=== PATIENT | female | born 1935 | race Caucasian/White ===

== ENCOUNTER 2020-02-10 21:07 | Emergency (ER) | payer MEDICARE, OTHER, SELFPAY ==
--- NOTE | ~2020-02-10 | CT_ITS ---
EXAMINATION: CT cervical spine wo [facility] EXAM DATE: 02/10/2020 23:07 INDICATION: Fall, head injury. TECHNIQUE: Spiral CT of the cervical spine was performed without contrast. Axial images were reviewe d. Coronal and sagittal reformatted images were also reviewed. The dose-length product (DLP) for thi s examination was 239.91 mGy-cm. The exposure was tailored according to patient size (auto mA exposu re control), and iterative reconstruction (ASIR) was used as additional dose reduction technique. ere is no prior study for comparison. FINDINGS: There is no evidence of acute cervical fracture. The odontoid process is intact. Pre-dens space is normal. Prevertebral soft tissue is normal. There are no soft tissue abnormalities identi fied. There is no disc space widening or traumatic vertebral body subluxation suspected. Vertebral body and disc heights are well-maintained. There is advanced disc disease at C6-7. Advanced cervical arthropathy. A detailed level by level evaluation of spondylosis can be added as addendum if requeste d. IMPRESSION: 1. No acute cervical fracture. 2. Cervical spondylosis. Reviewed, dictated and finalized at location G.
--- NOTE | ~2020-02-10 | CT_ITS ---
EXAMINATION: CT brain wo con EXAM DATE: 02/10/2020 23:08 INDICATION: Fall, head injury. TECHNIQUE: Spiral CT of the head was performed without contrast. Axial, coronal and sagittal images were reviewed. The dose-length product (DLP) for this examination was 605.33 mGy-cm. The exposure w as tailored according to patient size, and iterative reconstruction (ASIR) was used as additional dos e reduction technique. There is no prior study for comparison. FINDINGS: There is no acute intraparenchymal hemorrhage. No evidence of intraparenchymal brain mass lesion. No evidence of acute infarction. Please note that initial head CT has limited sensitivity f or small or acute infarctions. Small old right frontal lobe subcortical infarction. There is perive ntricular and subcortical hypodensity, nonspecific but probably related to small vessel ischemic dise ase. There is moderate prominence of the sulci and ventricles related to cerebral atrophy. There is intracranial carotid arteriosclerosis. There are no extra-axial collections. There is no mass ef fect or midline shift. Patient has had bilateral ocular lens surgery. Moderate sized left parietal scalp contusion without underlying fracture in The visualized sinuses and mastoid air cells are well aerated. IMPRESSION: 1. No acute intracranial findings. 2. 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 3. Chronic age related findings. 4. Left parietal scalp contusion. Reviewed, dictated and finalized at location G.
[2020-02-10 21:14] VITALS: BP 156/70; PULSE 59; RESP 16; TEMP 36.8; O2SAT 97
[2020-02-10 23:10] VITALS: BP 134/54; PULSE 56; RESP 15; O2SAT 97
--- NOTE | 2020-02-10 23:10 | PC.NURSE ---
assumed care of patient
--- NOTE | 2020-02-11 02:06 | ED.HEATRA ---
HPI - Head Injury General Chief complaint: Head Injury Stated complaint: fall Time Seen by Provider: 02/11/20 01:25 Source: patient Mode of arrival: EMS Limitations: no limitations History of Present Illness HPI Narrative: This patient is an 84 yo female who presents for evaluation of head injury. PAtient states she tripped and she fell over into her suitcase and she hit her head on chair. Her daughters states she heard patient and she immediately went into room. Patient denies LOC . She denies dizziness or weakness as cause of fall. She denies neck pain. She denies hip, knee, or rib pain. She denies upper extremity from her fall today. She reports she has healed wounds to her arm from a fall 1 week ago. Complaint: head injury Place: home Loss of Consciousness: no Review of Systems Review of Systems: All systems reviewed & are unremarkable except as noted in HPI and below Constitutional: Constitutional: Denies fever(s) and Denies weakness Cardiovascular: Cardiovascular: Denies chest pain and Denies radiating jaw, neck or arm pain Respiratory: Respiratory: Denies cough and Denies dyspnea Gastrointestinal: Gastrointestinal: Denies abdominal pain and Denies nausea PMFSH Past Medical History Medical History (Updated 02/11/20 @ 02:12 by Blanche Diego MD) Depression Hyperlipidemia Hypertension Surgical History Surgical History (Updated 02/11/20 @ 02:11 by Blanche Diego MD) History of cholecystectomy History of hysterectomy Social History Social History (Updated 02/11/20 @ 02:11 by Blanche Diego MD) Smoking status: Never smoker Alcohol intake: former Substance use: never Exam Narrative: Exam Narrative: GENERAL: Well-appearing, well-nourished, and in no acute distress. HEAD: Normocephalic, atraumatic EYES: PERRLA and EOMI, conjunctiva clear without discharge EARS: TM's clear bilaterally without erythema or dullness NOSE: Nares clear, no rhinorrhea or epistaxis THROAT:Mucous membranes moist, Oropharynx normal without erythema, exudate, peritonsillar swelling or fluctuance NECK: Supple, without lymphadenopathy or mass RESPIRATORY: No respiratory distress, Airway patent, Respirations non-labored, Clear to auscultation without rales, rhonchi or wheeze HEART: Regular rate and rhythm. No murmur heard. Normal peripheral pulses. ABDOMEN: Soft, nontender, nondistended, normal active bowel sounds. No masses. No rebound or guarding, No organomegaly. EXTREMITIES: No edema, normal strength with full range of motion. SKIN: Warm, dry, normal color without rash NEURO: Alert and oriented x3. CN 2-12 grossly intact. No focal deficits. PSYCH: Normal mood and affect. Course Vital Signs Vital signs: Vital Signs Temperature 98.3 F 02/10/20 21:14 Pulse Rate 59 L 02/10/20 21:14 Respiratory Rate 16 02/10/20 21:14 Blood Pressure 156/70 H 02/10/20 21:14 Pulse Oximetry 97 02/10/20 21:14 Temperature 98.3 F 02/10/20 21:14 Pulse Rate 60 02/11/20 02:20 Respiratory Rate 16 02/11/20 02:20 Blood Pressure 128/61 02/11/20 02:20 Pulse Oximetry 100 02/11/20 02:20 MDM - Head Injury Imaging Data Radiologist's impression: ITS Impressions Head CT 02/10/20 23:14 IMPRESSION: 1. No acute intracranial findings. 2. 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 3. Chronic age related findings. 4. Left parietal scalp contusion. Cervical Spine CT 02/10/20 23:17 IMPRESSION: 1. No acute cervical fracture. 2. Cervical spondylosis. Discharge Plan Discharge Clinical Impression: Closed head injury Qualifiers: Encounter type: initial encounter Qualified Code(s): S09.90XA - Unspecified injury of head, initial encounter Patient Disposition: Home, Self-Care Condition: Stable Instructions: Antibiotic Form, Fall Prevention for Older Adults (ED), Head Injury (ED) Follow-up/Referrals: PHYSICIAN NOT ON STAFF,NONSTAFF [Mariam
[2020-02-11 02:20] VITALS: BP 128/61; PULSE 60; RESP 16; O2SAT 100
== END 2020-02-11 02:20 | disposition home or self-care (01) ==
PROVIDERS: Emergency Provider General Practice
DX: S00.03XA Contusion of scalp, initial encounter (principal); E78.5 Hyperlipidemia, unspecified; I10 Essential (primary) hypertension; M47.812 Spondylosis without myelopathy or radiculopathy, cervical region; W18.09XA Striking against other object with subsequent fall, initial encounter
CPT/HCPCS: 70450; 72125; 99284; L0140

== ENCOUNTER 2020-10-17 08:46 | Outpatient (CLI) | payer MEDICARE, OTHER, SELFPAY ==
--- NOTE | ~2020-10-17 | US_ITS ---
EXAMINATION: US carotid duplex BI DATE: 10/17/2020 10:19 INDICATION: Amaurosis fugax TECHNIQUE: Grayscale, color Doppler, and pulsed Doppler images of the cervical carotid arteries were obtained. The degree of vessel stenosis is placed in one of the following categories: normal, <50%, 5 0-69%, >=70% but less than near-occlusion, near-occlusion, or total occlusion. Note that percent sten osis relative to normal distal artery lumen diameter is indirectly measured from velocity measurement s as described by Thanh, et al. Radiology 2003; 229:340-346. Notes: Normal: Peak systolic velocity <125 centimeters/sec and no plaque <50%. Peak systolic velocity <125 ( EDV <40; ICA/CCA PSV ratio <2.0; used these factors only a tandem lesions or low cardiac output or co ntralateral disease) 50-69 %: PSV 125-230 (EDV 40-100; ratio 2-4) >= 70% but less than near occlusion: PSV greater than 230 (EDV > 100; ratio> 4.0) Near Occlusion: PSV that is variable; markedly narrowed lumen Occlusion: Absent flow on color/spectral Doppler and no lumen on aguilar scale. COMPARISON: None. FINDINGS: RIGHT: The right common carotid artery (CCA) peak systolic velocity (PSV) is 78 cm/s. The right internal car otid artery (ICA) PSV is 72 cm/s. The right ICA end-diastolic velocity (EDV) is 16 cm/s. The right IC A/CCA PSV ratio is 0.9. The external carotid artery (ECA) PSV is 75 cm/s. There is antegrade flow in the right vertebral artery. LEFT: The left CCA PSV is 77 cm/s. The left ICA PSV is 74 cm/s. The left ICA EDV is 14 cm/s. The left ICA/C CA PSV ratio is 1.0. The ECA PSV is 83 cm/s. There is antegrade flow in the left vertebral artery. IMPRESSION: 1. Less than 50% stenosis in the right internal carotid artery by sonographic criteria. 2. Less than 50% stenosis in the left internal carotid artery by sonographic criteria. Reviewed, dictated and finalized at location A. R PRESS OPERATOR IMPRESSION: 1. Less than 50% stenosis in the right internal carotid artery by sonographic urvashi [place]. 2. Less than 50% stenosis in the left internal carotid artery by sonographic geovanna aguilar.
--- NOTE | ~2020-10-17 | MR_ITS ---
EXAMINATION: MR brain/brain stem wo con DATE: 10/17/2020 09:55 INDICATION: Posterior cerebral artery syndrome. Left-sided amaurosis fugax. Loss of coordination. TECHNIQUE: Magnetic resonance imaging (MRI) of the brain and brainstem was performed without intraven ous contrast. Sequences included sagittal and axial T1-weighted SE, axial diffusion-weighted FS SE, a xial T2*-weighted GRE, axial T2-weighted FLAIR, and axial T2-weighted FSE. Apparent diffusion coeffic ient (ADC) maps were created. COMPARISON: None. FINDINGS: A few prominent perivascular spaces in the bilateral frontal lobe white matter with slightly larger C SF attenuation lesion represent an additional prominent perivascular space or small old lacunar infar ct in the anterior right frontal lobe white matter. There are no areas of restricted diffusion to sug gest acute infarction. No intracranial hemorrhage or abnormal intracranial mass lesion. There are sca ttered areas of nonspecific increased T2-weighted signal intensity in the cerebral white matter, pred ominantly involving the deep and periventricular white matter. There are no intraparenchymal signal a bnormalities seen on the other pulse sequences. Symmetric prominence of the sulci consistent with mil d age-appropriate diffuse cerebral volume loss. The ventricles are symmetric and normal in size. The re are no abnormal extra-axial fluid collections. Flow voids are seen in the cerebral arteries on the T2-weighted sequences consistent with their expected patency. Changes of bilateral intraocular lens replacement. Visualized orbits and soft tissues are unremarkable. Mild mucosal thickening the bilater al ethmoid sinuses. IMPRESSION: 1. No acute intracranial process. 2. Small old lacunar infarct versus slightly more prominent prominent perivascular space in the anter ior right frontal lobe white matter. 3. Age-related changes including mild diffuse volume loss and mild nonspecific periventricular predom inant white matter T2 hyperintensity consistent with chronic small vessel ischemic disease. Reviewed, dictated and finalized at location A. ONENTS ENGINEER IMPRESSION: 1. No acute intracranial process. 2. Small old lacunar infarct versus slightly more prominent prominent perivascu lar space in the anterior right frontal lobe white matter. 3. Age-related changes including mild diffuse volume loss and mild nonspecific periventricular predominant white matter T2 hyperintensity consistent with perfume and toilet water maker kassy small vessel ischemic disease.
== END 2020-10-17 08:47 | disposition home or self-care (01) ==
DX: G45.3 Amaurosis fugax (principal); R93.89 Abnormal findings on diagnostic imaging of other specified body structures; I65.23 Occlusion and stenosis of bilateral carotid arteries
CPT/HCPCS: 70551; 93880

== ENCOUNTER 2021-05-26 14:20 | Emergency (ER) | payer MEDICARE, OTHER, SELFPAY ==
--- NOTE | ~2021-05-26 | US_ITS ---
EXAMINATION: US venous doppler LE RT DATE: 05/26/2021 14:50 INDICATION: Right calf pain. TECHNIQUE: Grayscale ultrasound images without and with compression and Doppler ultrasound images of the right lower extremity veins were obtained. COMPARISON: None. FINDINGS: The visualized portions of right common femoral vein, profunda (deep) femoral vein, femoral vein, pop liteal vein, peroneal veins, posterior tibial veins, and greater saphenous vein outflow are patent. IMPRESSION: 1. No deep venous thrombosis. Reviewed, dictated and finalized at location A.
[2021-05-26 15:07] VITALS: BP 132/57; PULSE 80; RESP 20; TEMP 37.6; O2SAT 99
[2021-05-26 15:34] LABS: Basophils Percent Auto 0.3 % (0.2-1.2); Eosinophils Absolute Auto 0.1 K/mm3 (0-0.3); Hematocrit 44.7 % (37.0-47.0); Hemoglobin 14.7 g/dL (12.0-15.0); Immature Granulocyte Absolute 0.16 K/mm3 (0.00-0.031); Immature Granulocyte Percent A 2.7 % (0-0.5); Immature Platelet Fraction Pct 1.8 % (0.9-11.2); Lymphocytes Absolute Auto 2.21 K/mm3 (0.9-3.2); Lymphocytes Percent Auto 37.5 % (18.3-44.2); Mean Corpuscular HGB Conc 32.9 g/dl (32-36); Mean Corpuscular Hemoglobin 30.8 pg (26-34); Mean Corpuscular Volume 93.5 fl (80-100); Mean Platelet Volume 9.4 fl (7.4-10.4); Monocytes Absolute Auto 1.4 K/mm3 (0.1-0.6); Monocytes Percent Auto 23.3 % (2.6-8.5); Neutrophils Absolute Auto 2.1 K/mm3 (1.3-6.7); Neutrophils Percent Auto 35.2 % (45.5-73.1); Platelet Count Result 115 k/mm3 (150-375); Red Blood Count 4.78 M/mm3 (4.2-5.4); White Blood Count 5.9 K/mm3 (4.5-10.0)
[2021-05-26 15:44] LABS: Prothrombin Time 13.5 Seconds (11.1-14.7)
[2021-05-26 15:45] LABS: Partial Thromboplastin Time 32.7 SECONDS (22.3-36.8)
[2021-05-26 15:56] LABS: Anion Gap 6 mmol/L (8-16); Blood Urea Nitrogen 10 mg/dL (7-17); CRP < 0.5 mg/dL (<1.0); Calcium 9.2 mg/dL (8.4-10.2); Carbon Dioxide 26 mmol/L (22-30); Chloride 106 mmol/L (98-107); Estimated CRCL calculation 55 ml/min; Estimated Glomerular Filt Rate > 60; Glucose 95 mg/dL (65-110); Sodium 138 mmol/L (137-145)
[2021-05-26 17:09] VITALS: BP 139/69; PULSE 56; RESP 18; TEMP 37.4; O2SAT 96
[2021-05-26 20:00] VITALS: BP 139/71; PULSE 59; RESP 15; O2SAT 100
--- NOTE | 2021-05-26 20:00 | ED.LOWEXIN ---
HPI - Extremity Injury (Lower) General Chief Complaint: Extremity Injury, Lower Stated Complaint: R LEG SWELLING, SENT TO R/O DVT Time Seen by Provider: 05/26/21 19:53 Source: patient and family Mode of arrival: ambulatory Limitations: dementia History of Present Illness HPI Narrative: Patient is an 85 yo female with a history of dementia and acid reflux who presents for evaluation of right lower extremity cramping pain. Patient states that swelling began 2 days ago. No known recent fall or injury although patient has dementia and is unable to provide much history. Her daughter states the leg appears bruised and somewhat yellow as if she hit the leg on something. The daughter does not know of any recent falls or injuries. Currently, the patient denies fever or chills. No weakness or numbness. No pain with ambulation. The patient has been ambulatory with use of a cane. She denies chest pain or dyspnea. No redness of the leg. No history of coagulopathy or DVT. Related Data Home Medications Medication Instructions Recorded Confirmed aspirin 325 mg PO DAILY 05/26/21 citalopram mg 05/26/21 ergocalciferol (vitamin D2) 1,000 unit PO DAILY 05/26/21 memantine mg 05/26/21 montelukast mg 05/26/21 pantoprazole PO 05/26/21 psyllium husk [Metamucil] 1.2 g PO DAILY 05/26/21 05/26/21 rosuvastatin mg 05/26/21 Allergies Allergy/AdvReac Type Severity Reaction Status Date / Time Iodinated Contrast Media Allergy Unknown Verified 05/26/21 14:25 Sulfa (Sulfonamide Allergy Unknown Verified 05/26/21 14:24 Antibiotics) sertraline [From Zoloft] AdvReac Nausea and Verified 05/26/21 14:26 Vomiting Review of Systems Review of Systems: CONSTITUTIONAL: Denies fever, chills, or sweats. CARDIOVASCULAR: Denies chest pain, palpitations, reports right lower leg edema RESPIRATORY: Denies cough or dyspnea. GASTROINTESTINAL: Denies abdominal pain, nausea, vomiting, or diarrhea. GENITOURINARY: Denies dysuria or hematuria. SKIN: Denies rash or itching. Reports bruising to right lower leg. MUSCULOSKELETAL: Denies back pain, joint pain, reports mild right calf pain NEUROLOGIC: Denies headache, numbness, or weakness. [facility] Past Medical History Medical History Depression Hyperlipidemia Hypertension Surgical History Surgical History History of cholecystectomy History of hysterectomy Social History Social History Smoking status: Never smoker Alcohol intake: former Substance use: never Gender identity (if verbalized by the patient): Female Exam Narrative: GENERAL: Awake, alert, conversant HEAD: Normocephalic, atraumatic. EYES: PERRLA and EOMI. ENT: Nares clear, no rhinorrhea or epistaxis. Mucous membranes moist. NECK: Supple. CHEST: No respiratory distress, breathing even and non labored HEART: Regular rate, sinus rhythm ABDOMEN:Non distended, non tender EXTREMITIES: Normal range of motion. + 1 Pitting edema, right lower extremity to mid thibodeaux. There is old ecchymoses of the right lower extremity, yellow in coloration. Calf is non tender one exam. No erythema. Posterior tibialis pulse is 2+. Intact distal sensation. SKIN: Warm, dry, no rash. NEURO:No focal deficits. Alert and oriented x2, baseline per family Course Vital Signs Vital signs: Vital Signs Temperature 37.6 C 05/26/21 15:07 Pulse Rate 80 05/26/21 15:07 Respiratory Rate 20 05/26/21 15:07 Blood Pressure 132/57 L 05/26/21 15:07 Pulse Oximetry 99 05/26/21 15:07 Temperature 37.4 C 05/26/21 17:09 Pulse Rate 59 L 05/26/21 20:52 Respiratory Rate 17 05/26/21 20:52 Blood Pressure 144/68 H 05/26/21 20:52 Pulse Oximetry 97 05/26/21 20:52 MDM - Extremity Injury (Lower) MDM Narrative Medical decision making narrative: Patient presenting for evaluation of right lowe
[2021-05-26 20:52] VITALS: BP 144/68; PULSE 59; RESP 17; O2SAT 97
== END 2021-05-26 20:49 | disposition home or self-care (01) ==
PROVIDERS: Emergency Medicine; Emergency Provider Emergency Medicine
DX: R60.0 Localized edema (principal); F32.9 Major depressive disorder, single episode, unspecified; E78.5 Hyperlipidemia, unspecified; I10 Essential (primary) hypertension
CPT/HCPCS: 36415; 80048; 85025; 85055; 85610; 85730; 86140; 93971; 99284

== ENCOUNTER 2022-08-21 16:48 | Observation (INO) | payer MEDICARE, OTHER, SELFPAY ==
[2022-08-21] VITALS (16 sets, daily range): BP systolic 125–144; BP diastolic 52–67; PULSE 57–63; RESP 13–21; TEMP 36.9–37.6; O2SAT 95–98; BMI 26.4
--- NOTE | ~2022-08-21 | XR_ITS ---
EXAMINATION: XR chest 1V portable Exam Date/Time: 08/21/2022 17:14 WEEKEND ANCHOR HISTORY: stroke symptoms Comparison: None available. RESULT: Lines, tubes, and devices: None. Lungs and pleura: Left basilar atelectasis. No focal consolidation or pneumothorax. Cardiomediastinal silhouette: Unremarkable. Other: No acute osseous or upper abdominal finding. IMPRESSION: No acute cardiopulmonary process. Reviewed, dictated and finalized at location K. END ANCHOR
--- NOTE | ~2022-08-21 | CT_ITS ---
EXAMINATION: CT brain wo con DATE: 08/21/2022 17:08 INDICATION: stroke symptoms, APHASIA, SLURRED SPEECH, CONFUSION . TECHNIQUE: Computed tomography (CT) of the head was performed without intravenous contrast. The mA wa s adjusted according to patient size. Iterative reconstruction technique was employed. The dose-lengt h product was 605.33 mGy-cm. COMPARISON: 02/10/2020 FINDINGS: No acute intracranial hemorrhage or extra-axial fluid collection. No hydrocephalus, mass, or herniation. No acute ischemic infarct. Unremarkable dural venous sinus attenuation. No acute osseous abnormality. Right mastoid effusion, the remaining aerated spaces are clear. Moderate atrophy and chronic white matter change. Atherosclerotic intracranial calcification. Bilater al lens replacements. Old small right frontal subcortical infarction. IMPRESSION: No acute intracranial process. Results reported telephonically to Dr. Sandoval by Dr. Oliva at 5:17 PM on 08/21/2022. Reviewed, dictated and finalized at location K. TECHNOLOGIST IMPRESSION: No acute intracranial process. Results reported telephonically to Dr. Sandoval by Dr. Oliva at 5:17 PM on .
--- NOTE | ~2022-08-21 | US_ITS ---
EXAMINATION: US carotid duplex BI DATE: 08/22/2022 10:13 INDICATION: Speech deficit. Cerebral vascular accident. TECHNIQUE: Grayscale, color Doppler, and pulsed Doppler images of the cervical carotid arteries were obtained. The degree of vessel stenosis is placed in one of the following categories: normal, <50%, 5 0-69%, >=70% but less than near-occlusion, near-occlusion, or total occlusion. Note that percent sten osis relative to normal distal artery lumen diameter is indirectly measured from velocity measurement s as described by Thanh, et al. Radiology 2003; 229:340-346. COMPARISON: Ultrasound 10/17/2021 FINDINGS: RIGHT: The right common carotid artery (CCA) peak systolic velocity (PSV) is 98 cm/s. The right internal car otid artery (ICA) PSV is 45 cm/s. The right ICA end-diastolic velocity (EDV) is 9 cm/s. The right ICA /CCA PSV ratio is 0.5. Grayscale and color Doppler images yield an estimate of <50% diameter reductio n from plaque in the ICA. There is antegrade flow in the right vertebral artery. LEFT: The left CCA PSV is 115 cm/s. The left ICA PSV is 76 cm/s. The left ICA EDV is 24 cm/s. The left ICA/ CCA PSV ratio is 0.7. Grayscale and color Doppler images yield an estimate of <50% diameter reduction from plaque in the ICA. There is antegrade flow in the left vertebral artery. IMPRESSION: 1. <50% stenosis in the right internal carotid artery. 2. <50% stenosis in the left internal carotid artery. Reviewed, dictated and finalized at location A. ILES LAB TECHNICIAN
--- NOTE | ~2022-08-21 | MR_ITS ---
EXAMINATION: MRA brain wo con DATE: 08/22/2022 09:34 INDICATION: Speech deficit. Weakness. TECHNIQUE: Magnetic resonance angiography (MRA) of the brain was performed without intravenous contra st with T1-weighted SPGR by the 3D [id number] technique. Maximum intensity projection 3D-reconstr uctions were obtained. COMPARISON: Brain MRI 08/22/2022 FINDINGS: The vertebral arteries are codominant. There is no significant stenosis of basilar artery or the post erior cerebral arteries. The posterior communicating arteries are normal. There is no significant naina nosis of the intracranial internal carotid arteries or anterior or middle cerebral arteries. Anterior communicating artery is normal. There is no aneurysm. IMPRESSION: 1. No aneurysm or significant intracranial arterial stenosis. Reviewed, dictated and finalized at location A. MILL ROLLER
--- NOTE | ~2022-08-21 | MR_ITS ---
EXAMINATION: MR brain/brain stem wo/w con DATE: 08/22/2022 09:36 INDICATION: Speech deficit. Weakness. TECHNIQUE: Magnetic resonance imaging (MRI) of the brain and brainstem was performed without and with 14 mL MultiHance intravenous contrast. COMPARISON: Brain MRI 10/17/2020, head CT 08/21/2022 FINDINGS: There are scattered areas of nonspecific increased T2-weighted signal intensity in the cere bral white matter, which is within normal limits for the patient's age. There is no intracranial hemo rrhage, acute infarction, or abnormal intracranial mass lesion. The ventricles are normal in size. Th ere are likely changes of ocular lens replacement surgeries. There is a right mastoid effusion. There is mild mucosal thickening in the ethmoid sinuses. IMPRESSION: 1. Normal aging brain. Reviewed, dictated and finalized at location A. MENT PROCESSING SPECIALIST IMPRESSION: 1. Normal aging brain.
--- NOTE | 2022-08-21 16:59 | ECG_ITS ---
Measurements Intervals [place] Rate: 58 P: 71 NE: 185 QRS: -19 QRSD: 92 T: 84 QT: 426 QTc: 419 Interpretive Statements SINUS BRADYCARDIA LOW QRS VOLTAGE IN PRECORDIAL LEADS CANNOT RULE OUT SEPTAL INFARCT, AGE INDETERMINATE BORDERLINE ST-T WAVE ABNORMALITY- ANTEROLAT/HIGH LAT LEADS ABNORMAL ECG NO PREVIOUS ECG AVAILABLE FOR COMPARISON Electronically Signed On 08-22-2022 6:39:52 COMPANY DOCTOR by Roel Her D.O.
[2022-08-21 17:19] LABS: Hematocrit 46.9 % (37.0-47.0); Hemoglobin 15.4 g/dL (12.0-15.0); Immature Platelet Fraction Pct 2.4 % (0.9-11.2); Mean Corpuscular HGB Conc 32.8 g/dl (32-36); Mean Corpuscular Hemoglobin 30.6 pg (26-34); Mean Corpuscular Volume 93.1 fl (80-100); Mean Platelet Volume 8.9 fl (7.4-10.4); Platelet Count Result 118 k/mm3 (150-375); Red Blood Count 5.04 M/mm3 (4.2-5.4); Red Cell Distribution Width 13.9 % (11.5-14.5); White Blood Count 9.2 K/mm3 (4.5-10.0)
[2022-08-21 17:26] LABS: INR 1.2; Prothrombin Time 14.6 Seconds (11.1-14.7)
[2022-08-21 17:26] LABS: Glucose Point of Care 120 mg/dl (65-105)
[2022-08-21 17:27] LABS: Alanine Aminotransferase 19 U/L (6-35); Albumin Level 4.5 g/dL (3.5-5.1); Alkaline Phosphatase 72 U/L (38-126); Anion Gap 12 mmol/L (8-16); Aspartate Amino Transferase 27 U/L (14-36); Blood Urea Nitrogen 11 mg/dL (7-17); Calcium 9.3 mg/dL (8.4-10.2); Carbon Dioxide 23 mmol/L (22-30); Chloride 107 mmol/L (98-107); Estimated CRCL calculation 49 ml/min; Estimated Glomerular Filt Rate > 60; Glucose 116 mg/dL (65-110); Partial Thromboplastin Time 34.8 SECONDS (22.3-36.8); Potassium 3.7 mmol/L (3.4-5.0); Sodium 142 mmol/L (137-145)
[2022-08-21 17:34] LABS: Eosinophils Absolute Manual 0.09 K/mm3 (0.02-0.5); Eosinophils Percent Manual 1 % (0-4); Lymphocytes Absolute Manual 3.77 K/mm3 (1.1-4.5); Lymphocytes Percent Manual 41 % (18-44); Monocytes Percent Manual 25 % (3-9); Neutrophils Percent Manual 33 % (46-73); Total Cells Counted 100
[2022-08-21 17:35] LABS: Platelet Estimate Decreased (Adequate); Schistocytes None Seen (NORMAL)
[2022-08-21 17:38] LABS: Troponin I < 0.012 ng/mL (0.000-0.034)
--- NOTE | 2022-08-21 18:28 | ED.NEUROSD ---
HPI - Neuro Symptoms/Deficit General Chief Complaint: Suspected CVA Stated Complaint: altered mental status, slurred speech Time Seen by Provider: 08/21/22 17:20 History of Present Illness HPI Narrative: 87-year-old female with past medical history of TIA presents via EMS along with her daughter. Daughter states that while they were eating dinner approximately 45 minutes prior to arrival her mother suddenly became confused and seem to have difficulty finding her words. When they walked outside to the car the mother had difficulty walking and seem to be falling into the car next to theirs. Symptoms seem to have improved upon arrival. Patient has no further history to contribute and does not show any focal weakness although she does seem to have mild dysarthria upon arrival. Code stroke activated upon arrival to the emergency department. Related Data Home Medications Medication Instructions Recorded Confirmed aspirin 325 mg tablet (Vicki 325 mg PO DAILY 05/26/21 08/21/22 Aspirin) citalopram 40 mg tablet (Celexa) 40 mg PO DAILY 05/26/21 08/21/22 ergocalciferol (vitamin D2) 1,000 1,000 unit PO DAILY 05/26/21 08/21/22 unit capsule memantine 10 mg tablet (Namenda) 10 mg PO BID 05/26/21 08/21/22 montelukast 10 mg tablet 10 mg PO HS 05/26/21 08/21/22 (Singulair) pantoprazole 40 mg tablet,delayed 40 mg PO DAILY 05/26/21 08/21/22 release (Protonix) psyllium husk 0.4 gram capsule 1.2 g PO DAILY 05/26/21 08/21/22 (Metamucil) rosuvastatin 5 mg tablet (Crestor) 5 mg PO DAILY 05/26/21 08/21/22 donepezil 10 mg tablet (Aricept) 10 mg PO BID 08/21/22 08/21/22 mirtazapine 15 mg tablet (Remeron) 15 mg PO DAILY 08/21/22 08/21/22 Allergies Allergy/AdvReac Type Severity Reaction Status Date / Time Iodinated Contrast Media Allergy Unknown Verified 05/26/21 14:25 Sulfa (Sulfonamide Allergy Unknown Verified 05/26/21 14:24 Antibiotics) sertraline [From Zoloft] AdvReac Nausea and Verified 05/26/21 14:26 Vomiting Review of Systems Review of Systems: CONSTITUTIONAL: Denies fever, chills, or sweats. EYES: Denies visual changes, redness, or discharge. ENT: Denies rhinorrhea, congestion, sore throat, or otalgia. CARDIOVASCULAR: Denies chest pain, palpitations, or edema. RESPIRATORY: Denies cough or dyspnea. GASTROINTESTINAL: Denies abdominal pain, nausea, vomiting, or diarrhea. GENITOURINARY: Denies dysuria or hematuria. SKIN: Denies rash or itching. MUSCULOSKELETAL: Denies back pain, joint pain, or myalgia. NEUROLOGIC: Denies headache, numbness, or weakness. PSYCHIATRIC: Denies anxiety or depression. 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 She is . The patient occasionally drinks an alcoholic beverage. The patient did have an alcoholic beverage today at the restaurant. She has 5 children . Her poa is the daughter and son. She is retired Code status dnr Smoking status: Never smoker Alcohol intake: former Drinks per week: 2 Substance use: never Lack of Transportation: No Lack of Food: Never True Current Housing: I Have Housing Concerned About Future Housing: No Difficulty Paying Gas/Electric Bills: No Difficulty Paying for Meds: No Currentl
[2022-08-21 18:53] LABS: Influenza A QL RT-PCR Negative (Negative); Influenza B QL RT-PCR Negative (Negative); RSV RNA, RT-PCR Negative (Negative); SARS-CoV-2 RNA PCR Negative
--- NOTE | 2022-08-21 19:27 | PC.NURSE ---
Patient care report called to BESSY Grace, All questions answered at this time.
--- NOTE | 2022-08-21 20:00 | ADMGEN ---
This patient, Jany Luna, was admitted to Medical Room 245-. Patient/family oriented to hospital policies and general routines including ID bracelet, bed and alarms, visiting hours, pain management, procedures, bathroom and other care routines, personal items, smoking policy, room service/diet, and visiting hours. Information on how to activate the Rapid Response Team has been discussed. Patient/Family are encouraged to report perceived risks to care and to ask questions if they do not understand what they are told or what they should do.
--- NOTE | 2022-08-21 20:08 | PM.IMHP ---
H&P: HPI History of Present Illness Date/Time: 08/21/22 20:08 Chief Complaint: Suspected CVA Narrative: This is a 87-year-old female patient who has had a history of CVAs and dementia. The patient was out to dinner with her daughter marisa rendon. The patient stated that she only had 1 Hannah and was a small patricia Louisa. However approximately 45 minutes prior to arrival to the emergency room the patient suddenly became confused and was having difficulty walking and talking. According to the daughter this was not her normal self. The patient does have some difficulties with dementia but this was a different type of confusion. The patient's daughter stated that the patient put food in her mouth and acted like she did know what to do with it. Upon arrival her symptoms were resolving. Patient is now able to speak in full sentences and move all extremities. Chest x-ray was read as no acute cardiopulmonary disease. Head CT was read as no acute intracranial process. The patient is already on a aspirin. The patient was negative for influenza a B RSV and COVID. The patient is being admitted to observation status on the date of service of 08/21/2022. Review of Systems Review of Systems: See HPI All systems reviewed & are unremarkable except as noted in HPI and below Constitutional: Constitutional: Reports as per HPI and Reports no additional constitutional complaints Eyes: Eyes: Reports as per HPI and Reports no additional eye complaints ENT: Reports system reviewed and no additional complaints, except as documented and Reports Normal hearing present Cardiovascular: Cardiovascular: Reports no additional cardiovascular complaints Respiratory: Respiratory: Reports no additional respiratory complaints and Reports no additional respiratory complaints Gastrointestinal: Gastrointestinal: Reports as per HPI and Reports no additional gastrointestinal complaints Musculoskeletal: Musculoskeletal: Reports no additional musculoskeletal complaints Integumentary/Breasts: Skin/Breast: Reports system reviewed and no additional complaints, except as docu and Reports as per HPI Neurologic: Reports system reviewed and no additional complaints, except as documented, Reports as per HPI and Reports Normal hearing present Psychiatric: Psychiatric: Reports no additional psychiatric complaints and Reports as per HPI Endocrine: Endocrine: Reports no additional endocrine complaints Hematologic/Lymphatic: Hematologic/Lymphatic: Reports no additional hematologic/lymphatic complaints Allergic/Immunologic: Allergic/Immunologic: Reports no additional allergic/immunologic complaints [facility] Past Medical History Medical History Basal cell carcinoma Dementia Depression History of CVA (cerebrovascular accident) Hyperlipidemia Hypertension Melanoma Squamous cell cancer of skin of forearm Surgical History Surgical History History of back surgery History of cataract extraction History of cholecystectomy History of hysterectomy History of removal of pigmented skin lesion Family History Family History Mother Alzheimer disease Sibling Heart disease Alzheimer disease Social History Social History (Updated 08/21/22 @ 20:17 by Shweta Martinez NP) Social History: The patient lives with her daughter. She is . The patient occasionally drinks an alcoholic beverage. The patient did have an alcoholic beverage today at the restaurant. She has 5 children . Her poa is the daughter and son. She is retired Code status dnr Smoking status: Never smoker Alcohol intake: former Drinks per week: 2 Substance use: never Lack of Transportation: No Lack of Food: Never True Current Housing: I Have Housing Concerned About Future Housing: No Difficulty Paying Gas/Electric Bi
[2022-08-21 21:02] LABS: Appearance Urine Slightly Cloudy (Clear); Bilirubin Urine Negative (Negative); Blood Urine 2+ (Negative); Color Urine Yellow (Yellow); Glucose Urine UA Negative (Negative); Ketones Urine Negative (Negative); Leukocyte Esterase Ur 2+ LEU/UL (Negative); Nitrate Urine Positive (Negative); Protein Urine Trace mg/dL (Negative)
[2022-08-21 21:05] LABS: Troponin I < 0.012 ng/mL (0.000-0.034)
[2022-08-21 21:08] LABS: Bacteria Urine Trace /hpf; Mucus Urine Rare /lpf; RBC Urine 21-50 /hpf (0-2); Squamous Epithelial Cell Urine Many /hpf (Few)
[2022-08-21 21:09] LABS: Add Urine Microscopic? YES
[2022-08-21] MEDS: MIRTAZAPINE 15 MG TABLET PO (21:50)
[2022-08-21] MEDS: DONEPEZIL HCL 10 MG TABLET PO (21:50)
[2022-08-21] MEDS: MONTELUKAST SODIUM 10 MG TABLET PO (21:50)
[2022-08-21] MEDS: MEMANTINE 10 MG TABLET PO (21:50)
[2022-08-22] VITALS (12 sets, daily range): BP systolic 122–144; BP diastolic 51–61; PULSE 52–65; RESP 16–18; TEMP 36.6–37.2; O2SAT 94–98
--- NOTE | 2022-08-22 | ECHO_ITS ---
Patient Info Name: Jany Luna Age: 87 years : 1935 Gender: Female Ht: 67 in Wt: 169 lbs BSA: 1.92 m2 HR: 68 bpm BP: 144 / 53 mmHg Heart Rhythm: Sinus Rhythm Technical Quality: Good Exam Date: 08/22/2022 1:11 PM Exam Location: [facility] Patient Status: Outpatient Admit Date: 08/21/2022 Staff Ordering Physician: Shweta Martinez NP Pharmacy Account Director: Bushra Monzon RDCS Attending Provider: Jacob Jalloh MD Referring Physician: Michelle HAMMER; Exam Type: CA echo doppler color flow Study Info Indications - CVA Complete two-dimensional, color flow and Doppler transthoracic echocardiogram is performed. Summary 1. Complete two-dimensional, color flow and Doppler transthoracic echocardiogram is performed. 2. Left ventricular systolic function is normal, estimated at 65-70%. 3. There is mildly increased left ventricular wall thickness. 4. The left ventricular diastolic function is grade I diastolic dysfunction. 5. Right ventricular systolic function is normal. 6. There is mild to moderate tricuspid valve regurgitation. Left Ventricle Left ventricular chamber dimension is normal. Left ventricular systolic function is normal, estimated at 65-70%. There is mildly increased left ventricular wall thickness. The left ventricular diastolic function is grade I diastolic dysfunction. Global longitudinal strain is -18 %. Right Ventricle Right ventricular chamber dimension is normal. Right ventricular systolic function is normal. Left Atria Left atrial chamber dimension is normal. Right Atria Right atrial chamber dimension is normal. Atrial Septum Intact interatrial septum visualized by color flow imaging. Aortic Valve The aortic valve is trileaflet. There is no aortic valve stenosis. There is no aortic valve regurgitation. Pulmonic Valve The pulmonic valve is not well visualized. Mitral Valve The mitral valve has normal leaflets. There is no mitral valve stenosis. There is trace mitral valve regurgitation. Tricuspid Valve The tricuspid valve leaflets are normal. There is no significant tricuspid valve stenosis. There is mild to moderate tricuspid valve regurgitation. Pericardium/Pleural There is no pericardial effusion. Inferior Vena Cava Normal inferior vena cava with >50% collapse upon inspiration consistent with normal right atrial pressure, 3 mmHg. Aorta The aortic root size at the sinus of Valsalva is normal. Left Ventricular Outflow Tract Name Value Normal LVOT 2D LVOT Diameter 2.0 cm LVOT Doppler LVOT Peak Gradient 6 mmHg LVOT Mean Gradient 4 mmHg LVOT VTI 28 cm LVOT VTI/AV VTI Ratio 1.0 LVOT Stroke Volume 87 ml LVOT CO 5.0 l/min LVOT CI 2.6 l/min/m2 Pulmonic Valve Name Value Normal
[2022-08-22] MEDS: cefTRIAXone 1 GM in SODIUM CHLORIDE 0.9% IV 100 ML 200 ML IVPB (01:52)
[2022-08-22 05:34] LABS: Hematocrit 41.9 % (37.0-47.0); Immature Platelet Fraction Pct 2.5 % (0.9-11.2); Mean Corpuscular HGB Conc 33.4 g/dl (32-36); Mean Corpuscular Volume 89.9 fl (80-100); Mean Platelet Volume 9.4 fl (7.4-10.4); Platelet Count Result 104 k/mm3 (150-375); Red Blood Count 4.66 M/mm3 (4.2-5.4); Red Cell Distribution Width 13.8 % (11.5-14.5)
[2022-08-22 05:39] LABS: Lactic Acid Reflex 1.3 mmol/L (0.7-2.0)
[2022-08-22 05:41] LABS: Alanine Aminotransferase 18 U/L (6-35); Albumin Level 3.5 g/dL (3.5-5.1); Alkaline Phosphatase 62 U/L (38-126); Anion Gap 7 mmol/L (8-16); Aspartate Amino Transferase 25 U/L (14-36); Bilirubin,Total 1.1 mg/dL (0.2-1.3); Blood Urea Nitrogen 12 mg/dL (7-17); Calcium 8.7 mg/dL (8.4-10.2); Carbon Dioxide 25 mmol/L (22-30); Chloride 106 mmol/L (98-107); Estimated CRCL calculation 57 ml/min; Estimated Glomerular Filt Rate > 60; Glucose 103 mg/dL (65-110); Magnesium 1.9 mg/dL (1.6-2.3); Potassium 3.5 mmol/L (3.4-5.0); Sodium 138 mmol/L (137-145)
[2022-08-22 05:57] LABS: Atypical Lymphocytes Present; Band Neutrophils Percent 2 % (0-6); Lymphocytes Absolute Manual 2.32 K/mm3 (1.1-4.5); Monocytes Percent Manual 25 % (3-9); Neutrophils Absolute Manual 3.68 K/mm3 (1.7-7.2); Neutrophils Percent Manual 44 % (46-73); Total Cells Counted 100
[2022-08-22 06:31] LABS: Thyroid Stimulating Hormone Reflex 0.108 uIU/mL (0.465-4.68)
--- NOTE | 2022-08-22 08:06 | WPDNEURCNPN ---
Assessment and Plan Assessment and plan (1) Altered mental state: Code(s): R41.82 - Altered mental status, unspecified Status: Acute (2) UTI (urinary tract infection): Code(s): N39.0 - Urinary tract infection, site not specified Status: Acute (3) TIA (transient ischemic attack): Code(s): G45.9 - Transient cerebral ischemic attack, unspecified Status: Acute (4) Dementia: Code(s): F03.90 - Unspecified dementia, unspecified severity, without behavioral disturbance, psychotic disturbance, mood disturbance, and anxiety Status: Acute Plan Jany Luna is a 87 year old female with a history of dementia and prior stroke presenting for evaluation of confusion, speech deficit and difficulty walking that has since mostly resolved. Concern initially for stroke vs TIA but neuroimaging has come back negative. She does have a UTI which could have been the cause of confusion. - Patient being treated with antibiotics for UTI - Surface echo with bubble study pending - Continue Aspirin - OK to discharge once work-up is complete Consult date: 08/22/22 Time Seen: 08:06 Reason for consult: TIA vs stroke HPI: Jany Luna is a 87 year old female with a history of dementia and prior stroke presenting for evaluation of confusion, speech deficit and difficulty walking. on 08/21, which patient was out eating dinner with her daughter she developed sudden onset confusion. She was eating and putting food in her mouth but reportedly didn't know what to do with it. There were also reports of word finding difficulties, and having difficulty while walking to the car. Around 45 minutes later patient was taken to [facility] ED where she was mostly back to baseline by that time, except for some mild dysarthria. Her BP was in 120s-130s systolic. EKG showed sinus bradycardia. Her CT head was negative for acute process. Vessel imaging was not obtained. She does take daily Aspirin and Rosuvastatin, as well as Memantine and Aricept. No recent LDL and HgbA1c from today are within normal range. She was found to have a UTI for which she is being treated. MRI and MRA brain this morning were negative. Carotid doppler study showed < 50% stenosis bilaterally as well. Review of Systems Constitutional: Constitutional: Reports as per HPI and Reports no additional constitutional complaints Eyes: Eyes: Reports no additional eye complaints ENT: Comments: chronic hearing loss Cardiovascular: Cardiovascular: Reports no additional cardiovascular complaints Respiratory: Respiratory: Reports no additional respiratory complaints Gastrointestinal: Gastrointestinal: Reports no additional gastrointestinal complaints Genitourinary: Genitourinary: Reports nocturia Comments: last week had frequent urination Musculoskeletal: Musculoskeletal: Reports no additional musculoskeletal complaints Integumentary/Breasts: Skin/Breast: Reports system reviewed and no additional complaints, except as docu Neurologic: Reports as per HPI Psychiatric: Psychiatric: Reports no additional psychiatric complaints PMFSH Past Medical History Medical History Basal cell carcinoma Dementia Depression History of CVA (cerebrovascular accident) Hyperlipidemia Hypertension Melanoma Squamous cell cancer of skin of forearm Surgical History Surgical History History of back surgery History of cataract extraction History of cholecystectomy History of hysterectomy History of removal of pigmented skin lesion Family History Family History Mother Alzheimer disease Sibling Heart disease Alzheimer disease Social History Social History Social History: The patient lives with her daughter. She is . The patient occasionally drinks an a
[2022-08-22 08:27] LABS: Cholesterol 127 mg/dL (0-200); HDL Direct 50 mg/dL; Triglycerides 83 mg/dL (<150)
[2022-08-22] MEDS: DONEPEZIL HCL 10 MG TABLET PO ×2 (08:34→20:15)
[2022-08-22] MEDS: PANTOPRAZOLE 40 MG TABLET PO (08:34)
[2022-08-22] MEDS: MEMANTINE 10 MG TABLET PO ×2 (08:34→20:15)
[2022-08-22] MEDS: ROSUVASTATIN 5 MG TABLET PO (08:34)
[2022-08-22] MEDS: CHOLECALCIFEROL 1,000 UNITS TABLET 1000 UNITS PO (08:34)
[2022-08-22] MEDS: ASPIRIN 325 MG TABLET PO (08:34)
[2022-08-22] MEDS: PSYLLIUM POWDER PACKET 1 PACKET BY MOUTH (08:35)
[2022-08-22] MEDS: CITALOPRAM HYDROBROMIDE 20 MG TABLET 40 MG PO (08:35)
[2022-08-22 08:37] LABS: LDL Cholesterol Direct 56 mg/dL
--- NOTE | 2022-08-22 09:17 | PM.IMPN ---
Progress Note: A&P Assessment and Plan (1) Dysarthria: Code(s): R47.1 - Dysarthria and anarthria Status: Acute Assessment and Plan: improved. MRI MRA pending. Consider adding Plavix (2) Ataxia: Code(s): R27.0 - Ataxia, unspecified Status: Acute Assessment and Plan: PTOT (3) Hyperlipidemia: Code(s): E78.5 - Hyperlipidemia, unspecified Status: Acute Assessment and Plan: -continue with Crestor (4) Depression: Code(s): F32.9 - Major depressive disorder, single episode, unspecified Status: Acute Assessment and Plan: -continue with Remeron -continue with Celexa (5) Dementia: Code(s): F03.90 - Unspecified dementia, unspecified severity, without behavioral disturbance, psychotic disturbance, mood disturbance, and anxiety Status: Acute Assessment and Plan: -continue with Aricept -continue with Namenda Plan Seasonal allergies continue with singular Subjective Date/time seen: 08/22/22 09:17 No new complaints Exam Const: General: cooperative, healthy appearing, comfortable, no acute distress, well developed, alert, awake, Physically active, average body habitus and well nourished Nutritional Appearance: average body habitus and well nourished Orientation/consciousness: oriented to person, oriented to place, oriented to time and patient oriented x3 Limitations: no limitations HENMT: Head: normal to inspection, No palpable skull fracture present, normocephalic, atraumatic and abrasion Ears: external ears normal and hearing grossly impaired Face/Nose/Sinus: Normal external nose present and Normal nares present Eyes: General: appearance normal, both eyes and all related structures Alignment and Position: alignment normal Periorbital: periorbital findings normal Eyelids: eyelids normal Sclera: sclerae normal Pupils: Equal, round and reactive pupils present EOM: EOMs intact bilaterally Neck: Neck: normal visual inspection, full ROM, no lymphadenopathy, trachea midline and supple Chest: Chest palpation & inspection: normal inspection of the chest Resp: Effort & Inspection: normal respiratory effort Auscultation: clear to auscultation bilaterally Cardio: Palpation: normal PMI Rate: bradycardic Rhythm: regular rhythm Heart sounds: S1 normal heart sound present and S2 normal heart sound present Peripheral pulses: Peripheral pulses 2+ throughout GI: Inspection: normal to inspection Auscultation: normal bowel sounds Rectal Exam: deferred Back/Spine/Pelvis: Cervical Spine: cervical ROM normal Skin: General skin exam: normal color Lesions: no lesions Rashes: no rashes Trauma: no lacerations or abrasions Wounds: no wounds Hair: normal Nails: normal Neuro: General: oriented to person, oriented to place, oriented to time and patient oriented x3 Cranial nerves: Yes Equal, round and reactive pupils present, Yes Normal hearing present and Yes hard of hearing Cognition (Neuro): normal cognition Speech: normal speech Motor exam (neuro): 5/5 motor strength present throughout Sensory Exam: normal sensation Other: No facial droop. Patient is able to move all extremities. She is talking in full sentences. She has some mild weakness clinic. Extrem: General: normal to inspection Right upper extremity: normal to inspection and shoulder/upper arm Left upper extremity: normal to inspection and shoulder/upper arm Right lower extremity: normal to inspection Left lower extremity: normal to inspection Psych: Appearance: grossly normal Mental Status: mental status grossly normal Speech and movement: Normal speech and movement present Affect: normal affect Attitude: cooperative Thought process: Normal thought process present Insight: Good insight present (Psych) Judgement: Good judgement present (Psych) Objective Data Vital Signs Vital Signs: Vital Signs - 24 hr 08/21/22 16:51 08/21/22 17:17 08/21/22 17:29 Temper
[2022-08-22 09:38] LABS: Hemoglobin A1C 5.5 % (<5.7)
--- NOTE | 2022-08-22 09:56 | PCPTNOTE ---
Pt off the floor for testing. Will follow.
[2022-08-22] MEDS: MIRTAZAPINE 15 MG TABLET PO (20:14)
[2022-08-22] MEDS: MONTELUKAST SODIUM 10 MG TABLET PO (20:14)
[2022-08-23] VITALS: PULSE 79
[2022-08-23 00:13] VITALS: BP 148/80; PULSE 79; RESP 16; TEMP 36.8; O2SAT 95
[2022-08-23 04:00] VITALS: PULSE 63
[2022-08-23 04:36] VITALS: BP 128/71; PULSE 85; RESP 20; TEMP 36.6; O2SAT 97
[2022-08-23 05:30] LABS: Free T4 Free Thyroxine Reflex 1.35 ng/dL (0.78-2.19)
[2022-08-23 06:25] LABS: Total Triiodothyronine (T3) 1.33 NG/ML (0.97-1.69)
[2022-08-23 08:00] VITALS: PULSE 62
[2022-08-23] MEDS: DONEPEZIL HCL 10 MG TABLET PO (08:35)
[2022-08-23] MEDS: CHOLECALCIFEROL 1,000 UNITS TABLET 1000 UNITS PO (08:35)
[2022-08-23] MEDS: PANTOPRAZOLE 40 MG TABLET PO (08:35)
[2022-08-23] MEDS: PSYLLIUM POWDER PACKET 1 PACKET BY MOUTH (08:35)
[2022-08-23] MEDS: MEMANTINE 10 MG TABLET PO (08:35)
[2022-08-23] MEDS: CITALOPRAM HYDROBROMIDE 20 MG TABLET 40 MG PO (08:35)
[2022-08-23] MEDS: ROSUVASTATIN 5 MG TABLET PO (08:35)
[2022-08-23] MEDS: ASPIRIN 325 MG TABLET PO (08:35)
[2022-08-23 10:00] VITALS: BP 142/64; PULSE 70; RESP 18; TEMP 36.8; O2SAT 95
--- NOTE | 2022-08-23 11:13 | PM.DS ---
DS: Admitting Diagnosis Discharge Date August 23, 2022 Admitting Diagnosis TIA, UTI DS: Discharge Diagnosis Discharge Diagnosis (1) Dysarthria: Code(s): R47.1 - Dysarthria and anarthria Status: Acute Assessment and Plan: workup negative (2) Ataxia: Code(s): R27.0 - Ataxia, unspecified Status: Acute Assessment and Plan: PTOT (3) Hyperlipidemia: Code(s): E78.5 - Hyperlipidemia, unspecified Status: Acute Assessment and Plan: -continue with Crestor (4) Depression: Code(s): F32.9 - Major depressive disorder, single episode, unspecified Status: Acute Assessment and Plan: -continue with Remeron -continue with Celexa (5) Dementia: Code(s): F03.90 - Unspecified dementia, unspecified severity, without behavioral disturbance, psychotic disturbance, mood disturbance, and anxiety Status: Acute Assessment and Plan: -continue with Aricept -continue with Namenda Plan Seasonal allergies continue with singular DS: Summary Hospital Course Hospital Course: patient is an 87-year-old female who came in with TIA like symptoms. Workup was negative. To note she did have a urinary tract infection and will be sent home on Omnicef. Most of her symptoms were likely related to UTI. Symptoms have now resolved after IV antibiotics. Time Spent with Patient Time attestation: Total time spent providing and/or coordinating discharge services: Exam Const: General: cooperative, healthy appearing, comfortable, no acute distress, well developed, alert, awake, Physically active, average body habitus and well nourished Nutritional Appearance: average body habitus and well nourished Orientation/consciousness: oriented to person, oriented to place, oriented to time and patient oriented x3 Limitations: no limitations HENMT: Head: normal to inspection, No palpable skull fracture present, normocephalic, atraumatic and abrasion Ears: external ears normal and hearing grossly impaired Face/Nose/Sinus: Normal external nose present and Normal nares present Eyes: General: appearance normal, both eyes and all related structures Alignment and Position: alignment normal Periorbital: periorbital findings normal Eyelids: eyelids normal Sclera: sclerae normal Pupils: Equal, round and reactive pupils present EOM: EOMs intact bilaterally Neck: Neck: normal visual inspection, full ROM, no lymphadenopathy, trachea midline and supple Chest: Chest palpation & inspection: normal inspection of the chest Resp: Effort & Inspection: normal respiratory effort Auscultation: clear to auscultation bilaterally Cardio: Palpation: normal PMI Rate: bradycardic Rhythm: regular rhythm Heart sounds: S1 normal heart sound present and S2 normal heart sound present Peripheral pulses: Peripheral pulses 2+ throughout GI: Inspection: normal to inspection Auscultation: normal bowel sounds Rectal Exam: deferred Back/Spine/Pelvis: Cervical Spine: cervical ROM normal Skin: General skin exam: normal color Lesions: no lesions Rashes: no rashes Trauma: no lacerations or abrasions Wounds: no wounds Hair: normal Nails: normal Neuro: General: oriented to person, oriented to place, oriented to time and patient oriented x3 Cranial nerves: Yes Equal, round and reactive pupils present, Yes Normal hearing present and Yes hard of hearing Cognition (Neuro): normal cognition Speech: normal speech Motor exam (neuro): 5/5 motor strength present throughout Sensory Exam: normal sensation Other: No facial droop. Patient is able to move all extremities. She is talking in full sentences. She has some mild weakness clinic. Extrem: General: normal to inspection Right upper extremity: normal to inspection and shoulder/upper arm Left upper extremity: normal to inspection and shoulder/upper arm Right lower extremity: normal to inspection Left lower extremity: normal to inspection Psych:
== END 2022-08-23 11:55 | disposition home health service (06) ==
LOC: ANHED 18:34 → ANH2MED 18:48
PROVIDERS: Nurse Practitioner; Student in an Organized Health Care Education/Training Program; Admitting Provider Hospitalist; Emergency Provider Emergency Medicine; Visit Provider Chiropractor
DX: R47.1 Dysarthria and anarthria (principal); R27.0 Ataxia, unspecified; E78.5 Hyperlipidemia, unspecified; F32.A Depression, unspecified; F32.9 Major depressive disorder, single episode, unspecified; R47.01 Aphasia; R41.0 Disorientation, unspecified; F03.90 Unspecified dementia, unspecified severity, without behavioral disturbance, psychotic disturbance, mood disturbance, and anxiety; N39.0 Urinary tract infection, site not specified; I10 Essential (primary) hypertension; B96.20 Unspecified Escherichia coli [E. coli] as the cause of diseases classified elsewhere; R29.818 Other symptoms and signs involving the nervous system; R00.1 Bradycardia, unspecified; F10.90 Alcohol use, unspecified, uncomplicated; R94.31 Abnormal electrocardiogram [ECG] [EKG]; Z20.822 Contact with and (suspected) exposure to COVID-19; Z86.73 Personal history of transient ischemic attack (TIA), and cerebral infarction without residual deficits; Z79.82 Long term (current) use of aspirin; Z79.899 Other long term (current) drug therapy
CPT/HCPCS: 36415; 70450; 70544; 70553; 71045; 80053; 80061; 81001; 82948; 83036; 83605; 83735; 84439; 84443; 84480; 84484; 85025; 85055; 85610; 85730; 87077; 87086; 87186; 87637; 92523; 93005; 93306; 93880; 96365; 96366; 97161; 97165; 99285; A9270; A9577; G0378; J0696

== ENCOUNTER 2024-01-01 16:14 | Emergency (ER) | payer MEDICARE, OTHER, SELFPAY ==
--- NOTE | ~2024-01-01 | CT_ITS ---
EXAMINATION: CT lumbar spine wo con DATE: 01/01/2024 21:32 INDICATION: Fall . TECHNIQUE: Computed tomography (CT) of the lumbar spine was performed without intravenous contrast. A utomated exposure control and iterative reconstruction technique were employed. The dose-length produ ct was 370.89 mGy-cm. COMPARISON: None. FINDINGS: Moderate scoliosis. 5 nonrib-bearing lumbar-type vertebral bodies. Pedicles intact. Normal vertebral body alignment. Moderate burst fracture at L1 with 4 mm retropulsion. Large Schmorl's node in the superior endplate of L4. Small Schmorl's nodes noted at multiple additional levels. Multilevel severe degenerative disc disease. Multilevel moderate facet arthropathy. Severe left L5-S1 neural fo raminal narrowing. No severe central canal narrowing. IMPRESSION: Moderate L1 burst fracture with 4 mm retropulsion may represent an acute or chronic fracture, correla te with pain/tenderness Reviewed, dictated and finalized at location K. IMPRESSION: Moderate L1 burst fracture with 4 mm retropulsion may represent an acute or chr onic fracture, correlate with pain/tenderness
[2024-01-01 16:30] VITALS: BP 105/54; PULSE 63; RESP 19; TEMP 36.8; O2SAT 98
[2024-01-01 19:43] VITALS: BP 120/80; PULSE 60; RESP 17; TEMP 36.9; O2SAT 99
--- NOTE | 2024-01-01 21:17 | ED.BACK ---
HPI - Back Pain/Injury General Chief Complaint: Back Pain/Injury Stated Complaint: back pain/fall Time Seen by Provider: 01/01/24 21:08 History of Present Illness HPI Narrative: Patient is an 88-year-old female who presents to the emergency department this evening complaining of lower back pain. Patient's family members are present with her at bedside and did inform me that the patient did fall 2 days ago while trying to get up out of bed. Patient landed on her butt and did not hit her head. No blood thinner use. Patient states that today she started to notice some lower back pain. Family members also state that the patient recently finished a 2nd course of antibiotic for a urinary tract infection and they were wondering if maybe this could be contributing to her symptoms. Patient is hard of hearing, otherwise, she is resting comfortably and is currently denying any additional symptoms including chest pain, shortness of breath, headache, dizziness, focal weakness, numbness and/or tingling. Patient denies any bowel or bladder incontinence, denies any fevers or chills. There are no other modifying, alleviating, or precipitating factors at this time. Related Data Home Medications Medication Instructions Recorded Confirmed aspirin 325 mg tablet (Vicki 325 mg PO DAILY 05/26/21 08/21/22 Aspirin) citalopram 40 mg tablet (Celexa) 40 mg PO DAILY 05/26/21 08/21/22 ergocalciferol (vitamin D2) 1,000 1,000 unit PO DAILY 05/26/21 08/21/22 unit capsule memantine 10 mg tablet (Namenda) 10 mg PO BID 05/26/21 08/21/22 montelukast 10 mg tablet 10 mg PO HS 05/26/21 08/21/22 (Singulair) pantoprazole 40 mg tablet,delayed 40 mg PO DAILY 05/26/21 08/21/22 release (Protonix) psyllium husk 0.4 gram capsule 1.2 g PO DAILY 05/26/21 08/21/22 (Metamucil) rosuvastatin 5 mg tablet (Crestor) 5 mg PO DAILY 05/26/21 08/21/22 donepezil 10 mg tablet (Aricept) 10 mg PO BID 08/21/22 08/21/22 mirtazapine 15 mg tablet (Remeron) 15 mg PO DAILY 08/21/22 08/21/22 Allergies Allergy/AdvReac Type Severity Reaction Status Date / Time Iodinated Contrast Media Allergy Unknown Verified 05/26/21 14:25 Sulfa (Sulfonamide Allergy Unknown Verified 05/26/21 14:24 Antibiotics) sertraline [From Zoloft] AdvReac Nausea and Verified 05/26/21 14:26 Vomiting Review of Systems Review of Systems: All systems are reviewed and are negative unless stated otherwise in the HPI. PMFSH Past Medical History Medical History Basal cell carcinoma Dementia Depression History of CVA (cerebrovascular accident) Hyperlipidemia Hypertension Melanoma Squamous cell cancer of skin of forearm Surgical History Surgical History History of back surgery History of cataract extraction History of cholecystectomy History of hysterectomy History of removal of pigmented skin lesion Family History Family History Mother Alzheimer disease Sibling Heart disease Alzheimer disease Social History Social History Social History: The patient lives with her daughter. She is . The patient occasionally drinks an alcoholic beverage. The patient did have an alcoholic beverage today at the restaurant. She has 5 children . Her poa is the daughter and son. She is retired Code status dnr Smoking status: Never smoker Alcohol intake: former Drinks per week: 2 Substance use: never Lack of Transportation: No Lack of Food: Never True Current Housing: I Have Housing Concerned About Future Housing: No Difficulty Paying Gas/Electric Bills: No Difficulty Paying for Meds: No Currently Unemployed: No Education: Bachelor's Degree Difficulty w/ Childcare or Family Care: No Gender identity (if verbalized by the patient): Female
[2024-01-01 22:02] LABS: Appearance Urine Clear (Clear); Bacteria Urine None Seen /hpf; Bilirubin Urine Negative (Negative); Blood Urine Negative (Negative); Color Urine Yellow (Yellow); Glucose Urine UA Negative (Negative); Ketones Urine Negative (Negative); Leukocyte Esterase Ur Trace LEU/UL (Negative); Nitrate Urine Negative (Negative); Non Pathogenic Casts 0-2; Protein Urine Negative (Negative); Specific Grav Ur 1.014 (1.001-1.035); Squamous Epithelial Cell Urine None Seen /hpf (Few); WBC Urine 0-5 /hpf (0-3)
[2024-01-01 22:05] LABS: Add Urine Microscopic? YES
[2024-01-01 22:46] VITALS: BP 133/67; PULSE 59; RESP 16; O2SAT 99
== END 2024-01-01 22:48 ==
PROVIDERS: Emergency Provider Emergency Medicine
DX: S32.011A Stable burst fracture of first lumbar vertebra, initial encounter for closed fracture (principal); F03.90 Unspecified dementia, unspecified severity, without behavioral disturbance, psychotic disturbance, mood disturbance, and anxiety; I10 Essential (primary) hypertension; E78.5 Hyperlipidemia, unspecified; Z86.73 Personal history of transient ischemic attack (TIA), and cerebral infarction without residual deficits; W06.XXXA Fall from bed, initial encounter
CPT/HCPCS: 72131; 81001; 99284

== ENCOUNTER 2024-08-28 16:56 | Inpatient (IN) | payer MEDICARE, OTHER, SELFPAY ==
--- NOTE | ~2024-08-28 | XR_ITS ---
EXAMINATION: XR chest 2V DATE: 08/28/2024 18:10 INDICATION: Fall. TECHNIQUE: frontal and lateral views of the chest were obtained. COMPARISON: Chest radiograph dated 08/21/2022 FINDINGS: Mild elevation of the left hemidiaphragm. There are new mild opacities at the left lower lung zone wh ich could represent atelectasis, pneumonia or mild pulmonary edema. Right lung remains clear. No pleu ral effusion or pneumothorax. Heart size is normal. Mild to moderate degenerative skeletal changes in the spine and at both shoulders. IMPRESSION: 1. Mild opacities at the left lower lung zone which could represent atelectasis, mild pulmonary edema or pneumonia. Reviewed, dictated and finalized at location A. SPORTATION DEPARTMENT SUPERVISOR IMPRESSION: 1. Mild opacities at the left lower lung zone which could represent atelectasis , mild pulmonary edema or pneumonia.
--- NOTE | ~2024-08-28 | XR_ITS ---
EXAMINATION: XR pelvis 1-2V DATE: 08/28/2024 18:10 INDICATION: Pelvic pain post fall TECHNIQUE: An anteroposterior view of the pelvis was obtained. COMPARISON: None. FINDINGS: Bone alignment is normal. No fracture. Severe lower lumbar spondylosis. Moderate osteoarthritis at th e bilateral hip and sacroiliac joints. Osteitis pubis. Postoperative changes with surgical clips and suture lines in the pelvis. IMPRESSION: 1. No acute osseous abnormality. 2. Severe lower lumbar spondylosis and moderate bilateral hip and sacroiliac osteoarthritis. Reviewed, dictated and finalized at location A. WAY PATROL PILOT IMPRESSION: 1. No acute osseous abnormality. 2. Severe lower lumbar spondylosis and moderate bilateral hip and sacroiliac os teoarthritis.
--- NOTE | ~2024-08-28 | CT_ITS ---
EXAMINATION: CT brain wo con DATE: 08/28/2024 18:02 INDICATION: Fall with head injury TECHNIQUE: Computed tomography (CT) of the head was performed without intravenous contrast. Sagittal and coronal reconstructions were performed. The mA was adjusted according to patient size. Iterative reconstruction technique was employed. The dose-length product was 605.33 mGy-cm. COMPARISON: head CT dated 08/21/2022 FINDINGS: No fracture. No acute intracranial hemorrhage, acute infarction or abnormal extra axial fluid collect ion. Couple small old lacunar infarcts in the periventricular white frontal lobe white matter. There is mild scattered white matter hypoattenuation consistent with chronic small vessel ischemic disease. Symmetric prominence of the sulci and subarachnoid spaces overlying the convexities consistent with mild to moderate age-appropriate diffuse cerebral volume loss. Ventricles are normal and symmetric. N o mass/mass effect. Changes of bilateral intraocular lens replacement. The orbits, paranasal sinuses and left mastoid air cells are normal. Chronic moderate sized right mastoid effusion. IMPRESSION: 1. No fracture or acute intracranial process. 2. A couple small old lacunar infarcts in the right frontal lobe periventricular white matter. 2. Age-related changes including mild to moderate diffuse volume loss and mild scattered white matter hypoattenuation consistent with chronic small vessel ischemic disease. 4. Chronic moderate-sized right mastoid effusion. Reviewed, dictated and finalized at location A. F OF STAFF DOCTOR IMPRESSION: 1. No fracture or acute intracranial process. 2. A couple small old lacunar infarcts in the right frontal lobe periventricula r white matter. 2. Age-related changes including mild to moderate diffuse volume loss and mild scattered white matter hypoattenuation consistent with chronic small vessel isc hemic disease. 4. Chronic moderate-sized right mastoid effusion.
--- NOTE | ~2024-08-28 | CT_ITS ---
EXAMINATION: CT cervical spine wo con DATE: 08/28/2024 18:02 INDICATION: Fall with head injury TECHNIQUE: Computed tomography (CT) of the cervical spine was performed without intravenous contrast. The mA was adjusted according to patient size. Iterative reconstruction technique was employed. The dose-length product was 182.80 mGy-cm. COMPARISON: 02/10/2020 FINDINGS: Severe osteoarthritis at the atlantoaxial articulation. Unchanged 2 mm anterolisthesis C4 on C5, C7 o n T1 and T1 on T2. Vertebral body heights are normal. No fracture. Severe disc height loss with degen erative endplate changes at C6-C7 and moderate disc height loss at the remaining cervical levels. Ronny ateral multilevel cervical facet and uncovertebral osteoarthritis. Posterior endplate osteophyte cont ributing to mild central canal stenosis at C6-C7 and minimal central canal stenosis at C4-C5 and C5-C 6. There is multilevel mild to moderate cervical neural from stenosis most prominent on the left at C 4-C5 through C6-C7 and on the right at C5-C6. Small amount of atherosclerotic ulceration at the left carotid bulb. Cervical soft tissues are unremarkable. Visualized apices of the lungs are clear. IMPRESSION: 1. Moderate to severe cervical spondylosis. No acute osseous abnormality. Reviewed, dictated and finalized at location A. IPLE EFFECT EVAPORATOR OPERATOR
[2024-08-28 16:58] VITALS: BP 184/77; PULSE 60; RESP 15; TEMP 36.6; O2SAT 95
--- NOTE | 2024-08-28 17:48 | ED_ITS ---
HPI - Fall General Chief Complaint: Fall Stated Complaint: fall Time Seen by Provider: 08/28/24 17:12 Source: patient and family Mode of arrival: EMS Limitations: dementia History of Present Illness HPI Narrative: This is an 89-year-old female that presents to the emergency department after a fall today with head injury. Patient lives in a memory care unit. She has been more confused then usual today. She got up and did not use her walker to ambulate, she stumbled and fell and hit her head. Her daughter saw this on her camera in her room. She is currently suffering from a UTI and is on oral antibiotics. They were called yesterday and told they needed to switch her antibiotic. Patient has no complaints currently Related Data Home Medications Medication Instructions Recorded Confirmed aspirin 325 mg tablet (Vicki 325 mg PO DAILY 05/26/21 08/28/24 Aspirin) citalopram 40 mg tablet (Celexa) 40 mg PO DAILY 05/26/21 08/28/24 memantine 10 mg tablet (Namenda) 10 mg PO BID 05/26/21 08/29/24 montelukast 10 mg tablet 10 mg PO HS 05/26/21 08/29/24 (Singulair) pantoprazole 40 mg tablet,delayed 40 mg PO DAILY 05/26/21 08/29/24 release (Protonix) psyllium husk 0.4 gram capsule 1.2 g PO DAILY PRN Loose Stool 05/26/21 08/29/24 (Metamucil) rosuvastatin 5 mg tablet (Crestor) 5 mg PO HS 05/26/21 08/29/24 donepezil 10 mg tablet (Aricept) 10 mg PO HS 08/21/22 08/29/24 mirtazapine 15 mg tablet (Remeron) 15 mg PO HS 08/21/22 08/29/24 cyanocobalamin (vitamin B-12) 1,000 mcg PO DAILY 08/28/24 08/28/24 1,000 mcg capsule cholecalciferol (vitamin D3) 25 25 mcg PO DAILY 08/29/24 08/29/24 mcg (1,000 unit) tablet hydroxyzine HCl 25 mg tablet 25 mg PO TID PRN Anxiety 08/29/24 08/29/24 ibuprofen 200 mg tablet 200 mg PO BID 11/28/24 11/28/24 nitrofurantoin macrocrystal 100 mg 100 mg PO Q12H 08/29/24 08/29/24 capsule tramadol 50 mg tablet 50 mg PO Q8H PRN Pain 08/29/24 08/29/24 Allergies Allergy/AdvReac Type Severity Reaction Status Date / Time Iodinated Contrast Media Allergy Unknown Verified 05/26/21 14:25 Sulfa (Sulfonamide Allergy Unknown Verified 05/26/21 14:24 Antibiotics) sertraline [From Zoloft] AdvReac Nausea and Verified 05/26/21 14:26 Vomiting Review of Systems Review of Systems: ROS unobtainable: Yes unobtainable due to medical condition PMFSH Past Medical History Medical History Basal cell carcinoma Dementia Depression History of CVA (cerebrovascular accident) Hyperlipidemia Hypertension Melanoma Squamous cell cancer of skin of forearm Surgical History Surgical History History of back surgery History of cataract extraction History of cholecystectomy History of hysterectomy History of removal of pigmented skin lesion Family History Family History Mother Alzheimer disease Sibling Heart disease Alzheimer disease Social History Social History Social History: The patient lives with her daughter. She is . The patient occasionally drinks an alcoholic beverage. The patient did have an alcoholic beverage today at the restaurant. She has 5 children . Her poa is the daughter and son. She is retired Code status dnr Smoking status: Never smoker Alcohol intake: former Substance use: never Do You Feel Safe in your Home?: No Lack of Transportation: No Lack of Food: Never True Current Housing: I Have Housing Concerned About Future Housing: No Difficulty Paying Gas/Electric Bills: No Difficulty Paying for Meds: No Currently Unemployed: No Education: Bachelor's Degree Difficulty w/ Childcare or Family Care: No Gender identity (if verbalized by the patient): Female Spiritual care concerns: No Exam Narrative: GENERAL: Elderly, well-nourished, and in no acute distress. HEAD: Normocephalic, atraumatic. EYES: PERRLA and EOMI. ENT: Nares clear, no rhinorrhea or epistaxis. Mucous membranes moist. Oropharynx without tonsillar hypertrophy exudate or other lesions. Bilateral TMs pearly aguilar non-bulging NECK: Supple. No adenopathy or masses. C collar in place CHEST: Clear to auscultation. No respiratory distress. No wheezes rales or rhonchi HEART: Regular rate and rhythm. No murmur heard. Normal peripheral pulses. ABDOMEN: Soft, nontender, nondistended, normal active bowel sounds. BACK: No midline thoracic or lumbar spine tenderness EXTREMITIES: Normal range of motion. No edema or obvious deformity. SKIN: Warm, dry, no rash. NEURO: No focal deficits. Alert and oriented x1. PSYCH: Normal mood and affect Course Course Emergency Course: family updated on workup and agrees with admission for further evaluation/observation Consultations Consultation #1: Spoke with hospitalist about patient and workup who accepts admission Date: 08/28/24 Vital Signs Vital signs: Vital Signs Temperature 97.9 F 08/28/24 16:58 Pulse Rate 60 08/28/24 16:58 Respiratory Rate 15 08/28/24 16:58 Blood Pressure 184/77 H 08/28/24 16:58 Pulse Oximetry 95 08/28/24 16:58 Oxygen Delivery Room Air 08/28/24 16:58 Temperature 97.3 F L 08/28/24 23:14 Pulse Rate 57 L 08/28/24 23:14 Respiratory Rate 16 08/28/24 23:14 Blood Pressure 158/73 H 08/28/24 23:14 Pulse Oximetry 97 08/28/24 23:14 Oxygen Delivery Room Air 08/28/24 16:58 MDM - Fall MDM Narrative Medical decision making narrative: patient presents to the emergency department for confusion today with a fall. She is afebrile and nontoxic appearing. Her vitals are stable. CBC and metabolic panel without concerning findings. Urine without evidence of infection. Influenza, RSV and COVID screens are negative. CT brain without acute findings. Chest x-ray shows likely atelectasis. CT cervical spine without acute findings. Pelvic x-ray without acute findings. family updated on workup and agrees with admission for further evaluation/observation. Spoke with hospitalist about patient and workup who accepts admission Differential Diagnosis Differential diagnosis: Likely syncope, compression fracture, concussion without loss of consciousness and other Lab Data Attestation: I reviewed the patient's lab results. 08/28/24 18:15 08/28/24 18:15 Labs: Lab Results 08/28/24 08/28/24 08/28/24 Range/Units 18:15 18:33 19:07 WBC 5.5 (4.5-10.0) K/mm3 RBC 4.55 (4.2-5.4) M/mm3 Hgb 13.8 (12.0-15.0) g/dL Hct 41.4 (37.0-47.0) % MCV 91.0 (80-100) fl MCH 30.3 (26-34) pg MCHC 33.3 (32-36) g/dl RDW 14.4 (11.5-14.5) % Plt Count 95 L (150-375) k/mm3 MPV 9.3 (7.4-10.4) fl Immature Gran % (Auto) 1.8 H (0-0.5) % Neut % (Auto) 36.5 L (45.5-73.1) % Lymph % (Auto) 37.0 (18.3-44.2) % [place] % (Auto) 22.9 H (2.6-8.5) % Eos % (Auto) 1.6 (0-4.4) % Baso % (Auto) 0.2 (0.2-1.2) % Lymph # (Auto) 2.04 (0.9-3.2) K/mm3 [place] # (Auto) 1.3 H (0.1-0.6) K/mm3 Eos # (Auto) 0.1 (0-0.3) K/mm3 Baso # (Auto) 0.0 (0.0-0.1) K/mm3 Abs Immat Gran (auto) 0.10 H (0.00-0.031) K/mm3 Absolute Neuts (auto) 2.0 (1.3-6.7) K/mm3 Absolute Nucleated RBC 0.000 (0.0-0.012) K/mm3 Nucleated RBC % 0.0 (0.0-0.2) % % Immature Plt Fraction 1.7 (0.9-11.2) % Sodium 140 (137-145) mmol/L Potassium 3.9 (3.4-5.0) mmol/L Chloride 107 (98-107) mmol/L Carbon Dioxide 29 (22-30) mmol/L Anion Gap 4 (4-12) mmol/L BUN 12 (7-17) mg/dL Creatinine 0.60 L (0.7-1.0) mg/dL Estim Creat Clear Calc 57 ml/min Estimated GFR > 60 (59 - ) Glucose 91 (65-110) mg/dL Calcium 9.3 (8.4-10.2) mg/dL Troponin I < 0.012 (0.000-0.034) ng/mL Urine Color Yellow (Yellow) Urine Appearance Clear (Clear) Urine pH 7.0 (5.0-9.0) Ur Specific [place] 1.009 (1.001-1.035) Urine Protein Negative (Negative) mg/dL Urine Glucose (UA) Negative (Negative) mg/dL Urine Ketones Trace H (Negative) mg/dL Ur Blood (Man) 1+ H (Negative) Urine Nitrate Negative (Negative) Urine Bilirubin Negative (Negative) Urine Urobilinogen 0.2 (<2.0) mg/dL Leukocyte Esterase Rfl Trace H (Negative) MURRAY/UL Urine RBC 6-10 H (0-2) /hpf Urine WBC 0-5 (0-3) /hpf Ur Squamous Epith Cells None seen (Few) /hpf Urine Bacteria None seen /hpf Urine Casts 0-2 Influenza A (RT-PCR) Negative (Negative) Influenza B (RT-PCR) Negative (Negative) RSV (RT-PCR) Negative (Negative) SARS-CoV-2 RNA (RT-PCR) Negative (Negative) Imaging Data Radiologist's impression: ITS Impressions Head CT 08/28/24 18:04 IMPRESSION: 1. No fracture or acute intracranial process. 2. A couple small old lacunar infarcts in the right frontal lobe periventricular white matter. 2. Age-related changes including mild to moderate diffuse volume loss and mild scattered white matter hypoattenuation consistent with chronic small vessel ischemic disease. 4. Chronic moderate-sized right mastoid effusion. Chest X-Ray 08/28/24 18:13 IMPRESSION: 1. Mild opacities at the left lower lung zone which could represent atelectasis, mild pulmonary edema or pneumonia. Cervical Spine CT 08/28/24 18:41 IMPRESSION: 1. Moderate to severe cervical spondylosis. No acute osseous abnormality. Pelvis X-Ray 08/28/24 18:46 IMPRESSION: 1. No acute osseous abnormality. 2. Severe lower lumbar spondylosis and moderate bilateral hip and sacroiliac osteoarthritis. ECG Data EKG #1: ECG completion date: 08/28/24 EKG Interpretation: bradycardia, sinus rhythm, no ST changes and normal QT Critical Care Time Critical Care Time Critical Care Time: No Discharge Plan Discharge Clinical Impression: Altered mental status Qualifiers: Altered mental status type: unspecified Qualified Code(s): R41.82 - Altered mental status, unspecified Patient Disposition: Still a Patient Condition: Stable
[2024-08-28 18:22] LABS: Basophils Percent Auto 0.2 % (0.2-1.2); Eosinophils Absolute Auto 0.1 K/mm3 (0-0.3); Eosinophils Percent Auto 1.6 % (0-4.4); Hematocrit 41.4 % (37.0-47.0); Hemoglobin 13.8 g/dL (12.0-15.0); Immature Granulocyte Percent A 1.8 % (0-0.5); Immature Platelet Fraction Pct 1.7 % (0.9-11.2); Lymphocytes Absolute Auto 2.04 K/mm3 (0.9-3.2); Mean Corpuscular HGB Conc 33.3 g/dl (32-36); Mean Corpuscular Hemoglobin 30.3 pg (26-34); Mean Platelet Volume 9.3 fl (7.4-10.4); Monocytes Absolute Auto 1.3 K/mm3 (0.1-0.6); Monocytes Percent Auto 22.9 % (2.6-8.5); Neutrophils Percent Auto 36.5 % (45.5-73.1); Red Blood Count 4.55 M/mm3 (4.2-5.4); Red Cell Distribution Width 14.4 % (11.5-14.5); White Blood Count 5.5 K/mm3 (4.5-10.0)
[2024-08-28 18:30] LABS: Anion Gap 4 mmol/L (4-12); Blood Urea Nitrogen 12 mg/dL (7-17); Calcium 9.3 mg/dL (8.4-10.2); Carbon Dioxide 29 mmol/L (22-30); Chloride 107 mmol/L (98-107); Estimated CRCL calculation 57 ml/min; Estimated Glomerular Filt Rate > 60; Glucose 91 mg/dL (65-110); Potassium 3.9 mmol/L (3.4-5.0); Sodium 140 mmol/L (137-145)
[2024-08-28 18:44] LABS: Add Urine Microscopic? YES; Appearance Urine Clear (Clear); Bacteria Urine None Seen /hpf; Bilirubin Urine Negative (Negative); Blood Urine 1+ (Negative); Color Urine Yellow (Yellow); Glucose Urine UA Negative (Negative); Ketones Urine Trace mg/dL (Negative); Leukocyte Esterase Ur Trace LEU/UL (Negative); Nitrate Urine Negative (Negative); Non Pathogenic Casts 0-2; Protein Urine Negative (Negative); Specific Grav Ur 1.009 (1.001-1.035); Squamous Epithelial Cell Urine None Seen /hpf (Few); Urobilinogen Urine 0.2 mg/dL (<2.0); WBC Urine 0-5 /hpf (0-3)
[2024-08-28 18:45] VITALS: BP 163/76; PULSE 76; RESP 14; O2SAT 96
[2024-08-28 19:01] LABS: Platelet Count Result 95 k/mm3 (150-375)
[2024-08-28 19:48] LABS: Influenza A QL RT-PCR Negative (Negative); Influenza B QL RT-PCR Negative (Negative); RSV RNA, RT-PCR Negative (Negative); SARS-CoV-2 RNA PCR Negative (Negative)
--- NOTE | 2024-08-28 19:53 | ECG_ITS ---
Test Date: 2024-08-28 20:20:04 Measurements Intervals Elizabeth Rate: 55 P: 92 IL: 207 QRS: -30 QRSD: 105 T: 99 QT: 430 QTc: 414 Interpretive Statements SINUS BRADYCARDIA WITH FIRST DEGREE AV BLOCK LOW QRS VOLTAGE IN PRECORDIAL LEADS INCOMPLETE RIGHT BUNDLE BRANCH BLOCK ANTEROSEPTAL INFARCT, AGE INDETERMINATE CONSIDER INFERIOR INFARCT, AGE INDETERMINATE BORDERLINE ST-T WAVE ABNORMALITY- ANTEROLAT/HIGH LAT LEADS BASELINE ARTIFACT- I, II, AVR, AVL, V4-V6 ABNORMAL ECG No previous ECG available for comparison Electronically Signed On 08-29-2024 07:21:35 INSTRUMENT MAKER APPRENTICE by Roel Her D.O.
[2024-08-28 20:28] LABS: Troponin I < 0.012 ng/mL (0.000-0.034)
[2024-08-28 22:49] VITALS: BMI 24.5
--- NOTE | 2024-08-28 22:49 | ADMGEN ---
This patient, Jany Luna, was admitted to Medical Room 341-01. Patient/family oriented to hospital policies and general routines including ID bracelet, bed and alarms, visiting hours, pain management, procedures, bathroom and other care routines, personal items, smoking policy, room service/diet, and visiting hours. Information on how to activate the Rapid Response Team has been discussed. Patient/Family are encouraged to report perceived risks to care and to ask questions if they do not understand what they are told or what they should do.
[2024-08-28 23:14] VITALS: BP 158/73; PULSE 57; RESP 16; TEMP 36.3; O2SAT 97
[2024-08-29 04:00] VITALS: BP 132/86; PULSE 61; RESP 16; TEMP 36.4; O2SAT 97
--- NOTE | 2024-08-29 04:12 | PC.NURSE ---
During report from ED fha underwriter ask about IV bolus that was not administered and RN giving report stated patient was no longer to receive.
--- NOTE | 2024-08-29 07:39 | P.HP_ITS ---
H&P: HPI History of Present Illness Date/Time: 08/29/24 07:39 Chief Complaint: confusion and fall Narrative: 89 year old female with past medical history HLD, HTN, GERD, dementia, and hypothyroidism presents to the hospital following a fall. Patient is a poor historian secondary to her dementia (baseline aox1 self). During assessment she has no complaints denying chest pain, shortness of breath, nausea/vomiting and abdominal pain however unsure how accurate this is given mental status. Spoke with patients RN at [facility]. She states that the patient had a fall last night resulting in her hitting her head. No LOC. Unknown what caused the patient to fall. After patient hit her head, noted that patients left eye was slightly larger than the right. On CT it notes that patient has had bilateral intraocular lens replacements. Patient was then sent to the hospital for further evaluation. She notes that the patient recently went to the urologist and was diagnosed with a UTI. She was previously on Macrobid 50 mg prophylactic for recurrent UTIs. Urology had her Macrobid dose increased to 100 mg on on 08/27. Per patients RN patient has not been complaining of anything, but did note that she started to get a cold. ED workup: CBC unremarkable without leukocytosis or anemia. Chemistry unremarkable. LFTs WNL. Troponins negative. Urinalysis nonconcerning for infection. Viral panel negative. Head CT: No fracture or acute intracranial process, A couple small old lacunar infarcts in the right frontal lobe periventricular white matter, Age-related changes including mild to moderate diffuse volume loss and mild scattered white matter hypoattenuation consistent with chronic small vessel ischemic disease, Chronic moderate-sized right mastoid effusion. Chest XR: Mild opacities at the left lower lung zone which could represent atelectasis, mild pulmonary edema or pneumonia.C spine CT: Moderate to severe cervical spondylosis. No acute osseous abnormality. Pelvis XR: No acute osseous abnormality. Severe lower lumbar spondylosis and moderate bilateral hip and sacroiliac osteoarthritis. Review of Systems Review of Systems: All systems reviewed & are unremarkable except as noted in HPI and below [facility] Past Medical History Medical History (Updated 08/29/24 @ 15:41 by Mercy Baxter PA-C) Basal cell carcinoma Dementia Depression History of CVA (cerebrovascular accident) Hyperlipidemia Hypertension Hypothyroidism Melanoma Squamous cell cancer of skin of forearm Surgical History Surgical History History of back surgery History of cataract extraction History of cholecystectomy History of hysterectomy History of removal of pigmented skin lesion Family History Family History Mother Alzheimer disease Sibling Heart disease Alzheimer disease Social History Social History (Updated 08/29/24 @ 15:23 by Mercy Baxter PA-C) Social History: The patient lives at [facility] She is . The patient occasionally drinks an alcoholic beverage. The patient did have an alcoholic beverage today at the restaurant. She has 5 children . Her poa is the daughter and son. She is retired Code status dnr Smoking status: Never smoker Alcohol intake: former Substance use: never Do You Feel Safe in your Home?: No Lack of Transportation: No Lack of Food: Never True Current Housing: I Have Housing Concerned About Future Housing: No Difficulty Paying Gas/Electric Bills: No Difficulty Paying for Meds: No Currently Unemployed: No Education: Bachelor's Degree Difficulty w/ Childcare or Family Care: No Gender identity (if verbalized by the patient): Female Spiritual care concerns: No Meds Home Medications and Allergies Home Medications Medication Instructions Recorded Confirmed Type aspirin 325 mg tablet (Vicki 325 mg PO DAILY 05/26/21 08/28/24 History Aspirin) citalopram 40 mg tablet (Celexa) 40 mg PO DAILY 05/26/21 08/28/24 History memantine 10 mg tablet (Namenda) 10 mg PO BID 05/26/21 08/29/24 History montelukast 10 mg tablet 10 mg PO HS 05/26/21 08/29/24 History (Singulair) pantoprazole 40 mg tablet,delayed 40 mg PO DAILY 05/26/21 08/29/24 History release (Protonix) psyllium husk 0.4 gram capsule 1.2 g PO DAILY PRN Loose Stool 05/26/21 08/29/24 History (Metamucil) rosuvastatin 5 mg tablet (Crestor) 5 mg PO HS 05/26/21 08/29/24 History donepezil 10 mg tablet (Aricept) 10 mg PO HS 08/21/22 08/29/24 History mirtazapine 15 mg tablet (Remeron) 15 mg PO HS 08/21/22 08/29/24 History acetaminophen 325 mg capsule 325 mg PO Q6H PRN pain #14 caps 01/01/24 08/28/24 Rx (Tylenol) ibuprofen 400 mg tablet 400 mg PO Q8H PRN pain #14 tabs 01/01/24 08/29/24 Rx cyanocobalamin (vitamin B-12) 1,000 mcg PO DAILY 08/28/24 08/28/24 History 1,000 mcg capsule cholecalciferol (vitamin D3) 25 25 mcg PO DAILY 08/29/24 08/29/24 History mcg (1,000 unit) tablet hydroxyzine HCl 25 mg tablet 25 mg PO TID PRN Anxiety 08/29/24 08/29/24 History ibuprofen 200 mg tablet 200 mg PO BID 08/29/24 08/29/24 History nitrofurantoin macrocrystal 100 mg 100 mg PO Q12H 08/29/24 08/29/24 History capsule tramadol 50 mg tablet 50 mg PO Q8H PRN Pain 08/29/24 08/29/24 History Allergies Allergy/AdvReac Type Severity Reaction Status Date / Time Iodinated Contrast Media Allergy Unknown Verified 05/26/21 14:25 Sulfa (Sulfonamide Allergy Unknown Verified 05/26/21 14:24 Antibiotics) sertraline [From Zoloft] AdvReac Nausea and Verified 05/26/21 14:26 Vomiting Vital Signs Vital Signs - 24 hr 08/28/24 16:58 08/28/24 18:45 08/28/24 23:14 Temperature 97.9 F 97.3 F L Pulse Rate 60 76 57 L Respiratory Rate 15 14 16 Blood Pressure 184/77 H 163/76 H 158/73 H Pulse Oximetry 95 96 97 Oxygen Delivery Room Air 08/29/24 04:00 Temperature 97.5 F L Pulse Rate 61 Respiratory Rate 16 Blood Pressure 132/86 Pulse Oximetry 97 Oxygen Delivery Exam Narrative: AF HR 70 RR 16 SpO2 96 BP 142/82 General: frail female in no acute respiratory distress who is nontoxic appearing, lying semi recumbent in bed. HEENT: Normocephalic. Atraumatic. Pupils are round and reactive to light. Left anisocoria. Extraocular movement intact. Sclera clear and anicteric. No facial asymmetry. Neck: Neck was supple. No dominant adenopathy, thyromegaly or masses. Chest: Lungs are diminished to auscultation bilaterally. No wheezes or crackles. CV: Heart was regular rate and rhythm. S1-S2. No murmurs, gallops, or rubs. Abd: Abdomen was soft. Nontender. Nondistended. Positive bowel sounds. No organomegaly or masses. Ext: No clubbing, cyanosis, or edema. 2+ DP pulses bilaterally. Neuro: Patient is alert and oriented x1 (baseline). Follows most commands. Strength is symmetrical in both upper extremities. Cranial nerves 2-12 are intact. Speech is clear. Psych: Normal mood and affect. Patient is pleasant and cooperative. Skin: Warm and dry. No rashes noted. H&P: Results Labs Labs: Short CBC 08/28/24 Range/Units 18:15 WBC 5.5 (4.5-10.0) K/mm3 Hgb 13.8 (12.0-15.0) g/dL Hct 41.4 (37.0-47.0) % Plt Count 95 L (150-375) k/mm3 BMP 08/28/24 18:15 Sodium 140 Potassium 3.9 Chloride 107 Carbon Dioxide 29 BUN 12 Creatinine 0.60 L Glucose 91 Calcium 9.3 Cardiac Enzymes 08/28/24 Range/Units 18:15 Troponin I < 0.012 (0.000-0.034) ng/mL Urine 08/28/24 Range/Units 18:33 Urine Color Yellow (Yellow) Urine Appearance Clear (Clear) Urine pH 7.0 (5.0-9.0) Ur Specific [place] 1.009 (1.001-1.035) Urine Protein Negative (Negative) mg/dL Urine Glucose (UA) Negative (Negative) mg/dL Assessment and Plan Assessment and plan (1) Fall: Code(s): W19.XXXA - Unspecified fall, initial encounter Status: Acute Assessment and Plan: Patient had a fall at her nursing facility, unknown etiology. Hit her head. No LOC. - Head CT: No fracture or acute intracranial process, A couple small old lacunar infarcts in the right frontal lobe periventricular white matter, Age-related changes including mild to moderate diffuse volume loss and mild scattered white matter hypoattenuation consistent with chronic small vessel ischemic disease, Chronic moderate-sized right mastoid effusion. - Chest XR: Mild opacities at the left lower lung zone which could represent atelectasis, mild pulmonary edema or pneumonia. - C spine CT: Moderate to severe cervical spondylosis. No acute osseous abnormality. - Pelvis XR: No acute osseous abnormality. Severe lower lumbar spondylosis and moderate bilateral hip and sacroiliac osteoarthritis. - PT/OT (2) Pneumonia: Code(s): J18.9 - Pneumonia, unspecified organism Status: Acute Assessment and Plan: - Chest XR: Mild opacities at the left lower lung zone which could represent atelectasis, mild pulmonary edema or pneumonia. - started on CAP tx: azithromycin ceftriaxone on 08/29 - Viral PCR: negative for Flu/COVID/RSV - Monitor vital signs, I&Os, neuro status and patient is a fall risk - Follow WBC, serum electrolytes, temperature curves and cultures (3) UTI (urinary tract infection): Code(s): N39.0 - Urinary tract infection, site not specified Status: Acute Assessment and Plan: Per patient RN, patient recently went to the urologist and was diagnosed with a UTI. She was previously on Macrobid 50 mg prophylactic for recurrent UTIs. Urology had her Macrobid dose increased to 100 mg on on 08/27. - UA on admission was nonconcerning for infection - On Rocephin for pneumonia which should cover the UTI as well (4) Hypertension: Code(s): I10 - Essential (primary) hypertension Status: Acute Assessment and Plan: Chronic, not on any home medications. - monitor (5) Hypothyroidism: Code(s): E03.9 - Hypothyroidism, unspecified Status: Acute Assessment and Plan: Chronic, not currently on any medication. - TSH ordered (6) Dementia: Code(s): F03.90 - Unspecified dementia, unspecified severity, without behavioral disturbance, psychotic disturbance, mood disturbance, and anxiety Status: Acute Assessment and Plan: Baseline AOx1 (self), continue home medications. - donepezil 10 mg charmaine - memantine 10 mg BID Quality VTE Prophylaxis VTE prophylaxis: pharmacologic ordered Hospitalist [facility] Advance Care Plan I have confirmed that the patient's Advanced Care Plan is present, code status is documented, or surrogate decision maker is listed in patient medical record.: Yes Medication Reconciliation I have utilized all available resources to obtain, update and review the patients current medications (includes all prescriptions, OTC, herbals, cannabis, and nutritional supplements).: Yes
[2024-08-29 08:00] VITALS: BP 130/80; PULSE 69; RESP 16; TEMP 36.6; O2SAT 97
[2024-08-29 08:41] LABS: Basophils Percent Auto 0.1 % (0.2-1.2); Eosinophils Absolute Auto 0.1 K/mm3 (0-0.3); Eosinophils Percent Auto 0.6 % (0-4.4); Hematocrit 41.9 % (37.0-47.0); Hemoglobin 14.3 g/dL (12.0-15.0); Immature Granulocyte Percent A 2.1 % (0-0.5); Immature Platelet Fraction Pct 1.4 % (0.9-11.2); Lymphocytes Absolute Auto 1.44 K/mm3 (0.9-3.2); Lymphocytes Percent Auto 10.2 % (18.3-44.2); Mean Corpuscular HGB Conc 34.1 g/dl (32-36); Mean Corpuscular Hemoglobin 30.9 pg (26-34); Mean Corpuscular Volume 90.5 fl (80-100); Mean Platelet Volume 9.6 fl (7.4-10.4); Monocytes Absolute Auto 4.2 K/mm3 (0.1-0.6); Monocytes Percent Auto 29.6 % (2.6-8.5); Neutrophils Absolute Auto 8.1 K/mm3 (1.3-6.7); Neutrophils Percent Auto 57.4 % (45.5-73.1); Platelet Count Result 91 k/mm3 (150-375); Red Blood Count 4.63 M/mm3 (4.2-5.4); Red Cell Distribution Width 14.5 % (11.5-14.5); White Blood Count 14.1 K/mm3 (4.5-10.0)
[2024-08-29 08:43] LABS: Alanine Aminotransferase 14 U/L (6-35); Albumin Level 4.3 g/dL (3.5-5.1); Alkaline Phosphatase 66 U/L (38-126); Anion Gap 9 mmol/L (4-12); Aspartate Amino Transferase 25 U/L (14-36); Bilirubin,Total 1.5 mg/dL (0.2-1.3); Blood Urea Nitrogen 11 mg/dL (7-17); Carbon Dioxide 25 mmol/L (22-30); Chloride 106 mmol/L (98-107); Estimated CRCL calculation 53 ml/min; Estimated Glomerular Filt Rate > 60; Glucose 110 mg/dL (65-110); Potassium 3.2 mmol/L (3.4-5.0); Sodium 140 mmol/L (137-145)
[2024-08-29 12:00] VITALS: BP 142/82; PULSE 70; RESP 16; TEMP 36.8; O2SAT 96
[2024-08-29] MEDS: POTASSIUM CHLORIDE 20 MEQ ER TABLET 40 MEQ PO (12:32)
[2024-08-29] MEDS: CYANOCOBALAMIN 1,000 MCG TABLET 1000 MCG PO (12:32)
[2024-08-29] MEDS: CITALOPRAM HYDROBROMIDE 20 MG TABLET 40 MG PO (12:32)
[2024-08-29] MEDS: MEMANTINE 10 MG TABLET PO ×2 (12:33→17:34)
[2024-08-29] MEDS: CHOLECALCIFEROL 1,000 UNITS TABLET 1000 UNITS PO (12:33)
[2024-08-29] MEDS: PANTOPRAZOLE 40 MG TABLET PO (12:33)
[2024-08-29] MEDS: ASPIRIN 325 MG TABLET PO (12:33)
[2024-08-29 14:00] VITALS: BP 142/82; PULSE 70; RESP 16; TEMP 36.8; O2SAT 96
[2024-08-29] MEDS: AZITHROMYCIN 500 MG/NS 250 ML 500 MG/250 ML BAG 250 MG IVPB (14:05)
[2024-08-29 20:45] VITALS: PULSE 70; RESP 16; O2SAT 96
[2024-08-29] MEDS: DONEPEZIL HCL 10 MG TABLET PO (20:54)
[2024-08-29] MEDS: ACETAMINOPHEN 325 MG TABLET PO (20:54)
[2024-08-29] MEDS: MONTELUKAST SODIUM 10 MG TABLET PO (20:54)
[2024-08-29] MEDS: ROSUVASTATIN 5 MG TABLET PO (20:54)
[2024-08-29] MEDS: MIRTAZAPINE 15 MG TABLET PO (20:54)
[2024-08-29 22:00] VITALS: BP 127/66; PULSE 56; RESP 18; TEMP 36.3; O2SAT 96
[2024-08-30 06:00] VITALS: BP 133/61; PULSE 57; RESP 16; TEMP 36.1; O2SAT 95
[2024-08-30 06:09] LABS: Basophils Percent Auto 0.3 % (0.2-1.2); Eosinophils Absolute Auto 0.1 K/mm3 (0-0.3); Eosinophils Percent Auto 0.9 % (0-4.4); Hematocrit 40.9 % (37.0-47.0); Hemoglobin 13.5 g/dL (12.0-15.0); Immature Granulocyte Absolute 0.16 K/mm3 (0.00-0.031); Immature Granulocyte Percent A 1.6 % (0-0.5); Immature Platelet Fraction Pct 1.9 % (0.9-11.2); Lymphocytes Absolute Auto 2.99 K/mm3 (0.9-3.2); Lymphocytes Percent Auto 29.6 % (18.3-44.2); Mean Corpuscular Hemoglobin 29.9 pg (26-34); Mean Corpuscular Volume 90.7 fl (80-100); Mean Platelet Volume 9.6 fl (7.4-10.4); Monocytes Absolute Auto 2.6 K/mm3 (0.1-0.6); Monocytes Percent Auto 25.4 % (2.6-8.5); Neutrophils Absolute Auto 4.3 K/mm3 (1.3-6.7); Neutrophils Percent Auto 42.2 % (45.5-73.1); Platelet Count Result 93 k/mm3 (150-375); Red Blood Count 4.51 M/mm3 (4.2-5.4); Red Cell Distribution Width 14.6 % (11.5-14.5); White Blood Count 10.1 K/mm3 (4.5-10.0)
[2024-08-30 06:23] LABS: Alanine Aminotransferase 12 U/L (6-35); Alkaline Phosphatase 57 U/L (38-126); Anion Gap 4 mmol/L (4-12); Aspartate Amino Transferase 23 U/L (14-36); Bilirubin,Total 1.4 mg/dL (0.2-1.3); Blood Urea Nitrogen 13 mg/dL (7-17); Calcium 8.8 mg/dL (8.4-10.2); Carbon Dioxide 27 mmol/L (22-30); Chloride 107 mmol/L (98-107); Estimated CRCL calculation 62 ml/min; Estimated Glomerular Filt Rate > 60; Glucose 93 mg/dL (65-110); Potassium 3.1 mmol/L (3.4-5.0); Sodium 138 mmol/L (137-145)
[2024-08-30 07:08] LABS: Atypical Lymphocytes Present; Platelet Estimate Decreased (Adequate); Schistocytes None Seen
--- NOTE | 2024-08-30 07:45 | PM.IMPN ---
Progress Note: A&P Assessment and Plan (1) Fall: Code(s): W19.XXXA - Unspecified fall, initial encounter Status: Acute Assessment and Plan: Patient had a fall at her nursing facility, unknown etiology. Hit her head. No LOC. - Head CT: No fracture or acute intracranial process, A couple small old lacunar infarcts in the right frontal lobe periventricular white matter, Age-related changes including mild to moderate diffuse volume loss and mild scattered white matter hypoattenuation consistent with chronic small vessel ischemic disease, Chronic moderate-sized right mastoid effusion. - Chest XR: Mild opacities at the left lower lung zone which could represent atelectasis, mild pulmonary edema or pneumonia. - C spine CT: Moderate to severe cervical spondylosis. No acute osseous abnormality. - Pelvis XR: No acute osseous abnormality. Severe lower lumbar spondylosis and moderate bilateral hip and sacroiliac osteoarthritis. - PT/OT (2) Pneumonia: Code(s): J18.9 - Pneumonia, unspecified organism Status: Acute Assessment and Plan: - Chest XR: Mild opacities at the left lower lung zone which could represent atelectasis, mild pulmonary edema or pneumonia. - started on CAP tx: azithromycin ceftriaxone on 08/29 - Viral PCR: negative for Flu/COVID/RSV - Monitor vital signs, I&Os, neuro status and patient is a fall risk - Follow WBC, serum electrolytes, temperature curves and cultures (3) UTI (urinary tract infection): Code(s): N39.0 - Urinary tract infection, site not specified Status: Acute Assessment and Plan: Per patient RN, patient recently went to the urologist and was diagnosed with a UTI. She was previously on Macrobid 50 mg prophylactic for recurrent UTIs. Urology had her Macrobid dose increased to 100 mg on on 08/27. - UA on admission was nonconcerning for infection - Macrobid 100 mg BID Spoke with patients daughter, Ivette who states that patient was previously on cefdinir for the UTI however the ecoli was resistant which prompted her urologist to change to the higher dose of Macrobid. Attempted to call the Urology [facility] office where this UCx was collected to know about further resistance, however they are closed. Given resistance to cefdinir, concerned that rocephin is not covering the UTI. Will resume patients macrobid. (4) Hypertension: Code(s): I10 - Essential (primary) hypertension Status: Acute Assessment and Plan: Chronic, not on any home medications. - monitor (5) Hypothyroidism: Code(s): E03.9 - Hypothyroidism, unspecified Status: Acute Assessment and Plan: Chronic per intermediate, not currently on any medication. - TSH 1.610 (6) Dementia: Code(s): F03.90 - Unspecified dementia, unspecified severity, without behavioral disturbance, psychotic disturbance, mood disturbance, and anxiety Status: Acute Assessment and Plan: Baseline AOx1 (self), continue home medications. - donepezil 10 mg charmaine - memantine 10 mg BID Time Spent With Patient Time with patient: 25 - 35 minutes Subjective Date/time seen: 08/30/24 07:45 Interval history: 89 year old female with past medical history HLD, HTN, GERD, dementia, and hypothyroidism presents to the hospital following a fall. Patient is pleasant lying comfortably in her bed. She remains at her baseline AOx1 (self). She has no complaints. Spoke with patients daughter, Ivette who states that patient was previously on cefdinir for the UTI however the ecoli was resistant which prompted her urologist to change to the higher dose of Macrobid. Attempted to call the Urology [facility] office where this UCx was collected to know about further resistance, however they are closed. Given resistance to cefdinir, concerned that rocephin is not covering the UTI. Will resume patients macrobid. Review of Systems Review of Systems: All systems reviewed & are unremarkable except as noted in HPI and below Exam Narrative: AF HR 54 RR 20 SPO2 97 BP 118/44 General: frail female in no acute respiratory distress who is nontoxic appearing, lying semi recumbent in bed. HEENT: Normocephalic. Atraumatic. Pupils are round and reactive to light. Left anisocoria. Extraocular movement intact. Sclera clear and anicteric. No facial asymmetry. Chest: Lungs are diminished to auscultation bilaterally. No wheezes or crackles. CV: Heart was regular rate and rhythm. S1-S2. No murmurs, gallops, or rubs. Abd: Abdomen was soft. Nontender. Nondistended. Positive bowel sounds. No organomegaly or masses. Ext: No clubbing, cyanosis, or edema. 2+ DP pulses bilaterally. Neuro: Patient is alert and oriented x1 (baseline). Follows most commands. Strength is symmetrical in both upper extremities. Cranial nerves 2-12 are intact. Speech is clear. Objective Data Vital Signs Vital Signs: Vital Signs - 24 hr 08/29/24 08:00 08/29/24 08:00 08/29/24 10:07 Temperature 97.8 F Pulse Rate 69 Respiratory Rate 16 Blood Pressure 130/80 Pulse Oximetry 97 Oxygen Delivery Room Air Room Air 08/29/24 12:00 08/29/24 14:00 08/29/24 20:45 Temperature 98.2 F 98.2 F Pulse Rate 70 70 70 Respiratory Rate 16 16 16 Blood Pressure 142/82 H 142/82 H Pulse Oximetry 96 96 96 Oxygen Delivery Room Air 08/29/24 22:00 Temperature 97.3 F L Pulse Rate 56 L Respiratory Rate 18 Blood Pressure 127/66 Pulse Oximetry 96 Oxygen Delivery Intake/Output Intake/Output: Intake & Output 08/27/24 08/28/24 08/29/24 08/30/24 23:59 23:59 23:59 23:59 Intake Total 1030 Balance 1030 Meds/Results Medications: Active Medications Generic Name Dose Route Start Last Admin Trade Name Freq PRN Reason Stop Dose Admin Acetaminophen 325 mg 08/29/24 10:06 08/29/24 20:54 Acetaminophen 325 Mg Tablet PO 325 mg Q6H PRN Administration Pain Rated 1-3 Aspirin 325 mg 08/29/24 10:15 08/29/24 12:33 Aspirin 325 Mg Tablet PO 325 mg DAILY TIFFANI Administration Citalopram Hydrobromide 40 mg 08/29/24 10:15 08/29/24 12:32 Citalopram Hydrobromide 20 Mg Tablet PO 40 mg DAILY TIFFANI Administration Cyanocobalamin 1,000 mcg 08/29/24 10:15 08/29/24 12:32 Cyanocobalamin 1,000 Mcg Tablet PO 1,000 mcg DAILY TIFFANI Administration Donepezil HCl 10 mg 08/29/24 21:00 08/29/24 20:54 Donepezil Hcl 10 Mg Tablet PO 10 mg HS TIFFANI Administration Hydroxyzine HCl 25 mg 08/29/24 10:06 Hydroxyzine Hcl 25 Mg Tablet PO TID PRN Anxiety Azithromycin 500 mg in 250 mls @ 250 mls/hr 08/29/24 14:00 08/29/24 15:05 Zithromax IVPB Infused Q24H TIFFANI Infusion Ceftriaxone Sodium 1 gm in 50 mls @ 100 mls/hr 08/30/24 15:00 Rocephin 1 Gm/Ns 50 Ml IVPB Q24H TIFFANI Memantine 10 mg 08/29/24 10:15 08/29/24 17:34 Memantine 10 Mg Tablet PO 10 mg BID TIFFANI Administration Mirtazapine 15 mg 08/29/24 21:00 08/29/24 20:54 Mirtazapine 15 Mg Tablet PO 15 mg HS TIFFANI Administration Montelukast Sodium 10 mg 08/29/24 21:00 08/29/24 20:54 Montelukast Sodium 10 Mg Tablet PO 10 mg HS TIFFANI Administration Pantoprazole Sodium 40 mg 08/29/24 10:15 08/29/24 12:33 Pantoprazole 40 Mg Tablet PO 40 mg DAILY TIFFANI Administration Rosuvastatin Calcium 5 mg 08/29/24 21:00 08/29/24 20:54 Rosuvastatin 5 Mg Tablet PO 5 mg HS TIFFANI Administration Vitamin D 1,000 units 08/29/24 10:15 08/29/24 12:33 Cholecalciferol 1,000 Units Tablet PO 1,000 units DAILY TIFFANI Administration Radiology Results: ITS Impressions Head CT 08/28/24 18:04 IMPRESSION: 1. No fracture or acute intracranial process. 2. A couple small old lacunar infarcts in the right frontal lobe periventricular white matter. 2. Age-related changes including mild to moderate diffuse volume loss and mild scattered white matter hypoattenuation consistent with chronic small vessel ischemic disease. 4. Chronic moderate-sized right mastoid effusion. Chest X-Ray 08/28/24 18:13 IMPRESSION: 1. Mild opacities at the left lower lung zone which could represent atelectasis, mild pulmonary edema or pneumonia. Cervical Spine CT 08/28/24 18:41 IMPRESSION: 1. Moderate to severe cervical spondylosis. No acute osseous abnormality. Pelvis X-Ray 08/28/24 18:46 IMPRESSION: 1. No acute osseous abnormality. 2. Severe lower lumbar spondylosis and moderate bilateral hip and sacroiliac osteoarthritis. Labs Labs: Laboratory Results - last 24 hr 08/29/24 08/30/24 08:05 05:30 WBC 14.1 H 10.1 H RBC 4.63 4.51 Hgb 14.3 13.5 Hct 41.9 40.9 MCV 90.5 90.7 MCH 30.9 29.9 MCHC 34.1 33.0 RDW 14.5 14.6 H Plt Count 91 L 93 L MPV 9.6 9.6 Immature Gran % (Auto) 2.1 H 1.6 H Neut % (Auto) 57.4 42.2 L Lymph % (Auto) 10.2 L 29.6 [place] % (Auto) 29.6 H 25.4 H Eos % (Auto) 0.6 0.9 Baso % (Auto) 0.1 L 0.3 Lymph # (Auto) 1.44 2.99 [place] # (Auto) 4.2 H 2.6 H Eos # (Auto) 0.1 0.1 Baso # (Auto) 0.0 0.0 Abs Immat Gran (auto) 0.30 H 0.16 H Absolute Neuts (auto) 8.1 H 4.3 Absolute Nucleated RBC 0.000 0.000 Nucleated RBC % 0.0 0.0 Atypical Lymphocytes Present Platelet Estimate Decreased % Immature Plt Fraction 1.4 1.9 Schistocytes None seen Sodium 140 138 Potassium 3.2 L 3.1 L Chloride 106 107 Carbon Dioxide 25 27 Anion Gap 9 4 BUN 11 13 Creatinine 0.60 L 0.50 L Estim Creat Clear Calc 53 62 Estimated GFR > 60 > 60 Glucose 110 93 Calcium 9.0 8.8 Total Bilirubin 1.5 H 1.4 H AST 25 23 ALT 14 12 Alkaline Phosphatase 66 57 Total Protein 7.0 7.0 Albumin 4.3 4.0 TSH (Reflex) 1.610 Quality VTE Prophylaxis VTE prophylaxis: pharmacologic ordered
[2024-08-30] MEDS: PANTOPRAZOLE 40 MG TABLET PO (08:24)
[2024-08-30] MEDS: CYANOCOBALAMIN 1,000 MCG TABLET 1000 MCG PO (08:24)
[2024-08-30] MEDS: CITALOPRAM HYDROBROMIDE 20 MG TABLET 40 MG PO (08:24)
[2024-08-30] MEDS: ASPIRIN 325 MG TABLET PO (08:24)
[2024-08-30] MEDS: CHOLECALCIFEROL 1,000 UNITS TABLET 1000 UNITS PO (08:25)
[2024-08-30] MEDS: MEMANTINE 10 MG TABLET PO ×2 (08:25→17:39)
[2024-08-30 13:52] VITALS: BP 118/44; PULSE 54; RESP 20; TEMP 36.5; O2SAT 97
[2024-08-30] MEDS: POTASSIUM CHLORIDE 20 MEQ PACKET (FOR LIQUID) 40 MEQ PO (14:58)
[2024-08-30] MEDS: AZITHROMYCIN 250 MG TABLET 500 MG PO (17:39)
[2024-08-30 20:15] VITALS: PULSE 54; RESP 20; O2SAT 97
[2024-08-30] MEDS: DONEPEZIL HCL 10 MG TABLET PO (20:17)
[2024-08-30] MEDS: MONTELUKAST SODIUM 10 MG TABLET PO (20:17)
[2024-08-30] MEDS: AMOXICILLIN/CLAVULANATE K 875-125 MG TAB 1 TABLET PO (20:17)
[2024-08-30] MEDS: MIRTAZAPINE 15 MG TABLET PO (20:17)
[2024-08-30] MEDS: ROSUVASTATIN 5 MG TABLET PO (20:17)
[2024-08-30] MEDS: NITROFURANTOIN MONOHYD MACROCR 100 MG CAP PO (20:17)
[2024-08-30 22:00] VITALS: BP 143/57; PULSE 56; RESP 16; TEMP 36.3; O2SAT 95
[2024-08-31 06:00] VITALS: BP 148/68; PULSE 57; RESP 16; TEMP 36.2; O2SAT 95
[2024-08-31 06:01] LABS: Basophils Percent Auto 0.4 % (0.2-1.2); Eosinophils Absolute Auto 0.1 K/mm3 (0-0.3); Eosinophils Percent Auto 1.3 % (0-4.4); Hematocrit 41.7 % (37.0-47.0); Hemoglobin 13.5 g/dL (12.0-15.0); Immature Granulocyte Absolute 0.13 K/mm3 (0.00-0.031); Immature Granulocyte Percent A 1.7 % (0-0.5); Immature Platelet Fraction Pct 1.9 % (0.9-11.2); Lymphocytes Absolute Auto 1.99 K/mm3 (0.9-3.2); Lymphocytes Percent Auto 25.4 % (18.3-44.2); Mean Corpuscular HGB Conc 32.4 g/dl (32-36); Mean Corpuscular Hemoglobin 29.6 pg (26-34); Mean Corpuscular Volume 91.4 fl (80-100); Mean Platelet Volume 9.3 fl (7.4-10.4); Monocytes Absolute Auto 2.2 K/mm3 (0.1-0.6); Monocytes Percent Auto 28.1 % (2.6-8.5); Neutrophils Absolute Auto 3.4 K/mm3 (1.3-6.7); Neutrophils Percent Auto 43.1 % (45.5-73.1); Platelet Count Result 97 k/mm3 (150-375); Red Blood Count 4.56 M/mm3 (4.2-5.4); Red Cell Distribution Width 14.5 % (11.5-14.5); White Blood Count 7.8 K/mm3 (4.5-10.0)
[2024-08-31 06:13] LABS: Alanine Aminotransferase 12 U/L (6-35); Albumin Level 3.9 g/dL (3.5-5.1); Alkaline Phosphatase 59 U/L (38-126); Anion Gap 3 mmol/L (4-12); Aspartate Amino Transferase 22 U/L (14-36); Bilirubin,Total 1.7 mg/dL (0.2-1.3); Blood Urea Nitrogen 13 mg/dL (7-17); Calcium 8.8 mg/dL (8.4-10.2); Carbon Dioxide 26 mmol/L (22-30); Chloride 109 mmol/L (98-107); Estimated CRCL calculation 53 ml/min; Estimated Glomerular Filt Rate > 60; Glucose 92 mg/dL (65-110); Potassium 3.4 mmol/L (3.4-5.0); Sodium 138 mmol/L (137-145)
[2024-08-31 06:39] LABS: Platelet Estimate Slightly Decreased (Adequate); Schistocytes None Seen
[2024-08-31 06:40] LABS: Atypical Lymphocytes Present
[2024-08-31] MEDS: CITALOPRAM HYDROBROMIDE 20 MG TABLET 40 MG PO (08:05)
[2024-08-31] MEDS: CYANOCOBALAMIN 1,000 MCG TABLET 1000 MCG PO (08:05)
[2024-08-31] MEDS: CHOLECALCIFEROL 1,000 UNITS TABLET 1000 UNITS PO (08:05)
[2024-08-31] MEDS: NITROFURANTOIN MONOHYD MACROCR 100 MG CAP PO (08:05)
[2024-08-31] MEDS: MEMANTINE 10 MG TABLET PO (08:05)
[2024-08-31] MEDS: AZITHROMYCIN 250 MG TABLET 500 MG PO (08:05)
[2024-08-31] MEDS: ASPIRIN 325 MG TABLET PO (08:06)
[2024-08-31] MEDS: PANTOPRAZOLE 40 MG TABLET PO (08:06)
[2024-08-31] MEDS: AMOXICILLIN/CLAVULANATE K 875-125 MG TAB 1 TABLET PO (08:06)
--- NOTE | 2024-08-31 12:32 | P.DS_ITS ---
DS: Admitting Diagnosis Discharge Date 08/31/2024 Admitting Diagnosis Fall Pneumonia UTI Hypertension Hypothyroidism Dementia DS: Discharge Diagnosis Discharge Diagnosis (1) Fall: Code(s): W19.XXXA - Unspecified fall, initial encounter Status: Acute (2) Pneumonia: Code(s): J18.9 - Pneumonia, unspecified organism Status: Acute (3) UTI (urinary tract infection): Code(s): N39.0 - Urinary tract infection, site not specified Status: Acute (4) Hypertension: Code(s): I10 - Essential (primary) hypertension Status: Acute (5) Hypothyroidism: Code(s): E03.9 - Hypothyroidism, unspecified Status: Acute (6) Dementia: Code(s): F03.90 - Unspecified dementia, unspecified severity, without behavioral disturbance, psychotic disturbance, mood disturbance, and anxiety Status: Acute DS: Summary Hospital Course Reason for hospitalization: Fall Pneumonia UTI Hypertension Hypothyroidism Dementia Hospital Course: 89 year old female with past medical history HLD, HTN, GERD, dementia, and hy pothyroidism presents to the hospital following a fall. Unknown etiology. Patient remains at baseline AOx1. 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 C spine CT showed moderate to severe cervical spondylosis. No acute osseous abnormality. Pelvis XR showed no acute osseous abnormality. Severe lower lumbar spondylosis and moderate bilateral hip and sacroiliac osteoarthritis. Chest XR showed mild opacities at the left lower lung zone which could represent atelectasis, mild pulmonary edema or pneumonia. P atient had an associated leukocytosis and was started on CAP treatment. The leukocytosis resolved during admission. Patient transitioned to oral antibiotic course at time of discharge to complete the treatment. Per patient RN, patient recently went to the urologist and was diagnosed with a UTI. She was previously on Macrobid 50 mg prophylactic for recurrent UTIs. Urology had her Macrobid dose increased to 100 mg on on 08/27. Spoke with patients daughter, Ivette who states that patient was previously on cefdinir for the UTI however the ecoli was resistant which prompted her urologist to change to the higher dose of Macrobid. Attempted to call the Urology [facility] office where this UCx was collected to know about further resistance, however they are closed. Given resistance to cefdinir, concerned that rocephin is not covering the UTI and resumed patients macrobid. Patient is to complete her course of macrobid as prescribed by her urologist. At time of dischage patient had no complaints denying Chest pain, shortness a breath, nausea / vomiting, and abdominal pain. Patient discharged back to her Memory Care Unit in a stable condition. she is to complete her antibiotics as prescribed and follow-up with her primary care provider in 1 week Status at Discharge Functional status at discharge: uses cane/walker Time Spent with Patient Time attestation: Total time spent providing and/or coordinating discharge services: Time spent: Greater than 30 minutes Exam Narrative: AF HR 57 RR 16 SpO2 95 BP 148/68 General: frail female in no acute respiratory distress who is nontoxic appearing, lying semi recumbent in bed. HEENT: Normocephalic. Atraumatic. Left anisocoria. Extraocular movement intact. Sclera clear and anicteric. No facial asymmetry. Chest: Lungs are clear to auscultation bilaterally. No wheezes or crackles. CV: Heart was regular rate and rhythm. S1-S2. No murmurs, gallops, or rubs. Abd: Abdomen was soft. Nontender. Nondistended. Positive bowel sounds. No organomegaly or masses. Ext: No clubbing, cyanosis, or edema. 2+ DP pulses bilaterally. Neuro: Patient is alert and oriented x1 (baseline). Follows most commands. Speech is clear. DS: Data Data Completed and Pending Completed studies during hospitalization: Chest XR Head CT C spine CT Pelvis XR Labs on day of discharge: Labs from last 24 hours 08/31/24 05:45 WBC 7.8 RBC 4.56 Hgb 13.5 Hct 41.7 MCV 91.4 MCH 29.6 MCHC 32.4 RDW 14.5 Plt Count 97 L MPV 9.3 Immature Gran % (Auto) 1.7 H Neut % (Auto) 43.1 L Lymph % (Auto) 25.4 Summit % (Auto) 28.1 H Eos % (Auto) 1.3 Baso % (Auto) 0.4 Lymph # (Auto) 1.99 Summit # (Auto) 2.2 H Eos # (Auto) 0.1 Baso # (Auto) 0.0 Abs Immat Gran (auto) 0.13 H Absolute Neuts (auto) 3.4 Absolute Nucleated RBC 0.000 Nucleated RBC % 0.0 Atypical Lymphocytes Present Platelet Estimate Slightly decreased % Immature Plt Fraction 1.9 Schistocytes None seen Sodium 138 Potassium 3.4 Chloride 109 H Carbon Dioxide 26 Anion Gap 3 L BUN 13 Creatinine 0.60 L Estim Creat Clear Calc 53 Estimated GFR > 60 Glucose 92 Calcium 8.8 Total Bilirubin 1.7 H AST 22 ALT 12 Alkaline Phosphatase 59 Total Protein 7.0 Albumin 3.9 Discharge Plan Discharge Attending physician on discharge: Tim Gordillo Discharging Clinician: Mercy Baxter Anticipated Discharge Date/Time: 08/31/24 12:25 Patient Disposition: NH Long-Term/Asst Living Activity: as tolerated Diet: as tolerated and heart healthy Discharge Instructions: Discharge disposition: Patient was admitted to the hospital following a fall All imaging was negative Patient worked with PT/OT during admission Patient diagnosed with pneumonia as seen on imaging Take all medications as prescribed even if feeling better Augmentin and azithromycin, course to be completed on Sep 03. Attached is information on these medications Patient was previously diagnosed with a urinary tract infection, per patients daughter this was resistant to cefdinir. Patient is to continue her current Macrobid dose of 100 mg twice a day to complete the course then return to her prophylactic dosage. Take all medications as prescribed even if feeling better Eat well balanced meals and stay hydrated Keep active to remain strong Avoid use of diapers or pads Good olayinka Care every 2 hours Trend urine output Monitor blood pressures Take caution while standing, rising, or moving Change positions slowly taking a break between each position change If you standing feel dizzy sit back down and take a break Encouraged to continue with yearly vaccinations Return to the emergency department if he developed sudden shortness of breath, chest pain, nausea, vomiting, upset stomach or intractable diarrhea Return to the emergency department if you develop fever greater than 101.5 Follow-up with the primary care physician within 1-2 weeks Thank you for [facility] for your healthcare needs Patient Instructions: Antibiotic Form, Aspirin (By mouth), Amoxicillin/Clavulanate Potassium (By mouth), Azithromycin (By mouth), Nitrofurantoin Combination (By mouth), Community Acquired Pneumonia (DC), Urinary Tract Infection in Older Adults (DC) Patient Language: Syriac Stand Alone Forms: General Discharge Information Follow-up/Referrals: UNKNOWN,DOCTOR [Primary Care Provider] - 1 Week Discharge Medications: New azithromycin [Zithromax] 250 mg Tablet 500 mg PO DAILY Qty: 3 0RF amoxicillin-pot clavulanate 875-125 mg tablet 1 tablet PO Q12H Qty: 7 0RF Continued mirtazapine [Remeron] 15 mg Tablet 15 mg PO HS donepezil [Aricept] 10 mg Tablet 10 mg PO HS citalopram [Celexa] 40 mg tablet 40 mg PO DAILY aspirin [Vicki Aspirin] 325 mg Tablet 325 mg PO DAILY pantoprazole [Protonix] 40 mg tablet,delayed release (DR/EC) 40 mg PO DAILY montelukast [Singulair] 10 mg tablet 10 mg PO HS rosuvastatin [Crestor] 5 mg tablet 5 mg PO HS memantine [Namenda] 10 mg tablet 10 mg PO BID psyllium husk [Metamucil] 0.4 gram Capsule 1.2 g PO DAILY PRN (Reason: Loose Stool) ibuprofen 400 mg tablet 400 mg PO Q8H PRN (Reason: pain) Qty: 14 0RF acetaminophen [Tylenol] 325 mg capsule 325 mg PO Q6H PRN (Reason: pain) Qty: 14 0RF cyanocobalamin (vitamin B-12) 1,000 mcg Capsule 1,000 mcg PO DAILY tramadol 50 mg Tablet 50 mg PO Q8H PRN (Reason: Pain) nitrofurantoin macrocrystal 100 mg Capsule 100 mg PO Q12H Rx Instructions: must administer with a meal/food. Through 09/02/24 ibuprofen 200 mg Tablet 200 mg PO BID hydroxyzine HCl 25 mg Tablet 25 mg PO TID PRN (Reason: Anxiety) cholecalciferol (vitamin D3) 25 mcg (1,000 unit) Tablet 25 mcg PO DAILY Date of admission: 08/30/24 09:19 Primary Care Provider: UNKNOWN,DOCTOR Admitting Provider: Qi Del Toro Attending physician on admission: Mercy Baxter Condition: Stable Hospitalist MIPS Heart Failure (Exclusion) Patient has history of Heart Transplant or Left Ventricular Assistive Device?: No IF YES, STOP HERE Heart Failure (Qualifier) Patient has current or prior documentation of LVEF less than or equal to 40%, or mod/servere depressed LVSF?: No IF NO, STOP HERE
[2024-08-31 14:00] VITALS: BP 134/49; PULSE 56; RESP 16; TEMP 36.4; O2SAT 96
== END 2024-08-31 16:30 | DRG 194 ==
LOC: ANHED 21:37 → ANH3MED 22:10
PROVIDERS: Admitting Provider Internal Medicine; Emergency Provider Physician Assistant; Visit Provider Student in an Organized Health Care Education/Training Program
DX: J18.9 Pneumonia, unspecified organism (principal); N39.0 Urinary tract infection, site not specified; I10 Essential (primary) hypertension; E78.5 Hyperlipidemia, unspecified; M16.0 Bilateral primary osteoarthritis of hip; M46.1 Sacroiliitis, not elsewhere classified; M47.816 Spondylosis without myelopathy or radiculopathy, lumbar region; F03.90 Unspecified dementia, unspecified severity, without behavioral disturbance, psychotic disturbance, mood disturbance, and anxiety; F32.A Depression, unspecified; W19.XXXA Unspecified fall, initial encounter; Z20.822 Contact with and (suspected) exposure to COVID-19; Z79.82 Long term (current) use of aspirin; Z86.73 Personal history of transient ischemic attack (TIA), and cerebral infarction without residual deficits; Z85.820 Personal history of malignant melanoma of skin
CPT/HCPCS: 36415; 70450; 71046; 72125; 72170; 80048; 80053; 81001; 84443; 84484; 85025; 85055; 87637; 93005; 97110; 97161; 97165; 99285; A9270; G0378; J0456; J0696

== ENCOUNTER 2024-11-07 15:18 | Outpatient (CLI) | payer MEDICARE, OTHER, SELFPAY ==
--- OUTSIDE RECORDS SUMMARY | 2024-11-01 12:52 | XMS_ITS | Clinical Summary ---
Author Organization [facility] Address [address] [place] [address]. [place], [place] [id number] [place] [address] Care Team Providers Care Satellite Tv Installer Name Role Phone Blanche Sanz FINANCIAL RESERVE CLERK Primary Care Provider [phone] Social History Tobacco Use Types Packs/Day Years Used Date Smoking Tobacco: Never Assessed Comments Unknown Sex and Gender Information Value Date Recorded Sex Assigned at Not on file Legal Sex Female 3:07 PM CDT Gender Identity Not on file Sexual Orientation Not on file Plan of Treatment Health Maintenance Due Date Last Done Comments Zoster Vaccines (1 of 2) 1987 Annual Medicare Wellness Visit 2002 RSV Immunization or 60+ Years (1 - 1-dose 75+ series) 2012 COVID-19 Vaccine ( season) 2024 01/02/2022, 09/02/2021, 12/07/2020, Additional history exists Influenza Adult (#1) 2024 07/31/2022, 07/01/2021, 06/22/2020, Additional history exists DTaP, Tdap and Td Vaccines (2 - Td or Tdap) 02/25/2025 02/25/2015 Pneumococcal Vaccine: 65+ Years Completed 06/17/2015, 07/06/2007 Meningococcal B Vaccine Aged Out No l onger eligible based on patient's age to complete this topic Meningococcal Vaccine Aged Out No nicole mirella eligible based on patient's age to complete this topic RSV Immunizations Under 20 Months Aged Out No longer eligible based on patient's age to complete this topic Insurance [facility] MEDICARE Care Teams Satellite Tv Installer Relationship Specialty Start Date End Date Blanche Sanz FNP PCP - General Nurse Practitioner Family 02/07/24
--- NOTE | ~2024-11-07 | CT_ITS ---
EXAMINATION: CT abdomen pelvis wo/w con DATE: 11/07/2024 16:05 INDICATION: Hematuria TECHNIQUE: Computed tomography (CT) of the abdomen and pelvis was performed without intravenous contr ast. CT of the abdomen and pelvis was then performed with a total of 130 mL Omnipaque-350 intravenous contrast using a double-bolus technique for simultaneous opacification of the renal parenchyma and r enal collecting system. Automated exposure control and iterative reconstruction technique were employ ed. The dose-length product was 1454.59 mGy-cm. COMPARISON: None FINDINGS: Respiratory motion and mild atelectasis at the bilateral lung bases. Heart size normal. Atherosclerot ic coronary artery calcification. No pericardial or pleural effusion. Cholecystectomy clips at the ga llbladder fossa. Liver, spleen, pancreas and bilateral adrenal glands are normal. Symmetric bilateral renal parenchymal enhancement with a few bilateral renal cysts measuring up to 1.6 cm in maximal ant meter on the left and 1.3 cm on the right. Small region of cortical scarring at the posterior upper p ole of the left kidney. No urolithiasis or hydronephrosis. No filling defects or urothelial irregular ities at the bilateral renal collecting systems or contrast opacified portions of the bilateral urete rs. Portions of the bilateral distal ureters are decompressed and unopacified. There is contrast a mi nimal amount of gas within the bladder. There are suture lines in the left and right hemipelvis and t he uterus and bilateral adnexa are and have likely been surgically resected. Bowels are unremarkable. No free intraperitoneal gas or fluid. No pathologically enlarged abdominal or pelvic lymphadenopathy . Mild S-shaped scoliosis of the lumbar and lower thoracic spine with severe spondylosis and multiple Schmorl's nodes. Chronic T9 and T11 compression fractures and L1 burst fracture. IMPRESSION: 1. Small region of cortical scarring at the left kidney and bilateral renal cysts. Otherwise normal k idneys and ureters with no urolithiasis. 2. Small focus of gas within the bladder. Correlate clinically for recent instrumentation or Helms ca theterization. Reviewed, dictated and finalized at location A. [facility] IMPRESSION: 1. Small region of cortical scarring at the left kidney and bilateral renal cys ts. Otherwise normal kidneys and ureters with no urolithiasis. 2. Small focus of gas within the bladder. Correlate clinically for recent instr umentation or Helms catheterization.
--- OUTSIDE RECORDS SUMMARY | 2024-11-07 15:23 | XMS_ITS | Clinical Summary ---
Author Organization [facility] Address [address] [place] [address] Care Team Providers Care Outdoor Pursuits Instructor Name Role Phone Blanche Sanz RF ENGINEER Primary Care Provider [phone] Social History Tobacco Use Types Packs/Day Years [...] patient's age to complete this topic Insurance [facility] MEDICARE Care Teams Outdoor Pursuits Instructor Relationship Specialty Start Date End Date Blanche Sanz FNP PCP - General Nurse Practitioner Family 02/07/24
--- OUTSIDE RECORDS SUMMARY | 2024-11-07 15:24 | XMS_ITS | Clinical Summary ---
Author Organization [facility] Address [address] [place] [id number] Care Team Providers Care Auto Travel Counselor Name Role Phone Blanche Sanz NP Primary Care Provider [phone] Allergies Active Allergy Reactions Criticality Noted Date Comments Iodinated Contrast Media Unknown 12/26/2008 Sertraline Diarrhea,Headache,Ot her (See comments) Low 10/13/2022 Sulfa (Sulfonamide Antibiotics) Unknown 12/26/2008 Medications psyllium husk/aspartame (METAMUCIL FIBER SINGLES ORAL) Take 1 Scoop by mouth daily as needed (diabrreha) Active rosuvastatin (CRESTOR) 5 mg tablet Take 1 tablet (5 mg total) by mouth nightly 8 Active coenzyme Q10 100 mg capsule Take by mouth A ctive citalopram (CeleXA) 40 mg tablet Take 1 tablet (40 mg total) by mouth daily 90 tablet 1 3 Active montelukast (SINGULAIR) 10 mg tablet Take 1 tablet (10 mg total) by mouth nightly 90 tablet 1 3 Active memantine (NAMENDA) 10 mg tablet Take 1 tablet (10 mg total) by mouth 2 (two) times a day 180 tablet [address] (PROTONIX) 40 mg EC tablet Take 1 tablet (40 mg total) by mouth daily 90 tablet 1 3 Active donepeziL (ARICEPT) 10 mg tablet Take 1 tablet (10 mg total) by mouth nightly 90 tablet 1 3 Active cholecalciferol 25 mcg (1,000 unit) tablet 3 Active ipratropium (ATROVENT) 21 mcg (0.03 %) nasal spray USE 2 SPRAYS IN EACH NOSTRIL TWICE A DAY 30 mL 10 4 Active Reguloid, psyllium husk-sucro, 3 gram/7 gram powder MIX 1 SCOOP IN LIQUID AND DRINK DAILY FOR LOOSE STOOLS NEEDED. 538 g 10 4 Active mirtazapine (REMERON) 30 mg tablet Take 1 tablet (30 mg total) by mouth nightly 30 tablet 4 Active cyanocobalamin (Vitamin B-12) 1,000 mcg tabletIndicatio ns:Prevention of Vitamin B12 Deficiency Take 1 tablet (1,000 mcg total) by mouth daily 90 tablet 1 4 Active ibuprofen (ADVIL,MOTRIN) 400 mg tablet Take 1 tablet (400 mg total) by mouth every 8 (eight) hours as needed for pain Please give if patient mentions joint pain 90 tablet 1 4 Active traMADoL (ULTRAM) 50 mg tablet Take 1 tablet (50 mg total) by mouth every 8 (eight) hours as needed for other (breakthrough pain) for up to 7 days 21 tablet 4 Active phenylephrine 0.25%-mineral oil 14%-petrolatum 74.9% (Preparation H) 0.25-14-74.9 % ointment Insert 1 Application into the rectum 2 (two) times a day as needed (irritation, pain, after BM's) 56 g 1 4 Active witch Stella (TUCKS) 50 % pads, medicatedIndica tions:Hemorrhoi ds Apply to anal area, as needed, up to 6 times daily or after each bowel movement. 48 each 4 Active acetaminophen (TYLENOL) 325 mg tablet Take 2 tablets (650 mg total) by mouth every 6 (six) hours as needed for pain Active peg 400-propylene glycol (SYSTANE) 0.4-0.3 % ophthalmic solution Administer 1 drop into both eyes as needed (dry eyes) 20 mL 1 07/08/202 4 Active d-mannose powder Take 2 g by mouth daily 300 g 1 4 Active aspirin 325 mg Take 1 tablet (325 mg total) by mouth daily 90 tablet 1 4 Active nitrofurantoin (MACRODANTIN) 50 mg capsuleIndicati ons:Prophylaxis , Medical Take 1 capsule (50 mg total) by mouth nightly May open capsule and sprinkle med onto applesauce, pudding, mashed potatoes, ice cream 90 capsule 1 4 Active Active Problems Problem Noted Date Diagnosed Date Recurrent UTI 07/04/2024 Assessment & Plan (07/04/2024 3:04 PM CDT): UA ok in office today Starting empiric daily Macrodantin, failed otc D-Mannose. Education provided. Medicare annual wellness visit, subsequent 07/04 Assessment & Plan (07/04/2024 3:05 PM CDT): A yearly Medicare Annual Wellness Visit has been performed today. Jany Luna is up to date on screening tests. She is in need of None- no screening indicated at this time- these have been ordered. She is not up to date on needed preventative vaccinations; She is in need of Influenza, Zoster, and Covid-19 (booster). These have been ordered/arranged unless otherwise indicated. Tinnitus 03/01/2023 03/01/2023 Sensorineural hearing loss 03/01/202303/01 Memory deficit 10/13/2022 Assessment & Plan (07/04/2024 3:03 PM CDT): Continues Aricept and Namenda. Assessment & Plan (11/23/2023 3:05 PM REVENUE STAMP CLERK): Diagnosed with Alzheimer's per Neurology. Continues Aricept and Namenda. Holding off on Neuro follow up unless symptoms arise that I feel like specialist needs involved again. Assessment & Plan (10/14/2022 2:08 PM REVENUE STAMP CLERK): Strong FH of Alzheimer's, pt not officially diagnosed but suspected. She is on Namenda and Aricept. Tolerates well. Has scheduled Neuro appointment 11/2022 through [facility]. Will try to get MRI results from Hospital stay in August. Pt currently has home health coming out to home. Working on strength and adjusting the leaning to one side or another when standing or walking. Pain in joint, shoulder region 07/08/2015 Gastroesophageal reflux disease with esophagitis 07/06/2015 Assessment & Plan (10/14/2022 2:07 PM REVENUE STAMP CLERK): Continues Pantoprazole. No sx noted. Hyperglycemia 03/28/2014 Depression with anxiety 01/17/2014 Assessment & Plan (12/28/2023 2:58 PM CDT): Mood seems to be improved on the Remeron 30 mg daily, denies side effects. Appetite has also improved. Will continue. Assessment & Plan (11/23/2023 3:06 PM REVENUE STAMP CLERK): Patient feeling down and having decreased appetite. Has lost about 18 lbs (unintentionally) in the past 1 year. Discussed Ensure/Boost and will try increasing her Remeron to 30 mg daily, precautions discussed. She has been on Remeron for about 5+ years. Follow up in 6 weeks. Assessment & Plan (10/14/2022 2:07 PM REVENUE STAMP CLERK): Stable on Citalopram 40 mg daily. Vitamin D deficiency 02/29/2012 Hypercholesterolemia 01/01/2009 Assessment & Plan (07/04/2024 3:03 PM CDT): Continues Crestor, no side effects reported. Updated labs ordered Assessment & Plan (10/14/2022 2:08 PM REVENUE STAMP CLERK): Continues Crestor, no side effects reported. Resolved Problems Problem Noted Date Diagnosed Date Resolved Date Osteoporosis 06/27/2017 10/13/2022 Encounters Date Type Department Care Team Description 10/23/2024 Telephone [facility] Primary Care at [address] [id number] Blanche Sanz, DIONISIO Test Results (Urinalysis ) 10/22/2024 10:45 AM REVENUE STAMP CLERK Lab [facility] Outpatient Lab at [address] [phone] 10/22/2024 10:43 AM REVENUE STAMP CLERK - 10/22/2024 11:59 PM REVENUE STAMP CLERK Hospital Encounter [address] [address] Recurrent UTI Discharge Disposition: Discharge to home or self care 09/18/2024 Telephone [facility] Primary Care at [address] [phone] Blanche Sanz NP Medical Question/Miscellaneous 09/10/2024 7:33 PM REVENUE STAMP CLERK - 09/10/2024 11:59 PM REVENUE STAMP CLERK Hospital Encounter [address] [address] Confusion; Acute cystitis with hematuria Discharge Disposition: Discharge to home or self care 09/10/2024 11:15 AM REVENUE STAMP CLERK Office Visit [facility] at [address] [phone] Myra Rucker NP Confusion (Primary Dx); Acute cystitis with hematuria 09/09/2024 Nurse Triage [facility] Primary [facility] at [address] [phone] Blanche Sanz NP 08/20/2024 Orders Only [facility] Primary Care at [address] [phone] Blanche Sanz NP Thrombocytopenia (HCC) (Primary Dx) 08/20/2024 Telephone [facility] Primary Care at [address] [phone] Blanche Sanz NP Medical Question/Miscellaneous from Last 3 Months Immunizations Name Administration Dates Next Due Influenza, Quadrivalent, Hig h Dose, Preservative Free, Intrr 07/31/2023 Influenza, Quadrivalent, Spl it, Preservative Free, Intramuscular 06/25/2019 Influenza, Trivalent, High D ose, Split, Preservative Free, Intramuscular 07/01/2021,06/22/2020,07/04/2018,06/17,07/17/2012 Influenza, Trivalent, IM (MDV) 07/31/2009 Influenza, Unspecified 05/18/2023(Deferr ed: Patient Refused),10/02/2022(Deferred: Patient Refused),07/31/2022,10/02/2021(Deferre d: Patient Refused),06/27/2017,06/17/2015, 013,07/17/2012 Pneumococcal Conjugate PCV 13 06/17/2015 Pneumococcal Polysaccharide PPV23 07/06/2007 Tdap 02/25/2015 Surgical History Surgery Date Site/Laterality Comments CATARACT EXTRACTION CHOLECYSTECTOMY HYSTERECTOMY SPINE SURGERY SKIN CANCER EXCISION Medical History Medical History Date Comments GERD (gastroesophageal reflux disease) Cataract surgery on both eyes Depression Migraines in the past Osteoporosis 06/27/2017 Cancer (CMS/HCC) (HCC) Family History Medical History Relation Name Comments Alzheimer's disease Mother Eulalia Deken Alzheimer's disease Sister 2 sisters Relation Name Status Comments Mother Eulalia Deken Sister 2 sisters Social History Tobacco Use Types Packs/Day Years Used Date Smoking Tobacco: Never Passive Smoke Exposure: Never Smokeless Tobacco: Never PHQ-2 Answer Date Recorded PHQ-2 Total Score (If total score is 3 or more points, staff should administer the PHQ-9) 2 07/04/2024 Comments Unknown Sex and Gender Information Value Date Recorded Sex Assigned at Not on file Legal Sex Female 5:23 AM REVENUE STAMP CLERK Gender Identity Female 10/13/2022 2:40 PM REVENUE STAMP CLERK Sexual Orientation Not on file Obstetrics History Last Filed Vital Signs Vital Sign Reading Time Taken Comments Blood Pressure 120/72 09/10/2024 11:08 AM REVENUE STAMP CLERK Pulse 55 09/10/2024 11:08 AM REVENUE STAMP CLERK Temperature 36.7 C (98 F) 09/10/2024 11:08 AM REVENUE STAMP CLERK Respiratory Rate 14 09/10/2024 11:08 AM REVENUE STAMP CLERK Oxygen Saturation 96% 09/10/2024 11:08 AM REVENUE STAMP CLERK Inhaled Oxygen Concentration - - Weight 66.7 kg (147 lb) 12/28/2023 1:46 PM CDT Height 165.1 cm (5' 5 ) 09/10/2024 11:08 AM REVENUE STAMP CLERK Body Mass Index 24.46 12/28/2023 1:46 PM CDT Plan of Treatment Health Maintenance Due Date Last Done Comments Hepatitis B Screening 1953 Zoster Vaccine (1 of 2) 1987 Covid-19 Vaccine (5 - 2023-2 5 season) 2024 01/02/2022, 09/02/2021, 12/07/2020, Additional history exists Influenza Vaccine (#1) 2024 , 07/31/2022, 07/01/2021, Additional history exists DTaP/Tdap/Td Vaccine (2 - Td or Tdap) 02/25/2025 02/25/2015 Depression Screening 07/04/2025 07/04/2024, 12/28/2023, 11/23/2023, Additional history exists Fall Risk Assessment 07/04/2025 07/04/2024, 01/02/2024, 12/28/2023, Additional history exists Well Visit 65+ 07/04/2025 07/04/2024 Pneumococcal vaccine 65+ Completed 06/17/2015, 01/2007 Procedures Procedure Name Priority Date/Time Associated Diagnosis Comments URINALYSIS, MICROSCOPIC ONLY Routine 10/22/2024 10:43 AM REVENUE STAMP CLERK Recurrent UTI URINALYSIS AND REFLEX TO MICROSCOPIC AND CULTURE Routine 10/22/2024 10:43 AM REVENUE STAMP CLERK Recurrent UTI URINE CULTURE Routine 09/10/2024 2:00 PM REVENUE STAMP CLERK Confusion Acute cystitis with hematuria POCT URINALYSIS DIPSTICK Routine 09/10/2024 11:28 AM REVENUE STAMP CLERK Confusion Acute cystitis with hematuria from Last 3 Months Results * (ABNORMAL) Urinalysis reflex to microscopic and culture Urine, clean voided (10/22/2024 10:43 AM REVENUE STAMP CLERK) Color, ur Yellow Yellow Clarity, ur Clear Clear CERNER CH Specific gravity, ur 1.008 1.003 - 1.030 CERNER CH pH, urine 6.5 CERNER CH Comment: Interpretive Data U rine pH is affected by diet, medications, systemic acid-base disturbances, and renal tubular function. pH may affect urinary stone formation. For example, urine pH below 6.0 may help reduce the tendency for calcium phosphate stones and pH greater than 6.0 may reduce the tendency for uric acid stone formation. Source: [facility] Current Interpretive Data was last revised on 2017 Protein, ur ql Negative Negative CERNER CH Glucose, ur ql Negative Negative [facility] CH Ketones, ur Negative Negative [facility]ERNER CH Bilirubin, ur Negative Negative CERNER CH Blood, ur 2+(A) Negative CERNER CH Urobilinogen, ur <2.0 <2.0 mg/dL [facility] Nitrite, ur Negative Negative [facility] CH Leukocyte esterase, ur Negative Negative [facility]ERNER CH UA reflex comment Reflex to microscopic UA will be performed. [facility] Urine, clean voided 10/22/2024 10:43 AM REVENUE STAMP CLERK 10/22/2024 4:03 PM REVENUE STAMP CLERK us Blanche Sanz NP LAB MICROBIOLOGY - GENERAL ORDER IZZY Final Result Performing Organization Address City/[facility] Co de Phone Number JEFF KEE [phone] [place] [place] [address] * (ABNORMAL) Urinalysis, microscopic only (10/22/2024 10:43 AM REVENUE STAMP CLERK) WBC, ur 0-5 0 - 5 /HPF RBC, ur 6-10(A) 0 - 2 /HPF [facility] Epithelial cells, squamous, ur 1-5 0 - 5 /HPF CERNER Bacteria, ur 1+(A) CERNER Mucous, ur Present(A) CERNER Culture Reflex Comment Reflex conditions for urine culture (WBC >10) not met. [facility] Urine, clean voided 10/22/2024 10:43 AM REVENUE STAMP CLERK 10/22/2024 4:03 PM REVENUE STAMP CLERK us Blanche Sanz NP LAB URINE ORDERABLES Final Resul t Performing Organization Address City/[facility] Co de Phone Number JEFF KEE [phone] Department of Laboratories [place], [place] [id number] * Urine culture Urine, clean voided (09/10/2024 2:00 PM REVENUE STAMP CLERK) Report Final Report: Less than 100,000 colonies/mL (clinically insignificant growth based on current clinical standards) Comment:Testing performed by : [facility], [address] [place]., [address] Organism (CLINICALLY INSIGNIFICANT GROWTH JEFF Urine, clean voided 09/10/2024 2:00 PM REVENUE STAMP CLERK 09/10/2024 10:04 PM REVENUE STAMP CLERK Narrative JEFF - 09/12/2024 5:29 AM REVENUE STAMP CLERK Testing performed by [facility] Microbiology Laboratory ([phone]) Myra Rucker NP LAB MICROBIOLOGY - GENERAL ORDERABLES Final Result JEFF [id number] [address] Department [place] [address] * (ABNORMAL) POCT urinalysis dipstick (09/10/2024 11:28 AM REVENUE STAMP CLERK) Color, Urine, POC Yellow Clarity, ur, POC Clear Clear Glucose, ur, POC Negative Negative MG/DL Bilirubin, ur, POC Negative Negative, Small, Moderate, Large Ketones, ur, POC Negative Negative Specific [place], POC 1.020 1.003 - 1.030 Blood, ur, POC Trace(A) Negative pH, ur, POC 7.0 5.0 - 8.0 Protein, ur, POC Negative Negative Urobilinogen, urine, POC 0.2 0.2 - 1.0 mg/dL Nitrite, ur, POC Negative Negative Leukocytes, ur, POC Small(A) Negative Lot Number 0 Urine 09/10/2024 11:2 8 AM REVENUE STAMP CLERK Myra Rucker NP POINT OF CARE TEST ORDERAB LES Final Result from Last 3 Months Insurance MEDICARE [facility] CHOICE PLUS MEDICARE [facility] OPTIONS PPO Advance Directives For more information, please contact: [phone] Documents on File Type Date Recorded Patient Quality Improvement Coordinator (Rn) Expl anation ADVANCE DIRECTIVE 07/12/2024 1:11 PM Care Teams Auto Travel Counselor Relationship Specialty Start Date End Date Blanche Sanz NP PCP - General Family Medicine 10/13/22
--- OUTSIDE RECORDS SUMMARY | 2024-11-07 15:24 | XMS_ITS | Referral Summary ---
Author Organization [facility] Address [address] [place] [id number] Care Team Providers Care Dental Assistant Teacher Name Role Phone Blanche Sanz NP Primary Care Provider [phone] Encounters Date Type Department Care Team Description 10/23/2024 Telephone [facility] Primary Care at [address] [phone] Blanche Sanz NP Test Results (Urinalysis ) 10/22/2024 10:43 AM SKOOG PATCHING MACHINE OPERATOR - 10/22/2024 11:59 PM SKOOG PATCHING MACHINE OPERATOR [place] [address] Recurrent UTI Discharge Disposition: Discharge to home or self care 10/22/2024 10:45 AM SKOOG PATCHING MACHINE OPERATOR Lab [facility] Outpatient Lab at [address] [phone] 09/18/2024 Telephone [facility] Primary Care at [address] [phone] Blanche Sanz NP Medical Question/Miscellaneous 09/10/2024 7:33 PM SKOOG PATCHING MACHINE OPERATOR - 09/10/2024 11:59 PM SKOOG PATCHING MACHINE OPERATOR Hospital Encounter [address] [address] Confusion; Acute cystitis with hematuria Discharge Disposition: Discharge to home or self care 09/10/2024 11:15 AM SKOOG PATCHING MACHINE OPERATOR Office Visit [facility] at [address] [phone] Myra Rucker NP Confusion (Primary Dx); Acute cystitis with hematuria 09/09/2024 Nurse Triage [facility] Primary Care at [address] [phone] Blanche Sanz NP 08/20/2024 Orders Only [facility] Primary Care at [address] [phone] Blanche Sanz NP Thrombocytopenia (HCC) (Primary Dx) 08/20/2024 Telephone [facility] Primary Care at [address] [phone] Blanche Sanz NP Medical Question/Miscellaneous from Last 3 Months Allergies Active Allergy Reactions Criticality Noted Date [...] DAILY FOR LOOSE STOOLS NEEDED. 538 g 4 Active mirtazapine (REMERON) 30 mg tablet Take 1 tablet (30 mg total) by mouth nightly 30 tablet 4 Active cyanocobalamin (Vitamin B-12) 1,000 mcg tabletIndicatio ns:Prevention of Vitamin B12 Deficiency Take 1 tablet (1,000 mcg total) by mouth daily 90 tablet 4 Active ibuprofen (ADVIL,MOTRIN) 400 mg tablet [...] needed (irritation, pain, after BM's) 56 g 4 Active witch Stella (TUCKS) 50 % [...] eyes as needed (dry eyes) 20 mL 4 Active d-mannose powder Take 2 g [...] Namenda. Assessment & Plan (11/23/2023 3:05 PM SKOOG PATCHING MACHINE OPERATOR): Diagnosed with Alzheimer's per Neurology. Continues Aricept and Namenda. Holding off on Neuro follow up unless symptoms arise that I feel like specialist needs involved again. Assessment & Plan (10/14/2022 2:08 PM SKOOG PATCHING MACHINE OPERATOR): Strong FH of Alzheimer's, pt not officially [...] 07/06/2015 Assessment & Plan (10/14/2022 2:07 PM SKOOG PATCHING MACHINE OPERATOR): Continues Pantoprazole. No sx noted. Hyperglycemia 03/28/2014 Depression with anxiety 01/17/2014 Assessment & Plan (12/28/2023 2:58 PM CDT): Mood seems to be improved on the Remeron 30 mg daily, denies side effects. Appetite has also improved. Will continue. Assessment & Plan (11/23/2023 3:06 PM SKOOG PATCHING MACHINE OPERATOR): Patient feeling down and having decreased appetite. Has lost about 18 lbs (unintentionally) in the past 1 year. Discussed Ensure/Boost and will try increasing her Remeron to 30 mg daily, precautions discussed. She has been on Remeron for about 5+ years. Follow up in 6 weeks. Assessment & Plan (10/14/2022 2:07 PM SKOOG PATCHING MACHINE OPERATOR): Stable on Citalopram 40 mg daily. Vitamin D deficiency 02/29/2012 Hypercholesterolemia 01/01/2009 Assessment & Plan (07/04/2024 3:03 PM CDT): Continues Crestor, no side effects reported. Updated labs ordered Assessment & Plan (10/14/2022 2:08 PM SKOOG PATCHING MACHINE OPERATOR): Continues Crestor, no side effects reported. Resolved Problems Problem Noted Date Diagnosed Date Resolved Date Osteoporosis 06/27/2017 10/13/2022 Immunizations Name Administration Dates Next Due Influenza, Quadrivalent, Hig h Dose, Preservative Free, Intrr 07/31/2023 Influenza, Quadrivalent, Spl it, Preservative Free, Intramuscular 06/25/2019 Influenza, Trivalent, High D ose, Split, Preservative Free, Intramuscular 07/01/2021,06/22/2020,07/04/2018,06/17,07/17/2012 Influenza, Trivalent, IM (MDV) 07/31/2009 Influenza, Unspecified 05/18/2023(Deferr ed: Patient Refused),10/02/2022(Deferred: Patient Refused),07/31/2022,10/02/2021(Deferre d: Patient Refused),06/27/2017,06/17/2015, 013,07/17/2012 Pneumococcal Conjugate PCV 13 06/17/2015 Pneumococcal Polysaccharide PPV23 07/06/2007 Tdap 02/25/2015 Social History Tobacco Use Types Packs/Day Years Used Date Smoking Tobacco: Never Passive Smoke Exposure: Never Smokeless Tobacco: Never PHQ-2 Answer Date Recorded PHQ-2 Total Score (If total score is 3 or more points, staff should administer the PHQ-9) 2 07/04/2024 Comments Unknown Sex and Gender Information Value Date Recorded Sex Assigned at Not on file Legal Sex Female 5:23 AM SKOOG PATCHING MACHINE OPERATOR Gender Identity Female 10/13/2022 2:40 PM SKOOG PATCHING MACHINE OPERATOR Sexual Orientation Not on file Last Filed Vital Signs Vital Sign Reading Time Taken Comments Blood Pressure 120/72 09/10/2024 11:08 AM SKOOG PATCHING MACHINE OPERATOR Pulse 55 09/10/2024 11:08 AM SKOOG PATCHING MACHINE OPERATOR Temperature 36.7 C (98 F) 09/10/2024 11:08 AM SKOOG PATCHING MACHINE OPERATOR Respiratory Rate 14 09/10/2024 11:08 AM SKOOG PATCHING MACHINE OPERATOR Oxygen Saturation 96% 09/10/2024 11:08 AM SKOOG PATCHING MACHINE OPERATOR Inhaled Oxygen Concentration - - Weight 66.7 kg (147 lb) 12/28/2023 1:46 PM CDT Height 165.1 cm (5' 5 ) 09/10/2024 11:08 AM SKOOG PATCHING MACHINE OPERATOR Body Mass Index 24.46 12/28/2023 1:46 PM CDT Plan of Treatment Not on file Procedures Procedure Name Priority Date/Time Associated Diagnosis Comments URINALYSIS, MICROSCOPIC ONLY Routine 10/22/2024 10:43 AM SKOOG PATCHING MACHINE OPERATOR Recurrent UTI URINALYSIS AND REFLEX TO MICROSCOPIC AND CULTURE Routine 10/22/2024 10:43 AM SKOOG PATCHING MACHINE OPERATOR Recurrent UTI URINE CULTURE Routine 09/10/2024 2:00 PM SKOOG PATCHING MACHINE OPERATOR Confusion Acute cystitis with hematuria POCT URINALYSIS DIPSTICK Routine 09/10/2024 11:28 AM SKOOG PATCHING MACHINE OPERATOR Confusion Acute cystitis with hematuria from Last 3 Months Results * (ABNORMAL) Urinalysis reflex to microscopic and culture Urine, clean voided (10/22/2024 10:43 AM SKOOG PATCHING MACHINE OPERATOR) Color, ur Yellow Yellow Clarity, ur Clear [...] tendency for uric acid stone formation. Source: [facility] [place] Current Interpretive Data was last revised on [...] Reflex to microscopic UA will be performed. [facility] Urine, clean voided 10/22/2024 10:43 AM SKOOG PATCHING MACHINE OPERATOR 10/22/2024 4:03 PM SKOOG PATCHING MACHINE OPERATOR us Blanche Sanz NP LAB MICROBIOLOGY - GENERAL ORDER IZZY Final Result [facility] [id number] Department [place] [address] * (ABNORMAL) Urinalysis, microscopic only (10/22/2024 10:43 AM SKOOG PATCHING MACHINE OPERATOR) WBC, ur 0-5 0 - 5 /HPF RBC, ur 6-10(A) 0 - 2 /HPF [facility] Epithelial cells, squamous, ur 1-5 0 - 5 /HPF [facility] Bacteria, ur 1+(A) [facility] Mucous, ur Present(A) [facility] Culture Reflex Comment Reflex conditions for urine culture (WBC >10) not met. [facility] Urine, clean voided 10/22/2024 10:43 AM SKOOG PATCHING MACHINE OPERATOR 10/22/2024 4:03 PM SKOOG PATCHING MACHINE OPERATOR Blanche Sanz FOOD PROCESSOR LAB URINE ORDERABLES Final Resul t Performing Organization Address [facility] de Phone Number [facility] [address] [place] [address] * Urine culture Urine, clean voided (09/10/2024 2:00 PM SKOOG PATCHING MACHINE OPERATOR) Report Final Report: Less than 100,000 colonies/mL (clinically insignificant growth based on current clinical standards) Comment:Testing performed by : [facility], [address] [place]., [address] Organism (CLINICALLY INSIGNIFICANT GROWTH [facility] Urine, clean voided 09/10/2024 2:00 PM SKOOG PATCHING MACHINE OPERATOR 09/10/2024 10:04 PM SKOOG PATCHING MACHINE OPERATOR Narrative [facility] - 09/12/2024 5:29 AM SKOOG PATCHING MACHINE OPERATOR Testing performed by [facility] Microbiology Laboratory ([phone]) Myra Rucker FOOD PROCESSOR LAB MICROBIOLOGY - GENERAL ORDERABLES Final Result Performing Organization Address [facility] de Phone Number JEFF KEE [phone] [place] [address] * (ABNORMAL) POCT urinalysis dipstick (09/10/2024 11:28 AM SKOOG PATCHING MACHINE OPERATOR) Color, Urine, POC Yellow Clarity, ur, POC Clear Clear Glucose, ur, POC Negative Negative MG/DL Bilirubin, ur, POC Negative Negative, Small, Moderate, Large Ketones, ur, POC Negative Negative Specific [place], POC 1.020 1.003 - 1.030 Blood, ur, POC Trace(A) Negative pH, ur, POC 7.0 5.0 - 8.0 Protein, ur, POC Negative Negative Urobilinogen, urine, POC 0.2 0.2 - 1.0 mg/dL Nitrite, ur, POC Negative Negative Leukocytes, ur, POC Small(A) Negative Lot Number 0 Urine 09/10/2024 11:2 8 AM SKOOG PATCHING MACHINE OPERATOR Myra Rucker NP POINT OF CARE TEST ORDERAB LES Final Result from Last 3 Months Insurance MEDICARE [facility] CHOICE PLUS [facility] HMO/PPO Address: [address] [address] [place] [address] MEDICARE [facility] OPTIONS PPO [facility] H[facility]/PPO Address: [address] [address] [place] [address] Advance Directives For more information, please contact: [phone] Documents on File Type Date Recorded Patient Horticulturalist Expl anation ADVANCE DIRECTIVE 07/12/2024 1:11 PM Care Teams Dental Assistant Teacher Relationship Specialty Start Date End Date Blanche Sanz NP PCP - General Family Medicine 10/13/22
[2024-11-07 15:44] LABS: Estimated Glomerular Filt Rate > 60
== END 2024-11-07 15:19 | disposition home or self-care (01) ==
PROVIDERS: Visit Provider Nurse Practitioner Family
DX: N17.1 Acute kidney failure with acute cortical necrosis (principal); N28.1 Cyst of kidney, acquired; R31.0 Gross hematuria
CPT/HCPCS: 74178; Q9967

== ENCOUNTER 2025-01-20 11:17 | Emergency (ER) | payer MEDICARE, OTHER, SELFPAY ==
[2025-01-20] VITALS (10 sets, daily range): BP systolic 144–172; BP diastolic 67–79; PULSE 52–61; RESP 15–17; TEMP 36.4; O2SAT 96–100
[2025-01-20 12:20] LABS: Add Urine Microscopic? YES; Appearance Urine Clear (Clear); Bacteria Urine 3+ /hpf; Bilirubin Urine Negative (Negative); Blood Urine 2+ (Negative); Color Urine Yellow (Yellow); Glucose Urine UA Negative (Negative); Ketones Urine Negative (Negative); Leukocyte Esterase Ur 3+ LEU/UL (Negative); Need Manual Microscopic Reviewed; Nitrate Urine Negative (Negative); Non Pathogenic Casts 0-2; Protein Urine 1+ mg/dL (Negative); Specific Grav Ur 1.016 (1.001-1.035); Squamous Epithelial Cell Urine None Seen /hpf (Few); WBC Urine 51-100 /hpf (0-3)
--- OUTSIDE RECORDS SUMMARY | 2025-01-20 13:07 | XMS_ITS | Clinical Summary ---
Author Organization [facility] Address [address] [place] [id number] Care Team Providers Care Complaint Analyst Name Role Phone Blanche Sanz NP Primary Care Provider [phone] Allergies Active Allergy Reactions Criticality Noted Date Comments Iodinated Contrast Media Unknown 12/26/2008 Sertraline Diarrhea,Headache,Ot her (See comments) Low 10/13/2022 Sulfa (Sulfonamide Antibiotics) Unknown 12/26/2008 Medications psyllium husk/aspartame (METAMUCIL FIBER SINGLES ORAL) Take 1 Scoop by mouth daily as needed (diabrreha) Active rosuvastatin (CRESTOR) 5 mg tablet Take 1 tablet (5 mg total) by mouth nightly 06/25/20 18 Active coenzyme Q10 100 mg capsule Take by mouth A ctive citalopram (CeleXA) 40 mg tablet Take 1 tablet (40 mg total) by mouth daily 90 tablet 1 10/27/19 23 Active montelukast (SINGULAIR) 10 mg tablet Take 1 tablet (10 mg total) by mouth nightly 90 tablet 1 11/07/19 23 Active memantine (NAMENDA) 10 mg tablet Take 1 tablet (10 mg total) by mouth 2 (two) times a day 180 tablet 1 12/28/[address] (PROTONIX) 40 mg EC tablet Take 1 tablet (40 mg total) by mouth daily 90 tablet 1 01/17/20 23 Active donepeziL (ARICEPT) 10 mg tablet Take 1 tablet (10 mg total) by mouth nightly 90 tablet 02/11/20 23 Active cholecalcifero l 25 mcg (1,000 unit) tablet 06/28/20 23 Active ipratropium (ATROVENT) 21 mcg (0.03 %) nasal spray USE 2 SPRAYS IN EACH NOSTRIL TWICE A DAY 30 mL 10/26/19 24 Active Reguloid, psyllium husk-sucro, 3 gram/7 gram powder MIX 1 SCOOP IN LIQUID AND DRINK DAILY FOR LOOSE STOOLS NEEDED. 538 g 10/26/19 24 Active mirtazapine (REMERON) 30 mg tablet Take 1 tablet (30 mg total) by mouth nightly 30 tablet 11/23/19 24 Active cyanocobalamin (Vitamin B-12) 1,000 mcg tabletIndicati ons:Prevention of Vitamin B12 Deficiency Take 1 tablet (1,000 mcg total) by mouth daily 90 tablet 11/24/19 24 Active ibuprofen (ADVIL,MOTRIN) 400 mg tablet Take 1 tablet (400 mg total) by mouth every 8 (eight) hours as needed for pain Please give if patient mentions joint pain 90 tablet 1 12/28/19 24 Active traMADoL (ULTRAM) 50 mg tablet Take 1 tablet (50 mg total) by mouth every 8 (eight) hours as needed for other (breakthrough pain) for up to 7 days 21 tablet 01/02/20 24 Active phenylephrine 0.25%-mineral oil 14%-petrolatum 74.9% (Preparation H) 0.25-14-74.9 % ointment Insert 1 Application into the rectum 2 (two) times a day as needed (irritation, pain, after BM's) 56 g 03/12/20 24 Active witch Stella (TUCKS) 50 % pads, medicatedIndic ations:Hemorrh oids Apply to anal area, as needed, up to 6 times daily or after each bowel movement. 48 each 03/12/20 24 Active acetaminophen (TYLENOL) 325 mg tablet Take 2 tablets (650 mg total) by mouth every 6 (six) hours as needed for pain Active d-mannose powder Take 2 g by mouth daily 300 g 06/05/20 24 Active aspirin 325 mg Take 1 tablet (325 mg total) by mouth daily 90 tablet 1 06/14/20 24 Active Ultra Lubricant Eye 0.4-0.3 % ophthalmic solution INSTILL ONE DROP TO BOTH EYES NEEDED FOR DRY EYES 15 mL 4 12/24/19 25 Active peg 400-propylene glycol (SYSTANE) 0.4-0.3 % ophthalmic solution Administer 1 drop into both eyes as needed (dry eyes) 20 mL 1 04/08/20 24 025 Discontinued nitrofurantoin (MACRODANTIN) 50 mg capsuleIndicat ions:Prophylax is, Medical Take 1 capsule (50 mg total) by mouth nightly May open capsule and sprinkle med onto applesauce, pudding, mashed potatoes, ice cream 90 capsule 1 07/04/20 24 025 Discontinued cefdinir (OMNICEF) 300 mg capsule Take 1 capsule (300 mg total) by mouth 2 (two) times a day for 7 days 14 capsule 01/06/20 25 025 Active Problems Problem Noted Date Diagnosed Date 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 Culture shows susceptibility to IV abx tx. Per pt's daughter, Urologist informed them that pt only needs treated if she becomes symptomatic , ie fever after daughter asked about sx. Pt has been experiencing excessive fatigue x 3 weeks, behavioral changes and urinary frequency. Will run urine culture today and depending on results/symptoms, may need to go to hospital for IV abx tx. Assessment & Plan (07/04/2024 3:04 PM CDT): [...] Namenda. Assessment & Plan (11/23/2023 3:05 PM CROSS TIE TRAM LOADER): Diagnosed with Alzheimer's per Neurology. Continues Aricept and Namenda. Holding off on Neuro follow up unless symptoms arise that I feel like specialist needs involved again. Assessment & Plan (10/14/2022 2:08 PM CROSS TIE TRAM LOADER): Strong FH of Alzheimer's, pt not officially diagnosed but suspected. She is on Namenda and Aricept. Tolerates well. Has scheduled Neuro appointment 11/2022 through [facility]. Will try to get MRI results from Hospital stay in August. Pt currently has home health coming out to home. Working on strength and adjusting the leaning to one side or another when standing or walking. Pain in joint, shoulder region 07/08/2015 Gastroesophageal reflux disease with esophagitis 07/06/2015 Assessment & Plan (10/14/2022 2:07 PM CROSS TIE TRAM LOADER): Continues Pantoprazole. No sx noted. Hyperglycemia 03/28/2014 Depression with anxiety 01/17/2014 Assessment & Plan (12/28/2023 2:58 PM CDT): Mood seems to be improved on the Remeron 30 mg daily, denies side effects. Appetite has also improved. Will continue. Assessment & Plan (11/23/2023 3:06 PM CROSS TIE TRAM LOADER): Patient feeling down and having decreased appetite. Has lost about 18 lbs (unintentionally) in the past 1 year. Discussed Ensure/Boost and will try increasing her Remeron to 30 mg daily, precautions discussed. She has been on Remeron for about 5+ years. Follow up in 6 weeks. Assessment & Plan (10/14/2022 2:07 PM CROSS TIE TRAM LOADER): Stable on Citalopram 40 mg daily. Vitamin D deficiency 02/29/2012 Hypercholesterolemia 01/01/2009 Assessment & Plan (07/04/2024 3:03 PM CDT): Continues Crestor, no side effects reported. Updated labs ordered Assessment & Plan (10/14/2022 2:08 PM CROSS TIE TRAM LOADER): Continues Crestor, no side effects reported. Resolved Problems Problem Noted Date Diagnosed Date Resolved Date Osteoporosis 06/27/2017 10/13/2022 Encounters Date Type Department Care Team Description 01/20/2025 9:45 AM CDT Lab [facility] Outpatient Lab at [address] [phone] 01/18/2025 Telephone [facility] Primary Care at [address] [phone] Blanche Sanz, OUTBOUND SALES CONSULTANT 01/18/2025 Telephone [facility] Primary Care at [address] [phone] Blanche Sanz, OUTBOUND SALES CONSULTANT After Hours 01/07/2025 Telephone [facility] Primary Care at [address] [phone] Blanche Sanz, OUTBOUND SALES CONSULTANT 01/06/2025 Results Follow-Up [facility] Primary Care at [address] [phone] Blanche Sanz, OUTBOUND SALES CONSULTANT 01/05/2025 Telephone [facility] Primary Care at [address] [phone] Blanche Sanz OUTBOUND SALES CONSULTANT After Hours 01/05/2025 Orders Only [address] [phone] Alexandra Ortiz NP 01/05/2025 Nurse Triage [facility] Primary Care at [address] [phone] Blanche Sanz, OUTBOUND SALES CONSULTANT 01/03/2025 Results Follow-Up [facility] Primary Care at [address] [phone] Blanche Sanz, OUTBOUND SALES CONSULTANT Thrombocytopenia (Primary Dx) 01/02/2025 7:32 PM CDT - 01/02/2025 11:59 PM CDT Hospital Encounter [address] [address] Recurrent UTI Discharge Disposition: Discharge to home or self care 01/02/2025 7:22 PM CDT - 01/02/2025 11:59 PM CDT Hospital Encounter [address] [address] Hypercholesterolemia Discharge Disposition: Discharge to home or self care 01/02/2025 3:00 PM CDT Lab [facility] Outpatient Lab at [address] [phone] Hyperglycemia (Primary Dx); Hypercholesterolemia 01/02/2025 2:00 PM CDT Office Visit [facility] Primary Care at [address] [phone] Blanche Sanz, OUTBOUND SALES CONSULTANT Recurrent UTI (Primary Dx); Hypercholesterolemia 12/25/2024 Telephone [facility] Primary Care at [address] [phone] Blanche Sanz, OUTBOUND SALES CONSULTANT 11/27/2024 Telephone [facility] Primary Care at [address] [phone] Blanche Sanz, OUTBOUND SALES CONSULTANT Test Results 11/27/2024 Results Follow-Up [facility] Primary Care at [address] [phone] Blanche Sanz, OUTBOUND SALES CONSULTANT 10/23/2024 Telephone [facility] Primary Care at [address] [phone] Blanche Sanz, OUTBOUND SALES CONSULTANT Test Results (Urinalysis ) 10/22/2024 10:45 AM CROSS TIE TRAM LOADER Lab [facility] Outpatient Lab at [address] [phone] 10/22/2024 10:43 AM CROSS TIE TRAM LOADER - 10/22/2024 11:59 PM CROSS TIE TRAM LOADER Hospital Encounter [address] [address] Recurrent UTI Discharge Disposition: Discharge to home or self care from Last 3 Months Immunizations Immunization Administration Dates Next Due Influenza, Quadrivalent, Hig [...] Migraines in the past Osteoporosis 06/27/2017 Cancer (HCC) Family History Medical History Relation Name Comments Alzheimer's disease Mother Eulalia Hull Alzheimer's disease Sister 2 sisters Relation Name Status Comments Mother Eulalia Hull Sister 2 sisters Social History Tobacco Use Types Packs/Day Years Used Date Smoking Tobacco: Never Passive Smoke Exposure: Never Smokeless Tobacco: Never PHQ-2 Answer Date Recorded PHQ-2 Total Score (If total score is 3 or more points, staff should administer the PHQ-9) 0 01/02/2025 Comments Unknown Sex and Gender Information Value Date Recorded Sex Assigned at Not on file Legal Sex Female 5:23 AM CROSS TIE TRAM LOADER Gender Identity Female 10/13/2022 2:40 PM CROSS TIE TRAM LOADER Sexual Orientation Not on file Obstetrics History Last Filed Vital Signs Vital Sign Reading Time Taken Comments Blood Pressure 130/72 01/02/2025 2:20 PM CDT Pulse 52 01/02/2025 2:20 PM CDT Temperature 36.9 C (98.4 F) 01/02/2025 2:20 PM CDT Respiratory Rate 14 09/10/2024 11:08 AM CROSS TIE TRAM LOADER Oxygen Saturation 96% 01/02/2025 2:20 PM CDT Inhaled Oxygen Concentration - - Weight 66.7 kg (147 lb) 12/28/2023 1:46 PM CDT Height 165.1 cm (5' 5 ) 01/02/2025 2:20 PM CDT Body Mass Index 24.46 12/28/2023 1:46 PM CDT Plan of Treatment Health Maintenance Due Date Last Done Comments Hepatitis B Screening 1953 Zoster Vaccine (1 of 2) 1987 Covid-19 Vaccine ( - 2023-2 5 season) 2024 01/02/2022, 09/02/2021, 12/07/2020, Additional history exists DTaP/Tdap/Td Vaccine (2 - Td or Tdap) 02/25/2025 02/25/2015 Influenza Vaccine (Season Ended) 2025 07/31/2023, 07/31/2022, 07/01/2021, Additional history exists Well Visit 65+ 07/04/2025 07/04/2024 Depression Screening 01/02/2026 01/02/2025, 07/04/2024, 12/28/2023, Additional history exists Fall Risk Assessment 01/02/2026 01/02/2025, 07/04/2024, 01/02/2024, Additional history exists Pneumococcal vaccine 65+ Completed 06/17/2015, 01/2007 Procedures Procedure Name Priority Date/Time Associated Diagnosis Comments POCT URINALYSIS DIPSTICK Routine 01/02/2025 2:34 PM CDT Recurrent UTI EGFR Routine 01/02/2025 12:00 PM CDT Hypercholesterolem ia DIFFERENTIAL AUTO Routine 01/02/2025 12: 00 PM CDT Hypercholesterolem ia CBC WITH AUTO DIFFERENTIAL Routine 01/02/2025 12:00 PM CDT Hypercholesterolem ia COMPREHENSIVE METABOLIC PANEL Routine 01/02/2025 12:00 PM CDT Hypercholesterolem ia URINE CULTURE Routine 01/02/2025 12:00 PM CDT Recurrent UTI URINE CULTURE Routine 11/27/2024 Recurrent UTI URINALYSIS, MICROSCOPIC ONLY Routine 10/22/2024 10:43 AM CROSS TIE TRAM LOADER Recurrent UTI URINALYSIS AND REFLEX TO MICROSCOPIC AND CULTURE Routine 10/22/2024 10:43 AM CROSS TIE TRAM LOADER Recurrent UTI from Last 3 Months Results * (ABNORMAL) POCT urinalysis dipstick (01/02/2025 2:34 PM CDT) Pathologist [facility] Glucose, ur, POC Negative Negative MG/DL Bilirubin, ur, POC Negative Negative, Small, Moderate, Large Ketones, ur, POC Negative Negative Specific Dugger, POC 1.010 1.003 - 1.030 Blood, ur, POC Moderate(A) Negative pH, ur, POC 7.0 5.0 - 8.0 Protein, ur, POC Negative Negative Urobilinogen, urine, POC 0.2 0.2 - 1.0 mg/dL Nitrite, ur, POC Negative Negative Leukocytes, ur, POC Moderate(A) Negative Lot Number [id number] Urine 01/02/2025 2:34 PM CDT Blanche Sanz NP POINT OF CARE TEST ORDERABLES Fi nal Result * eGFR (01/02/2025 12:00 PM CDT) Pathologist [facility] eGFR 86 >=60 mL/min/1. 73 m2 Comment: Interpretive Data Reference Interval Normal >/= 90 mL/min/1.73m2 Mildly decreased* 60 - 89 mL/min/1.73m2 Mildly to moderately decreased 45 - 59 mL/min/1.73m2 Moderately to severely decreased 30 - 44 mL/min/1.73m2 Severely decreased 15 - 29 mL/min/1.73m2 Kidney Failure < 15 mL/min/1.73m2 *Relative to young adult level Estimated glomerular filtration rate is determined by the 2020 CKD-EPI equation recommended by the National Kidney Foundation (A Unifying Approach to GFR Estimation: Recommendations of the NKF-ASK Task Force on Reassessing the Inclusion of Race in Diagnosing Kidney Disease, JASN 2020). The CKD-EPI equation should not be used for patients with unstable renal function and has not been validated in children and those over 70. Current interpretive data was last reviewed 2021. Blood 01/02/2025 12:0 0 PM CDT 01/02/2025 7:49 PM CDT us Blanche Sanz NP LAB BLOOD ORDERABLES Final Resul t [facility] [id number] Department of Laboratories [place], [place] [phone] * (ABNORMAL) Differential, auto (01/02/2025 12:00 PM CDT) Neutrophil abs 1.52 1.50 - 6.50 K/cumm Imm gran abs 0.04 0.00 - 0.10 K/cumm [facility] Lymphocyte abs 1.95 0.80 - 3.30 K/cumm [facility] Monocyte abs 1.41(H) 0.20 - 0.80 K/cumm [facility] Eosinophil abs 0.06 0.00 - 0.50 K/cumm [facility] Basophil abs 0.01 0.00 - 0.10 K/cumm [facility] Neutrophil pct 30.4 % [facility] Comment: Interpretive Data Percent cell count reference ranges are not reported, since discordance with absolute values may lead to misinterpretation of CBC data. Current Interpretive Data was last revised on 2018. Imm gran pct 0.8 % [facility] Comment: Interpretive Data Percent cell count reference ranges are not reported, since discordance with absolute values may lead to misinterpretation of CBC data. Current Interpretive Data was last revised on 2018. Lymphocyte pct 39.1 % [facility] Comment: Interpretive Data Percent cell count reference ranges are not reported, since discordance with absolute values may lead to misinterpretation of CBC data. Current Interpretive Data was last revised on 2018. Monocyte pct 28.3 % [facility] Comment: Interpretive Data Percent cell count reference ranges are not reported, since discordance with absolute values may lead to misinterpretation of CBC data. Current Interpretive Data was last revised on 2018. Eosinophil pct 1.2 % [facility] Comment: Interpretive Data Percent cell count reference ranges are not reported, since discordance with absolute values may lead to misinterpretation of CBC data. Current Interpretive Data was last revised on 2018. Basophil pct 0.2 % [facility] Comment: Interpretive Data Percent cell count reference ranges are not reported, since discordance with absolute values may lead to misinterpretation of CBC data. Current Interpretive Data was last revised on 2018. Blood 01/02/2025 12:0 0 PM CDT 01/02/2025 7:45 PM CDT Blanche Sanz NP LAB BLOOD ORDERABLES Final Resul t [facility] [id number] Department [place] [address] * (ABNORMAL) CBC with auto differential (01/02/2025 12:00 PM CDT) WBC 4.99 3.80 - 9.90 K/cumm Hgb 13.7 11.9 - 15.5 g/dL [facility] Hct 43.4 35.6 - 45.5 % [facility] Plt 105(L) 150 - 400 K/cumm [facility] Comment:No clot detected in sample. MPV 10.2 9.1 - 12.3 fL [facility] RBC 4.67 3.90 - 5.20 M/cumm [facility] MCV 92.9 81.3 - 96.4 fL [facility] MCH 29.3 27.1 - 33.3 pg [facility] MCHC 31.6(L) 32.3 - 35.7 g/dL [facility] RDW CV 14.8 11.1 - 14.9 % [facility] RDW SD 50.4(H) 35.7 - 48.1 fL [facility] NRBC abs 0.00 0.00 - 0.01 K/cumm [facility] Blood 01/02/2025 12:0 0 PM CDT 01/02/2025 7:45 PM CDT us Blanche Sanz NP LAB BLOOD ORDERABLES Final Resul t Performing Organization Address [facility]/ZIP Co de Phone Number WILNERNINO KEE [id number] Department [place] [employer] [place] [address] * (ABNORMAL) Urine culture Urine, clean voided (01/02/2025 12:00 PM CDT) Report Final Report: Greater than or equal to 100,000 colonies/mL of Klebsiella pneumoniae (.) Comment:Testing performed by : [facility], [address] [place] [address] Organism KLEBSIELLA PNEUMONIAE [facility] Urine, clean voided 01/02/2025 12:00 PM CDT 01/02/2025 10:16 PM CDT Narrative [facility] - 01/05/2025 6:14 AM CDT Testing performed by [facility] ([phone]) Organism Antibiotic Method Susceptibility Klebsiella pneumoniae Ampicillin INTERPRETATION Resistant Klebsiella pneumoniae Cefazolin INTERPRETATION Susceptible Klebsiella pneumoniae Nitrofurantoin INTERPRETATION Intermediate Klebsiella pneumoniae Gentamicin INTERPRETATION Susceptible Klebsiella pneumoniae Trimethoprim with Sulfamethoxazole INTERPRETATION Susceptible Klebsiella pneumoniae Meropenem INTERPRETATION Susceptible Klebsiella pneumoniae Cefepime INTERPRETATION Susceptible Klebsiella pneumoniae Ciprofloxacin INTERPRETATION Susceptible Klebsiella pneumoniae Ceftazidime INTERPRETATION Susceptible Klebsiella pneumoniae Ceftriaxone INTERPRETATION Susceptible Klebsiella pneumoniae Piperacillin/Tazobactam INTERPRE TATION Susceptible Klebsiella pneumoniae Cephalexin INTERPRETATION Susceptible Klebsiella pneumoniae Cefuroxime-axetil INTERPRETATION Susceptible Klebsiella pneumoniae Cefdinir INTERPRETATION Susceptible us Blanche Sanz NP LAB MICROBIOLOGY - GENERAL ORDER IZZY Final Result Performing Organization Address City/[facility]/ZIP Co de Phone Number WILNERNINO KEE [id number] Department of [employer] [place], [place] [phone] * Comprehensive metabolic panel (01/02/2025 12:00 PM CDT) Sodium 144 135 - 145 mmol/L Potassium, pl 3.6 3.3 - 4.9 mmol/L [facility] Chloride 105 97 - 110 mmol/L [facility] CO2 28 22 - 32 mmol/L [facility] Anion gap 11 2 - 15 mmol/L [facility] BUN 13 6 - 25 mg/dL [facility] Creatinine 0.61 0.60 - 1.10 mg/dL [facility] Glucose 96 70 - 199 mg/dL [facility] Comment: Interpretive Data Fasting glucose >/= 126 mg/dl is diagnostic for diabetes. Fasting is defined as no caloric intake for at least 8 hours. Fasting glucose between 100 mg/dl to 125 mg/dl is diagnostic of prediabetes. In a patient with classic symptoms of hyperglycemia or hyperglycemic crisis, a random glucose >/= 200 mg/dl is diagnostic for diabetes. In the absence of unequivocal hyperglycemia, results should be confirmed by repeat testing. The classification and Diagnosis of Diabetes Diabetes Care 2021; 46: S19-S40. Current interpretive data was last revised 2022. Calcium 9.5 8.5 - 10.3 mg/dL [facility] Bilirubin, total 0.9 0.1 - 1.2 mg/dL [facility] Protein, pl 6.8 6.5 - 8.5 g/dL [facility] Albumin 4.3 3.5 - 5.0 g/dL [facility] Alk phos 54 40 - 130 Units/L [facility] ALT 12 7 - 45 Units/L [facility] AST 30 10 - 45 Units/L [facility] Blood 01/02/2025 12:0 0 PM CDT 01/02/2025 7:45 PM CDT us Blanche Sanz NP LAB BLOOD ORDERABLES Final Resul t [facility] [address] Department [place] [address] * Urine culture Urine, clean voided (11/27/2024) SCRIBED Urine Culture, Routine 0 EXTERNAL LAB Urine, clean voided 11/27/2024 us Blanche Sanz NP LAB MICROBIOLOGY - GENERAL ORDER IZZY Final Result Performing Organization Address [facility] Co de Phone Number EXTERNAL LAB * (ABNORMAL) Urinalysis reflex to microscopic and culture Urine, clean voided (10/22/2024 10:43 AM CROSS TIE TRAM LOADER) Color, ur Yellow Yellow Clarity, ur Clear [...] tendency for uric acid stone formation. Source: [facility] [employer] Current Interpretive Data was last revised on [...] CH Urine, clean voided 10/22/2024 10:43 AM CROSS TIE TRAM LOADER 10/22/2024 4:03 PM CROSS TIE TRAM LOADER us Blanche Sanz NP LAB MICROBIOLOGY - GENERAL ORDER IZZY Final Result Performing Organization Address City/[facility]/ZIP Co de Phone Number [facility] [address] Department [place] [address] * (ABNORMAL) Urinalysis, microscopic only (10/22/2024 10:43 AM CROSS TIE TRAM LOADER) WBC, ur 0-5 0 - 5 /HPF RBC, ur 6-10(A) 0 - 2 /HPF [facility] Epithelial cells, squamous, ur 1-5 0 - 5 /HPF [facility] Bacteria, ur 1+(A) [facility] Mucous, ur Present(A) [facility] Culture Reflex Comment Reflex conditions for urine culture (WBC >10) not met. [facility] Urine, clean voided 10/22/2024 10:43 AM CROSS TIE TRAM LOADER 10/22/2024 4:03 PM CROSS TIE TRAM LOADER us Blanche Sanz NP LAB URINE ORDERABLES Final Resul t [facility] [id number] Department [place] [address] from Last 3 Months Insurance MEDICARE [facility] Address[facility] [address] [place] [address] [facility] CHOICE PLUS [facility] HMO/PPO Address: [address] [address] [place] [address] MEDICARE [facility] OPTIONS PPO [facility] HMO/PPO Address: [address] [address] [place] [address] Advance Directives For more information, please contact: [phone] Documents on File Type Date Recorded Patient Psychiatry Instructor Expl anation ADVANCE DIRECTIVE 07/12/2024 1:11 PM Care Teams Complaint Analyst Relationship Specialty Start Date End Date Blanche Sanz NP PCP - General Family Medicine 10/13/22
--- OUTSIDE RECORDS SUMMARY | 2025-01-20 13:07 | XMS_ITS | Referral Summary ---
Author Organization [facility] Address [address] [place] [address] Care Team Providers Care Dealer Card Room Name Role Phone Blanche Sanz NP Primary Care Provider [phone] Encounters Date Type Department Care Team Description 01/20/2025 9:45 AM CDT Lab [facility] Outpatient Lab at [address] [address] 01/18/2025 Telephone [facility] Primary Care at [address] [address] Blanche Sanz NP 01/18/2025 Telephone [facility] Primary Care at [address] [address] Blanche Sanz NP After Hours 01/07/2025 Telephone [facility] Primary Care at [address] [address] Blanche Sanz NP 01/06/2025 Results Follow-Up [facility] Primary Care at [address] [address] Blanche Sanz NP 01/05/2025 Telephone [facility] Primary Care at [address] [address] Blanche Sanz NP After Hours 01/05/2025 Orders Only [address] [phone] Alexandra Ortiz NP 01/05/2025 Nurse Triage [facility] Primary Care at [address] [address] Blanche Sanz, CLINICAL TECHNICIAN 01/03/2025 Results Follow-Up [facility] Primary Care at [address] [address] Blanche Sanz, DIONISIO Thrombocytopenia (Primary Dx) 01/02/2025 7:32 PM CDT - 01/02/2025 11:59 PM CDT Hospital Encounter [address] [address] Recurrent UTI Discharge Disposition: Discharge to home or self care 01/02/2025 7:22 PM CDT - 01/02/2025 11:59 PM CDT Hospital Encounter [address] [address] Hypercholesterolemia Discharge Disposition: Discharge to home or self care 01/02/2025 3:00 PM CDT Lab [facility] Outpatient Lab at [address] [address] Hyperglycemia (Primary Dx); Hypercholesterolemia 01/02/2025 2:00 PM CDT Office Visit [facility] Primary Care at [address] [address] Blanche Sanz, DIONISIO Recurrent UTI (Primary Dx); Hypercholesterolemia 12/25/2024 Telephone [facility] Primary Care at [address] [address] Blanche Sanz, CLINICAL TECHNICIAN 11/27/2024 Telephone [facility] Primary Care at [address] [address] Blanche Sanz NP Test Results 11/27/2024 Results Follow-Up [facility] Primary Care at [address] [address] Blanche Sanz, CLINICAL TECHNICIAN 10/23/2024 Telephone [facility] Primary Care at [address] [address] Blanche Sanz NP Test Results (Urinalysis ) 10/22/2024 10:43 AM FINISH INSPECTOR - 10/22/2024 11:59 PM FINISH INSPECTOR Hospital Encounter [address] [address] Recurrent UTI Discharge Disposition: Discharge to home or self care 10/22/2024 10:45 AM FINISH INSPECTOR Lab [facility] Outpatient Lab at [address] [address] from Last 3 Months Allergies Active Allergy [...] total) by mouth nightly 90 tablet 1 02/11/20 23 Active cholecalcifero l 25 mcg [...] if patient mentions joint pain 90 tablet 12/28/19 24 Active traMADoL (ULTRAM) 50 mg [...] mg total) by mouth daily 90 tablet 06/14/20 24 Active Ultra Lubricant Eye 0.4-0.3 % ophthalmic solution INSTILL ONE DROP TO BOTH EYES NEEDED FOR DRY EYES 15 mL 12/24/19 25 Active peg 400-propylene glycol (SYSTANE) [...] Namenda. Assessment & Plan (11/23/2023 3:05 PM FINISH INSPECTOR): Diagnosed with Alzheimer's per Neurology. Continues Aricept and Namenda. Holding off on Neuro follow up unless symptoms arise that I feel like specialist needs involved again. Assessment & Plan (10/14/2022 2:08 PM FINISH INSPECTOR): Strong FH of Alzheimer's, pt not officially diagnosed but suspected. She is on Namenda and Aricept. Tolerates well. Has scheduled Neuro appointment 11/2022 through [facility]. Will try to get MRI results from Hospital stay in August. Pt currently has home health coming out to home. Working on strength and adjusting the leaning to one side or another when standing or walking. Pain in joint, shoulder region 07/08/2015 Gastroesophageal reflux disease with esophagitis 07/06/2015 Assessment & Plan (10/14/2022 2:07 PM FINISH INSPECTOR): Continues Pantoprazole. No sx noted. Hyperglycemia 03/28/2014 Depression with anxiety 01/17/2014 Assessment & Plan (12/28/2023 2:58 PM CDT): Mood seems to be improved on the Remeron 30 mg daily, denies side effects. Appetite has also improved. Will continue. Assessment & Plan (11/23/2023 3:06 PM FINISH INSPECTOR): Patient feeling down and having decreased appetite. Has lost about 18 lbs (unintentionally) in the past 1 year. Discussed Ensure/Boost and will try increasing her Remeron to 30 mg daily, precautions discussed. She has been on Remeron for about 5+ years. Follow up in 6 weeks. Assessment & Plan (10/14/2022 2:07 PM FINISH INSPECTOR): Stable on Citalopram 40 mg daily. Vitamin D deficiency 02/29/2012 Hypercholesterolemia 01/01/2009 Assessment & Plan (07/04/2024 3:03 PM CDT): Continues Crestor, no side effects reported. Updated labs ordered Assessment & Plan (10/14/2022 2:08 PM FINISH INSPECTOR): Continues Crestor, no side effects reported. Resolved Problems Problem Noted Date Diagnosed Date Resolved Date Osteoporosis 06/27/2017 10/13/2022 Immunizations Immunization Administration Dates Next Due Influenza, [...] on file Legal Sex Female 5:23 AM FINISH INSPECTOR Gender Identity Female 10/13/2022 2:40 PM FINISH INSPECTOR Sexual Orientation Not on file Last Filed Vital Signs Vital Sign Reading Time Taken Comments Blood Pressure 130/72 01/02/2025 2:20 PM CDT Pulse 52 01/02/2025 2:20 PM CDT Temperature 36.9 C (98.4 F) 01/02/2025 2:20 PM CDT Respiratory Rate 14 09/10/2024 11:08 AM FINISH INSPECTOR Oxygen Saturation 96% 01/02/2025 2:20 PM CDT [...] URINALYSIS, MICROSCOPIC ONLY Routine 10/22/2024 10:43 AM FINISH INSPECTOR Recurrent UTI URINALYSIS AND REFLEX TO MICROSCOPIC AND CULTURE Routine 10/22/2024 10:43 AM FINISH INSPECTOR Recurrent UTI from Last 3 Months Results * (ABNORMAL) POCT urinalysis dipstick (01/02/2025 2:34 PM CDT) Glucose, ur, POC Negative Negative MG/DL Bilirubin, ur, POC Negative Negative, Small, Moderate, Large Ketones, ur, POC Negative Negative Specific [place], POC 1.010 1.003 - 1.030 Blood, ur, POC Moderate(A) Negative pH, ur, POC 7.0 5.0 - 8.0 Protein, ur, POC Negative Negative Urobilinogen, urine, POC 0.2 0.2 - 1.0 mg/dL Nitrite, ur, POC Negative Negative Leukocytes, ur, POC Moderate(A) Negative Lot Number [id number] Urine 01/02/2025 2:34 PM CDT us Blanche Sanz NP POINT OF CARE TEST ORDERABLES Fi nal Result * eGFR (01/02/2025 12:00 PM CDT) eGFR 86 >=60 mL/min/1. 73 m2 Comment: [...] BLOOD ORDERABLES Final Resul t JEFF KEE [id number] Department [place] [address] * (ABNORMAL) Differential, auto (01/02/2025 12:00 PM CDT) Neutrophil abs 1.52 1.50 - 6.50 K/cumm Imm gran abs 0.04 0.00 - 0.10 K/cumm JEFF Lymphocyte abs 1.95 0.80 - 3.30 K/cumm [facility] Monocyte abs 1.41(H) 0.20 - 0.80 K/cumm [facility] Eosinophil abs 0.06 0.00 - 0.50 K/cumm [facility] Basophil abs 0.01 0.00 - 0.10 K/cumm [facility] Neutrophil pct 30.4 % [facility] Comment: Interpretive Data Percent cell count reference ranges are not reported, since discordance with absolute values may lead to misinterpretation of CBC data. Current Interpretive Data was last revised on 2018. Imm gran pct 0.8 % [facility] Comment: Interpretive Data Percent cell count reference ranges are not reported, since discordance with absolute values may lead to misinterpretation of CBC data. Current Interpretive Data was last revised on 2018. Lymphocyte pct 39.1 % [facility] Comment: Interpretive Data Percent cell count reference ranges are not reported, since discordance with absolute values may lead to misinterpretation of CBC data. Current Interpretive Data was last revised on 2018. Monocyte pct 28.3 % [facility] Comment: Interpretive Data Percent cell count reference ranges are not reported, since discordance with absolute values may lead to misinterpretation of CBC data. Current Interpretive Data was last revised on 2018. Eosinophil pct 1.2 % [facility] Comment: Interpretive Data Percent cell count reference ranges are not reported, since discordance with absolute values may lead to misinterpretation of CBC data. Current Interpretive Data was last revised on 2018. Basophil pct 0.2 % [facility] Comment: Interpretive Data Percent cell count reference ranges are not reported, since discordance with absolute values may lead to misinterpretation of CBC data. Current Interpretive Data was last revised on 2018. Blood 01/02/2025 12:0 0 PM CDT 01/02/2025 7:45 PM CDT us Blanche Sanz NP LAB BLOOD ORDERABLES Final Resul t JEFF VIDHYA [id number] Department [place] [address] * (ABNORMAL) CBC with auto differential (01/02/2025 12:00 PM CDT) WBC 4.99 3.80 - 9.90 K/cumm Hgb 13.7 11.9 - 15.5 g/dL [facility] Hct 43.4 35.6 - 45.5 % [facility] Plt 105(L) 150 - 400 K/cumm [facility] CH Comment:No clot detected in sample. MPV 10.2 9.1 - 12.3 fL [facility] RBC 4.67 3.90 - 5.20 M/cumm [facility] MCV 92.9 81.3 - 96.4 fL [facility] MCH 29.3 27.1 - 33.3 pg [facility] MCHC 31.6(L) 32.3 - 35.7 g/dL [facility] RDW CV 14.8 11.1 - 14.9 % [facility] RDW SD 50.4(H) 35.7 - 48.1 fL [facility] NRBC abs 0.00 0.00 - 0.01 K/cumm [facility] Blood 01/02/2025 12:0 0 PM CDT 01/02/2025 7:45 PM CDT us Blanche Sanz NP LAB BLOOD ORDERABLES Final Resul t JEFF [address] Department [place] [address] * (ABNORMAL) Urine culture Urine, clean voided (01/02/2025 12:00 PM CDT) Pathologist [facility] Report Final Report: Greater than or equal to 100,000 colonies/mL of Klebsiella pneumoniae (.) Comment:Testing performed by : [facility], [address] [facility], [place]., [address] Organism KLEBSIELLA PNEUMONIAE [facility] Urine, clean voided 01/02/2025 12:00 PM CDT 01/02/2025 10:16 PM CDT Narrative [facility] - 01/05/2025 6:14 AM CDT Testing performed by [facility] Microbiology Laboratory ([phone]) Organism Antibiotic Method Susceptibility Klebsiella pneumoniae Ampicillin [...] INTERPRETATION Susceptible Klebsiella pneumoniae Cefdinir INTERPRETATION Susceptible Blanche Sanz NP LAB MICROBIOLOGY - GENERAL ORDER IZZY Final Result [facility] [address] Department [place] [address] * Comprehensive metabolic panel (01/02/2025 12:00 PM [...] CH Glucose 96 70 - 199 mg/dL [facility] Comment: Interpretive Data Fasting glucose >/= 126 [...] ORDERABLES Final Resul t Performing Organization Address City/[facility]/ZIP Co de Phone Number [facility] [address] Department [place] [address] * Urine culture Urine, clean voided (11/27/2024) SCRIBED Urine Culture, Routine 0 EXTERNAL LAB Urine, clean voided 11/27/2024 us Blanche Sanz NP LAB MICROBIOLOGY - GENERAL ORDER IZZY Final Result Performing Organization Address City/[facility] Co de Phone Number EXTERNAL LAB * (ABNORMAL) Urinalysis reflex to microscopic and culture Urine, clean voided (10/22/2024 10:43 AM FINISH INSPECTOR) Color, ur Yellow Yellow Clarity, ur Clear [...] tendency for uric acid stone formation. Source: [facility] Current Interpretive Data was last revised on [...] CH Urine, clean voided 10/22/2024 10:43 AM FINISH INSPECTOR 10/22/2024 4:03 PM FINISH INSPECTOR Blanche Sanz NP LAB MICROBIOLOGY - GENERAL ORDER IZZY Final Result Performing Organization Address [facility] Co de Phone Number JEFF KEE [address] Department of Laboratories [place], [place] [id number] * (ABNORMAL) Urinalysis, microscopic only (10/22/2024 10:43 AM FINISH INSPECTOR) WBC, ur 0-5 0 - 5 /HPF RBC, ur 6-10(A) 0 - 2 /HPF [facility] Epithelial cells, squamous, ur 1-5 0 - 5 /HPF [facility] Bacteria, ur 1+(A) [facility] CH Mucous, ur Present(A) [facility] Culture Reflex Comment Reflex conditions for urine culture (WBC >10) not met. [facility] Urine, clean voided 10/22/2024 10:43 AM FINISH INSPECTOR 10/22/2024 4:03 PM FINISH INSPECTOR us Blanche Sanz NP LAB URINE ORDERABLES Final Resul t Performing Organization Address [facility] de Phone Number JEFF KEE [address] Department [place] [address] from Last 3 Months Insurance MEDICARE [facility] CHOICE PLUS [facility] H[facility]/PPO Address: [address] [address] [place] [address] MEDICARE [facility] OPTIONS PPO [facility] H[facility]/PPO Address: [address] [address] [place] [id number] Advance Directives For more information, please contact: [phone] Documents on File Type Date Recorded Patient Bottoming Room Supervisor Expl anation ADVANCE DIRECTIVE 07/12/2024 1:11 PM Care Teams Dealer Card Room Relationship Specialty Start Date End Date Blanche Sanz NP PCP - General Family Medicine 10/13/22
--- OUTSIDE RECORDS SUMMARY | 2025-01-20 13:07 | XMS_ITS | Encounter Summary ---
Author Organization [facility] Healthcare Address [address] [place] [address] Care Team Providers Care Recycling Operator Name Role Phone Blanche Sanz NP Primary Care Provider [phone] Encounter Details Date Type Department Care Team (Late st Contact Info) Description 11/27/2024 Results Follow-Up [facility] Primary Care at [address] [address] Blanche Sanz NP [address] [place] [address] [address] [place] [address] Social History Tobacco Use Types Packs/Day Years Used Date Smoking Tobacco: Never Passive Smoke Exposure: Never Smokeless Tobacco: Never PHQ-2 Answer Date Recorded PHQ-2 Total Score (If total score is 3 or more points, staff should administer the PHQ-9) 2 07/04/2024 Comments Unknown Sex and Gender Information Value Date Recorded Sex Assigned at Not on file Legal Sex Female 5:23 AM TRAVEL AGENCY MANAGER Gender Identity Female 10/13/2022 2:40 PM TRAVEL AGENCY MANAGER Sexual Orientation Not on file documented as of this encounter Ordered Prescriptions Prescription Sig Dispense Quantity Refills Last Filled Start Date End Date nitrofurantoin monohydrate (MACROBID) 100 mg capsule Take 1 capsule (100 mg total) by mouth 2 (two) times a day for 7 days 14 capsule 11/27/2024 documented in this encounter Miscellaneous Notes * Telephone Encounter - Lesvia Wright 11/27/2024 2:00 PM CST Call Back Caller???s Concern: Kavya the RN with the assisted living that the patient is at called for the type of antibiotic being prescribed for UTI, dosage, etc. Provided per meds tab and let know which pharmacy it was sent to. Does message need to be routed? No EL AGENCY MANAGER documented in this encounter Plan of Treatment Not on file documented as of this encounter Visit Diagnoses Not on filedocumented in this encounter Care Teams Recycling Operator Relationship Specialty Start Date End Date Blanche Sanz NP PCP - General Family Medicine 10/13/22 documented as of this encounter
--- OUTSIDE RECORDS SUMMARY | 2025-01-20 13:07 | XMS_ITS | Encounter Summary ---
Author Organization [facility] Healthcare Address [address] [place] [address] Care Team Providers Care Closed Circuit Screen Watcher Name Role Phone Blanche Sanz NP Primary Care Provider [phone] Encounter Details Date Type Department Care Team (Latest Contact Info) Description 01/03/2025 Results Follow-Up [facility] Primary Care at [address] [address] Blanche Sanz NP [address] [place] [address] [address] [place] [address] Thrombocytopenia (Primary Dx) Social History Tobacco Use Types Packs/Day Years Used Date Smoking Tobacco: Never Passive Smoke Exposure: Never Smokeless Tobacco: Never PHQ-2 Answer Date Recorded PHQ-2 Total Score (If total score is 3 or more points, staff should administer the PHQ-9) 0 01/02/2025 Comments Unknown Sex and Gender Information Value Date Recorded Sex Assigned at Not on file Legal Sex Female 5:23 AM GROUT MACHINE OPERATOR Gender Identity Female 10/13/2022 2:40 PM GROUT MACHINE OPERATOR Sexual Orientation Not on file documented as of this encounter Plan of Treatment Scheduled Orders Name Type Priority Associated Diagnoses Orde r Schedule CBC with auto differential Lab Routine Thrombocytopenia Expected: 01/10/2025, Expires: 01/03/2026 documented as of this encounter Visit Diagnoses Diagnosis Thrombocytopenia- Primary Unspecified thrombocytopenia documented in this encounter Care Teams Closed Circuit Screen Watcher Relationship Specialty Start Date End Date Blanche Sanz NP PCP - General Family Medicine 10/13/22 documented as of this encounter
--- OUTSIDE RECORDS SUMMARY | 2025-01-20 13:07 | XMS_ITS | Encounter Summary ---
Author Organization [facility] Healthcare Address [address] [place] [address] Care Team Providers Care Chief Growth Officer Name Role Phone Blanche Sanz NP Primary Care Provider [phone] Encounter Details Date Type Department Care Team (Late st Contact Info) Description 01/20/2025 9:45 AM CDT Lab [facility] Medical [facility] Outpatient Lab at [address] [address] Social History Tobacco Use Types Packs/Day Years Used Date Smoking Tobacco: Never Passive Smoke Exposure: Never Smokeless Tobacco: Never PHQ-2 Answer Date Recorded PHQ-2 Total Score (If total score is 3 or more points, staff should administer the PHQ-9) 0 01/02/2025 Comments Unknown Sex and Gender Information Value Date Recorded Sex Assigned at Not on file Legal Sex Female 5:23 AM PIT SHOVELER Gender Identity Female 10/13/2022 2:40 PM PIT SHOVELER Sexual Orientation Not on file documented as of this encounter Plan of Treatment Not on file documented as of this encounter Visit Diagnoses Not on filedocumented in this encounter Care Teams Chief Growth Officer Relationship Specialty Start Date End Date Blanche Sanz NP PCP - General Family Medicine 10/13/22 documented as of this encounter
--- OUTSIDE RECORDS SUMMARY | 2025-01-20 13:07 | XMS_ITS | Clinical Summary ---
Author Organization [facility] Address [address] [place] [address] Care Team Providers Care Automotive General Manager Name Role Phone Blanche Sanz CASING SOAKER Primary Care Provider [phone] Social History Tobacco Use Types Packs/Day Years [...] 2024 01/02/2022, 09/02/2021, 12/07/2020, Additional history exists DTaP, Tdap and Td Vaccines (2 - Td or Tdap) 02/25/2025 02/25/2015 Pneumococcal Vaccine: 50+ Years Completed 06/17/2015, 07/06/2007 Meningococcal B Vaccine Aged Out No l onger eligible based on patient's age to complete this topic Meningococcal Vaccine Aged Out No nicole mirella eligible based on patient's age to complete this topic RSV Immunizations Under 20 Months Aged Out No longer eligible based on patient's age to complete this topic Insurance [facility] MEDICARE Care Teams Automotive General Manager Relationship Specialty Start Date End Date Blanche Sanz FNP PCP - General Nurse Practitioner Family 02/07/24
--- OUTSIDE RECORDS SUMMARY | 2025-01-20 13:07 | XMS_ITS | Encounter Summary ---
Author Organization [facility] Healthcare Address [address] [place] [address] Care Team Providers Care Secondary Art Teacher Name Role Phone Blanche Sanz NP Primary Care Provider [phone] Reason for Visit * Reason Onset Date Comments After Hours 01/05/2025 Encounter Details Date Type Department Care Team (Late st Contact Info) Description 01/05/2025 Telephone [facility] Medical Group Primary Care at [address] [address] Blanche Sanz NP [address] [place] [address] After Hours Social History Tobacco Use Types Packs/Day Years Used Date Smoking Tobacco: Never Passive Smoke Exposure: Never Smokeless Tobacco: Never PHQ-2 Answer Date Recorded PHQ-2 Total Score (If total score is 3 or more points, staff should administer the PHQ-9) 0 01/02/2025 Comments Unknown Sex and Gender Information Value Date Recorded Sex Assigned at Not on file Legal Sex Female 5:23 AM PRIVATE INQUIRY AGENT Gender Identity Female 10/13/2022 2:40 PM PRIVATE INQUIRY AGENT Sexual Orientation Not on file documented as of this encounter Miscellaneous Notes * Telephone Encounter - Grace Rice NP - 01/05/2025 4:17 PM CDT Patient had urgency to urinate x 1 was already prescribed Abx today. Nurse updating symptoms * Telephone Encounter - Geri Ferris - 01/05/2025 3:47 PM CDT PCP: Blanche Sanz Caller's Name: Alexandra @ [facility] Call Back Number: [phone] (personal cell) Patient Name: Jany Luna Date of : 1935 Caller Concern: Patient is experiencing sudden urgency to urinate. Bacteria found in culture by POA Message sent to [facility]PULSE Chat Message to Provider from Sales Planning Manager: Responses Not Monitored- If Additional Information is Required Call [phone] documented in this encounter Plan of Treatment Not on file documented as of this encounter Visit Diagnoses Not on filedocumented in this encounter Care Teams Secondary Art Teacher Relationship Specialty Start Date End Date Blanche Sanz NP PCP - General Family Medicine 10/13/22 documented as of this encounter
--- OUTSIDE RECORDS SUMMARY | 2025-01-20 13:07 | XMS_ITS | Encounter Summary ---
Author Organization [facility] Healthcare Address [address] [place] [address] Care Team Providers Care Rotary Rock Drilling Machine Operator Name Role Phone Blanche Sanz NP Primary Care Provider [phone] Reason for Visit * Reason Onset Date Comments After Hours 01/18/2025 Encounter Details Date Type Department Care Team (Late st Contact Info) Description 01/18/[address] [facility] Medical Group Primary Care at [address] [address] Blanche Sanz NP [address] [place] [address] After Hours Social History Tobacco Use [...] on file Legal Sex Female 5:23 AM WAREHOUSE OPERATIONS MANAGER Gender Identity Female 10/13/2022 2:40 PM WAREHOUSE OPERATIONS MANAGER Sexual Orientation Not on file documented as of this encounter Miscellaneous Notes * Telephone Encounter - Hayley Barajas - 01/18/2025 1:36 PM CDT Need to report unusual behavior with increased confusion documented in this encounter Plan of Treatment Not on file documented as of this encounter Visit Diagnoses Not on filedocumented in this encounter Care Teams Rotary Rock Drilling Machine Operator Relationship Specialty Start Date End Date Blanche Sanz NP PCP - General Family Medicine 10/13/22 documented as of this encounter
--- OUTSIDE RECORDS SUMMARY | 2025-01-20 13:07 | XMS_ITS | Encounter Summary ---
Author Organization [facility] Healthcare Address [address] [place] [address] Care Team Providers Care Seed Potato Arranger Name Role Phone Blanche Sanz NP Primary Care Provider [phone] Encounter Details Date Type Department Care Team (Late st Contact Info) Description 01/06/2025 Results Follow-Up [facility] Medical Group Primary Care at [address] [address] Blanche Sanz NP [address] [place] [address] [address] [place] [address] Social History Tobacco Use Types Packs/Day Years Used Date Smoking Tobacco: Never Passive Smoke Exposure: Never Smokeless Tobacco: Never PHQ-2 Answer Date Recorded PHQ-2 Total Score (If total score is 3 or more points, staff should administer the PHQ-9) 0 01/02/2025 Comments Unknown Sex and Gender Information Value Date Recorded Sex Assigned at Not on file Legal Sex Female 5:23 AM CLAIMS COUNSEL Gender Identity Female 10/13/2022 2:40 PM CLAIMS COUNSEL Sexual Orientation Not on file documented as of this encounter Plan of Treatment Not on file documented as of this encounter Visit Diagnoses Not on filedocumented in this encounter Care Teams Seed Potato Arranger Relationship Specialty Start Date End Date Blanche Sanz NP PCP - General Family Medicine 10/13/22 documented as of this encounter
--- OUTSIDE RECORDS SUMMARY | 2025-01-20 13:07 | XMS_ITS | Encounter Summary ---
Author Organization [facility] Healthcare Address [address] [place] [address] Care Team Providers Care Registered Dietician Name Role Phone Blanche Sanz NP Primary Care Provider [phone] Encounter Details Date Type Department Care Team (Late st Contact Info) Description 01/18/2025 Telephone [facility] Medical Group Primary Care at [address] [address] Blanche Sanz NP [address] [place] [address] [address] [place] [address] Social History Tobacco Use Types Packs/Day Years Used Date Smoking Tobacco: Never Passive Smoke Exposure: Never Smokeless Tobacco: Never PHQ-2 Answer Date Recorded PHQ-2 Total Score (If total score is 3 or more points, staff should administer the PHQ-9) 0 01/02/2025 Comments Unknown Sex and Gender Information Value Date Recorded Sex Assigned at Not on file Legal Sex Female 5:23 AM TEENAGE BABYSITTER Gender Identity Female 10/13/2022 2:40 PM TEENAGE BABYSITTER Sexual Orientation Not on file documented as of this encounter Miscellaneous Notes * Telephone Encounter - Shelrey Soler FISH STRINGER ASSEMBLER - 01/18/2025 3:18 PM CDT After hours call: NH reports daughter is concerned regarding increased confusion. Recently prescribed po antibiotics for UTI but there is concern that UTI has not cleared completely. Also requesting verbal for cbc w/ diff ordered last visit. Nurse states daughter prefers for NH to draw so she doesn't have to take her to the lab. Orders provided for cbc w/ diff and ua with reflex cs. Orders read back and verified. * Telephone Encounter - Tasneem Myles - 01/18/2025 2:38 PM CDT PCP: Blanche Sanz Caller's Name: Alexandra @ [facility] [place] Call Back Number: [phone] (rm [id number]) Patient Name: Jany Luna Date of : 1935 Pharmacy Name: [id number] - [place], [place] - [address] [facility] [id number] [facility] - [place], [place] - [address] [place] [address] Caller Concern: Wanting an order for UA, 2nd time calling and gave a new phone number Sent [employer] chat to [facility] Message to Provider from [employer]: Responses Not Monitored- If Additional Information is Required Call [phone] documented in this encounter Plan of Treatment Not on file documented as of this encounter Visit Diagnoses Not on filedocumented in this encounter Care Teams Registered Dietician Relationship Specialty Start Date End Date Blanche Sanz NP PCP - General Family Medicine 10/13/22 documented as of this encounter
--- NOTE | 2025-01-20 13:24 | ED.AMS ---
HPI - Altered Mental Status General Chief Complaint: Altered Mental Status Stated Complaint: Poss UTI-mental status changes Time Seen by Provider: 01/20/25 12:40 History of Present Illness HPI narrative: 89-year-old female with a past medical history including advanced dementia, alert oriented x1 at baseline. She has a history of hypertension hyperlipidemia as well as chronic urinary tract infections. She resides at a memory care facility. She presents with her daughter at bedside with concerns for potential urinary tract infection as well as increased fatigue and weakness. Patient is DNR and comfort measures only per her signed advanced directive. Patient's daughter provides the majority of the collateral formation as patient is severely demented not able to provide story but is pleasant and cooperative presently. Family states that patient has been more agitated occasionally and consistent with previous urinary tract infection symptoms. She was recently treated with a dose of cefdinir for a Klebsiella pneumoniae urinary tract infection. She also recently had a Enterococcus faecalis infection in November that was not treated as she was not having any symptoms and seemed to have resolved on the repeat culture on review of patient's external medical record at bedside with the family. Patient herself has no complaints, acting appropriately in the room. Patient's labs from outside records were reviewed and she has chronic thrombocytopenia otherwise unremarkable CBC and CMP. Related Data Home Medications ?Medication ?Instructions ?Recorded ?Confirmed ?Last Taken ?Type aspirin 325 mg tablet (Vicki 325 mg PO DAILY 05/26/21 08/28/24 08/21/22 09:00 History Aspirin) citalopram 40 mg tablet (Celexa) 40 mg PO DAILY 05/26/21 08/28/24 08/20/22 21:00 History memantine 10 mg tablet (Namenda) 10 mg PO BID 05/26/21 08/29/24 08/21/22 09:00 History montelukast 10 mg tablet 10 mg PO HS 05/26/21 08/29/24 08/20/22 21:00 History (Singulair) pantoprazole 40 mg tablet,delayed 40 mg PO DAILY 05/26/21 08/29/24 08/20/22 21:00 History release (Protonix) psyllium husk 0.4 gram capsule 1.2 g PO DAILY PRN Loose Stool 05/26/21 08/29/24 08/20/22 12:00 History (Metamucil) rosuvastatin 5 mg tablet (Crestor) 5 mg PO HS 05/26/21 08/29/24 08/20/22 21:00 History donepezil 10 mg tablet (Aricept) 10 mg PO HS 08/21/22 08/29/24 08/21/22 09:00 History mirtazapine 15 mg tablet (Remeron) 15 mg PO HS 08/21/22 08/29/24 08/20/22 21:00 History cyanocobalamin (vitamin B-12) 1,000 mcg PO DAILY 08/28/24 08/28/24 Unknown History 1,000 mcg capsule cholecalciferol (vitamin D3) 25 25 mcg PO DAILY 08/29/24 08/29/24 Unknown History mcg (1,000 unit) tablet hydroxyzine HCl 25 mg tablet 25 mg PO TID PRN Anxiety 08/29/24 08/29/24 Unknown History ibuprofen 200 mg tablet 200 mg PO BID 08/29/24 08/29/24 Unknown History nitrofurantoin macrocrystal 100 mg 100 mg PO Q12H 08/29/24 08/29/24 Unknown History capsule tramadol 50 mg tablet 50 mg PO Q8H PRN Pain 08/29/24 08/29/24 Unknown History Allergies Allergy/AdvReac Type Severity Reaction Status Date / Time Iodinated Contrast Media Allergy Unknown Verified 01/20/25 13:25 Sulfa (Sulfonamide Allergy Unknown Verified 01/20/25 13:25 Antibiotics) sertraline (From Zoloft) AdvReac Nausea and Verified 01/20/25 13:25 Vomiting Review of Systems Review of Systems: As reviewed above in [facility] Past Medical History Medical History Hypothyroidism Squamous cell cancer of skin of forearm Basal cell carcinoma Melanoma History of CVA (cerebrovascular accident) Dementia Depression Hyperlipidemia Hypertension Surgical History Surgical History History of removal of pigmented skin lesion History of cataract extraction History of back surgery History of cholecystectomy History of hysterectomy Family History Family History Mother Alzheimer disease Sibling Heart disease Alzheimer disease Social History Social History Social History: The patient lives at [facility]. She is . The patient occasionally drinks an alcoholic beverage. The patient did have an alcoholic beverage today at the restaurant. She has 5 children . Her poa is the daughter and son. She is retired Code status dnr Smoking status: Never smoker Alcohol intake: former Substance use: never Do You Feel Safe in your Home?: No Lack of Transportation: No Lack of Food: Never True Current Housing: I Have Housing Concerned About Future Housing: No Difficulty Paying Gas/Electric Bills: No Difficulty Paying for Meds: No Currently Unemployed: No Education: Bachelor's Degree Difficulty w/ Childcare or Family Care: No Gender identity (if verbalized by the patient): Female Spiritual care concerns: No Exam Narrative: GENERAL: Elderly, thin and frail but not any acute distress, pleasant HEAD: [Normocephalic, atraumatic.] EYES: [PERRLA and EOMI.] ENT: Nares clear, no rhinorrhea or epistaxis. Mucous membranes moist. NECK: Supple. CHEST: [Clear to auscultation. No respiratory distress.] HEART: [Regular rate and rhythm]. No murmur heard. [Normal peripheral pulses.] ABDOMEN: [Soft, nondistended], [nontender], [No rigidity or guarding] EXTREMITIES: Normal range of motion. [No edema.] SKIN: Warm, dry, no rash. NEURO: [No focal deficits]. Alert and oriented x1 at her baseline. Advanced dementia. PSYCH: [Normal mood and affect.] Course Vital Signs Vital signs: Vital Signs Temperature 36.4 C L 01/20/25 11:34 Pulse Rate 54 L 01/20/25 11:34 Respiratory Rate 16 01/20/25 11:34 Blood Pressure 162/72 H 01/20/25 11:34 Pulse Oximetry 97 01/20/25 11:34 Temperature 36.4 C L 01/20/25 11:34 Pulse Rate 61 01/20/25 15:21 Respiratory Rate 15 01/20/25 15:21 Blood Pressure 168/73 H 01/20/25 15:21 Pulse Oximetry 96 01/20/25 15:21 Oxygen Delivery Room Air 01/20/25 13:23 MDM - Altered Mental Status MDM Narrative Medical decision making narrative: 89-year-old female with a past medical history including advanced dementia, hypertension, hyperlipidemia, chronic urinary tract infections. Presents the emergency department accompanied by her daughter for concerns over recurrent urinary tract infection. Patient states that she has no complaints at this time and appears at her baseline mentation. Daughter states she has been increasing agitated and confused occasionally with some increased fatigue and weakness which normally triggers her to get urinary tract infection screening and treatments. Previously she was on chronic Macrobid however this proved ineffective as she got Klebsiella and Enterococcus infections before. She is DNR, DNI and comfort measures only. She is otherwise pleasant, vital signs are reassuring without any significant derangements aside from some bradycardia that appear stable. No fever or blood pressure concerns at this time. Examination is unremarkable aside from her A&O x1 which is her baseline. Suspicion presently is for potential urinary tract infection, electrolyte derangements, dehydration. I discussed with the family at bedside plan for the patient's care as she is comfort measures only. Family would like to proceed with basic laboratory studies as well as antibiotics if there is urinary infection. CBC, BMP, urinalysis obtained. Patient provided a L fluids. Patient's laboratory studies reassuring. Chronic thrombocytopenia which appears around baseline compared to her previous labs on outpatient EMR. No leukocytosis, normal renal function. Patient is at her baseline mentation with normal vital signs. No signs of systemic infection. We will treat her with Levaquin given her allergies to sulfa and recent cefdinir that did not seem to cover the infection. I discussed with the caregiver and daughter at bedside that she will be contacted if any urine culture results need changes in the antibiotics or IV formulation only. Patient is safe for discharge at this time back to her Memory Care Facility, family at bedside felt comfortable transporting the patient home at this time and wall arrange outpatient PCP follow-up. Medical Records Attestation: I reviewed the patient's medical records. Lab Data Attestation: I reviewed the patient's lab results. 01/20/25 13:19 01/20/25 13:19 Labs: Lab Results 01/20/25 01/20/25 Range/Units 12:00 13:19 WBC 5.3 (4.5-10.0) K/mm3 RBC 4.71 (4.2-5.4) M/mm3 Hgb 13.9 (12.0-15.0) g/dL Hct 43.3 (37.0-47.0) % MCV 91.9 (80-100) fl MCH 29.5 (26-34) pg MCHC 32.1 (32-36) g/dl RDW 14.2 (11.5-14.5) % Plt Count 88 L (150-375) k/mm3 MPV 9.7 (7.4-10.4) fl Immature Gran % (Auto) 0.9 H (0-0.5) % Neut % (Auto) 38.6 L (45.5-73.1) % Lymph % (Auto) 34.0 (18.3-44.2) % [place] % (Auto) 24.4 H (2.6-8.5) % Eos % (Auto) 1.7 (0-4.4) % Baso % (Auto) 0.4 (0.2-1.2) % Lymph # (Auto) 1.81 (0.9-3.2) K/mm3 [place] # (Auto) 1.3 H (0.1-0.6) K/mm3 Eos # (Auto) 0.1 (0-0.3) K/mm3 Baso # (Auto) 0.0 (0.0-0.1) K/mm3 Abs Immat Gran (auto) 0.05 H (0.00-0.031) K/mm3 Absolute Neuts (auto) 2.1 (1.3-6.7) K/mm3 Absolute Nucleated RBC 0.000 (0.0-0.012) K/mm3 Band Neutrophils % Not Reportable Nucleated RBC % 0.0 (0.0-0.2) % Platelet Estimate Decreased (Adequate) % Immature Plt Fraction 2.8 (0.9-11.2) % Anisocytosis 1+ Ovalocytes 1+ Schistocytes None seen Sodium 141 (137-145) mmol/L Potassium 4.0 (3.4-5.0) mmol/L Chloride 105 (98-107) mmol/L Carbon Dioxide 27 (22-30) mmol/L Anion Gap 9 (4-12) mmol/L BUN 17 (7-17) mg/dL Creatinine 0.59 L (0.7-1.0) mg/dL Estim Creat Clear Calc 53 ml/min Estimated GFR > 60 (59 - ) Glucose 82 (65-110) mg/dL Calcium 9.4 (8.4-10.2) mg/dL Magnesium 2.0 (1.6-2.3) mg/dL Urine Color Yellow (Yellow) Urine Appearance Clear (Clear) Urine pH 6.0 (5.0-9.0) Ur Specific [place] 1.016 (1.001-1.035) Urine Protein 1+ H (Negative) mg/dL Urine Glucose (UA) Negative (Negative) mg/dL Urine Ketones Negative (Negative) mg/dL Ur Blood (Man) 2+ H (Negative) Urine Nitrate Negative (Negative) Urine Bilirubin Negative (Negative) Urine Urobilinogen 1.0 (<2.0) mg/dL Add Ur Microanalysis Reviewed Leukocyte Esterase Rfl 3+ H (Negative) MURRAY/UL Urine RBC 11-20 H (0-2) /hpf Urine WBC 51-100 H (0-3) /hpf Ur Squamous Epith Cells None seen (Few) /hpf Urine Bacteria 3+ H /hpf Urine Casts 0-2 Discharge Plan Discharge Clinical Impression: Acute UTI, Dementia, Recurrent UTI Patient Disposition: NH Intermediate/Asst Living Condition: Stable Instructions: Antibiotic Form, Urinary Tract Infection in Older Adults (ED) Additional Instructions: We will send you home with an oral antibiotic for the next 5 days to cover urinary tract infection. Urine cultures take approximately 24-48 hours to come back. You will be contacted if the urine infection is resistant or needs a change in antibiotic. Return to the ER with any new or worsening concerns otherwise follow-up with your regular doctor as needed. Patient Language: Divehi Prescriptions: New levofloxacin 750 mg tablet 750 mg PO DAILY Qty: 5 0RF No Action mirtazapine [Remeron] 15 mg Tablet 15 mg PO HS donepezil [Aricept] 10 mg Tablet 10 mg PO HS citalopram [Celexa] 40 mg tablet 40 mg PO DAILY aspirin [Vicki Aspirin] 325 mg Tablet 325 mg PO DAILY pantoprazole [Protonix] 40 mg tablet,delayed release (DR/EC) 40 mg PO DAILY montelukast [Singulair] 10 mg tablet 10 mg PO HS rosuvastatin [Crestor] 5 mg tablet 5 mg PO HS memantine [Namenda] 10 mg tablet 10 mg PO BID psyllium husk [Metamucil] 0.4 gram Capsule 1.2 g PO DAILY PRN (Reason: Loose Stool) ibuprofen 400 mg tablet 400 mg PO Q8H PRN (Reason: pain) Qty: 14 0RF acetaminophen [Tylenol] 325 mg capsule 325 mg PO Q6H PRN (Reason: pain) Qty: 14 0RF cyanocobalamin (vitamin B-12) 1,000 mcg Capsule 1,000 mcg PO DAILY tramadol 50 mg Tablet 50 mg PO Q8H PRN (Reason: Pain) nitrofurantoin macrocrystal 100 mg Capsule 100 mg PO Q12H Rx Instructions: must administer with a meal/food. Through 09/02/24 ibuprofen 200 mg Tablet 200 mg PO BID hydroxyzine HCl 25 mg Tablet 25 mg PO TID PRN (Reason: Anxiety) cholecalciferol (vitamin D3) 25 mcg (1,000 unit) Tablet 25 mcg PO DAILY azithromycin [Zithromax] 250 mg Tablet 500 mg PO DAILY Qty: 3 0RF amoxicillin-pot clavulanate 875-125 mg tablet 1 tablet PO Q12H Qty: 7 0RF Follow-up/Referrals: UNKNOWN,DOCTOR [Primary Care Provider] - Stand Alone Forms: Intermediate Discharge Time of Disposition: 15:42
[2025-01-20] MEDS: LACTATED RINGERS 1,000 ML 999 ML IV CONT (13:29)
[2025-01-20 13:31] LABS: Basophils Percent Auto 0.4 % (0.2-1.2); Eosinophils Absolute Auto 0.1 K/mm3 (0-0.3); Eosinophils Percent Auto 1.7 % (0-4.4); Hematocrit 43.3 % (37.0-47.0); Hemoglobin 13.9 g/dL (12.0-15.0); Immature Granulocyte Absolute 0.05 K/mm3 (0.00-0.031); Immature Granulocyte Percent A 0.9 % (0-0.5); Immature Platelet Fraction Pct 2.8 % (0.9-11.2); Lymphocytes Absolute Auto 1.81 K/mm3 (0.9-3.2); Mean Corpuscular HGB Conc 32.1 g/dl (32-36); Mean Corpuscular Hemoglobin 29.5 pg (26-34); Mean Corpuscular Volume 91.9 fl (80-100); Mean Platelet Volume 9.7 fl (7.4-10.4); Monocytes Absolute Auto 1.3 K/mm3 (0.1-0.6); Monocytes Percent Auto 24.4 % (2.6-8.5); Neutrophils Absolute Auto 2.1 K/mm3 (1.3-6.7); Neutrophils Percent Auto 38.6 % (45.5-73.1); Platelet Count Result 88 k/mm3 (150-375); Red Blood Count 4.71 M/mm3 (4.2-5.4); Red Cell Distribution Width 14.2 % (11.5-14.5); White Blood Count 5.3 K/mm3 (4.5-10.0)
[2025-01-20 13:37] LABS: Anion Gap 9 mmol/L (4-12); Blood Urea Nitrogen 17 mg/dL (7-17); Calcium 9.4 mg/dL (8.4-10.2); Carbon Dioxide 27 mmol/L (22-30); Chloride 105 mmol/L (98-107); Estimated CRCL calculation 53 ml/min; Estimated Glomerular Filt Rate > 60; Glucose 82 mg/dL (65-110); Sodium 141 mmol/L (137-145)
[2025-01-20 14:03] LABS: Anisocytosis 1+; Platelet Estimate Decreased (Adequate)
[2025-01-20 14:04] LABS: Ovalocytes 1+; Schistocytes None Seen
--- OUTSIDE RECORDS SUMMARY | 2025-01-20 14:49 | XMS_ITS | Encounter Summary ---
Author Organization [facility] Healthcare Address [address] [place] [address] Care Team Providers Care Fabricator Special Items Name Role Phone Blanche Sanz NP Primary Care Provider [phone] Encounter Details Date Type Department Care Team (Late st Contact Info) Description 11/27/2024 Results Follow-Up [facility] Medical Group Primary Care at [address] [address] Blanche Sanz NP [address] [place] [address] [address] [place] [address] Social History Tobacco Use Types Packs/Day Years Used Date Smoking Tobacco: Never Passive Smoke Exposure: Never Smokeless Tobacco: Never PHQ-2 Answer Date Recorded PHQ-2 Total Score (If total score is 3 or more points, staff should administer the PHQ-9) 2 07/04/2024 Comments Unknown Sex and Gender Information Value Date Recorded Sex Assigned at Not on file Legal Sex Female 5:23 AM DEPLOYMENT SPECIALIST Gender Identity Female 10/13/2022 2:40 PM DEPLOYMENT SPECIALIST Sexual Orientation Not on file documented as [...] Does message need to be routed? No OYMENT SPECIALIST documented in this encounter Plan of Treatment Not on file documented as of this encounter Visit Diagnoses Not on filedocumented in this encounter Care Teams Fabricator Special Items Relationship Specialty Start Date End Date Blanche Sanz NP PCP - General Family Medicine 10/13/22 documented as of this encounter
--- OUTSIDE RECORDS SUMMARY | 2025-01-20 14:49 | XMS_ITS | Encounter Summary ---
Author Organization [facility] Healthcare Address [address] [place] [address] Care Team Providers Care Associate Consulting Engineer Name Role Phone Blanche Sanz NP Primary Care Provider [phone] Reason for Visit * Reason Onset Date Comments After Hours 01/05/2025 Encounter Details Date Type Department Care Team (Late st Contact Info) Description 01/05/2025 Telephone [facility] Medical Group Primary Care at [address] [address] Blanche Sanz NP [address] [place] [address] After Hours Social History Tobacco Use [...] file Legal Sex Female 5:23 AM FINISH OPENER Gender Identity Female 10/13/2022 2:40 PM FINISH OPENER Sexual Orientation Not on file documented as of this encounter Miscellaneous Notes * Telephone Encounter - Grace Rice NP - 01/05/2025 4:17 PM CDT Patient had urgency to urinate x 1 was already prescribed Abx today. Nurse updating symptoms * Telephone Encounter - Geri Ferris - 01/05/2025 3:47 PM CDT PCP: Blanche Sanz Caller's Name: Alexandra @ [facility] Call Back Number: [phone] (personal cell) Patient Name: Jany Luna Date of : 1935 Caller Concern: Patient is experiencing sudden urgency to urinate. Bacteria found in culture by POA Message sent to [facility] [employer] Chat Message to Provider from [employer]: Responses Not Monitored- If Additional Information is Required Call [phone] documented in this encounter Plan of Treatment Not on file documented as of this encounter Visit Diagnoses Not on filedocumented in this encounter Care Teams Associate Consulting Engineer Relationship Specialty Start Date End Date Blanche Sanz NP PCP - General Family Medicine 10/13/22 documented as of this encounter
--- OUTSIDE RECORDS SUMMARY | 2025-01-20 14:49 | XMS_ITS | Encounter Summary ---
Author Organization [facility] Healthcare Address [address] [place] [address] Care Team Providers Care Director Maternal Child Name Role Phone Blanche Sanz NP Primary Care Provider [phone] Encounter Details Date Type Department Care Team (Latest Contact Info) Description 01/03/2025 Results Follow-Up [facility] Medical Group Primary Care at [address] [address] Blanche Sanz NP [address] [place] [address] [address] [place] [address] Thrombocytopenia (Primary Dx) Social History [...] on file Legal Sex Female 5:23 AM INTERNET ECOMMERCE SPECIALIST Gender Identity Female 10/13/2022 2:40 PM INTERNET ECOMMERCE SPECIALIST Sexual Orientation Not on file documented as of this encounter Plan of Treatment Scheduled Orders Name Type Priority Associated Diagnoses Orde r Schedule CBC with auto differential Lab Routine Thrombocytopenia Expected: 01/10/2025, Expires: 01/03/2026 documented as of this encounter Visit Diagnoses Diagnosis Thrombocytopenia- Primary Unspecified thrombocytopenia documented in this encounter Care Teams Director Maternal Child Relationship Specialty Start Date End Date Blanche Sanz NP PCP - General Family Medicine 10/13/22 documented as of this encounter
--- OUTSIDE RECORDS SUMMARY | 2025-01-20 14:50 | XMS_ITS | Encounter Summary ---
Author Organization [facility] Healthcare Address [address] [place] [address] Care Team Providers Care Data Steward Name Role Phone Blanche Sanz NP Primary Care Provider [phone] Encounter Details Date Type Department Care Team (Late st Contact Info) Description 01/20/2025 9:45 AM CDT Lab [facility] Medical Group Outpatient Lab at [address] [address] Social History Tobacco Use Types Packs/Day Years Used Date Smoking Tobacco: Never Passive Smoke Exposure: Never Smokeless Tobacco: Never PHQ-2 Answer Date Recorded PHQ-2 Total Score (If total score is 3 or more points, staff should administer the PHQ-9) 0 01/02/2025 Comments Unknown Sex and Gender Information Value Date Recorded Sex Assigned at Not on file Legal Sex Female 5:23 AM RENOVATION PLANT SUPERVISOR Gender Identity Female 10/13/2022 2:40 PM RENOVATION PLANT SUPERVISOR Sexual Orientation Not on file documented as of this encounter Plan of Treatment Not on file documented as of this encounter Visit Diagnoses Not on filedocumented in this encounter Care Teams Data Steward Relationship Specialty Start Date End Date Blanche Sanz NP PCP - General Family Medicine 10/13/22 documented as of this encounter
--- OUTSIDE RECORDS SUMMARY | 2025-01-20 14:50 | XMS_ITS | Clinical Summary ---
Author Organization [facility] Address [address] [place] [id number] Care Team Providers Care Local Company Truck Driver Name Role Phone Blanche Sanz NP Primary Care Provider [phone] Allergies Active Allergy Reactions Criticality Noted Date [...] Namenda. Assessment & Plan (11/23/2023 3:05 PM DRY CLIPPER TENDER): Diagnosed with Alzheimer's per Neurology. Continues Aricept and Namenda. Holding off on Neuro follow up unless symptoms arise that I feel like specialist needs involved again. Assessment & Plan (10/14/2022 2:08 PM DRY CLIPPER TENDER): Strong FH of Alzheimer's, pt not officially diagnosed but suspected. She is on Namenda and Aricept. Tolerates well. Has scheduled Neuro appointment 11/2022 through [facility]. Will try to get MRI results from Hospital stay in August. Pt currently has home health coming out to home. Working on strength and adjusting the leaning to one side or another when standing or walking. Pain in joint, shoulder region 07/08/2015 Gastroesophageal reflux disease with esophagitis 07/06/2015 Assessment & Plan (10/14/2022 2:07 PM DRY CLIPPER TENDER): Continues Pantoprazole. No sx noted. Hyperglycemia 03/28/2014 Depression with anxiety 01/17/2014 Assessment & Plan (12/28/2023 2:58 PM CDT): Mood seems to be improved on the Remeron 30 mg daily, denies side effects. Appetite has also improved. Will continue. Assessment & Plan (11/23/2023 3:06 PM DRY CLIPPER TENDER): Patient feeling down and having decreased appetite. Has lost about 18 lbs (unintentionally) in the past 1 year. Discussed Ensure/Boost and will try increasing her Remeron to 30 mg daily, precautions discussed. She has been on Remeron for about 5+ years. Follow up in 6 weeks. Assessment & Plan (10/14/2022 2:07 PM DRY CLIPPER TENDER): Stable on Citalopram 40 mg daily. Vitamin D deficiency 02/29/2012 Hypercholesterolemia 01/01/2009 Assessment & Plan (07/04/2024 3:03 PM CDT): Continues Crestor, no side effects reported. Updated labs ordered Assessment & Plan (10/14/2022 2:08 PM DRY CLIPPER TENDER): Continues Crestor, no side effects reported. Resolved Problems Problem Noted Date Diagnosed Date Resolved Date Osteoporosis 06/27/2017 10/13/2022 Encounters Date Type Department Care Team Description 01/20/2025 9:45 AM CDT Lab [facility] Outpatient Lab at [address] [phone] 01/18/2025 Telephone [facility] Primary Care at [address] [phone] Blanche Sanz, ELECTRICAL ENGINEER 01/18/2025 Telephone [facility] Primary Care at [address] [phone] Blanche Sanz, ELECTRICAL ENGINEER After Hours 01/07/2025 Telephone [facility] Primary Care at [address] [phone] Blanche Sanz, ELECTRICAL ENGINEER 01/06/2025 Results Follow-Up [facility] Primary Care at [address] [phone] Blanche Sanz, ELECTRICAL ENGINEER 01/05/2025 Telephone [facility] Primary Care at [address] [phone] Blanche Sanz ELECTRICAL ENGINEER After Hours 01/05/2025 Orders Only [address] [address] Alexandra Ortiz NP 01/05/2025 Nurse Triage [facility] Primary Care at [address] [phone] Blanche Sanz, ELECTRICAL ENGINEER 01/03/2025 Results Follow-Up [facility] Primary Care at [address] [phone] Blanche Sanz, ELECTRICAL ENGINEER Thrombocytopenia (Primary Dx) 01/02/2025 7:32 PM CDT - 01/02/2025 11:59 PM CDT Hospital Encounter [address] [address] Recurrent UTI Discharge Disposition: Discharge to home or self care 01/02/2025 7:22 PM CDT - 01/02/2025 11:59 PM CDT Hospital Encounter [address] [address] Hypercholesterolemia Discharge Disposition: Discharge to home or self care 01/02/2025 3:00 PM CDT Lab [facility] Outpatient Lab at [address] [phone] Hyperglycemia (Primary Dx); Hypercholesterolemia 01/02/2025 2:00 PM CDT Office Visit [facility] Primary Care at [address] [phone] Blanche Sanz, ELECTRICAL ENGINEER Recurrent UTI (Primary Dx); Hypercholesterolemia 12/25/2024 Telephone [facility] Primary Care at [address] [phone] Blanche Sanz, ELECTRICAL ENGINEER 11/27/2024 Telephone [facility] Primary Care at [address] [phone] Blanche Sanz, ELECTRICAL ENGINEER Test Results 11/27/2024 Results Follow-Up [facility] Primary Care at [address] [phone] Blanche Sanz, ELECTRICAL ENGINEER 10/23/2024 Telephone [facility] Primary Care at [address] [phone] Blanche Sanz, ELECTRICAL ENGINEER Test Results (Urinalysis ) 10/22/2024 10:45 AM DRY CLIPPER TENDER Lab [facility] Outpatient Lab at [address] [phone] 10/22/2024 10:43 AM DRY CLIPPER TENDER - 10/22/2024 11:59 PM DRY CLIPPER TENDER Hospital Encounter [address] [address] Recurrent UTI Discharge Disposition: Discharge to home [...] sisters Relation Name Status Comments Mother Eulalia uHll Sister 2 sisters Social History Tobacco Use [...] on file Legal Sex Female 5:23 AM DRY CLIPPER TENDER Gender Identity Female 10/13/2022 2:40 PM DRY CLIPPER TENDER Sexual Orientation Not on file Obstetrics History Last Filed Vital Signs Vital Sign Reading Time Taken Comments Blood Pressure 130/72 01/02/2025 2:20 PM CDT Pulse 52 01/02/2025 2:20 PM CDT Temperature 36.9 C (98.4 F) 01/02/2025 2:20 PM CDT Respiratory Rate 14 09/10/2024 11:08 AM DRY CLIPPER TENDER Oxygen Saturation 96% 01/02/2025 2:20 PM CDT [...] URINALYSIS, MICROSCOPIC ONLY Routine 10/22/2024 10:43 AM DRY CLIPPER TENDER Recurrent UTI URINALYSIS AND REFLEX TO MICROSCOPIC AND CULTURE Routine 10/22/2024 10:43 AM DRY CLIPPER TENDER Recurrent UTI from Last 3 Months Results * (ABNORMAL) POCT urinalysis dipstick (01/02/2025 2:34 PM CDT) Pathologist [facility] [place] Glucose, ur, POC Negative Negative MG/DL Bilirubin, ur, POC Negative Negative, Small, Moderate, Large Ketones, ur, POC Negative Negative Specific [place], POC 1.010 1.003 - 1.030 Blood, ur, [...] * eGFR (01/02/2025 12:00 PM CDT) Pathologist [facility] [place] eGFR 86 >=60 mL/min/1. 73 m2 Comment: [...] NP LAB BLOOD ORDERABLES Final Resul t [facility] [id number] [address] Department of Laboratories [place], [place] [id number] * (ABNORMAL) Differential, auto (01/02/2025 12:00 PM CDT) Neutrophil abs 1.52 1.50 - 6.50 K/cumm Imm gran abs 0.04 0.00 - 0.10 K/cumm [facility] Lymphocyte abs 1.95 0.80 - 3.30 K/cumm [facility] Monocyte abs 1.41(H) 0.20 - 0.80 K/cumm [facility] Eosinophil abs 0.06 0.00 - 0.50 K/cumm [facility] Basophil abs 0.01 0.00 - 0.10 K/cumm [facility] Neutrophil pct 30.4 % [facility] Comment: Interpretive Data Percent cell count [...] revised on 2018. Lymphocyte pct 39.1 % [facility] Comment: Interpretive Data Percent cell count reference ranges are not reported, since discordance with absolute values may lead to misinterpretation of CBC data. Current Interpretive Data was last revised on 2018. Monocyte pct 28.3 % [facility] Comment: Interpretive Data Percent cell count reference ranges are not reported, since discordance with absolute values may lead to misinterpretation of CBC data. Current Interpretive Data was last revised on 2018. Eosinophil pct 1.2 % [facility] Comment: Interpretive Data Percent cell count reference ranges are not reported, since discordance with absolute values may lead to misinterpretation of CBC data. Current Interpretive Data was last revised on 2018. Basophil pct 0.2 % [facility] Comment: Interpretive Data Percent cell count reference ranges are not reported, since discordance with absolute values may lead to misinterpretation of CBC data. Current Interpretive Data was last revised on 2018. Blood 01/02/2025 12:0 0 PM CDT 01/02/2025 7:45 PM CDT Blanche Sanz NP LAB BLOOD ORDERABLES Final Resul t [facility] [id number] [address] [place] [address] * (ABNORMAL) CBC with auto differential (01/02/2025 12:00 PM CDT) WBC 4.99 3.80 - 9.90 K/cumm Hgb 13.7 11.9 - 15.5 g/dL [facility] Hct 43.4 35.6 - 45.5 % [facility] Plt 105(L) 150 - 400 K/cumm [facility] Comment:No clot detected in sample. MPV 10.2 9.1 - 12.3 fL [facility] RBC 4.67 3.90 - 5.20 M/cumm [facility] MCV 92.9 81.3 - 96.4 fL [facility] MCH 29.3 27.1 - 33.3 pg [facility] MCHC 31.6(L) 32.3 - 35.7 g/dL [facility] RDW CV 14.8 11.1 - 14.9 % [facility] RDW SD 50.4(H) 35.7 - 48.1 fL [facility] NRBC abs 0.00 0.00 - 0.01 K/cumm [facility] Blood 01/02/2025 12:0 0 PM CDT 01/02/2025 7:45 PM CDT us Blanche Sanz NP LAB BLOOD ORDERABLES Final Resul t Performing Organization Address [facility]/ZIP Co de Phone Number WILNERNINO KEE [address] [address] Department of [employer] [place] [address] * (ABNORMAL) Urine culture Urine, clean voided (01/02/2025 12:00 PM CDT) Report Final Report: Greater than or equal to 100,000 colonies/mL of Klebsiella pneumoniae (.) Comment:Testing performed by : [facility], [address] [place]., [address] Organism KLEBSIELLA PNEUMONIAE [facility] Urine, clean voided 01/02/2025 12:00 PM CDT 01/02/2025 10:16 PM CDT Narrative [facility] - 01/05/2025 6:14 AM CDT Testing performed by [facility] Microbiology Laboratory ([phone]) Organism Antibiotic Method Susceptibility Klebsiella pneumoniae Ampicillin [...] ORDER IZZY Final Result Performing Organization Address City/[facility]/ZIP Co de Phone Number WILNERNINO KEE [phone] [address] Department of [employer] [place], [place] [id number] * Comprehensive metabolic panel (01/02/2025 12:00 PM [...] BLOOD ORDERABLES Final Resul t JEFF KEE [address] [address] [place] [address] * Urine culture Urine, clean voided (11/27/2024) SCRIBED Urine Culture, Routine 0 EXTERNAL LAB Urine, clean voided 11/27/2024 us Blanche Sanz NP LAB MICROBIOLOGY - GENERAL ORDER IZZY Final Result Performing Organization Address [facility] Co de Phone Number EXTERNAL LAB * (ABNORMAL) Urinalysis reflex to microscopic and culture Urine, clean voided (10/22/2024 10:43 AM DRY CLIPPER TENDER) Color, ur Yellow Yellow Clarity, ur Clear [...] tendency for uric acid stone formation. Source: [facility] [employer] Current Interpretive Data was last revised on [...] CH Urine, clean voided 10/22/2024 10:43 AM DRY CLIPPER TENDER 10/22/2024 4:03 PM DRY CLIPPER TENDER us Blanche Sanz NP LAB MICROBIOLOGY - GENERAL ORDER IZZY Final Result Performing Organization Address City/[facility]/ZIP Co de Phone Number CERNER [address] [place] [address] * (ABNORMAL) Urinalysis, microscopic only (10/22/2024 10:43 AM DRY CLIPPER TENDER) WBC, ur 0-5 0 - 5 /HPF RBC, ur 6-10(A) 0 - 2 /HPF [facility] Epithelial cells, squamous, ur 1-5 0 - 5 /HPF [facility] Bacteria, ur 1+(A) [facility] Mucous, ur Present(A) [facility] Culture Reflex Comment Reflex conditions for urine culture (WBC >10) not met. [facility] Urine, clean voided 10/22/2024 10:43 AM DRY CLIPPER TENDER 10/22/2024 4:03 PM DRY CLIPPER TENDER us Blanche Sanz NP LAB URINE ORDERABLES Final Resul t [id number] [id number] [place] [address] from Last 3 Months Insurance MEDICARE [facility] CHOICE PLUS MEDICARE [facility] OPTIONS PPO Advance Directives For more information, please contact: [phone] Documents on File Type Date Recorded Patient Secondary English Teacher Expl anation ADVANCE DIRECTIVE 07/12/2024 1:11 PM Care Teams Local Company Truck Driver Relationship Specialty Start Date End Date Blanche Sanz NP PCP - General Family Medicine 10/13/22
--- OUTSIDE RECORDS SUMMARY | 2025-01-20 14:50 | XMS_ITS | Encounter Summary ---
Author Organization [facility] Address [address] [place] [address] Care Team Providers Care Horse Rider Name Role Phone Blanche Sanz NP Primary Care Provider [phone] Reason for Visit * Reason Onset Date Comments After Hours 01/18/2025 Encounter Details Date Type Department Care Team (Late st Contact Info) Description 01/18/2025 Telephone [facility] Primary Care at [address] [phone] Blanche Sanz NP [address] [place] [address] After Hours Social History Tobacco Use [...] on file Legal Sex Female 5:23 AM THERAPIST PHYS Gender Identity Female 10/13/2022 2:40 PM THERAPIST PHYS Sexual Orientation Not on file documented as of this encounter Miscellaneous Notes * Telephone Encounter - Hayley Barajas - 01/18/2025 1:36 PM CDT Need to report unusual behavior with increased confusion documented in this encounter Plan of Treatment Not on file documented as of this encounter Visit Diagnoses Not on filedocumented in this encounter Care Teams Horse Rider Relationship Specialty Start Date End Date Blanche Sanz NP PCP - General Family Medicine 10/13/22 documented as of this encounter
--- OUTSIDE RECORDS SUMMARY | 2025-01-20 14:50 | XMS_ITS | Encounter Summary ---
Author Organization [facility] Address [address] [place] [address] Care Team Providers Care Glove Printer Name Role Phone Blanche Sanz NP Primary Care Provider [phone] Encounter Details Date Type Department Care Team (Late st Contact Info) Description 01/06/2025 Results Follow-Up [facility] Primary Care at [address] [phone] Blanche Sanz NP [address] [place] [address] [address] [place] [address] Social History Tobacco Use Types Packs/Day Years Used Date Smoking Tobacco: Never Passive Smoke Exposure: Never Smokeless Tobacco: Never PHQ-2 Answer Date Recorded PHQ-2 Total Score (If total score is 3 or more points, staff should administer the PHQ-9) 0 01/02/2025 Comments Unknown Sex and Gender Information Value Date Recorded Sex Assigned at Not on file Legal Sex Female 5:23 AM OPERATIONS PLANT ATTENDANT Gender Identity Female 10/13/2022 2:40 PM OPERATIONS PLANT ATTENDANT Sexual Orientation Not on file documented as of this encounter Plan of Treatment Not on file documented as of this encounter Visit Diagnoses Not on filedocumented in this encounter Care Teams Glove Printer Relationship Specialty Start Date End Date Blanche Sanz NP PCP - General Family Medicine 10/13/22 documented as of this encounter
--- OUTSIDE RECORDS SUMMARY | 2025-01-20 14:50 | XMS_ITS | Clinical Summary ---
Author Organization [facility] Address [address] [place] [id number] Care Team Providers Care Synthetic Plasterer Name Role Phone Blanche Sanz TWISTING DEPARTMENT END FINDER Primary Care Provider [phone] Social History Tobacco Use Types Packs/Day Years [...] patient's age to complete this topic Insurance [facility] MEDICARE Care Teams Synthetic Plasterer Relationship Specialty Start Date End Date Blanche Sanz FNP PCP - General Nurse Practitioner Family 02/07/24
--- OUTSIDE RECORDS SUMMARY | 2025-01-20 14:50 | XMS_ITS | Referral Summary ---
Author Organization [facility] for the [facility] Address [address] [place] [phone] Care Team Providers Care Drop Hammer Pile Driver Operator Name Role Phone Blanche Sanz NP Primary Care Provider Encounters Date Type Department Care Team Description 01/20/2025 9:45 AM CDT Lab [facility] Outpatient Lab at [address] [phone] 01/18/2025 Telephone [facility] Primary Care at [address] [phone] Blanche Sanz NP 01/18/2025 Telephone [facility] Primary Care at [address] [phone] Blanche Sanz NP After Hours 01/07/2025 Telephone [facility] Primary Care at [address] [phone] Blanche Sanz NP 01/06/2025 Results Follow-Up [facility] Primary Care at [address] [phone] Blanche Sanz NP 01/05/2025 Telephone [facility] Primary Care at [address] [phone] Blanche Sanz NP After Hours 01/05/2025 Orders Only [address] [phone] Alexandra Ortiz NP 01/05/2025 Nurse Triage [facility] Primary Care at [address] [phone] Blanche Sanz, CUT FILE CLERK 01/03/2025 Results Follow-Up [facility] Primary Care at [address] [phone] Blanche Sanz, DIONISIO Thrombocytopenia (Primary Dx) 01/02/2025 7:32 PM CDT - 01/02/2025 11:59 PM CDT Hospital Encounter [address] [address] Recurrent UTI Discharge Disposition: Discharge to home or self care 01/02/2025 7:22 PM CDT - 01/02/2025 11:59 PM CDT Hospital Encounter [address] [address] Hypercholesterolemia Discharge Disposition: Discharge to home or self care 01/02/2025 3:00 PM CDT Lab [facility] Outpatient Lab at [address] [phone] Hyperglycemia (Primary Dx); Hypercholesterolemia 01/02/2025 2:00 PM CDT Office Visit [facility] Primary Care at [address] [phone] Blanche Sanz, DIONISIO Recurrent UTI (Primary Dx); Hypercholesterolemia 12/25/2024 Telephone [facility] Primary Care at [address] [phone] Blanche Sanz, CUT FILE CLERK 11/27/2024 Telephone [facility] Primary Care at [address] [phone] Blanche Sanz NP Test Results 11/27/2024 Results Follow-Up [facility] Primary Care at [address] [phone] Blanche Sanz, CUT FILE CLERK 10/23/2024 Telephone [facility] Primary Care at [address] [phone] Blanche Sanz NP Test Results (Urinalysis ) 10/22/2024 10:43 AM DISASSEMBLER - 10/22/2024 11:59 PM DISASSEMBLER Hospital Encounter [address] [address] Recurrent UTI Discharge Disposition: Discharge to home or self care 10/22/2024 10:45 AM DISASSEMBLER Lab [facility] Outpatient Lab at [address] [phone] from Last 3 Months Allergies Active Allergy [...] Namenda. Assessment & Plan (11/23/2023 3:05 PM DISASSEMBLER): Diagnosed with Alzheimer's per Neurology. Continues Aricept and Namenda. Holding off on Neuro follow up unless symptoms arise that I feel like specialist needs involved again. Assessment & Plan (10/14/2022 2:08 PM DISASSEMBLER): Strong FH of Alzheimer's, pt not officially diagnosed but suspected. She is on Namenda and Aricept. Tolerates well. Has scheduled Neuro appointment 11/2022 through [facility]. Will try to get MRI results from Hospital stay in August. Pt currently has home health coming out to home. Working on strength and adjusting the leaning to one side or another when standing or walking. Pain in joint, shoulder region 07/08/2015 Gastroesophageal reflux disease with esophagitis 07/06/2015 Assessment & Plan (10/14/2022 2:07 PM DISASSEMBLER): Continues Pantoprazole. No sx noted. Hyperglycemia 03/28/2014 Depression with anxiety 01/17/2014 Assessment & Plan (12/28/2023 2:58 PM CDT): Mood seems to be improved on the Remeron 30 mg daily, denies side effects. Appetite has also improved. Will continue. Assessment & Plan (11/23/2023 3:06 PM DISASSEMBLER): Patient feeling down and having decreased appetite. Has lost about 18 lbs (unintentionally) in the past 1 year. Discussed Ensure/Boost and will try increasing her Remeron to 30 mg daily, precautions discussed. She has been on Remeron for about 5+ years. Follow up in 6 weeks. Assessment & Plan (10/14/2022 2:07 PM DISASSEMBLER): Stable on Citalopram 40 mg daily. Vitamin D deficiency 02/29/2012 Hypercholesterolemia 01/01/2009 Assessment & Plan (07/04/2024 3:03 PM CDT): Continues Crestor, no side effects reported. Updated labs ordered Assessment & Plan (10/14/2022 2:08 PM DISASSEMBLER): Continues Crestor, no side effects reported. Resolved [...] on file Legal Sex Female 5:23 AM DISASSEMBLER Gender Identity Female 10/13/2022 2:40 PM DISASSEMBLER Sexual Orientation Not on file Last Filed Vital Signs Vital Sign Reading Time Taken Comments Blood Pressure 130/72 01/02/2025 2:20 PM CDT Pulse 52 01/02/2025 2:20 PM CDT Temperature 36.9 C (98.4 F) 01/02/2025 2:20 PM CDT Respiratory Rate 14 09/10/2024 11:08 AM DISASSEMBLER Oxygen Saturation 96% 01/02/2025 2:20 PM CDT [...] URINALYSIS, MICROSCOPIC ONLY Routine 10/22/2024 10:43 AM DISASSEMBLER Recurrent UTI URINALYSIS AND REFLEX TO MICROSCOPIC AND CULTURE Routine 10/22/2024 10:43 AM DISASSEMBLER Recurrent UTI from Last 3 Months Results * (ABNORMAL) POCT urinalysis dipstick (01/02/2025 2:34 PM CDT) Glucose, ur, POC Negative Negative MG/DL Bilirubin, ur, POC Negative Negative, Small, Moderate, Large Ketones, ur, POC Negative Negative Specific [place], POC 1.010 1.003 - 1.030 Blood, ur, [...] BLOOD ORDERABLES Final Resul t JEFF KEE [address] Department [place] [address] * (ABNORMAL) Differential, auto (01/02/2025 12:00 PM CDT) Neutrophil abs 1.52 1.50 - 6.50 K/cumm Imm gran abs 0.04 0.00 - 0.10 K/cumm JEFF Lymphocyte abs 1.95 0.80 - 3.30 K/cumm [facility] Monocyte abs 1.41(H) 0.20 - 0.80 K/cumm [facility] Eosinophil abs 0.06 0.00 - 0.50 K/cumm [facility] Basophil abs 0.01 0.00 - 0.10 K/cumm [facility] Neutrophil pct 30.4 % [facility] Comment: Interpretive Data Percent cell count reference ranges are not reported, since discordance with absolute values may lead to misinterpretation of CBC data. Current Interpretive Data was last revised on 2018. Imm gran pct 0.8 % [facility] Comment: Interpretive Data Percent cell count reference ranges are not reported, since discordance with absolute values may lead to misinterpretation of CBC data. Current Interpretive Data was last revised on 2018. Lymphocyte pct 39.1 % [facility] Comment: Interpretive Data Percent cell count reference ranges are not reported, since discordance with absolute values may lead to misinterpretation of CBC data. Current Interpretive Data was last revised on 2018. Monocyte pct 28.3 % [facility] Comment: Interpretive Data Percent cell count reference ranges are not reported, since discordance with absolute values may lead to misinterpretation of CBC data. Current Interpretive Data was last revised on 2018. Eosinophil pct 1.2 % [facility] Comment: Interpretive Data Percent cell count reference ranges are not reported, since discordance with absolute values may lead to misinterpretation of CBC data. Current Interpretive Data was last revised on 2018. Basophil pct 0.2 % [facility] Comment: Interpretive Data Percent cell count reference ranges are not reported, since discordance with absolute values may lead to misinterpretation of CBC data. Current Interpretive Data was last revised on 2018. Blood 01/02/2025 12:0 0 PM CDT 01/02/2025 7:45 PM CDT us Blanche Sanz NP LAB BLOOD ORDERABLES Final Resul t JEFF VIDHYA [address] Department [place] [address] * (ABNORMAL) CBC with auto differential (01/02/2025 12:00 PM CDT) WBC 4.99 3.80 - 9.90 K/cumm Hgb 13.7 11.9 - 15.5 g/dL [facility] Hct 43.4 35.6 - 45.5 % [facility] Plt 105(L) 150 - 400 K/cumm [facility] CH Comment:No clot detected in sample. MPV 10.2 9.1 - 12.3 fL [facility]] RBC 4.67 3.90 - 5.20 M/cumm [facility] MCV 92.9 81.3 - 96.4 fL [facility]] MCH 29.3 27.1 - 33.3 pg [facility]] MCHC 31.6(L) 32.3 - 35.7 g/dL [facility] RDW CV 14.8 11.1 - 14.9 % [facility] RDW SD 50.4(H) 35.7 - 48.1 fL [facility]] NRBC abs 0.00 0.00 - 0.01 K/cumm [facility] Blood 01/02/2025 12:0 0 PM CDT 01/02/2025 7:45 PM CDT us Blanche Sanz NP LAB BLOOD ORDERABLES Final Resul t JEFF [address] [place] [address] * (ABNORMAL) Urine culture Urine, clean voided (01/02/2025 12:00 PM CDT) Pathologist [facility] Report Final Report: Greater than or equal to 100,000 colonies/mL of Klebsiella pneumoniae (.) Comment:Testing performed by : [facility], [address] [facility], [place]., [address] Organism KLEBSIELLA PNEUMONIAE [facility] Urine, clean voided 01/02/2025 12:00 PM CDT 01/02/2025 10:16 PM CDT Narrative [facility] - 01/05/2025 6:14 AM CDT Testing performed by [facility] Microbiology Laboratory ([phone]) Organism Antibiotic Method Susceptibility Klebsiella pneumoniae Ampicillin [...] MICROBIOLOGY - GENERAL ORDER IZZY Final Result [facility] [address] [place] [address] * Comprehensive metabolic panel (01/02/2025 12:00 PM [...] CH Glucose 96 70 - 199 mg/dL [facility] Comment: Interpretive Data Fasting glucose >/= 126 [...] ORDERABLES Final Resul t Performing Organization Address City/[facility]/ZIP Co de Phone Number [facility] [address] Department [place] [address] * Urine culture Urine, clean voided (11/27/2024) SCRIBED Urine Culture, Routine 0 EXTERNAL LAB Urine, clean voided 11/27/2024 us Blanche Sanz NP LAB MICROBIOLOGY - GENERAL ORDER IZZY Final Result Performing Organization Address City/[facility] Co de Phone Number EXTERNAL LAB * (ABNORMAL) Urinalysis reflex to microscopic and culture Urine, clean voided (10/22/2024 10:43 AM DISASSEMBLER) Color, ur Yellow Yellow Clarity, ur Clear [...] tendency for uric acid stone formation. Source: [facility] [employer] Current Interpretive Data was last revised on [...] CH Urine, clean voided 10/22/2024 10:43 AM DISASSEMBLER 10/22/2024 4:03 PM DISASSEMBLER Blanche Sanz NP LAB MICROBIOLOGY - GENERAL ORDER IZZY Final Result Performing Organization Address [facility] Co de Phone Number JEFF KEE [address] Department of Laboratories [place], [place] [id number] * (ABNORMAL) Urinalysis, microscopic only (10/22/2024 10:43 AM DISASSEMBLER) WBC, ur 0-5 0 - 5 /HPF RBC, ur 6-10(A) 0 - 2 /HPF [facility] Epithelial cells, squamous, ur 1-5 0 - 5 /HPF [facility] Bacteria, ur 1+(A) [facility] CH Mucous, ur Present(A) [facility] Culture Reflex Comment Reflex conditions for urine culture (WBC >10) not met. [facility] Urine, clean voided 10/22/2024 10:43 AM DISASSEMBLER 10/22/2024 4:03 PM DISASSEMBLER us Blanche Sanz NP LAB URINE ORDERABLES Final Resul t Performing Organization Address [facility] de Phone Number JEFF KEE [address] [place] [address] from Last 3 Months Insurance MEDICARE [facility] CHOICE PLUS [facility] HMO/PPO Address: [address] [address] [place] [address] MEDICARE [facility] OPTIONS PPO [facility] HMO/PPO Address: [address] [address] [place] [phone] Advance Directives For more information, please contact: [phone] Documents on File Type Date Recorded Patient Human Resources Vice President Expl anation ADVANCE DIRECTIVE 07/12/2024 1:11 PM Care Teams Drop Hammer Pile Driver Operator Relationship Specialty Start Date End Date Blanche Sanz NP PCP - General Family Medicine 10/13/22
--- OUTSIDE RECORDS SUMMARY | 2025-01-20 14:50 | XMS_ITS | Encounter Summary ---
Author Organization [facility] Address [address] [place] [address] Care Team Providers Care Field Hockey And Lacrosse Coach Name Role Phone Blanche Sanz NP Primary Care Provider Encounter Details Date Type Department Care Team (Late st Contact Info) Description 01/18/2025 Telephone [facility] Primary Care at [address] [phone] Blanche Sanz NP [address] [place] [address] [address] [place] [address] Social History Tobacco Use Types Packs/Day Years Used Date Smoking Tobacco: Never Passive Smoke Exposure: Never Smokeless Tobacco: Never PHQ-2 Answer Date Recorded PHQ-2 Total Score (If total score is 3 or more points, staff should administer the PHQ-9) 0 01/02/2025 Comments Unknown Sex and Gender Information Value Date Recorded Sex Assigned at Not on file Legal Sex Female 5:23 AM HIGH MAN Gender Identity Female 10/13/2022 2:40 PM HIGH MAN Sexual Orientation Not on file documented as of this encounter Miscellaneous Notes * Telephone Encounter - Sherley Soler SAMPLER [place] - 01/18/2025 3:18 PM CDT After hours [...] PCP: Blanche Sanz Caller's Name: Alexandra @ [facility] in [place] Call Back Number: [phone] (rm [id number]) Patient Name: Jany Luna Date of : 1935 Pharmacy Name: [id number] - [place], [place] - [address] [facility] [id number] [facility] - [place], [place] - [address] [place] [address] Caller Concern: Wanting an order for UA, 2nd time calling and gave a new phone number Sent App[employer]io chat to [facility] Message to Provider from Taxi Dancer: Responses Not Monitored- If Additional Information is Required Call [phone] documented in this encounter Plan of Treatment Not on file documented as of this encounter Visit Diagnoses Not on filedocumented in this encounter Care Teams Field Hockey And Lacrosse Coach Relationship Specialty Start Date End Date Blanche Sanz NP PCP - General Family Medicine 10/13/22 documented as of this encounter
== END 2025-01-20 16:18 ==
PROVIDERS: General Practice; Emergency Provider Student in an Organized Health Care Education/Training Program
DX: N39.0 Urinary tract infection, site not specified (principal); F03.90 Unspecified dementia, unspecified severity, without behavioral disturbance, psychotic disturbance, mood disturbance, and anxiety; I10 Essential (primary) hypertension; E78.5 Hyperlipidemia, unspecified; Z79.82 Long term (current) use of aspirin; E03.9 Hypothyroidism, unspecified; Z85.820 Personal history of malignant melanoma of skin; Z86.73 Personal history of transient ischemic attack (TIA), and cerebral infarction without residual deficits
CPT/HCPCS: 36415; 80048; 81001; 83735; 85025; 85055; 87086; 87181; 96360; 99283; J7120

== ENCOUNTER 2025-07-15 11:04 | Emergency (ER) | payer MEDICARE, OTHER, SELFPAY ==
--- OUTSIDE RECORDS SUMMARY | 2024-09-14 16:30 | XMS_ITS ---
Author Organization [facility] Address [address] [place], [place] [id number] Care Team Providers Care Avaya Engineer Name Role Phone Fadi Gonzalez Primary Care Provider Heber Felder Unavailable [phone] Migration, Provider Unavailable Unavailable Allergies Allergen (clinical drug ingredient) Drug/Non Drug Allergy documented on EMR Reaction Allergy Type Onset Date Status IODINATED CONSTRAST AGENT (uncoded) rash Allergy Active Substance with sulfonamide structure and antibacterial mechanism of action (substance) SULFA (uncoded) rash Allergy Active REASON FOR VISIT [facility] To [facility] Conversion Encounter Medications Medication SIG (Take, Route, Frequency, Duration) Notes Start Date End Date Status Ibuprofen 100 MG Tablet 1 tab(s) orally every 6 hours Active CoQ10 30 MG Capsule 1 cap(s) orally 3 times a day Active Singulair 10 MG Tablet 1 tab(s) orally once a day (in the evening) Active busPIRone HCl 5 MG Tablet 1 tab(s) orally 3 times a day Active Multivitamin - Tablet 1 tab(s) orally once a day Active Aspirin *Please review a nd pick correct strength-formulatio n from YupiCall options. If intended option is not shown, discontinue and re-order from Quick Search* Active [place]fax-3 Fatty Acids 1000 MG Capsule 1 cap(s) orally 3 times a day Active Fexofenadine HCl 60 MG Tablet 1 tab(s) orally 2 times a day Active Meclizine HCl 12.5 MG Tablet 1 tab(s) orally 3 times a day Active Lutein *Please review a nd pick correct strength-formulatio n from YupiCall options. If intended option is not shown, discontinue and re-order from Quick Search* Active Pantoprazole Sodium 20 MG Tablet Delayed Release 1 tab(s) orally once a day Active Vitamin D (Ergocalciferol) 1.25 MG (11564 UT) Capsule 1 cap(s) orally 2 times a week Active Aspirin 81 MG Tablet Delayed Release 1 tab(s) orally once a day Active Lutein 6 MG Capsule 1 cap(s) orally once a day Active Evista 60 MG Tablet 1 tab(s) orally once a day Active Crestor 10 MG Tablet 1 tab(s) orally once a day (at bedtime) Active Encounters Encounter Location Date Provider Diagnosis [facility] [address] [place], [place] [id number] 09/14/2024 Provider Migration Plan Of Treatment No Information Progress Notes * Jany LUNA MDOB:[birth year] (89 yo F)Acc No.[id number]:09/14/2024 Patient: Jany Faria Provider: Colt luz Migration :1935 A ge:89 Y S ex:Female Date:09/14/2024 Address:[address] [place] [address] Pcp:Fadi Gonzalez Subjective: * Chief Complaints: * M ultum To [facility] Conversion Encounter * Medications: T akingAspirin , Notes to Pharmacist: *Please review and pick correct strength-formulation from Medispan options. If intended option is not shown, discontinue and re-order from Quick Search*Lutein , Notes to Pharmacist: *Please review and pick correct strength-formulation from Medispan options. If intended option is not shown, discontinue and re-order from Quick Search*Ibuprofen 100 MG Tablet 1 tab(s) orally every 6 hours Singulair 10 MG Tablet 1 tab(s) orally once a day (in the evening) Crestor 10 MG Tablet 1 tab(s) orally once a day (at bedtime) Aspirin 81 MG Tablet Delayed Release 1 tab(s) orally once a day Lutein 6 MG Capsule 1 cap(s) orally once a day Evista 60 MG Tablet 1 tab(s) orally once a day Pantoprazole Sodium 20 MG Tablet Delayed Release 1 tab(s) orally once a day Vitamin D (Ergocalciferol) 1.25 MG (65201 UT) Capsule 1 cap(s) orally 2 times a week Fairfax-3 Fatty Acids 1000 MG Capsule 1 cap(s) orally 3 times a day Fexofenadine HCl 60 MG Tablet 1 tab(s) orally 2 times a day Meclizine HCl 12.5 MG Tablet 1 tab(s) orally 3 times a day CoQ10 30 MG Capsule 1 cap(s) orally 3 times a day busPIRone HCl 5 MG Tablet 1 tab(s) orally 3 times a day Multivitamin - Tablet 1 tab(s) orally once a day Taking Aspirin , Notes to Pharmacist: *Please review and pick correct strength-formulation from YupiCall options. If intended option is not shown, discontinue and re-order from Quick Search*Taking Lutein , Notes to Pharmacist: *Please review and pick correct strength-formulation from YupiCall options. If intended option is not shown, discontinue and re-order from Quick Search*Taking Ibuprofen 100 MG Tablet 1 tab(s) orally every 6 hours Taking Singulair 10 MG Tablet 1 tab(s) orally once a day (in the evening) Taking Crestor 10 MG Tablet 1 tab(s) orally once a day (at bedtime) Taking Aspirin 81 MG Tablet Delayed Release 1 tab(s) orally once a day Taking Lutein 6 MG Capsule 1 cap(s) orally once a day Taking Evista 60 MG Tablet 1 tab(s) orally once a day Taking Pantoprazole Sodium 20 MG Tablet Delayed Release 1 tab(s) orally once a day Taking Vitamin D (Ergocalciferol) 1.25 MG (77513 UT) Capsule 1 cap(s) orally 2 times a week Taking Fairfax-3 Fatty Acids 1000 MG Capsule 1 cap(s) orally 3 times a day Taking Fexofenadine HCl 60 MG Tablet 1 tab(s) orally 2 times a day Taking Meclizine HCl 12.5 MG Tablet 1 tab(s) orally 3 times a day Taking CoQ10 30 MG Capsule 1 cap(s) orally 3 times a day Taking busPIRone HCl 5 MG Tablet 1 tab(s) orally 3 times a day Taking Multivitamin - Tablet 1 tab(s) orally once a day * Allergies: S ULFA: rashIODINATED CONSTRAST AGENT: rash * Electronic signature of Prov ider Migration on 07/15/2025 at 05:01 PM CDT Sign off status: Pending * Provider: Colt luz Migration Date: 1 11/15/2023 Generated for Ceira monique/Loc/Michele on: 05:01 PM CDT
--- NOTE | ~2025-07-15 | XR_ITS ---
EXAMINATION: XR chest 2V, 07/15/2025 14:45 CDT HISTORY: weakness COMPARISON: No comparisons available. Technique: 2 views obtained. Findings: The lungs are clear, no effusion. No pneumothorax. Heart is normal size. Mediastinal and hilar contours are within normal limits. Bony thorax no acute abnormality. Impression: No acute cardiopulmonary abnormality. Reviewed, dictated and finalized at location P. Impression: No acute cardiopulmonary abnormality.
--- NOTE | ~2025-07-15 | CT_ITS ---
EXAMINATION: CT brain wo gallo, 07/15/2025 14:35 CDT HISTORY: weakness COMPARISON: No comparisons available. Technique: Axial images obtained of the brain without contrast. One or more of the following dose reduction techniques were used: automated exposure control, adjustment of the mA and/or kV according to patient size, use of iterative reconstruction technique. Findings: There is a remote frontal subcortical lacunar infarct, no acute infarct or hemorrhage. No midline shift or mass effect. No extra-axial fluid collections. Mastoid air cells unremarkable. Sinuses and orbits unremarkable. No acute fracture. No significant facial or scalp soft tissue swelling evident. No radiopaque foreign body is seen. Impression: 1.No acute intracranial abnormality. Reviewed, dictated and finalized at location P. Impression: 1.No acute intracranial abnormality.
[2025-07-15 11:07] VITALS: BP 132/53; PULSE 59; RESP 16; TEMP 36.8; O2SAT 100
--- NOTE | 2025-07-15 14:30 | ED.FEMALEGU ---
HPI - Female Genitourinary General Chief complaint: Urogenital-Female <Henny Russell PA-C - Last Filed: 07/15/25 18:26> Stated complaint: fall <Henny Russell PA-C - Last Filed: 07/15/25 18:26> Time Seen by Provider: 07/15/25 14:30 <Henny Russell PA-C - Last Filed: 07/15/25 18:26> Focused HPI: This is a 89 year old female that presents to the ER for concerns of UTI. Family report history of this. Patient has been lethargic, refusing medications. Patient started having blood in her urine the last couple of days. Reports urine has a strong odor. Reports some diarrhea last week. Reports drop foot on the right which has been ongoing over the last 3 weeks. GENERAL: Elderly, well-nourished, and in no acute distress. HEAD: Normocephalic, atraumatic. CHEST: Clear to auscultation. ?No respiratory distress. HEART: Regular rate and rhythm.? NEURO: ?Alert and oriented x3. Patient screened in triage and initial orders placed.? ?Additional care and disposition to be based upon?diagnostic testing and treatment. <Henny Russell PA-C - Last Filed: 07/15/25 18:26> History of Present Illness HPI Narrative: Agree with the HPI above. Patient has a history of recurrent urinary tract infections. Resides at [facility] with nursing staff. Alert oriented times 1-2 at her baseline. Family and power of grader operator present at bedside. Family also states that she has had a right-sided footdrop for several weeks that they have noticed is new. Denies any falls or injuries. Patient is not complaining anything. <Reji Brown MD - Last Filed: 07/16/25 01:58> Related Data Home medications: Home Medications ?Medication ?Instructions ?Recorded ?Confirmed ?Last Taken ?Type aspirin 325 mg tablet (Vicki 325 mg PO DAILY 05/26/21 08/28/24 08/21/22 09:00 History Aspirin) citalopram 40 mg tablet (Celexa) 40 mg PO DAILY 05/26/21 08/28/24 08/20/22 21:00 History memantine 10 mg tablet (Namenda) 10 mg PO BID 05/26/21 08/29/24 08/21/22 09:00 History montelukast 10 mg tablet 10 mg PO HS 05/26/21 08/29/24 08/20/22 21:00 History (Singulair) pantoprazole 40 mg tablet,delayed 40 mg PO DAILY 05/26/21 08/29/24 08/20/22 21:00 History release (Protonix) psyllium husk 0.4 gram capsule 1.2 g PO DAILY PRN Loose Stool 05/26/21 08/29/24 08/20/22 12:00 History (Metamucil) rosuvastatin 5 mg tablet (Crestor) 5 mg PO HS 05/26/21 08/29/24 08/20/22 21:00 History donepezil 10 mg tablet (Aricept) 10 mg PO HS 08/21/22 08/29/24 08/21/22 09:00 History mirtazapine 15 mg tablet (Remeron) 15 mg PO HS 08/21/22 08/29/24 08/20/22 21:00 History cyanocobalamin (vitamin B-12) 1,000 mcg PO DAILY 08/28/24 08/28/24 Unknown History 1,000 mcg capsule cholecalciferol (vitamin D3) 25 25 mcg PO DAILY 08/29/24 08/29/24 Unknown History mcg (1,000 unit) tablet hydroxyzine HCl 25 mg tablet 25 mg PO TID PRN Anxiety 08/29/24 08/29/24 Unknown History ibuprofen 200 mg tablet 200 mg PO BID 08/29/24 08/29/24 Unknown History nitrofurantoin macrocrystal 100 mg 100 mg PO Q12H 08/29/24 08/29/24 Unknown History capsule tramadol 50 mg tablet 50 mg PO Q8H PRN Pain 08/29/24 08/29/24 Unknown History <Henny Russell PA-C - Last Filed: 07/15/25 18:26> Allergies/Adverse reactions: Allergies Allergy/AdvReac Type Severity Reaction Status Date / Time Iodinated Contrast Media Allergy Unknown Verified 01/20/25 13:25 Sulfa (Sulfonamide Allergy Unknown Verified 01/20/25 13:25 Antibiotics) sertraline (From Zoloft) AdvReac Nausea and Verified 01/20/25 13:25 Vomiting <Henny Russell PA-C - Last Filed: 07/15/25 18:26> Review of Systems Review of Systems: As reviewed above in HPI <Reji Brown MD - Last Filed: 07/16/25 01:58> [facility] Past Medical History Medical History: Medical History Hypothyroidism Squamous cell cancer of skin of forearm Basal cell carcinoma Melanoma History of CVA (cerebrovascular accident) Dementia Depression Hyperlipidemia Hypertension <Henny Russell PA-C - Last Filed: 07/15/25 18:26> Surgical History Surgical History: Surgical History History of removal of pigmented skin lesion History of cataract extraction History of back surgery History of cholecystectomy History of hysterectomy <Henny Russell PA-C - Last Filed: 07/15/25 18:26> Family History Family History: Family History Mother Alzheimer disease Sibling Heart disease Alzheimer disease <Henny Russell PA-C - Last Filed: 07/15/25 18:26> Social History Social History: Social History Social History: The patient lives at [facility]. She is . The patient occasionally drinks an alcoholic beverage. The patient did have an alcoholic beverage today at the restaurant. She has 5 children . Her poa is the daughter and son. She is retired Code status dnr Smoking status: Never smoker Alcohol intake: former Substance use: never Do You Feel Safe in your Home?: No Lack of Transportation: No Lack of Food: Never True Current Housing: I Have Housing Concerned About Future Housing: No Difficulty Paying Gas/Electric Bills: No Difficulty Paying for Meds: No Currently Unemployed: No Education: Bachelor's Degree Difficulty w/ Childcare or Family Care: No Gender identity (if verbalized by the patient): Female Spiritual care concerns: No <Henny Russell PA-C - Last Filed: 07/15/25 18:26> Exam Narrative: GENERAL: [Well-appearing, well-nourished, and in no acute distress.] HEAD: [Normocephalic, atraumatic.] EYES: [PERRLA and EOMI.] ENT: Nares clear, no rhinorrhea or epistaxis. Mucous membranes moist. NECK: Supple. CHEST: [Clear to auscultation. No respiratory distress.] HEART: [Regular rate and rhythm]. No murmur heard. [Normal peripheral pulses.] ABDOMEN: [Soft, nondistended], [nontender], [No rigidity or guarding] EXTREMITIES: Normal range of motion. [No edema.] SKIN: Skin breakdown bilateral ischial region, no signs of infection. NEURO: Right foot drop but full strength and sensation throughout both arms and legs. Alert and oriented times 1-2 which is her baseline. No facial asymmetry. PSYCH: [Normal mood and affect.] <Reji Brown MD - Last Filed: 07/16/25 01:58> Course Vital Signs Vital signs: Vital Signs Temperature 36.8 C 07/15/25 11:07 Pulse Rate 59 L 07/15/25 11:07 Respiratory Rate 16 07/15/25 11:07 Blood Pressure 132/53 L 07/15/25 11:07 Pulse Oximetry 100 07/15/25 11:07 Oxygen Delivery Room Air 07/15/25 11:07 Temperature 36.7 C 07/15/25 19:20 Pulse Rate 53 L 07/15/25 19:20 Respiratory Rate 19 07/15/25 19:20 Blood Pressure 146/66 H 07/15/25 19:20 Pulse Oximetry 96 07/15/25 19:20 Oxygen Delivery Room Air 07/15/25 15:42 <Henny Russell PA-C - Last Filed: 07/15/25 18:26> Vital Signs Temperature 36.8 C 07/15/25 11:07 Pulse Rate 59 L 07/15/25 11:07 Respiratory Rate 16 07/15/25 11:07 Blood Pressure 132/53 L 07/15/25 11:07 Pulse Oximetry 100 07/15/25 11:07 Oxygen Delivery Room Air 07/15/25 11:07 Temperature 36.7 C 07/15/25 19:20 Pulse Rate 53 L 07/15/25 19:20 Respiratory Rate 19 07/15/25 19:20 Blood Pressure 146/66 H 07/15/25 19:20 Pulse Oximetry 96 07/15/25 19:20 Oxygen Delivery Room Air 07/15/25 15:42 <Reji Brown MD - Last Filed: 07/16/25 01:58> MDM - Female Genitourinary MDM Narrative Medical decision making narrative: 89-year-old female presenting from her memory care facility for concerns of potential urinary tract infection. Patient has a history of advanced dementia and is at her baseline mentation now. She has a history of CVA per review of the EMR, hypertension, hyperlipidemia. Family is at bedside states that she has been acting like she has a urinary tract infection and had recent recurrent infections multiple times this year. Family also noticed that her right foot has been drooping for last few weeks. Denies any trauma or injury. No blood thinner use. Patient has no complaints and is awake alert at her baseline, no complaints of any pain, nausea, headache, vision changes, dysuria or GI/ complaints. She has some small area of stage I skin breakdown in her ischial regions and her family is already aware of this and being taking care of at the nursing facility for this. Vital signs are reassuring without any tachycardia, fever, hypoxemia blood pressure concerns. Patient possibly has urinary infection versus dehydration versus electrolyte imbalance. Given the right footdrop the CT of the head was ordered to rule out intracranial process such as stroke but given the chronicity over 3 weeks in duration outside window for any acute interventions. Laboratory studies, urinalysis with straight catheterization a CT head obtained. Laboratory studies are largely unremarkable. CT of the head shows no acute abnormality. Urinalysis shows signs of urinary tract infection. Discussed options for treatment of patient's urinary infection as patient has had previous UTIs in previously been on prophylactic Macrobid without any improvement in her number and recurrent UTIs. Family would like a different agent red and Macrobid which her last 2 urine cultures were sensitive to. Did see that has sensitivities to ampicillin both times so we discussed starting this medication she was given a dose here. Family discussed that she has no around the clock nursing care at her [facility] care facility and are not sure if she will be able to receive her medications 4 times daily as indicated for her infection so we decided on changing it to a different antibiotic including Augmentin for hurts penicillin based component that can be taken twice a day. Patient and family comfortable this plan and will be discharged home with prescription for Augmentin and instructed to follow-up with her PCP and urologist on outpatient basis or return with any new or worsening concerns. The footdrop evident on exam does not seem to have a correlated CT finding and given the chronicity and duration of symptoms will need follow-up with her PCP in family made aware of this. <Reji Brown MD - Last Filed: 07/16/25 01:58> Medical Records Attestation: I reviewed the patient's medical records. <Reji Brown MD - Last Filed: 07/16/25 01:58> Lab Data Attestation: I reviewed the patient's lab results. <Reji Brown MD - Last Filed: 07/16/25 01:58> Result diagrams: 07/15/25 15:07 07/15/25 15:06 <Henny Russell PA-C - Last Filed: 07/15/25 18:26> Labs: Lab Results 07/15/25 07/15/25 07/15/25 Range/Units 14:55 15:05 15:06 WBC (4.5-10.0) K/mm3 RBC (4.2-5.4) M/mm3 Hgb (12.0-15.0) g/dL Hct (37.0-47.0) % MCV (80-100) fl MCH (26-34) pg MCHC (32-36) g/dl RDW (11.5-14.5) % Plt Count (150-375) k/mm3 MPV (7.4-10.4) fl Immature Gran % (Auto) Neut % (Auto) Lymph % (Auto) [place] % (Auto) Eos % (Auto) Baso % (Auto) Lymph # (Auto) [place] # (Auto) Eos # (Auto) Baso # (Auto) Abs Immat Gran (auto) Absolute Neuts (auto) Absolute Nucleated RBC Total Counted Neutrophils % (Manual) (46-73) % Band Neutrophils % Lymphocytes % (Manual) (18-44) % Monocytes % (Manual) (3-9) % Eosinophils % (Manual) (0-4) % Basophils % (Manual) (0-1) % Nucleated RBC % Abs Neuts (Manual) (1.3-6.7) K/mm3 Abs Lymphs (Manual) (1.1-4.5) K/mm3 Abs Monocytes (Manual) (0.1-0.90) K/mm3 Absolute Eos (Manual) (0.02-0.50) K/mm3 Abs Basophils (Manual) (0.0-0.1) K/mm3 Platelet Estimate (Adequate) % Immature Plt Fraction (0.9-11.2) % Basophilic Stippling Anisocytosis Schistocytes Sodium 143 (137-145) mmol/L Potassium 3.5 (3.4-5.0) mmol/L Chloride 106 (98-107) mmol/L Carbon Dioxide 31 H (22-30) mmol/L Anion Gap 6 (4-12) mmol/L BUN 18 H (7-17) mg/dL Creatinine 0.81 (0.7-1.0) mg/dL Estim Creat Clear Calc 30 ml/min Estimated GFR > 60 (59 - ) Glucose 90 (65-110) mg/dL Calcium 9.2 (8.4-10.2) mg/dL Total Bilirubin 1.4 H (0.2-1.3) mg/dL AST 24 (14-36) U/L ALT 15 (6-35) U/L Alkaline Phosphatase 100 (38-126) U/L Total Protein 6.8 (6.3-8.2) g/dL Albumin 4.0 (3.5-5.1) g/dL Urine Color Yellow (Yellow) Urine Appearance Turbid H (Clear) Urine pH 7.0 (5.0-9.0) Ur Specific [place] 1.016 (1.001-1.035) Urine Protein 3+ H (Negative) mg/dL Urine Glucose (UA) Negative (Negative) mg/dL Urine Ketones 1+ H (Negative) mg/dL Ur Blood (Man) 3+ H (Negative) Urine Nitrate Positive H (Negative) Urine Bilirubin Negative (Negative) Urine Urobilinogen 1.0 (<2.0) mg/dL Add Ur Microanalysis Reviewed Leukocyte Esterase Rfl 3+ H (Negative) MURRAY/UL Urine RBC >100 H (0-2) /hpf Urine WBC >100 H (0-3) /hpf Ur Squamous Epith Cells None seen (Few) /hpf Urine Bacteria 4+ /hpf Urine Casts 3-5 Influenza A (RT-PCR) Negative (Negative) Influenza B (RT-PCR) Negative (Negative) RSV (RT-PCR) Negative (Negative) SARS-CoV-2 RNA (RT-PCR) Negative (Negative) 07/15/25 Range/Units 15:07 WBC 6.5 (4.5-10.0) K/mm3 RBC 4.87 (4.2-5.4) M/mm3 Hgb 14.0 (12.0-15.0) g/dL Hct 43.8 (37.0-47.0) % MCV 89.9 (80-100) fl MCH 28.7 (26-34) pg MCHC 32.0 (32-36) g/dl RDW 14.4 (11.5-14.5) % Plt Count 106 L (150-375) k/mm3 MPV 9.1 (7.4-10.4) fl Immature Gran % (Auto) Not Reportable Neut % (Auto) Not Reportable Lymph % (Auto) Not Reportable [place] % (Auto) Not Reportable Eos % (Auto) Not Reportable Baso % (Auto) Not Reportable Lymph # (Auto) Not Reportable [place] # (Auto) Not Reportable Eos # (Auto) Not Reportable Baso # (Auto) Not Reportable Abs Immat Gran (auto) Not Reportable Absolute Neuts (auto) Not Reportable Absolute Nucleated RBC Not Reportable Total Counted 100 Neutrophils % (Manual) 43 L (46-73) % Band Neutrophils % Not Reportable Lymphocytes % (Manual) 34 (18-44) % Monocytes % (Manual) 19 H (3-9) % Eosinophils % (Manual) 1 (0-4) % Basophils % (Manual) 3 H (0-1) % Nucleated RBC % Not Reportable Abs Neuts (Manual) 5.00 (1.3-6.7) K/mm3 Abs Lymphs (Manual) 2.21 (1.1-4.5) K/mm3 Abs Monocytes (Manual) 1.23 H (0.1-0.90) K/mm3 Absolute Eos (Manual) 0.06 (0.02-0.50) K/mm3 Abs Basophils (Manual) 0.19 H (0.0-0.1) K/mm3 Platelet Estimate Decreased (Adequate) % Immature Plt Fraction 1.6 (0.9-11.2) % Basophilic Stippling Occasional Anisocytosis 1+ Schistocytes None seen Sodium (137-145) mmol/L Potassium (3.4-5.0) mmol/L Chloride (98-107) mmol/L Carbon Dioxide (22-30) mmol/L Anion Gap (4-12) mmol/L BUN (7-17) mg/dL Creatinine (0.7-1.0) mg/dL Estim Creat Clear Calc ml/min Estimated GFR (59 - ) Glucose (65-110) mg/dL Calcium (8.4-10.2) mg/dL Total Bilirubin (0.2-1.3) mg/dL AST (14-36) U/L ALT (6-35) U/L Alkaline Phosphatase (38-126) U/L Total Protein (6.3-8.2) g/dL Albumin (3.5-5.1) g/dL Urine Color (Yellow) Urine Appearance (Clear) Urine pH (5.0-9.0) Ur Specific Reva (1.001-1.035) Urine Protein (Negative) mg/dL Urine Glucose (UA) (Negative) mg/dL Urine Ketones (Negative) mg/dL Ur Blood (Man) (Negative) Urine Nitrate (Negative) Urine Bilirubin (Negative) Urine Urobilinogen (<2.0) mg/dL Add Ur Microanalysis Leukocyte Esterase Rfl (Negative) MURRAY/UL Urine RBC (0-2) /hpf Urine WBC (0-3) /hpf Ur Squamous Epith Cells (Few) /hpf Urine Bacteria /hpf Urine Casts Influenza A (RT-PCR) (Negative) Influenza B (RT-PCR) (Negative) RSV (RT-PCR) (Negative) SARS-CoV-2 RNA (RT-PCR) (Negative) <Henny Russell PA-C - Last Filed: 07/15/25 18:26> Lab Results 07/15/25 07/15/25 07/15/25 Range/Units 14:55 15:05 15:06 WBC (4.5-10.0) K/mm3 RBC (4.2-5.4) M/mm3 Hgb (12.0-15.0) g/dL Hct (37.0-47.0) % MCV (80-100) fl MCH (26-34) pg MCHC (32-36) g/dl RDW (11.5-14.5) % Plt Count (150-375) k/mm3 MPV (7.4-10.4) fl Immature Gran % (Auto) Neut % (Auto) Lymph % (Auto) [place] % (Auto) Eos % (Auto) Baso % (Auto) Lymph # (Auto) [place] # (Auto) Eos # (Auto) Baso # (Auto) Abs Immat Gran (auto) Absolute Neuts (auto) Absolute Nucleated RBC Total Counted Neutrophils % (Manual) (46-73) % Band Neutrophils % Lymphocytes % (Manual) (18-44) % Monocytes % (Manual) (3-9) % Eosinophils % (Manual) (0-4) % Basophils % (Manual) (0-1) % Nucleated RBC % Abs Neuts (Manual) (1.3-6.7) K/mm3 Abs Lymphs (Manual) (1.1-4.5) K/mm3 Abs Monocytes (Manual) (0.1-0.90) K/mm3 Absolute Eos (Manual) (0.02-0.50) K/mm3 Abs Basophils (Manual) (0.0-0.1) K/mm3 Platelet Estimate (Adequate) % Immature Plt Fraction (0.9-11.2) % Basophilic Stippling Anisocytosis Schistocytes Sodium 143 (137-145) mmol/L Potassium 3.5 (3.4-5.0) mmol/L Chloride 106 (98-107) mmol/L Carbon Dioxide 31 H (22-30) mmol/L Anion Gap 6 (4-12) mmol/L BUN 18 H (7-17) mg/dL Creatinine 0.81 (0.7-1.0) mg/dL Estim Creat Clear Calc 30 ml/min Estimated GFR > 60 (59 - ) Glucose 90 (65-110) mg/dL Calcium 9.2 (8.4-10.2) mg/dL Total Bilirubin 1.4 H (0.2-1.3) mg/dL AST 24 (14-36) U/L ALT 15 (6-35) U/L Alkaline Phosphatase 100 (38-126) U/L Total Protein 6.8 (6.3-8.2) g/dL Albumin 4.0 (3.5-5.1) g/dL Urine Color Yellow (Yellow) Urine Appearance Turbid H (Clear) Urine pH 7.0 (5.0-9.0) Ur Specific [place] 1.016 (1.001-1.035) Urine Protein 3+ H (Negative) mg/dL Urine Glucose (UA) Negative (Negative) mg/dL Urine Ketones 1+ H (Negative) mg/dL Ur Blood (Man) 3+ H (Negative) Urine Nitrate Positive H (Negative) Urine Bilirubin Negative (Negative) Urine Urobilinogen 1.0 (<2.0) mg/dL Add Ur Microanalysis Reviewed Leukocyte Esterase Rfl 3+ H (Negative) MURRAY/UL Urine RBC >100 H (0-2) /hpf Urine WBC >100 H (0-3) /hpf Ur Squamous Epith Cells None seen (Few) /hpf Urine Bacteria 4+ /hpf Urine Casts 3-5 Influenza A (RT-PCR) Negative (Negative) Influenza B (RT-PCR) Negative (Negative) RSV (RT-PCR) Negative (Negative) SARS-CoV-2 RNA (RT-PCR) Negative (Negative) 07/15/25 Range/Units 15:07 WBC 6.5 (4.5-10.0) K/mm3 RBC 4.87 (4.2-5.4) M/mm3 Hgb 14.0 (12.0-15.0) g/dL Hct 43.8 (37.0-47.0) % MCV 89.9 (80-100) fl MCH 28.7 (26-34) pg MCHC 32.0 (32-36) g/dl RDW 14.4 (11.5-14.5) % Plt Count 106 L (150-375) k/mm3 MPV 9.1 (7.4-10.4) fl Immature Gran % (Auto) Not Reportable Neut % (Auto) Not Reportable Lymph % (Auto) Not Reportable [place] % (Auto) Not Reportable Eos % (Auto) Not Reportable Baso % (Auto) Not Reportable Lymph # (Auto) Not Reportable [place] # (Auto) Not Reportable Eos # (Auto) Not Reportable Baso # (Auto) Not Reportable Abs Immat Gran (auto) Not Reportable Absolute Neuts (auto) Not Reportable Absolute Nucleated RBC Not Reportable Total Counted 100 Neutrophils % (Manual) 43 L (46-73) % Band Neutrophils % Not Reportable Lymphocytes % (Manual) 34 (18-44) % Monocytes % (Manual) 19 H (3-9) % Eosinophils % (Manual) 1 (0-4) % Basophils % (Manual) 3 H (0-1) % Nucleated RBC % Not Reportable Abs Neuts (Manual) 5.00 (1.3-6.7) K/mm3 Abs Lymphs (Manual) 2.21 (1.1-4.5) K/mm3 Abs Monocytes (Manual) 1.23 H (0.1-0.90) K/mm3 Absolute Eos (Manual) 0.06 (0.02-0.50) K/mm3 Abs Basophils (Manual) 0.19 H (0.0-0.1) K/mm3 Platelet Estimate Decreased (Adequate) % Immature Plt Fraction 1.6 (0.9-11.2) % Basophilic Stippling Occasional Anisocytosis 1+ Schistocytes None seen Sodium (137-145) mmol/L Potassium (3.4-5.0) mmol/L Chloride (98-107) mmol/L Carbon Dioxide (22-30) mmol/L Anion Gap (4-12) mmol/L BUN (7-17) mg/dL Creatinine (0.7-1.0) mg/dL Estim Creat Clear Calc ml/min Estimated GFR (59 - ) Glucose (65-110) mg/dL Calcium (8.4-10.2) mg/dL Total Bilirubin (0.2-1.3) mg/dL AST (14-36) U/L ALT (6-35) U/L Alkaline Phosphatase (38-126) U/L Total Protein (6.3-8.2) g/dL Albumin (3.5-5.1) g/dL Urine Color (Yellow) Urine Appearance (Clear) Urine pH (5.0-9.0) Ur Specific [place] (1.001-1.035) Urine Protein (Negative) mg/dL Urine Glucose (UA) (Negative) mg/dL Urine Ketones (Negative) mg/dL Ur Blood (Man) (Negative) Urine Nitrate (Negative) Urine Bilirubin (Negative) Urine Urobilinogen (<2.0) mg/dL Add Ur Microanalysis Leukocyte Esterase Rfl (Negative) MURRAY/UL Urine RBC (0-2) /hpf Urine WBC (0-3) /hpf Ur Squamous Epith Cells (Few) /hpf Urine Bacteria /hpf Urine Casts Influenza A (RT-PCR) (Negative) Influenza B (RT-PCR) (Negative) RSV (RT-PCR) (Negative) SARS-CoV-2 RNA (RT-PCR) (Negative) <Reji Brown MD - Last Filed: 07/16/25 01:58> Imaging Data Attestation: I personally reviewed and interpreted this imaging study as follows: <Reji Brown MD - Last Filed: 07/16/25 01:58> My impression: Impressions Chest X-Ray 07/15/25 14:53 Impression: No acute cardiopulmonary abnormality. Head CT 07/15/25 14:54 Impression: 1.No acute intracranial abnormality. <Reji Brown MD - Last Filed: 07/16/25 01:58> Discharge Plan Discharge Clinical Impression: UTI (urinary tract infection), Dementia, Acquired foot drop <Henny Russell PA-C - Last Filed: 07/15/25 18:26> Patient Disposition: Home <Henny Russell PA-C - Last Filed: 07/15/25 18:26> Condition: Stable <Henny Russell PA-C - Last Filed: 07/15/25 18:26> Instructions: Antibiotic Form, Urinary Tract Infection in Older Adults (ED) <Henny Russell PA-C - Last Filed: 07/15/25 18:26> Additional Instructions: Urinalysis shows bacteria and red blood cells consistent with urinary tract infection/cystitis. Previous urine culture showed susceptibility to ampicillin based antibiotics. We will start you on appropriate antibiotics and have you follow-up as needed with Urology. CT scan of the head shows no acute abnormalities or evidence of stroke. Laboratory studies otherwise are reassuring and unremarkable. Return with any worsening concerns, fevers, nausea, vomiting, abdominal, pelvic pain, worsening mental status, lethargy or any other emergent concerns. Follow-up with regular primary care provider and neurologist regarding the footdrop. <Henny Russell PA-C - Last Filed: 07/15/25 18:26> Patient Language: [place] <Henny Russell PA-C - Last Filed: 07/15/25 18:26> Prescriptions: New amoxicillin-pot clavulanate 875-125 mg tablet 1 tablet PO Q12H 7 Days Qty: 14 0RF No Action mirtazapine [Remeron] 15 mg Tablet 15 mg PO HS donepezil [Aricept] 10 mg Tablet 10 mg PO HS citalopram [Celexa] 40 mg tablet 40 mg PO DAILY aspirin [Vicki Aspirin] 325 mg Tablet 325 mg PO DAILY pantoprazole [Protonix] 40 mg tablet,delayed release (DR/EC) 40 mg PO DAILY montelukast [Singulair] 10 mg tablet 10 mg PO HS rosuvastatin [Crestor] 5 mg tablet 5 mg PO HS memantine [Namenda] 10 mg tablet 10 mg PO BID psyllium husk [Metamucil] 0.4 gram Capsule 1.2 g PO DAILY PRN (Reason: Loose Stool) ibuprofen 400 mg tablet 400 mg PO Q8H PRN (Reason: pain) Qty: 14 0RF acetaminophen [Tylenol] 325 mg capsule 325 mg PO Q6H PRN (Reason: pain) Qty: 14 0RF cyanocobalamin (vitamin B-12) 1,000 mcg Capsule 1,000 mcg PO DAILY tramadol 50 mg Tablet 50 mg PO Q8H PRN (Reason: Pain) nitrofurantoin macrocrystal 100 mg Capsule 100 mg PO Q12H Rx Instructions: must administer with a meal/food. Through 09/02/24 ibuprofen 200 mg Tablet 200 mg PO BID hydroxyzine HCl 25 mg Tablet 25 mg PO TID PRN (Reason: Anxiety) cholecalciferol (vitamin D3) 25 mcg (1,000 unit) Tablet 25 mcg PO DAILY azithromycin [Zithromax] 250 mg Tablet 500 mg PO DAILY Qty: 3 0RF amoxicillin-pot clavulanate 875-125 mg tablet 1 tablet PO Q12H Qty: 7 0RF levofloxacin 750 mg tablet 750 mg PO DAILY Qty: 5 0RF <Henny Russell PA-C - Last Filed: 07/15/25 18:26> Follow-up/Referrals: UNKNOWN,DOCTOR [Non-Staff] <Henny Russell PA-C - Last Filed: 07/15/25 18:26> Time of Disposition: 18:13 <Henny Russell PA-C - Last Filed: 07/15/25 18:26> 18:13 <Reji Brown MD - Last Filed: 07/16/25 01:58>
--- NOTE | 2025-07-15 14:33 | ECG_ITS ---
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
[2025-07-15 15:17] LABS: Hematocrit 43.8 % (37.0-47.0); Hemoglobin 14.0 g/dL (12.0-15.0); Immature Platelet Fraction Pct 1.6 % (0.9-11.2); Mean Corpuscular HGB Conc 32.0 g/dl (32-36); Mean Corpuscular Hemoglobin 28.7 pg (26-34); Mean Corpuscular Volume 89.9 fl (80-100); Platelet Count Result 106 k/mm3 (150-375); Red Blood Count 4.87 M/mm3 (4.2-5.4); White Blood Count 6.5 K/mm3 (4.5-10.0)
[2025-07-15 15:23] LABS: Alanine Aminotransferase 15 U/L (6-35); Albumin Level 4.0 g/dL (3.5-5.1); Alkaline Phosphatase 100 U/L (38-126); Anion Gap 6 mmol/L (4-12); Aspartate Amino Transferase 24 U/L (14-36); Bilirubin,Total 1.4 mg/dL (0.2-1.3); Blood Urea Nitrogen 18 mg/dL (7-17); Calcium 9.2 mg/dL (8.4-10.2); Carbon Dioxide 31 mmol/L (22-30); Chloride 106 mmol/L (98-107); Estimated CRCL calculation 30 ml/min; Estimated Glomerular Filt Rate > 60; Glucose 90 mg/dL (65-110); Potassium 3.5 mmol/L (3.4-5.0); Sodium 143 mmol/L (137-145); Total Protein 6.8 g/dL (6.3-8.2)
[2025-07-15 15:42] VITALS: BP 132/56; PULSE 51; RESP 18; TEMP 36.6; O2SAT 98
[2025-07-15 15:43] LABS: Basophils Absolute Manual 0.19 K/mm3 (0.0-0.1); Basophils Percent Manual 3 % (0-1); Eosinophils Absolute Manual 0.06 K/mm3 (0.02-0.50); Eosinophils Percent Manual 1 % (0-4); Lymphocytes Absolute Manual 2.21 K/mm3 (1.1-4.5); Lymphocytes Percent Manual 34 % (18-44); Monocytes Absolute Manual 1.23 K/mm3 (0.1-0.90); Monocytes Percent Manual 19 % (3-9); Neutrophils Absolute Manual 5.00 K/mm3 (1.3-6.7); Neutrophils Percent Manual 43 % (46-73); Total Cells Counted 100
[2025-07-15 15:45] LABS: Anisocytosis 1+; Basophilic Stippling Occasional; Schistocytes None Seen
[2025-07-15 15:50] LABS: Influenza A QL RT-PCR Negative (Negative); Influenza B QL RT-PCR Negative (Negative); RSV RNA, RT-PCR Negative (Negative); SARS-CoV-2 RNA PCR Negative (Negative)
--- OUTSIDE RECORDS SUMMARY | 2025-07-15 17:02 | XMS_ITS | Clinical Summary ---
Author Organization [facility] Includes [facility] Address [address] [place] [id number] Care Team Providers Care Student Services Representative Name Role Phone Blanche Sanz NP Primary Care Provider [phone] Allergies Active Allergy Reactions Criticality Noted Date Comments Iodinated Contrast Media Unknown 12/26/2008 Sertraline Diarrhea,Headache,Ot her (See comments) Low 10/13/2022 Sulfa (Sulfonamide Antibiotics) Unknown 12/26/2008 Medications psyllium husk/aspartame (METAMUCIL FIBER SINGLES ORAL) Take 1 Scoop by mouth daily as needed (diabrreha) Active phenylephrine 0.25%-mineral oil 14%-petrolatum 74.9% (Preparation H) 0.25-14-74.9 % ointment Insert 1 Application into the rectum 2 (two) times a day as needed (irritation, pain, after BM's) 56 g 1 4 Active witch Stella (TUCKS) 50 % pads, medicatedIndica tions:Hemorrhoi ds Apply to anal area, as needed, up to 6 times daily or after each bowel movement. 48 each 1 4 Active acetaminophen (TYLENOL) 325 mg tablet Take 2 tablets (650 mg total) by mouth every 6 (six) hours as needed for pain Active citalopram (CeleXA) 40 mg tablet Take 1 tablet (40 mg total) by mouth daily 90 tablet 1 5 Active coenzyme Q10 100 mg capsule Take 1 capsule (100 mg total) by mouth daily 90 capsule 5 07/27/20 25 Active ipratropium (ATROVENT) 21 mcg (0.03 %) nasal spray Administer 2 sprays into each nostril 2 (two) times a day 30 mL Active memantine (NAMENDA) 10 mg tablet Take 1 tablet (10 mg total) by mouth 2 (two) times a day 180 tablet Active mirtazapine (REMERON) 30 mg tablet Take 1 tablet (30 mg total) by mouth nightly 90 tablet Active montelukast (SINGULAIR) 10 mg tablet Take 1 tablet (10 mg total) by mouth nightly [address] (PROTONIX) 40 mg EC tablet Take 1 tablet (40 mg total) by mouth daily 90 tablet 5 Active rosuvastatin (CRESTOR) 5 mg tablet Take 1 tablet (5 mg total) by mouth nightly 90 tablet 5 Active cyanocobalamin (Vitamin B-12) 1,000 mcg tabletIndicatio ns:Prevention of Vitamin B12 Deficiency Take 1 tablet (1,000 mcg total) by mouth daily 90 tablet 5 Active cholecalciferol 25 mcg (1,000 unit) tablet Take 1 tablet (1,000 Units total) by mouth daily 90 tablet 5 07/27/20 25 Active psyllium husk, with sugar, (Reguloid, psyllium husk-sucro,) 3 gram/7 gram powder Take 1 Scoop by mouth daily 538 g 5 Active peg 400-propylene glycol (Ultra Lubricant Eye) 0.4-0.3 % ophthalmic solution Administer 1 drop into both eyes as needed (as needed for dry eyes) 15 mL 5 Active traMADoL (ULTRAM) 50 mg tablet Take 1 tablet (50 mg total) by mouth every 8 (eight) hours as needed for other (breakthrough pain) for up to 7 days 21 tablet 5 Active donepeziL (ARICEPT) 10 mg tablet 1 TABLET BY MOUTH AT BEDTIME 30 tablet 10 5 Active aspirin 325 mg tablet 2 TABLETS BY MOUTH EVERY SIX HOURS NEEDED FOR PAIN 60 tablet 5 Active ibuprofen (ADVIL,MOTRIN) 400 mg tablet 1 TABLET BY MOUTH TWICE DAILY 60 tablet 5 Active d-mannose powder Take 4 caps by mouth daily 24 g 10 5 Active Active Problems Problem Noted Date Diagnosed Date 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 Culture shows susceptibility to IV abx tx. Per pt's daughter, Urologist informed them that pt only needs treated if she becomes symptomatic, ie fever after daughter asked about sx. [...] Namenda. Assessment & Plan (11/23/2023 3:05 PM LINEN MANAGER): Diagnosed with Alzheimer's per Neurology. Continues Aricept and Namenda. Holding off on Neuro follow up unless symptoms arise that I feel like specialist needs involved again. Assessment & Plan (10/14/2022 2:08 PM LINEN MANAGER): Strong FH of Alzheimer's, pt not officially diagnosed but suspected. She is on Namenda and Aricept. Tolerates well. Has scheduled Neuro appointment 11/2022 through [facility]. Will try to get MRI results from Hospital stay in August. Pt currently has home health coming out to home. Working on strength and adjusting the leaning to one side or another when standing or walking. Pain in joint, shoulder region 07/08/2015 Gastroesophageal reflux disease with esophagitis 07/06/2015 Assessment & Plan (10/14/2022 2:07 PM LINEN MANAGER): Continues Pantoprazole. No sx noted. Hyperglycemia 03/28/2014 Depression with anxiety 01/17/2014 Assessment & Plan (12/28/2023 2:58 PM CDT): Mood seems to be improved on the Remeron 30 mg daily, denies side effects. Appetite has also improved. Will continue. Assessment & Plan (11/23/2023 3:06 PM LINEN MANAGER): Patient feeling down and having decreased appetite. Has lost about 18 lbs (unintentionally) in the past 1 year. Discussed Ensure/Boost and will try increasing her Remeron to 30 mg daily, precautions discussed. She has been on Remeron for about 5+ years. Follow up in 6 weeks. Assessment & Plan (10/14/2022 2:07 PM LINEN MANAGER): Stable on Citalopram 40 mg daily. Vitamin D deficiency 02/29/2012 Hypercholesterolemia 01/01/2009 Assessment & Plan (07/04/2024 3:03 PM CDT): Continues Crestor, no side effects reported. Updated labs ordered Assessment & Plan (10/14/2022 2:08 PM LINEN MANAGER): Continues Crestor, no side effects reported. Resolved Problems Problem Noted Date Diagnosed Date Resolved Date Osteoporosis 06/27/2017 10/13/2022 Encounters Date Type Department Care Team Description 07/09/2025 Telephone [facility] Medical [facility] Primary Care at [address] [address] Blanche Sanz NP Medical Question/Miscellaneou s 07/04/2025 Results Follow-Up [facility] Primary Care at [address] [address] Blanche Sanz NP XR Shoulder Right 2 or More Views 07/01/2025 Telephone [facility] Primary Care at [address] [address] Blanche Sanz NP Medical Question/Miscellaneou s 06/17/2025 Telephone [facility] Home Care Services [address] [place] [phone] [facility] 06/17/2025 Telephone [facility] Primary Care at [address] [address] Blanche Sanz NP Medical Question/Miscellaneou s 04/23/2025 Orders Only [facility] Primary Care at [address] [address] Kristen Putnam NP Dysuria (Primary Dx) 04/23/2025 Nurse Triage [facility] Primary Care at [address] [address] Blanche Sanz PEACE OFFICER 04/23/2025 Telephone [facility] Primary Care at [address] [address] Blanche Sanz PEACE OFFICER 04/17/2025 Telephone [facility] Primary Care at [address] [phone] Blanche Sanz NP [facility] 04/16/2025 Telephone [facility] Primary Care at [address] [address] Blanche Sanz NP Med Refill from Last 3 Months Immunizations Immunization Administration [...] on file Legal Sex Female 5:23 AM LINEN MANAGER Gender Identity Female 10/13/2022 2:40 PM LINEN MANAGER Sexual Orientation Not on file Obstetrics History Last Filed Vital Signs Vital Sign Reading Time Taken Comments Blood Pressure 130/72 01/02/2025 2:20 PM CDT Pulse 52 01/02/2025 2:20 PM CDT Temperature 36.9 C (98.4 F) 01/02/2025 2:20 PM CDT Respiratory Rate 14 09/10/2024 11:08 AM LINEN MANAGER Oxygen Saturation 96% 01/02/2025 2:20 PM CDT Inhaled Oxygen Concentration - - Weight 66.7 kg (147 lb) 12/28/2023 1:46 PM CDT Height 165.1 cm (5' 5) 01/02/2025 2:20 PM CDT Body Mass Index 24.46 12/28/2023 1:46 PM CDT Plan of Treatment Health Maintenance Due Date Last Done Comments Hepatitis B Screening 1953 Zoster Vaccine (1 of 2) 1987 Osteoporosis Screening-Bone Density Scan 09/09/2019 09/09/2017, 04/10/2013 DTaP/Tdap/Td Vaccine (2 - Td or Tdap) 02/25/2025 02/25/2015 Covid-19 Vaccine ( - 2024-2 6 season) 2025 01/02/2022, 09/02/2021, 12/07/2020, Additional history exists Influenza Vaccine (#1) 2025 , 07/31/2022, 07/01/2021, Additional history exists Well Visit 65+ 07/04/2025 07/04/2024 Depression Screening 01/02/2026 01/02/2025, 07/04/2024, 12/28/2023, Additional history exists Fall Risk Assessment 01/02/2026 01/02/2025, 07/04/2024, 01/02/2024, Additional history exists Pneumococcal vaccine 65+ Completed 06/17/2015, 01/2007 Procedures Procedure Name Priority Date/Time Associated Diagnosis Comments XR SHOULDER RIGHT 2 OR MORE VIEWS Schedule Routine, Read Routine (OP Routine) 07/04/2025 8:42 AM CDT Decreased ROM of right shoulder DEXA AXIAL SKELETON BONE DENSITY 1 OR MORE SITES Schedule Routine, Read Routine (OP Routine) 09/09/2017 11:24 AM LINEN MANAGER Menopause from Last 3 Months or Most Recently Relevant to Health Maintenance Results * XR Shoulder Right 2 or More Views (07/04/2025 8:42 AM CDT) Anatomical Region Laterality Modality Upper Extremities, Shoulder Right Radi ographic Imaging us Blanche Sanz PEACE OFFICER IMG XR PROCEDURES Final Result * Dexa Axial Skeleton Bone Density 1 or 2 Site (09/09/2017 11:24 AM LINEN MANAGER) Anatomical Region Laterality Modality Body N/A Mammography Impressions 09/09/2017 11:29 AM LINEN MANAGER THE BONE MINERAL DENSITY OF THE LUMBAR SPINE IS NORMAL. BONE DENSITOMETRY OF THE TOTAL LEFT HIP: FINDINGS: The bone mineral density of the total left hip was assessed by dual-energy x-ray absorptiometry. The average bone mineral density within the total hip region is 0.915 gm/cm2. This is 1.8 standard deviations above the mean of the average bone mineral density for age-and gender-matched subjects (the Z-score). It is 0.2 standard deviations below the mean peak bone mineral density in young adults (the T-score). When compared to most recent exam dated 04/10/2013, the bone mineral density has not changed 0%; this change is not statistically significant. SUMMARY: THE BONE MINERAL DENSITY OF THE TOTAL LEFT HIP IS NORMAL. BONE DENSITOMETRY OF THE LEFT FEMORAL NECK: FINDINGS: The bone mineral density of the femoral neck was assessed by dual-energy x-ray absorptiometry. The average bone mineral density within the femoral neck region is 0.706 gm/cm2. This is 1.0 standard deviations above the mean of the average bone mineral density for age-and gender-matched subjects (the Z-score). It is 1.3 standard deviations below the mean peak bone mineral density in young adults (the T-score). SUMMARY: THE BONE MINERAL DENSITY OF THE LEFT FEMORAL NECK IS MILDLY DECREASED CONSISTENT WITH MILD OSTEOPENIA BUT DOES NOT MEET WHO CRITERIA FOR OSTEOPOROSIS. General comments regarding interpretation of bone mineral density measurements: In adults, comparison of the measured bone mineral density with the average value in young normal subjects (the T-score) has been found to be useful in assessing fracture risk. Fracture risk approximately doubles for each 1.0 standard (SD) an individual's bone mineral density is below the average value of young normal subjects. Although the changes in relative risk based on bone mineral density are continuous, a cut-off value of -2.0 SD is sometimes termed the fracture threshold, and fractures are more likely below this value. The World Health Organization (W.H.O.) has defined T-scores of -1.0 to -2.5 as indicative of low bone mass (osteopenia), and T-scores of -2.5 or lower to be indicative of osteoporosis. FRAX FRACTURE RISK MODEL: Based on the FRAX fracture risk model, the 10-year probability for major osteoporotic fracture is 13% and that for hip fracture is 2.9%. This 10-year fracture risk estimate was calculated using the risk factors noted in the history above, along with the femoral neck bone density. FRAX is intended to help guide treatment decisions in men over age 50 and postmenopausal women with low bone mass (osteopenia). The National Osteoporosis Foundation (NOF) recommends that FDA-approved medical therapies be considered in postmenopausal women and men age 50 years and older with low bone mass whose 10-year fracture probability by FRAX is >= 20% for major osteoporotic fracture or >= 3% for hip fracture. However, all treatment decisions require clinical judgment and consideration of individual patient factors, including patient preferences, comorbidities, previous drug use, risk factors not captured in the FRAX model (e.g., frailty, falls, vitamin D deficiency, increased bone turnover, interval significant decline in bone density) and possible under- or over-estimation of fracture risk by FRAX. Electronically signed by: Nithya Hicks M.D. Narrative 09/09/2017 11:29 AM LINEN MANAGER EXAM: DEXA BONE DENSITY STUDY DATE: 09/09/2017 10:20 AM. HISTORY: Menopause BONE DENSITOMETRY OF THE LUMBAR SPINE: FINDINGS: The bone mineral density of L1-L4 was assessed by dual-energy x-ray absorptiometry. The average bone mineral density within this region is 0.973 gm/cm2. This is 2.0 standard deviations above the mean of the average bone mineral density for age- and gender-matched subjects (the Z-score). It is 0.7 standard deviations below the mean peak bone mineral density in young adults (the T-score). When compared to most recent exam dated 04/10/2013, the bone mineral density has increased 0.4%; this change is not statistically significant. Procedure Note Nithya Hicks MD / Ruth Robert MD - 09/09/2017 EXAM: DEXA BONE DENSITY STUDY DATE: 09/09/2017 10:20 AM. HISTORY: Menopause BONE DENSITOMETRY OF THE LUMBAR SPINE: FINDINGS: The bone mineral density of L1-L4 was assessed by dual-energy x-ray absorptiometry. The average bone mineral density within this region is 0.973 gm/cm2. This is 2.0 standard deviations above the mean of the average bone mineral density for age- and gender-matched subjects (the Z-score). It is 0.7 standard deviations below the mean peak bone mineral density in young adults (the T-score). When compared to most recent exam dated 04/10/2013, the bone mineral density has increased 0.4%; this change is not statistically significant. IMPRESSION: THE BONE MINERAL DENSITY OF THE LUMBAR SPINE IS NORMAL. BONE DENSITOMETRY OF THE TOTAL LEFT HIP: FINDINGS: The bone mineral density of the total left hip was assessed by dual-energy x-ray absorptiometry. The average bone mineral density within the total hip region is 0.915 gm/cm2. This is 1.8 standard deviations above the mean of the average bone mineral density for age-and gender-matched subjects (the Z-score). It is 0.2 standard deviations below the mean peak bone mineral density in young adults (the T-score). When compared to most recent exam dated 04/10/2013, the bone mineral density has not changed 0%; this change is not statistically significant. SUMMARY: THE BONE MINERAL DENSITY OF THE TOTAL LEFT HIP IS NORMAL. BONE DENSITOMETRY OF THE LEFT FEMORAL NECK: FINDINGS: The bone mineral density of the femoral neck was assessed by dual-energy x-ray absorptiometry. The average bone mineral density within the femoral neck region is 0.706 gm/cm2. This is 1.0 standard deviations above the mean of the average bone mineral density for age-and gender-matched subjects (the Z-score). It is 1.3 standard deviations below the mean peak bone mineral density in young adults (the T-score). SUMMARY: THE BONE MINERAL DENSITY OF THE LEFT FEMORAL NECK IS MILDLY DECREASED CONSISTENT WITH MILD OSTEOPENIA BUT DOES NOT MEET WHO CRITERIA FOR OSTEOPOROSIS. General comments regarding interpretation of bone mineral density measurements: In adults, comparison of the measured bone mineral density with the average value in young normal subjects (the T-score) has been found to be useful in assessing fracture risk. Fracture risk approximately doubles for each 1.0 standard (SD) an individual's bone mineral density is below the average value of young normal subjects. Although the changes in relative risk based on bone mineral density are continuous, a cut-off value of -2.0 SD is sometimes termed the fracture threshold, and fractures are more likely below this value. The World Health Organization (W.H.O.) has defined T-scores of -1.0 to -2.5 as indicative of low bone mass (osteopenia), and T-scores of -2.5 or lower to be indicative of osteoporosis. FRAX FRACTURE RISK MODEL: Based on the FRAX fracture risk model, the 10-year probability for major osteoporotic fracture is 13% and that for hip fracture is 2.9%. This 10-year fracture risk estimate was calculated using the risk factors noted in the history above, along with the femoral neck bone density. FRAX is intended to help guide treatment decisions in men over age 50 and postmenopausal women with low bone mass (osteopenia). The National Osteoporosis Foundation (NOF) recommends that FDA-approved medical therapies be considered in postmenopausal women and men age 50 years and older with low bone mass whose 10-year fracture probability by FRAX is >= 20% for major osteoporotic fracture or >= 3% for hip fracture. However, all treatment decisions require clinical judgment and consideration of individual patient factors, including patient preferences, comorbidities, previous drug use, risk factors not captured in the FRAX model (e.g., frailty, falls, vitamin D deficiency, increased bone turnover, interval significant decline in bone density) and possible under- or over-estimation of fracture risk by FRAX. Electronically signed by: Nithya Hicks M.D. Lizzeth Vgea DO [facility] [place] F inal Result from Last 3 Months or Most Recently Relevant to Health Maintenance Insurance MEDICARE [facility] CHOICE PLUS MEDICARE [facility] OPTIONS PPO [place] [id number] Advance Directives For more information, please contact: [phone] Documents on File Type Date Recorded Patient Dance Costume Designer Expl anation ADVANCE DIRECTIVE 07/12/2024 1:11 PM Care Teams Student Services Representative Relationship Specialty Start Date End Date Blanche Sanz NP PCP - General Family Medicine 10/13/22
--- OUTSIDE RECORDS SUMMARY | 2025-07-15 17:02 | XMS_ITS | Encounter Summary ---
Author Organization [facility] Healthcare Address [address] [place] [address] Care Team Providers Care Engineering Mathematician Name Role Phone Blanche Sanz NP Primary Care Provider [phone] Encounter Details Date Type Department Care Team (Late st Contact Info) Description 04/23/2025 Telephone [facility] Primary Care at [address] [address] Blanche Sanz NP [address] [place] [address] [address] [place] [address] Social History Tobacco Use Types Packs/Day Years Used Date Smoking Tobacco: Never Passive Smoke Exposure: Never Smokeless Tobacco: Never PHQ-2 Answer Date Recorded PHQ-2 Total Score (If total score is 3 or more points, staff should administer the PHQ-9) 0 01/02/2025 Comments Unknown Sex and Gender Information Value Date Recorded Sex Assigned at Not on file Legal Sex Female 5:23 AM ANALYSIS MANAGER Gender Identity Female 10/13/2022 2:40 PM ANALYSIS MANAGER Sexual Orientation Not on file documented as of this encounter Plan of Treatment Not on file documented as of this encounter Visit Diagnoses Not on filedocumented in this encounter Care Teams Engineering Mathematician Relationship Specialty Start Date End Date Blanche Sanz NP PCP - General Family Medicine 10/13/22 documented as of this encounter
--- OUTSIDE RECORDS SUMMARY | 2025-07-15 17:02 | XMS_ITS | Encounter Summary ---
Author Organization [facility] Healthcare Address [address] [place] [address] Care Team Providers Care Feather Maker Name Role Phone Blanche Sanz NP Primary Care Provider [phone] Encounter Details Date Type Department Care Team (Late st Contact Info) Description 07/04/2025 Results Follow-Up [facility] Medical [facility] Primary Care at [address] [address] Blanche Sanz NP [address] [place] [address] [address] [place] [address] XR Shoulder Right 2 or More Views Social History Tobacco Use Types Packs/Day Years Used Date Smoking Tobacco: Never Passive Smoke Exposure: Never Smokeless Tobacco: Never PHQ-2 Answer Date Recorded PHQ-2 Total Score (If total score is 3 or more points, staff should administer the PHQ-9) 0 01/02/2025 Comments Unknown Sex and Gender Information Value Date Recorded Sex Assigned at Not on file Legal Sex Female 5:23 AM CUSTOMER SERVICE COORDINATOR Gender Identity Female 10/13/2022 2:40 PM CUSTOMER SERVICE COORDINATOR Sexual Orientation Not on file documented as of this encounter Plan of Treatment Not on file documented as of this encounter Visit Diagnoses Not on filedocumented in this encounter Care Teams Feather Maker Relationship Specialty Start Date End Date Blanceh Sanz NP PCP - General Family Medicine 10/13/22 documented as of this encounter
--- OUTSIDE RECORDS SUMMARY | 2025-07-15 17:02 | XMS_ITS | Clinical Summary ---
Author Organization [facility] Address [address] [place] [address] Care Team Providers Care Rotary Engraver Name Role Phone Blanche Sanz CORONER/MEDICAL EXAMINER Primary Care Provider [phone] Social History Tobacco Use Types Packs/Day Years [...] Years (1 - 1-dose 75+ series) 2012 DTaP, Tdap and Td Vaccines (2 - Td or Tdap) 02/25/2025 02/25/2015 COVID-19 Vaccine ( season) 2025 01/02/2022, 09/02/2021, 12/07/2020, Additional history exists Influenza Adult (#1) 2025 07/31/2022, 07/01/2021, 06/22/2020, Additional history exists Pneumococcal Vaccine: 50+ Years Completed 06/17/2015, 07/06/2007 Meningococcal B Vaccine Aged Out No l onger eligible based on patient's age to complete this topic Meningococcal Vaccine Aged Out No nicole mirella eligible based on patient's age to complete this topic RSV Immunizations Under 20 Months Aged Out No longer eligible based on patient's age to complete this topic Insurance [facility] MEDICARE Care Teams Rotary Engraver Relationship Specialty Start Date End Date Blanche Sanz FNP PCP - General Nurse Practitioner Family 02/07/24
--- OUTSIDE RECORDS SUMMARY | 2025-07-15 17:02 | XMS_ITS | Patient Health Record ---
Author Organization [facility] Address [address] [facility] [address] [place], [place] [id number] Care Team Providers Care Charging Board Operator Name Role Phone Fadi Gonzalez Primary Care Provider Heber Felder Unavailable [phone] Migration, Provider Unavailable Unavailable Allergies Allergen (clinical drug ingredient) Drug/Non Drug Allergy documented on EMR Reaction Allergy Type Onset Date Status IODINATED CONSTRAST AGENT (uncoded) rash Allergy Active Substance with sulfonamide structure and antibacterial mechanism of action (substance) SULFA (uncoded) rash Allergy Active Reason For Referral No Information Medications Medication SIG (Take, Route, Frequency, Duration) Notes Start Date End Date Status Aspirin *Please review a nd pick correct strength-formulatio n from [employer] options. If intended option is not shown, discontinue and re-order from Quick Search* Active Pantoprazole Sodium 20 MG Tablet Delayed Release 1 tab(s) orally once a day Active Vitamin D (Ergocalciferol) 1.25 MG (26509 UT) Capsule 1 cap(s) orally 2 times a week Active [place]-3 Fatty Acids 1000 MG Capsule 1 cap(s) orally 3 times a day Active Fexofenadine HCl 60 MG Tablet 1 tab(s) orally 2 times a day Active Meclizine HCl 12.5 MG Tablet 1 tab(s) orally 3 times a day Active Ibuprofen 100 MG Tablet 1 tab(s) orally every 6 hours Active CoQ10 30 MG Capsule 1 cap(s) orally 3 times a day Active Singulair 10 MG Tablet 1 tab(s) orally once a day (in the evening) Active busPIRone HCl 5 MG Tablet 1 tab(s) orally 3 times a day Active Crestor 10 MG Tablet 1 tab(s) orally once a day (at bedtime) Active Multivitamin - Tablet 1 tab(s) orally once a day Active Aspirin 81 MG Tablet Delayed Release 1 tab(s) orally once a day Active Lutein 6 MG Capsule 1 cap(s) orally once a day Active Evista 60 MG Tablet 1 tab(s) orally once a day Active Lutein *Please review a nd pick correct strength-formulatio n from [employer] options. If intended option is not shown, discontinue and re-order from Quick Search* Active Social History Social History Additional Details Category Social Info Options Details Social History Occupation No retired Recreational drug use No Smokeless Tobacco No Passive smoke exp: No Problems Problem Type SNOMED Code ICD Code Onset Dates Problem Status W/U Status Risk Notes Problem Sensorineural hearing loss (84948496) SENSORNEUR HEAR LOSS NOS (389.10) Active confirmed Problem Tinnitus (16322734) TINNITUS (388.30) Active confirmed Encounters Encounter Location Date Provider Diagnosis [facility] [address] [place], [place] [id number] 09/14/2024 Provider Migration Plan Of Treatment No Information Insurance Providers Payer Name Payer Address Payer Phone Subscriber Number Group Number Insured Name Patient Relationship to Insured Coverage Start Date Coverage End Date [place] [address] [address] [place] [address] [id number] Jany Luna Self - patient is the insured [facility] [address] [place], [place] [address] [phone] [id number] Jany Luna Self - patient is the insured Medical (General) History Medical History History ICD Code Pertinent Medical History: E ye problems, Vision changes, Sinusitis, History of Allergies, Asthma, Anxiety/Depression, History of skin cancer, Other, Surgical History Surgery Date(Month/Year) D & C 195 appendectomy 1958 diskectomy 1968 hysterectomy 1990 cholecystectomy 1990 removal of melanomaa 1989 removal of pre-melonoma 2012
--- OUTSIDE RECORDS SUMMARY | 2025-07-15 17:02 | XMS_ITS | Encounter Summary ---
Author Organization [facility] Healthcare Address [address] [place] [address] Care Team Providers Care Auto Radiator Mechanic Name Role Phone Blanche Sanz NP Primary Care Provider [phone] Reason for Visit * Reason Onset Date Comments Medical Question/Miscellaneous 07/01/2025 Encounter Details Date Type Department Care Team (Late st Contact Info) Description 07/01/2025 Telephone [facility] Medical Group Primary Care at [address] [address] Blanche Sanz NP [address] [place] [address] Medical Question/Miscellaneous Social History Tobacco Use Types Packs/Day Years Used Date Smoking Tobacco: Never Passive Smoke Exposure: Never Smokeless Tobacco: Never PHQ-2 Answer Date Recorded PHQ-2 Total Score (If total score is 3 or more points, staff should administer the PHQ-9) 0 01/02/2025 Comments Unknown Sex and Gender Information Value Date Recorded Sex Assigned at Not on file Legal Sex Female 5:23 AM NUT SHELLER Gender Identity Female 10/13/2022 2:40 PM NUT SHELLER Sexual Orientation Not on file documented as of this encounter Miscellaneous Notes * Telephone Encounter - Catherine Pringle MA - 07/01/2025 12:18 PM CDT refaxed * Telephone Encounter - Renata Vick - 07/01/2025 11:51 AM CDT Medical Question/Miscellaneous Caller???s Concern: Suze with [facility] called stating she received an order for right shoulder x-ray yesterday, but it's too light to read. She asked if it could be sent again. fax: [phone] Does message need to be routed? Yes-Action Needed documented in this encounter Plan of Treatment Not on file documented as of this encounter Visit Diagnoses Not on filedocumented in this encounter Care Teams Auto Radiator Mechanic Relationship Specialty Start Date End Date Blanche Sanz NP PCP - General Family Medicine 10/13/22 documented as of this encounter
--- OUTSIDE RECORDS SUMMARY | 2025-07-15 17:02 | XMS_ITS | Encounter Summary ---
Author Organization [facility] Healthcare Address [address] [place] [address] Care Team Providers Care Furnace Charging Machine Operator Name Role Phone Blanche Sanz NP Primary Care Provider [phone] Reason for Visit * Reason Onset Date Comments Medical Question/Miscellaneous 07/09/2025 Encounter Details Date Type Department Care Team (Late st Contact Info) Description 07/09/2025 Telephone [facility] Medical Group Primary Care at [address] [address] Blanche Sanz NP [address] [place] [address] Medical Question/Miscellaneous Social History Tobacco Use [...] on file Legal Sex Female 5:23 AM CLINICAL PHARMACOLOGIST Gender Identity Female 10/13/2022 2:40 PM CLINICAL PHARMACOLOGIST Sexual Orientation Not on file documented as of this encounter Miscellaneous Notes * Telephone Encounter - CarreraToniTenishanavi Balderase - 07/09/2025 9:27 AM CDT Medical Question/Miscellaneous Caller???s Concern: [facility] calling to see if patient kept her appt yesterday. She was advised it was rescheduled to 08/01 Does message need to be routed? No documented in this encounter Plan of Treatment Not on file documented as of this encounter Visit Diagnoses Not on filedocumented in this encounter Care Teams Furnace Charging Machine Operator Relationship Specialty Start Date End Date Blanche Sanz NP PCP - General Family Medicine 10/13/22 documented as of this encounter
[2025-07-15 17:03] LABS: Add Urine Microscopic? YES; Appearance Urine Turbid (Clear); Glucose Urine UA Negative (Negative); Leukocyte Esterase Ur 3+ LEU/UL (Negative); Need Manual Microscopic Reviewed; Nitrate Urine Positive (Negative); Specific Grav Ur 1.016 (1.001-1.035)
[2025-07-15] MEDS: AMPICILLIN TRIHYDRATE 500 MG CAPSULE PO (18:34)
[2025-07-15 19:20] VITALS: BP 146/66; PULSE 53; RESP 19; TEMP 36.7; O2SAT 96
== END 2025-07-15 19:20 ==
PROVIDERS: Physician Assistant; Emergency Provider Student in an Organized Health Care Education/Training Program; PCP Nurse Practitioner Family
DX: N39.0 Urinary tract infection, site not specified (principal); M21.371 Foot drop, right foot; F03.90 Unspecified dementia, unspecified severity, without behavioral disturbance, psychotic disturbance, mood disturbance, and anxiety; Z20.822 Contact with and (suspected) exposure to COVID-19; I10 Essential (primary) hypertension; E03.9 Hypothyroidism, unspecified; E78.5 Hyperlipidemia, unspecified; F32.A Depression, unspecified; Z86.73 Personal history of transient ischemic attack (TIA), and cerebral infarction without residual deficits; Z85.820 Personal history of malignant melanoma of skin; Z98.49 Cataract extraction status, unspecified eye; Z90.49 Acquired absence of other specified parts of digestive tract; Z90.710 Acquired absence of both cervix and uterus; I45.10 Unspecified right bundle-branch block; R94.31 Abnormal electrocardiogram [ECG] [EKG]
CPT/HCPCS: 36415; 70450; 71046; 80053; 81001; 85025; 85055; 87086; 87637; 93005; 99284; A9270

== ENCOUNTER 2025-07-21 19:09 | Inpatient (IN) | payer MEDICARE, OTHER, SELFPAY ==
--- OUTSIDE RECORDS SUMMARY | 2024-09-14 16:30 | XMS_ITS ---
Author Organization [facility] Address [address] [facility] [address] [place], [place] [id number] Care Team Providers Care Laser Print Operator Name Role Phone Fadi Gonzalez Primary Care Provider Heber Felder Unavailable [phone] Migration, Provider Unavailable Unavailable Allergies Allergen (clinical drug ingredient) Drug/Non Drug Allergy documented on EMR Reaction Allergy Type Onset Date Status IODINATED CONSTRAST AGENT (uncoded) rash Allergy Active Substance with sulfonamide structure and antibacterial mechanism of action (substance) SULFA (uncoded) rash Allergy Active REASON FOR VISIT [facility] To [facility] Conversion Encounter Medications Medication SIG (Take, Route, [...] a nd pick correct strength-formulatio n from Neocutis options. If intended option is not shown, discontinue and re-order from Quick Search* Active Waldo-3 Fatty Acids 1000 MG Capsule 1 cap(s) orally 3 times a day Active Fexofenadine HCl 60 MG Tablet 1 tab(s) orally 2 times a day Active Meclizine HCl 12.5 MG Tablet 1 tab(s) orally 3 times a day Active Lutein *Please review a nd pick correct strength-formulatio n from Neocutis options. If intended option is not shown, discontinue and re-order from Quick Search* Active Pantoprazole Sodium 20 MG Tablet Delayed Release 1 tab(s) orally once a day Active Vitamin D (Ergocalciferol) 1.25 MG (54689 UT) Capsule 1 cap(s) orally 2 times [...] Date Provider Diagnosis [facility] [address] [place], [place] [id number] 09/14/2024 Provider Migration Plan Of Treatment No Information Progress Notes * Jany LUNA MDOB:[birth year] (89 yo F)Acc No.[id number]:09/14/2024 Patient: Jany Faria Provider: Colt luz Migration :1935 A ge:89 Y S ex:Female Date:09/14/2024 Address:[address] [place] [address] Pcp:Fadi Gonzalez Subjective: * Chief Complaints: * [...] a day Vitamin D (Ergocalciferol) 1.25 MG (00806 UT) Capsule 1 cap(s) orally 2 times a week Waldo-3 Fatty Acids 1000 MG Capsule 1 cap(s) [...] *Please review and pick correct strength-formulation from Neocutis options. If intended option is not shown, discontinue and re-order from Quick Search*Taking Lutein , Notes to Pharmacist: *Please review and pick correct strength-formulation from Neocutis options. If intended option is not shown, [...] day Taking Vitamin D (Ergocalciferol) 1.25 MG (91287 UT) Capsule 1 cap(s) orally 2 times a week Taking Waldo-3 Fatty Acids 1000 MG Capsule 1 cap(s) [...] Electronic signature of Prov ider Migration on 07/21/2025 at 09:31 PM CDT Sign off status: Pending * Provider: Colt luz Migration Date: 1 11/15/2023 Generated for Ciera monique/Loc/Michele on: 1 09:31 PM CDT
[2025-07-21] VITALS (10 sets, daily range): BP systolic 108–126; BP diastolic 54–65; PULSE 58–69; RESP 12–19; TEMP 36.8; O2SAT 93–95
--- NOTE | ~2025-07-21 | XR_ITS ---
XR shoulder RT min 2V HISTORY: fall shoulder pain . COMPARISON: None. FINDINGS: External and internal rotated views and axillary view of the right shoulder demonstrate no acute fracture or dislocation. Acromioclavicular joint and glenohumeral joint are unremarkable. IMPRESSION: No acute fracture or dislocation. Reviewed, dictated and finalized at location S.
--- NOTE | ~2025-07-21 | XR_ITS ---
XR shoulder LT min 2V INDICATION: pain COMPARISON: None FINDINGS: Three views of the left shoulder demonstrate no acute fracture or dislocation. IMPRESSION: No acute fracture or dislocation. Reviewed, dictated and finalized at location S.
--- NOTE | ~2025-07-21 | CT_ITS ---
CT brain wo con HISTORY:fall, unwitnessed COMPARISON: None. TECHNIQUE: Axial images were obtained of the head without intravenous contrast. FINDINGS: No acute intracranial hemorrhage, mass effect or midline shift. No extra-axial fluid collections. There is generalized atrophy and chronic white mattermicroangiopathic changes.Visualized paranasal sinuses and mastoid air cells are clear. IMPRESSION: No acute intracranial hemorrhage or extra axial fluid collections. Generalized atrophy. All CT scans at this facility are performed using low dose modulation techniques as appropriate to perform exam including the following: automated exposure control; use of iterative reconstruction technique; adjustment of the mA and/or kV according to patient size (this includes techniques or standardized protocols for targeted exams where dose is matched to indication/reason for exam). Reviewed, dictated and finalized at location S. IMPRESSION: No acute intracranial hemorrhage or extra axial fluid collections. Generalized atrophy. All CT scans at this facility are performed using low dose modulation techniqu es as appropriate to perform exam including the following: automated exposure c ontrol; use of iterative reconstruction technique; adjustment of the mA and/or kV according to patient size (this includes techniques or standardized protocol s for targeted exams where dose is matched to indication/reason for exam).
--- NOTE | ~2025-07-21 | XR_ITS ---
XR elbow RT 2V INDICATION: fall, right distal humerus/elbow deformity . COMPARISON: None. FINDINGS: AP, lateral and oblique views of the right elbow demonstrate acute displaced volar apex angulated fracture of the distal humerus. IMPRESSION: Acute displaced supracondylar fracture. Reviewed, dictated and finalized at location S.
--- NOTE | 2025-07-21 20:39 | ED.FALL ---
HPI - Fall General Chief Complaint: Extremity Injury, Upper Stated Complaint: FALL, RIGHT ARM TRAUMA Time Seen by Provider: 07/21/25 20:19 Source: family and EMS Mode of arrival: EMS Limitations: dementia History of Present Illness HPI Narrative: This is a an 89-year-old female with history of dementia hypertension, hyperlipidemia who presents to the ED from senior living for a fall and right arm pain. Per daughter at bedside, patient apparently fell out of her wheelchair when she was trying to sit on and it rolled out from behind her and she had her arm caught in a part of the wheelchair. On nursing arrival, she was found to have an obvious deformity of her right elbow so she was placed in a sling and EMS was notified. At this time, patient does report right elbow pain. Related Data Home Medications ?Medication ?Instructions ?Recorded ?Confirmed ?Last Taken ?Type aspirin 325 mg tablet (Vicki 325 mg PO DAILY 05/26/21 08/28/24 08/21/22 09:00 History Aspirin) citalopram 40 mg tablet (Celexa) 40 mg PO DAILY 05/26/21 08/28/24 08/20/22 21:00 History memantine 10 mg tablet (Namenda) 10 mg PO BID 05/26/21 08/29/24 08/21/22 09:00 History montelukast 10 mg tablet 10 mg PO HS 05/26/21 08/29/24 08/20/22 21:00 History (Singulair) pantoprazole 40 mg tablet,delayed 40 mg PO DAILY 05/26/21 08/29/24 08/20/22 21:00 History release (Protonix) psyllium husk 0.4 gram capsule 1.2 g PO DAILY PRN Loose Stool 05/26/21 08/29/24 08/20/22 12:00 History (Metamucil) rosuvastatin 5 mg tablet (Crestor) 5 mg PO HS 05/26/21 08/29/24 08/20/22 21:00 History donepezil 10 mg tablet (Aricept) 10 mg PO HS 08/21/22 08/29/24 08/21/22 09:00 History mirtazapine 15 mg tablet (Remeron) 15 mg PO HS 08/21/22 08/29/24 08/20/22 21:00 History cyanocobalamin (vitamin B-12) 1,000 mcg PO DAILY 08/28/24 08/28/24 Unknown History 1,000 mcg capsule cholecalciferol (vitamin D3) 25 25 mcg PO DAILY 08/29/24 08/29/24 Unknown History mcg (1,000 unit) tablet hydroxyzine HCl 25 mg tablet 25 mg PO TID PRN Anxiety 08/29/24 08/29/24 Unknown History ibuprofen 200 mg tablet 200 mg PO BID 08/29/24 08/29/24 Unknown History nitrofurantoin macrocrystal 100 mg 100 mg PO Q12H 08/29/24 08/29/24 Unknown History capsule tramadol 50 mg tablet 50 mg PO Q8H PRN Pain 08/29/24 08/29/24 Unknown History Allergies Allergy/AdvReac Type Severity Reaction Status Date / Time Iodinated Contrast Media Allergy Unknown Verified 01/20/25 13:25 Sulfa (Sulfonamide Allergy Unknown Verified 01/20/25 13:25 Antibiotics) sertraline (From Zoloft) AdvReac Nausea and Verified 01/20/25 13:25 Vomiting Review of Systems Review of Systems: ROS unobtainable: Yes unobtainable due to mental status PMFSH Past Medical History Medical History Hypothyroidism Squamous cell cancer of skin of forearm Basal cell carcinoma Melanoma History of CVA (cerebrovascular accident) Dementia Depression Hyperlipidemia Hypertension Surgical History Surgical History History of removal of pigmented skin lesion History of cataract extraction History of back surgery History of cholecystectomy History of hysterectomy Family History Family History Mother Alzheimer disease Sibling Heart disease Alzheimer disease Social History Social History Social History: The patient lives at [facility] She is . The patient occasionally drinks an alcoholic beverage. The patient did have an alcoholic beverage today at the restaurant. She has 5 children . Her poa is the daughter and son. She is retired Code status dnr Smoking status: Never smoker Alcohol intake: former Substance use: never Do You Feel Safe in your Home?: No Lack of Transportation: No Lack of Food: Never True Current Housing: I Have Housing Concerned About Future Housing: No Difficulty Paying Gas/Electric Bills: No Difficulty Paying for Meds: No Currently Unemployed: No Education: Bachelor's Degree Difficulty w/ Childcare or Family Care: No Gender identity (if verbalized by the patient): Female Spiritual care concerns: No Exam Narrative: APPEARANCE: No acute distress, nontoxic, resting in bed EYES: EOMI HEENT: Normocephalic, atraumatic, OMM RESPIRATORY: No respiratory distress Clear to auscultation bilaterally with no rhonchi wheezing or rales. CARDIOVASCULAR: Regular rate and rhythm without murmurs rubs or gallops. ABDOMINAL: Soft, nontender, nondistended, no rebound or guarding MUSCULOSKELETAl: Deformity, tenderness, ecchymosis to the right distal humerus she. Neurovascularly intact distally. NEURO: Awake and alert. Following commands, speech normal, no focal deficits SKIN:: Warm, dry. No rashes lesions or abrasions PSYCHIATRIC: Normal affect/mood, Course Vital Signs Vital signs: Vital Signs Temperature 98.2 F 07/21/25 19:22 Pulse Rate 60 07/21/25 19:22 Respiratory Rate 16 07/21/25 19:22 Blood Pressure 108/59 L 07/21/25 19:22 Pulse Oximetry 93 07/21/25 19:22 Oxygen Delivery Room Air 07/21/25 19:22 Temperature 98.2 F 07/21/25 19:22 Pulse Rate 65 07/21/25 22:01 Respiratory Rate 12 07/21/25 22:01 Blood Pressure 126/65 07/21/25 22:01 Pulse Oximetry 95 07/21/25 22:01 Oxygen Delivery Room Air 07/21/25 19:22 MDM - Fall MDM Narrative Medical decision making narrative: 89-year-old female presenting for fall with right arm pain. On initial evaluation, patient was no acute distress afebrile, hemodynamically stable. She did have an obvious deformity of her right distal humerus/elbow. X-ray right elbow was obtained which did show a supracondylar fracture that was displaced. CT head showed no acute process. Patient was neurovascularly intact. I did discuss the case with Dr. Thompson, orthopedic surgery, who did recommend the patient be transferred if they want surgery, but after discussion with family, they may not want surgery, they want to think it over overnight so Dr. Wadsworth will see the patient as the consult. Patient was placed in a posterior long-arm splint. Case was discussed with hospitalist who will admit the patient. Differential Diagnosis Differential diagnosis: Likely other (Fracture, sprain, strain, intracranial hemorrhage) Medical Records Attestation: I reviewed the patient's medical records. Lab Data 07/21/25 22:27 07/21/25 22:27 Imaging Data Attestation: I personally reviewed and interpreted this imaging study as follows: Radiologist's impression: Impressions Head CT 07/21/25 21:10 IMPRESSION: No acute intracranial hemorrhage or extra axial fluid collections. Generalized atrophy. All CT scans at this facility are performed using low dose modulation techniques as appropriate to perform exam including the following: automated exposure control; use of iterative reconstruction technique; adjustment of the mA and/or kV according to patient size (this includes techniques or standardized protocols for targeted exams where dose is matched to indication/reason for exam). Elbow X-Ray 07/21/25 21:21 IMPRESSION: Acute displaced supracondylar fracture. Shoulder X-Ray 07/21/25 21:25 IMPRESSION: No acute fracture or dislocation. Shoulder X-Ray 07/21/25 21:30 IMPRESSION: No acute fracture or dislocation. Discharge Plan Discharge Clinical Impression: Supracondylar fracture of humerus Qualifiers: Encounter type: initial encounter Fracture type: closed Laterality: right Qualified Code(s): S42.411A - Displaced simple supracondylar fracture without intercondylar fracture of right humerus, initial encounter for closed fracture Patient Disposition: Still a Patient Condition: Stable
--- OUTSIDE RECORDS SUMMARY | 2025-07-21 21:31 | XMS_ITS | Encounter Summary ---
Author Organization [facility] Healthcare Address [address] [place] [address] Care Team Providers Care Ur Coordinator Name Role Phone Blanche Sanz NP Primary Care Provider [phone] Reason for Visit * Reason Onset Date Comments Medical Question/Miscellaneous 07/01/2025 Encounter Details Date Type Department Care Team (Late st Contact Info) Description 07/01/[address] [facility] Medical Group Primary Care at [address] [address] Blanche Sanz, LABORER SHELLFISH PROCESSING [address] [place] [address] Medical Question/Miscellaneous Social History Tobacco Use [...] on file Legal Sex Female 5:23 AM SLAB STRIPPER Gender Identity Female 10/13/2022 2:40 PM SLAB STRIPPER Sexual Orientation Not on file documented as [...] if it could be sent again. fax: [phone] Does message need to be routed? Yes-Action Needed documented in this encounter Plan of Treatment Not on file documented as of this encounter Visit Diagnoses Not on filedocumented in this encounter Care Teams Ur Coordinator Relationship Specialty Start Date End Date Blanche Sanz NP PCP - General Family Medicine 10/13/22 documented as of this encounter
--- OUTSIDE RECORDS SUMMARY | 2025-07-21 21:31 | XMS_ITS | Encounter Summary ---
Author Organization [facility] Healthcare Address [address] [place] [address] Care Team Providers Care Staff Writer Name Role Phone Blanche Sanz NP Primary Care Provider [phone] Reason for Visit * Reason Onset Date Comments Additional Services Or Orders 07/17/2025 Encounter Details Date Type Department Care Team (Late st Contact Info) Description 07/17/2025 Telephone [facility] Medical Group Primary Care at [address] [address] Blanche Sanz, CHANGE RELEASE MANAGER [address] [place] [address] Additional Services Or Orders Social History Tobacco Use Types Packs/Day Years Used Date Smoking Tobacco: Never Passive Smoke Exposure: Never Smokeless Tobacco: Never PHQ-2 Answer Date Recorded PHQ-2 Total Score (If total score is 3 or more points, staff should administer the PHQ-9) 0 01/02/2025 Comments Unknown Sex and Gender Information Value Date Recorded Sex Assigned at Not on file Legal Sex Female 5:23 AM GRADER TENDER Gender Identity Female 10/13/2022 2:40 PM GRADER TENDER Sexual Orientation Not on file documented as of this encounter Miscellaneous Notes * Telephone Encounter - Catherine Pringle MA - 07/18/2025 2:21 PM CDT Order faxed back to them * Telephone Encounter - Mikik Nuñez - 07/17/2025 10:51 AM CDT Additional Services or Orders Type of Service Requested:Occupational Therapy Duration/Number of Visits: 1 time a week for 5 weeks Is a verbal order acceptable? yes Reason for Request (e.g. condition/symptom, date of COVID exposure if applicable): to improve strength and safety for self care Details Regarding Additional Services (e.g. type of home health, type of equipment, type of test, etc.): Occupational Therapy Where will services be performed? (if outside of the practice, facility name, address, phone/fax offacility): [facility] facility Additional Comments: Igor MONGE, [facility] asking for verbal orders. Does message need to be routed? Yes-Action Needed documented in this encounter Plan of Treatment Not on file documented as of this encounter Visit Diagnoses Not on filedocumented in this encounter Care Teams Staff Writer Relationship Specialty Start Date End Date Blanche Sanz NP PCP - General Family Medicine 10/13/22 documented as of this encounter
--- OUTSIDE RECORDS SUMMARY | 2025-07-21 21:31 | XMS_ITS | Encounter Summary ---
Author Organization [facility] Healthcare Address [address] [place] [address] Care Team Providers Care Director School Of Nursing Name Role Phone Blanche Sanz NP Primary Care Provider [phone] Encounter Details Date Type Department Care Team (Late st Contact Info) Description 04/23/2025 Telephone [facility] Medical Group Primary Care at [address] [address] Blanche Sanz NP [address] [place] [address] [address] [place] [address] Social History Tobacco Use Types Packs/Day Years Used Date Smoking Tobacco: Never Passive Smoke Exposure: Never Smokeless Tobacco: Never PHQ-2 Answer Date Recorded PHQ-2 Total Score (If total score is 3 or more points, staff should administer the PHQ-9) 0 01/02/2025 Comments Unknown Sex and Gender Information Value Date Recorded Sex Assigned at Not on file Legal Sex Female 5:23 AM THERAPEUTIC RECREATION LEADER Gender Identity Female 10/13/2022 2:40 PM THERAPEUTIC RECREATION LEADER Sexual Orientation Not on file documented as of this encounter Plan of Treatment Not on file documented as of this encounter Visit Diagnoses Not on filedocumented in this encounter Care Teams Director School Of Nursing Relationship Specialty Start Date End Date Blanche Sanz NP PCP - General Family Medicine 10/13/22 documented as of this encounter
--- OUTSIDE RECORDS SUMMARY | 2025-07-21 21:31 | XMS_ITS | Encounter Summary ---
Author Organization [facility] Healthcare Address [address] [place] [address] Care Team Providers Care Hairspring Ii Inspector Name Role Phone Blanche Sanz GUM DIPPER Primary Care Provider Reason for Visit * Reason Onset Date Comments Medical Question/Miscellaneous 07/09/2025 Encounter Details Date Type Department Care Team (Late st Contact Info) Description 07/09/2025 Telephone [facility] Medical Group Primary Care at [address] [address] Blanche Sanz, GUM DIPPER [address] [place] [address] Medical Question/Miscellaneous Social History Tobacco Use [...] on file Legal Sex Female 5:23 AM LOCK AND DAM OPERATOR Gender Identity Female 10/13/2022 2:40 PM LOCK AND DAM OPERATOR Sexual Orientation Not on file documented as of this encounter Miscellaneous Notes * Telephone Encounter - Deandre Tenishanavi Wallace - 07/09/2025 9:27 AM CDT Medical Question/Miscellaneous Caller???s Concern: [facility] calling to see if patient kept her appt yesterday. She was advised it was rescheduled to 08/01 Does message need to be routed? No documented in this encounter Plan of Treatment Not on file documented as of this encounter Visit Diagnoses Not on filedocumented in this encounter Care Teams Hairspring Ii Inspector Relationship Specialty Start Date End Date Blanche Sanz NP PCP - General Family Medicine 10/13/22 documented as of this encounter
--- OUTSIDE RECORDS SUMMARY | 2025-07-21 21:31 | XMS_ITS | Encounter Summary ---
Author Organization [facility] Healthcare Address [address] [place] [address] Care Team Providers Care Hvac Instructor Name Role Phone Blanche Sanz NP Primary Care Provider [phone] Encounter Details Date Type Department Care Team (Late st Contact Info) Description 07/04/2025 Results Follow-Up [facility] Medical Group Primary Care at [address] [id number] Blanche Sanz NP [address] [place] [address] [address] [place] [address] XR Shoulder Right 2 or [...] on file Legal Sex Female 5:23 AM SANDING LINE OPERATOR Gender Identity Female 10/13/2022 2:40 PM SANDING LINE OPERATOR Sexual Orientation Not on file documented as of this encounter Plan of Treatment Not on file documented as of this encounter Visit Diagnoses Not on filedocumented in this encounter Care Teams Hvac Instructor Relationship Specialty Start Date End Date Blanche Sanz NP PCP - General Family Medicine 10/13/22 documented as of this encounter
--- OUTSIDE RECORDS SUMMARY | 2025-07-21 21:31 | XMS_ITS | Clinical Summary ---
Author Organization [facility] Address [address] [place] [id number] Care Team Providers Care Coat Check Attendant Name Role Phone Blanche Sanz REACTOR OPERATOR Primary Care Provider Social History Tobacco Use Types Packs/Day Years [...] Pneumococcal Vaccine: 50+ Years Completed 06/17/2015, 07/06/2007 Hepatitis A Vaccines Aged Out No long er eligible based on patient's age to complete this topic Meningococcal B Vaccine Aged Out No l onger eligible based on patient's age to complete this topic Meningococcal Vaccine Aged Out No nicole mirella eligible based on patient's age to complete this topic RSV Immunizations Under 20 Months Aged Out No longer eligible based on patient's age to complete this topic Insurance [facility] MEDICARE Care Teams Coat Check Attendant Relationship Specialty Start Date End Date Blanche Sanz FNP PCP - General Nurse Practitioner Family 02/07/24
--- OUTSIDE RECORDS SUMMARY | 2025-07-21 21:32 | XMS_ITS | Patient Health Record ---
Author Organization [facility] Address [address] [facility] [address] [place], [place] [id number] Care Team Providers Care Outside Machinist Apprentice Name Role Phone Fadi Gonzalez Primary Care Provider Heber Felder Unavailable [phone] Migration, Provider Unavailable Unavailable Allergies Allergen (clinical [...] day Active Vitamin D (Ergocalciferol) 1.25 MG (22649 UT) Capsule 1 cap(s) orally 2 times a week Active [place]-3 Fatty Acids 1000 MG Capsule 1 cap(s) [...] a nd pick correct strength-formulatio n from Four Eyes options. If intended option is not shown, discontinue and re-order from Quick Search* Active Social History Social History Additional Details Category Social Info Options Details Social History Occupation No retired Recreational drug use No Smokeless Tobacco No Passive smoke exp: No Problems Problem Type SNOMED Code ICD Code Onset Dates Problem Status W/U Status Risk Notes Problem Sensorineural hearing loss (85743281) SENSORNEUR HEAR LOSS NOS (389.10) Active confirmed Problem Tinnitus (43718341) TINNITUS (388.30) Active confirmed Encounters Encounter Location Date Provider Diagnosis [facility] [address] [place], [place] [id number] 09/14/2024 Provider Migration Plan Of Treatment No Information Insurance Providers Payer Name Payer Address Payer Phone Subscriber Number Group Number Insured Name Patient Relationship to Insured Coverage Start Date Coverage End Date [place] [address] [address] [place] [address] [phone] [id number] Jany Luna Self - patient is the insured [facility] [address] [place], [place] [id number] Jany Luna Self - patient is the [...]
--- OUTSIDE RECORDS SUMMARY | 2025-07-21 21:32 | XMS_ITS | Clinical Summary ---
Author Organization [facility] Address [address] [place] [id number] Care Team Providers Care Immunologist Name Role Phone Blanche Sanz NP Primary Care Provider [phone] Allergies Active Allergy Reactions Criticality Noted Date [...] total) by mouth daily 90 tablet 1 202 5 Active coenzyme Q10 100 mg capsule [...] by mouth nightly 90 tablet 5 Active montelukast (SINGULAIR) 10 mg tablet Take 1 tablet (10 mg total) by mouth nightly 90 tablet [address] (PROTONIX) 40 mg EC [...] Namenda. Assessment & Plan (11/23/2023 3:05 PM WARNING COORDINATION METEOROLOGIST): Diagnosed with Alzheimer's per Neurology. Continues Aricept and Namenda. Holding off on Neuro follow up unless symptoms arise that I feel like specialist needs involved again. Assessment & Plan (10/14/2022 2:08 PM WARNING COORDINATION METEOROLOGIST): Strong FH of Alzheimer's, pt not officially diagnosed but suspected. She is on Namenda and Aricept. Tolerates well. Has scheduled Neuro appointment 11/2022 through [facility]. Will try to get MRI results from Hospital stay in August. Pt currently has home health coming out to home. Working on strength and adjusting the leaning to one side or another when standing or walking. Pain in joint, shoulder region 07/08/2015 Gastroesophageal reflux disease with esophagitis 07/06/2015 Assessment & Plan (10/14/2022 2:07 PM WARNING COORDINATION METEOROLOGIST): Continues Pantoprazole. No sx noted. Hyperglycemia 03/28/2014 Depression with anxiety 01/17/2014 Assessment & Plan (12/28/2023 2:58 PM CDT): Mood seems to be improved on the Remeron 30 mg daily, denies side effects. Appetite has also improved. Will continue. Assessment & Plan (11/23/2023 3:06 PM WARNING COORDINATION METEOROLOGIST): Patient feeling down and having decreased appetite. Has lost about 18 lbs (unintentionally) in the past 1 year. Discussed Ensure/Boost and will try increasing her Remeron to 30 mg daily, precautions discussed. She has been on Remeron for about 5+ years. Follow up in 6 weeks. Assessment & Plan (10/14/2022 2:07 PM WARNING COORDINATION METEOROLOGIST): Stable on Citalopram 40 mg daily. Vitamin D deficiency 02/29/2012 Hypercholesterolemia 01/01/2009 Assessment & Plan (07/04/2024 3:03 PM CDT): Continues Crestor, no side effects reported. Updated labs ordered Assessment & Plan (10/14/2022 2:08 PM WARNING COORDINATION METEOROLOGIST): Continues Crestor, no side effects reported. Resolved Problems Problem Noted Date Diagnosed Date Resolved Date Osteoporosis 06/27/2017 10/13/2022 Encounters Date Type Department Care Team Description 07/17/2025 Telephone [facility] Medical [facility] at [address] [phone] Blanche Sanz, GRID CASTING MACHINE OPERATOR HELPER Additional Services Or Orders 07/09/2025 Telephone [facility] Primary Care at [address] [phone] Blanche Sanz, GRID CASTING MACHINE OPERATOR HELPER Medical Question/Miscellaneo us 07/04/2025 Results Follow-Up [facility] Primary Care at [address] [address] Blanche Sanz, DIONISIO XR Shoulder Right 2 or More Views 07/01/2025 Telephone [facility] Primary Care at [address] [phone] Blanche Sanz, GRID CASTING MACHINE OPERATOR HELPER Medical Question/Miscellaneo us 06/17/2025 Telephone [facility] Home Care Services [address] [place] [address] [place] [phone] [facility] 06/17/2025 Telephone [facility] Primary Care at [address] [phone] Blanche Sanz, GRID CASTING MACHINE OPERATOR HELPER Medical Question/Miscellaneo us 04/23/2025 Orders Only [facility] at [address] [address] Kristen Putnam NP Dysuria (Primary Dx) 04/23/2025 Nurse Triage [facility] Primary [facility] at [address] [phone] Blanche Sanz, GRID CASTING MACHINE OPERATOR HELPER 04/23/2025 Telephone [facility] Primary Care at [address] [phone] Blanche Sanz, GRID CASTING MACHINE OPERATOR HELPER from Last 3 Months Immunizations Immunization Administration [...] History Relation Name Comments Alzheimer's disease Mother Eulaliaabdullahi Hull Alzheimer's disease Sister 2 sisters Relation [...] on file Legal Sex Female 5:23 AM WARNING COORDINATION METEOROLOGIST Gender Identity Female 10/13/2022 2:40 PM WARNING COORDINATION METEOROLOGIST Sexual Orientation Not on file Obstetrics History Last Filed Vital Signs Vital Sign Reading Time Taken Comments Blood Pressure 130/72 01/02/2025 2:20 PM CDT Pulse 52 01/02/2025 2:20 PM CDT Temperature 36.9 C (98.4 F) 01/02/2025 2:20 PM CDT Respiratory Rate 14 09/10/2024 11:08 AM WARNING COORDINATION METEOROLOGIST Oxygen Saturation 96% 01/02/2025 2:20 PM CDT [...] Read Routine (OP Routine) 09/09/2017 11:24 AM WARNING COORDINATION METEOROLOGIST Menopause from Last 3 Months or Most Recently Relevant to Health Maintenance Results * XR Shoulder Right 2 or More Views (07/04/2025 8:42 AM CDT) Anatomical Region Laterality Modality Upper Extremities, Shoulder Right Radi ographic Imaging us Blanche Sanz GRID CASTING MACHINE OPERATOR HELPER IMG XR PROCEDURES Final Result * Dexa Axial Skeleton Bone Density 1 or 2 Site (09/09/2017 11:24 AM WARNING COORDINATION METEOROLOGIST) Anatomical Region Laterality Modality Body N/A Mammography Impressions 09/09/2017 11:29 AM WARNING COORDINATION METEOROLOGIST THE BONE MINERAL DENSITY OF THE LUMBAR [...] Nithya Hicks M.D. Narrative 09/09/2017 11:29 AM WARNING COORDINATION METEOROLOGIST EXAM: DEXA BONE DENSITY STUDY DATE: 09/09/2017 [...] Electronically signed by: Nithya Hicks M.D. Lizzeth Vega DO [facility] DXA PROCEDURES F inal Result from Last 3 Months or Most Recently Relevant to Health Maintenance Insurance MEDICARE [facility] CHOICE [facility]/PPO Address: [address] [address] [place] [address] MEDICARE [facility] OPTIONS PPO [facility]PPO Address: [address] [address] [place] [id number] Advance Directives For more information, please contact: [phone] Documents on File Type Date Recorded Patient Line Up Machine Operator Expl anation ADVANCE DIRECTIVE 07/12/2024 1:11 PM Care Teams Immunologist Relationship Specialty Start Date End Date Blanche Sanz NP PCP - General Family Medicine 10/13/22
[2025-07-21] MEDS: MORPHINE SULFATE (*CRX) 4 MG/ML INJ IV PUSH ×2 (22:10→23:02)
[2025-07-21 22:38] LABS: Hematocrit 40.7 % (37.0-47.0); Hemoglobin 13.4 g/dL (12.0-15.0); Immature Platelet Fraction Pct 1.9 % (0.9-11.2); Mean Corpuscular HGB Conc 32.9 g/dl (32-36); Mean Corpuscular Hemoglobin 29.7 pg (26-34); Mean Corpuscular Volume 90.2 fl (80-100); Platelet Count Result 103 k/mm3 (150-375); Red Blood Count 4.51 M/mm3 (4.2-5.4); White Blood Count 8.8 K/mm3 (4.5-10.0)
[2025-07-21 22:50] LABS: Anion Gap 5 mmol/L (4-12); Blood Urea Nitrogen 13 mg/dL (7-17); Calcium 9.1 mg/dL (8.4-10.2); Carbon Dioxide 30 mmol/L (22-30); Chloride 104 mmol/L (98-107); Estimated CRCL calculation 35 ml/min; Estimated Glomerular Filt Rate > 60; Glucose 128 mg/dL (65-110); Magnesium 2.0 mg/dL (1.6-2.3); Potassium 3.3 mmol/L (3.4-5.0); Sodium 139 mmol/L (137-145)
[2025-07-21 23:00] LABS: Band Neutrophils Percent 4 % (0-6); Basophils Absolute Manual 0.08 K/mm3 (0.0-0.1); Basophils Percent Manual 1 % (0-1); Lymphocytes Absolute Manual 1.49 K/mm3 (1.1-4.5); Lymphocytes Percent Manual 17.0 % (18-44); Monocytes Absolute Manual 0.96 K/mm3 (0.1-0.90); Monocytes Percent Manual 11 % (3-9); Neutrophils Absolute Manual 6.24 K/mm3 (1.3-6.7); Neutrophils Percent Manual 67 % (46-73); Total Cells Counted 100
[2025-07-21 23:01] LABS: Schistocytes None Seen
--- NOTE | 2025-07-21 23:31 | ADMGEN ---
This patient, Jany Luna, was admitted to 2 Medical Room 256-. Patient/family oriented to hospital policies and general routines including ID bracelet, bed and alarms, visiting hours, pain management, procedures, bathroom and other care routines, personal items, smoking policy, room service/diet, and visiting hours. Information on how to activate the Rapid Response Team has been discussed. Patient/Family are encouraged to report perceived risks to care and to ask questions if they do not understand what they are told or what they should do.
[2025-07-22] VITALS: BP 139/50; PULSE 61; RESP 16; TEMP 36.9; O2SAT 93
[2025-07-22 04:00] VITALS: BP 118/68; PULSE 64; RESP 16; TEMP 36.5; O2SAT 95
[2025-07-22] MEDS: MORPHINE SULFATE (*CRX) 4 MG/ML INJ IV PUSH ×4 (04:07→15:52)
[2025-07-22] MEDS: POTASSIUM CHLORIDE 20 MEQ ER TABLET PO (04:08)
[2025-07-22 05:35] LABS: Add Urine Microscopic? YES; Appearance Urine Cloudy (Clear); Glucose Urine UA Negative (Negative); Leukocyte Esterase Ur 2+ LEU/UL (Negative); Need Manual Microscopic Reviewed; Nitrate Urine Positive (Negative); Non Pathogenic Casts 0-2; Specific Grav Ur 1.022 (1.001-1.035)
--- NOTE | 2025-07-22 06:27 | PM.IMHP ---
H&P: HPI History of Present Illness Date/Time: 07/22/25 06:27 Chief Complaint: Right upper extremity injury/trauma Narrative: 89-year-old female with PMH depression, dementia, hyperlipidemia, hypertension, history of UTI, presents to [facility] from [facility] and resolved by EMS on 07/21/2025 as she had a ground level fall out of wheelchair. It was unwitnessed however it is believed the patient had fallen out of her wheelchair and twisted her arm in the OR rest of the wheelchair. She had obvious deformity to the right arm. The patient's arm was placed in a sling in EMS, she complained of severe pain. Received 3 mg morphine. ER evaluation demonstrated hemodynamically stable female, potassium 3.3, CT brain without contrast without acute findings, right shoulder x-ray two view, no acute fracture or dislocation, x-ray right elbow two view acute displaced supracondylar fracture. Posterior long-arm splint was placed. Orthopedic surgery contacted, they advised transfer for surgical intervention, the patient's family in the ER declined surgical intervention. Patient's neurovascular exam intact. Review of Systems Review of Systems: All systems reviewed & are unremarkable except as noted in HPI and below (Subjective) ROS unobtainable: Yes unobtainable due to mental status PMFSH Past Medical History Medical History Hypothyroidism Squamous cell cancer of skin of forearm Basal cell carcinoma Melanoma History of CVA (cerebrovascular accident) Dementia Depression Hyperlipidemia Hypertension Surgical History Surgical History History of removal of pigmented skin lesion History of cataract extraction History of back surgery History of cholecystectomy History of hysterectomy Family History Family History Mother Alzheimer disease Sibling Heart disease Alzheimer disease Social History Social History Social History: The [facility] [place] [facility]. She is . The patient occasionally drinks an alcoholic beverage. The patient did have an alcoholic beverage today at the restaurant. She has 5 children . Her poa is the daughter and son. She is retired Code status dnr Smoking status: Never smoker Alcohol intake: never Substance use: never Do You Feel Safe in your Home?: No Lack of Transportation: No Lack of Food: Never True Current Housing: I Have Housing Concerned About Future Housing: No Difficulty Paying Gas/Electric Bills: No Difficulty Paying for Meds: No Currently Unemployed: No Education: Bachelor's Degree Difficulty w/ Childcare or Family Care: No Gender identity (if verbalized by the patient): Female Spiritual care concerns: No Meds Home Medications and Allergies Home Medications ?Medication ?Instructions ?Recorded ?Confirmed ?Type citalopram 40 mg tablet (Celexa) 40 mg PO DAILY 05/26/21 07/21/25 History memantine 10 mg tablet (Namenda) 10 mg PO BID 05/26/21 07/21/25 History montelukast 10 mg tablet 10 mg PO HS 05/26/21 07/21/25 History (Singulair) pantoprazole 40 mg tablet,delayed 40 mg PO DAILY 05/26/21 07/21/25 History release (Protonix) psyllium husk 0.4 gram capsule 1.2 g PO DAILY PRN Loose Stool 05/26/21 07/21/25 History (Metamucil) rosuvastatin 5 mg tablet (Crestor) 5 mg PO HS 05/26/21 07/21/25 History donepezil 10 mg tablet (Aricept) 10 mg PO HS 08/21/22 07/21/25 History mirtazapine 15 mg tablet (Remeron) 15 mg PO HS 08/21/22 07/21/25 History acetaminophen 325 mg capsule 325 mg PO Q6H PRN pain #14 caps 01/01/24 07/21/25 Rx (Tylenol) ibuprofen 400 mg tablet 400 mg PO Q8H PRN pain #14 tabs 01/01/24 07/21/25 Rx cyanocobalamin (vitamin B-12) 1,000 mcg PO DAILY 08/28/24 07/21/25 History 1,000 mcg capsule cholecalciferol (vitamin D3) 25 25 mcg PO DAILY 08/29/24 07/21/25 History mcg (1,000 unit) tablet hydroxyzine HCl 25 mg tablet 25 mg PO TID PRN Anxiety 08/29/24 07/21/25 History ibuprofen 200 mg tablet 200 mg PO BID 08/29/24 07/21/25 History tramadol 50 mg tablet 50 mg PO Q8H PRN Pain 08/29/24 07/21/25 History amoxicillin 875 mg-potassium 1 tablet PO Q12H 1 week #14 tabs 07/15/25 07/22/25 Rx clavulanate 125 mg tablet aspirin 81 mg tablet,delayed 81 mg PO DAILY 07/21/25 07/21/25 History release (Adult Low Dose Aspirin) peg 400-propylene glycol 0.4 %-0.3 1 drp EACH EYE DAILY PRN dry eye(s) 07/21/25 07/21/25 History % eye drops (Lubricant Eye (PG-PEG 400)) Allergies Allergy/AdvReac Type Severity Reaction Status Date / Time Iodinated Contrast Media Allergy Unknown Verified 07/21/25 23:32 Sulfa (Sulfonamide Allergy Unknown Verified 07/21/25 23:32 Antibiotics) sertraline (From Zoloft) AdvReac Nausea and Verified 07/21/25 23:32 Vomiting Vital Signs Vital Signs - 24 hr 07/21/25 19:22 07/21/25 19:23 07/21/25 20:02 Temperature 98.2 F Pulse Rate 60 60 58 L Respiratory Rate 16 14 18 Blood Pressure 108/59 L 112/54 L 110/62 Pulse Oximetry 93 93 94 Oxygen Delivery Room Air 07/21/25 20:32 07/21/25 22:01 07/21/25 22:37 Temperature Pulse Rate 58 L 65 60 Respiratory Rate 17 12 18 Blood Pressure 125/57 L 126/65 Pulse Oximetry 94 95 95 Oxygen Delivery 07/21/25 22:45 07/21/25 23:00 07/21/25 23:09 Temperature Pulse Rate 64 65 Respiratory Rate 19 17 Blood Pressure Pulse Oximetry 93 94 Oxygen Delivery Room Air 07/21/25 23:15 07/21/25 23:22 07/22/25 00:00 Temperature 98.4 F Pulse Rate 69 66 61 Respiratory Rate 17 13 16 Blood Pressure 126/65 139/50 L Pulse Oximetry 95 95 93 Oxygen Delivery 07/22/25 04:00 Temperature 97.7 F Pulse Rate 64 Respiratory Rate 16 Blood Pressure 118/68 Pulse Oximetry 95 Oxygen Delivery Exam Const: General: comfortable and no acute distress Other: Pleasantly confused Eyes: Pupils: Equal, round and reactive pupils present Neck: Neck: supple Resp: Effort & Inspection: normal respiratory effort Auscultation: clear to auscultation bilaterally Cardio: Rate: regular rate Rhythm: regular rhythm GI: Inspection: non-distended GI Palp: Yes Soft to palpation Neuro: Motor exam (neuro): 5/5 motor strength present throughout Extrem: General: no edema Other: Neurovascular exam intact all 4 extremities H&P: Results Labs Labs: Short CBC 07/21/25 Range/Units 22:27 WBC 8.8 (4.5-10.0) K/mm3 Hgb 13.4 (12.0-15.0) g/dL Hct 40.7 (37.0-47.0) % Plt Count 103 L (150-375) k/mm3 BMP 07/21/25 22:27 Sodium 139 Potassium 3.3 L Chloride 104 Carbon Dioxide 30 BUN 13 D Creatinine 0.84 Glucose 128 H Calcium 9.1 Urine 07/22/25 Range/Units 04:51 Urine Color Dark yellow (Yellow) Urine Appearance Cloudy H (Clear) Urine pH 5.5 (5.0-9.0) Ur Specific [place] 1.022 (1.001-1.035) Urine Protein 2+ H (Negative) mg/dL Urine Glucose (UA) Negative (Negative) mg/dL Assessment and Plan Assessment and plan (1) Hypertension: Code(s): I10 - Essential (primary) hypertension Status: Acute (2) UTI (urinary tract infection): Code(s): N39.0 - Urinary tract infection, site not specified Status: Acute (3) Supracondylar fracture of humerus: Qualifiers: Encounter type: initial encounter Fracture type: closed Laterality: right Qualified Code(s): S42.411A - Displaced simple supracondylar fracture without intercondylar fracture of right humerus, initial encounter for closed fracture Code(s): S42.413A - Displaced simple supracondylar fracture without intercondylar fracture of unspecified humerus, initial encounter for closed fracture Status: Acute (4) Fall: Code(s): W19.XXXA - Unspecified fall, initial encounter Status: Acute Plan 89-year-old female with PMH depression, dementia, hyperlipidemia, hypertension, history of UTI, presents to [facility] from [facility] and resolved by EMS on 07/21/2025 as she had a ground level fall out of wheelchair. It was unwitnessed however it is believed the patient had fallen out of her wheelchair and twisted her arm in the OR rest of the wheelchair. She had obvious deformity to the right arm. The patient's arm was placed in a sling in EMS, she complained of severe pain. Received 3 mg morphine. ER evaluation demonstrated hemodynamically stable female, potassium 3.3, CT brain without contrast without acute findings, right shoulder x-ray two view, no acute fracture or dislocation, x-ray right elbow two view acute displaced supracondylar fracture. Posterior long-arm splint was placed. Orthopedic surgery contacted, they advised transfer for surgical intervention, the patient's family in the ER declined surgical intervention. Patient's neurovascular exam intact. ----- Presents with right supracondylar fracture, displaced. Orthopedic surgery consultation, splint placed. Tylenol p.r.n., morphine p.r.n.. Urinalysis indicative of infection, patient does not provide good history. Reviewed previous urine culture, E coli pansensitive and Enterococcus species sensitive to ampicillin, vancomycin, nitrofurantoin. With that data, we will begin to treat with ampicillin 1 g IV q.6 hours. Potassium replaced, trend level. ----- Regular diet SCDs Ambulate with assistance, fall precautions Neurologic checks q.4 hours PT/OT evaluations. Prior to admission patient is [facility] baseline A&Ox1. DNR. Monitor bowel habits during immobility and narcotic use. Hospitalist [facility] Advance Care Plan I have confirmed that the patient's Advanced Care Plan is present, code status is documented, or surrogate decision maker is listed in patient medical record.: Yes Medication Reconciliation I have utilized all available resources to obtain, update and review the patients current medications (includes all prescriptions, OTC, herbals, cannabis, and nutritional supplements).: Yes
--- NOTE | 2025-07-22 07:00 | PM.IMPN ---
Progress Note: A&P Assessment and Plan (1) Supracondylar fracture of humerus: Qualifiers: Encounter type: initial encounter Fracture type: closed Laterality: right Qualified Code(s): S42.411A - Displaced simple supracondylar fracture without intercondylar fracture of right humerus, initial encounter for closed fracture Code(s): S42.413A - Displaced simple supracondylar fracture without intercondylar fracture of unspecified humerus, initial encounter for closed fracture Status: Acute Assessment and Plan: - ground level fall out of wheelchair -->Radiographs of the right elbow reveal acute displaced supracondylar fracture. --Orthopedist consulted --> Ortho did recommed possible transfer to a [facility] for an orthopedic surgical consult from a comfort standpoint. --Daughter would like to discuss her options with hospice first and then further explore transfer pending their recommendations. -keep splint/sling c/d/i. -Pain control - robaxin for spasms, Morphine, tylenol. -Assist with meals. (2) Altered mental status: Qualifiers: Altered mental status type: unspecified Qualified Code(s): R41.82 - Altered mental status, unspecified Code(s): R41.82 - Altered mental status, unspecified Status: Acute Assessment and Plan: --> history of Dementia - continue aricept and Namenda (3) UTI (urinary tract infection): Code(s): N39.0 - Urinary tract infection, site not specified Status: Acute Assessment and Plan: -->Reviewed previous urine culture, E coli pansensitive and Enterococcus species sensitive to ampicillin, vancomycin, nitrofurantoin. --> treat with ampicillin 1 g IV q.6 hours. --trend cultures (4) Dementia: Code(s): F03.90 - Unspecified dementia, unspecified severity, without behavioral disturbance, psychotic disturbance, mood disturbance, and anxiety Status: Acute Assessment and Plan: --> history of Dementia - continue aricept and Namenda (5) Hypertension: Code(s): I10 - Essential (primary) hypertension Status: Acute Assessment and Plan: - monitor vital signs - continue home medications (6) Hyperlipidemia: Code(s): E78.5 - Hyperlipidemia, unspecified Status: Acute Assessment and Plan: - continue home medications (7) Depression: Code(s): F32.9 - Major depressive disorder, single episode, unspecified Status: Acute Assessment and Plan: - continue home medications Plan Regular diet DVT - SCDs Ambulate with assistance, fall precautions Neurologic checks q.4 hours PT/OT evaluations. Disposition - Prior to admission patient is from [facility], dementia baseline A&Ox1. After conversation with ortho and daughter, patient daughter would like a Hospice referral. Will consult Hospice Code status - DNR. Time Spent With Patient Time with patient: Greater than 35 minutes Subjective Date/time seen: 07/22/25 07:00 Interval history: This is a pleasantly confused 89 y/o female. She is resting in bed with daughter at bedside. Patient c/o pain in her right arm. Patient daughter reports it comes and goes, like a spasm. Patient has been very restless with the pain. patient vitals are stable. Orthopedist has seen patient and spoke of transfer for surgical repair vs hospice referral. patient has continued IV antibiotic with no complaint. Review of Systems Review of Systems: ROS unobtainable: Yes unobtainable due to medical condition Exam Const: General: comfortable and no acute distress Other: Pleasantly confused Eyes: Pupils: Equal, round and reactive pupils present Neck: Neck: supple Resp: Effort & Inspection: normal respiratory effort Auscultation: clear to auscultation bilaterally Cardio: Rate: regular rate Rhythm: regular rhythm GI: Inspection: non-distended Neuro: General: oriented to person Cranial nerves: Yes Equal, round and reactive pupils present Cognition (Neuro): abnormal cognition (patient has known dementia) Extrem: General: capillary refill normal Right upper extremity: edema and shoulder/upper arm (splint and sling in place. ) tenderness and swelling Other: Neurovascular exam intact all 4 extremities Psych: Attitude: cooperative Objective Data Vital Signs Vital Signs: Vital Signs - 24 hr 07/21/25 19:22 07/21/25 19:23 07/21/25 20:02 Temperature 98.2 F Pulse Rate 60 60 58 L Respiratory Rate 16 14 18 Blood Pressure 108/59 L 112/54 L 110/62 Pulse Oximetry 93 93 94 Oxygen Delivery Room Air 07/21/25 20:32 07/21/25 22:01 07/21/25 22:37 Temperature Pulse Rate 58 L 65 60 Respiratory Rate 17 12 18 Blood Pressure 125/57 L 126/65 Pulse Oximetry 94 95 95 Oxygen Delivery 07/21/25 22:45 07/21/25 23:00 07/21/25 23:09 Temperature Pulse Rate 64 65 Respiratory Rate 19 17 Blood Pressure Pulse Oximetry 93 94 Oxygen Delivery Room Air 07/21/25 23:15 07/21/25 23:22 07/22/25 00:00 Temperature 98.4 F Pulse Rate 69 66 61 Respiratory Rate 17 13 16 Blood Pressure 126/65 139/50 L Pulse Oximetry 95 95 93 Oxygen Delivery 07/22/25 04:00 Temperature 97.7 F Pulse Rate 64 Respiratory Rate 16 Blood Pressure 118/68 Pulse Oximetry 95 Oxygen Delivery Intake/Output Intake/Output: Intake & Output 07/19/25 07/20/25 07/21/25 07/22/25 23:59 23:59 23:59 23:59 Intake Total 100 Output Total 175 Balance -75 Meds/Results Medications: Active Medications Generic Name Dose Route Start Last Admin Trade Name Freq PRN Reason Stop Dose Admin Acetaminophen 325 mg 07/22/25 06:21 Acetaminophen 325 Mg Tablet PO Q6H PRN Pain Citalopram Hydrobromide 40 mg 07/22/25 09:00 Citalopram Hydrobromide 20 Mg Tablet PO DAILY TIFFANI Cyanocobalamin 1,000 mcg 07/22/25 09:00 Cyanocobalamin 1,000 Mcg Tablet PO DAILY TIFFANI Donepezil HCl 10 mg 07/22/25 21:00 Donepezil Hcl 10 Mg Tablet PO HS TIFFANI Ampicillin Sodium 1 gm/ Sodium 50 mls @ 100 mls/hr 07/22/25 14:00 Chloride IVPB Q8H TIFFANI Memantine 10 mg 07/22/25 09:00 Memantine 10 Mg Tablet PO Q12HR TIFFANI Mirtazapine 15 mg 07/22/25 21:00 Mirtazapine 15 Mg Tablet PO HS TIFFANI Montelukast Sodium 10 mg 07/22/25 21:00 Montelukast Sodium 10 Mg Tablet PO HS TIFFANI Morphine Sulfate 4 mg 07/22/25 03:49 07/22/25 04:07 Morphine Sulfate (*Crx) 4 Mg/Ml Inj IV PUSH 4 mg Q3H PRN Administration Pain Rated 7-10 Pantoprazole Sodium 40 mg 07/22/25 09:00 Pantoprazole 40 Mg Tablet PO DAILY [facility] Rosuvastatin Calcium 5 mg 07/22/25 21:00 Rosuvastatin 5 Mg Tablet PO HS [facility] Radiology Results: ITS Impressions Head CT 07/21/25 21:10 IMPRESSION: No acute intracranial hemorrhage or extra axial fluid collections. Generalized atrophy. All CT scans at this facility are performed using low dose modulation techniques as appropriate to perform exam including the following: automated exposure control; use of iterative reconstruction technique; adjustment of the mA and/or kV according to patient size (this includes techniques or standardized protocols for targeted exams where dose is matched to indication/reason for exam). Elbow X-Ray 07/21/25 21:21 IMPRESSION: Acute displaced supracondylar fracture. Shoulder X-Ray 07/21/25 21:30 IMPRESSION: No acute fracture or dislocation. Labs Labs: Laboratory Results - last 24 hr 07/21/25 07/22/25 22:27 04:51 WBC 8.8 RBC 4.51 Hgb 13.4 Hct 40.7 MCV 90.2 MCH 29.7 MCHC 32.9 RDW 14.0 Plt Count 103 L MPV 8.9 Immature Gran % (Auto) Not Reportable Neut % (Auto) Not Reportable Lymph % (Auto) Not Reportable [place] % (Auto) Not Reportable Eos % (Auto) Not Reportable Baso % (Auto) Not Reportable Lymph # (Auto) Not Reportable Jerome # (Auto) Not Reportable Eos # (Auto) Not Reportable Baso # (Auto) Not Reportable Abs Immat Gran (auto) Not Reportable Absolute Neuts (auto) Not Reportable Absolute Nucleated RBC Not Reportable Total Counted 100 Neutrophils % (Manual) 67 Band Neutrophils % 4 Lymphocytes % (Manual) 17.0 L Monocytes % (Manual) 11 H Basophils % (Manual) 1 Nucleated RBC % Not Reportable Abs Neuts (Manual) 6.24 Abs Lymphs (Manual) 1.49 Abs Monocytes (Manual) 0.96 H Abs Basophils (Manual) 0.08 Platelet Estimate Decreased % Immature Plt Fraction 1.9 Schistocytes None seen Sodium 139 Potassium 3.3 L Chloride 104 Carbon Dioxide 30 Anion Gap 5 BUN 13 D Creatinine 0.84 Estim Creat Clear Calc 35 Estimated GFR > 60 Glucose 128 H Calcium 9.1 Magnesium 2.0 Urine Color Dark yellow Urine Appearance Cloudy H Urine pH 5.5 Ur Specific [place] 1.022 Urine Protein 2+ H Urine Glucose (UA) Negative Urine Ketones 1+ H Ur Blood (Man) 2+ H Urine Nitrate Positive H Urine Bilirubin Negative Urine Urobilinogen 1.0 Add Ur Microanalysis Reviewed Leukocyte Esterase Rfl 2+ H Urine RBC 51-100 H Urine WBC >100 H Ur Squamous Epith Cells Few Urine Bacteria 1+ H Urine Casts 0-2 Quality VTE Prophylaxis VTE prophylaxis: mechanical ordered Hospitalist MIPS Advance Care Plan I have confirmed that the patient's Advanced Care Plan is present, code status is documented, or surrogate decision maker is listed in patient medical record.: Yes Medication Reconciliation I have utilized all available resources to obtain, update and review the patients current medications (includes all prescriptions, OTC, herbals, cannabis, and nutritional supplements).: Yes The patient is not eligible for med reconciliation; the patient is in a emergent medical situation where delaying treatment would jeopardize the patients health.: Yes
[2025-07-22] MEDS: AMPICILLIN SODIUM 1 GM in SODIUM CHLORIDE 0.9% IV 50 ML 100 ML IVPB ×3 (07:49→21:17)
--- NOTE | 2025-07-22 08:21 | PM.CNOR ---
Assessment and Plan Assessment and plan (1) Supracondylar fracture of humerus: Qualifiers: Encounter type: initial encounter Fracture type: closed Laterality: right Qualified Code(s): S42.411A - Displaced simple supracondylar fracture without intercondylar fracture of right humerus, initial encounter for closed fracture Code(s): S42.413A - Displaced simple supracondylar fracture without intercondylar fracture of unspecified humerus, initial encounter for closed fracture Status: Acute Assessment and Plan: Radiographs of the right elbow reveal acute displaced supracondylar fracture. The fracture type and injury as well as radiographs discussed with the patient and family. Operative and nonoperative treatment options reviewed. The patient is very confused but also clearly in pain. She is refusing a full exam. The daughter and I discussed possible transfer to a [facility] for an orthopedic surgical consult from a comfort standpoint. We also discussed hospice. She would like to discuss her options with hospice first and then further explore transfer pending their recommendations. The nurse has been made aware of the family's desire to discuss her overall care plan with the hospital and a possible hospice care consult. In the interim, keep splint/sling c/d/i. Pain control. Assist with meals. Will eventually require PT/OT. Plan Reviewed history, exam, radiographs and current labs with attending MD and covering surgeon, Dr. Thompson, who agrees with current plan as indicated above. No further recommendations from Dr. Thompson at this time. History of Present Illness HPI Consult date: 07/22/25 Chief complaint: Supracondylar fracture Narrative: 89 year old female presented to the ED from [facility] after a fall out of her wheelchair. Per family at the bedside, patient is A&Ox1 at baseline. She was previously ambulatory but developed a drop foot several weeks ago and has since been recommended to be mainly in the wheelchair. She attempted to get out of the wheelchair independently which resulted in a fall and subsequent admission to the ED. Bilateral shoulder radiographs negative for acute fracture. Head CT negative for acute changes. Right elbow radiographs revealed an acute displaced supracondylar fracture. Orthopedic consult requested in the ED. Dr. Thompson recommended transfer if patient/family desired operative treatment. Family wanted to further consider overnight and therefore, patient was admitted for futher pain control. Review of Systems Review of Systems: ROS unobtainable: Yes unobtainable due to mental status [facility] Past Medical History Medical History Hypothyroidism Squamous cell cancer of skin of forearm Basal cell carcinoma Melanoma History of CVA (cerebrovascular accident) Dementia Depression Hyperlipidemia Hypertension Surgical History Surgical History History of removal of pigmented skin lesion History of cataract extraction History of back surgery History of cholecystectomy History of hysterectomy Family History Family History Mother Alzheimer disease Sibling Heart disease Alzheimer disease Social History Social History Social History: The patient lives at [facility]. She is . The patient occasionally drinks an alcoholic beverage. The patient did have an alcoholic beverage today at the restaurant. She has 5 children . Her poa is the daughter and son. She is retired Code status dnr Smoking status: Never smoker Alcohol intake: never Substance use: never Do You Feel Safe in your Home?: No Lack of Transportation: No Lack of Food: Never True Current Housing: I Have Housing Concerned About Future Housing: No Difficulty Paying Gas/Electric Bills: No Difficulty Paying for Meds: No Currently Unemployed: No Education: Bachelor's Degree Difficulty w/ Childcare or Family Care: No Gender identity (if verbalized by the patient): Female Spiritual care concerns: No Meds Home Medications and Allergies Home Medications ?Medication ?Instructions ?Recorded ?Confirmed ?Type citalopram 40 mg tablet (Celexa) 40 mg PO DAILY 05/26/21 07/21/25 History memantine 10 mg tablet (Namenda) 10 mg PO BID 05/26/21 07/21/25 History montelukast 10 mg tablet 10 mg PO HS 05/26/21 07/21/25 History (Singulair) pantoprazole 40 mg tablet,delayed 40 mg PO DAILY 05/26/21 07/21/25 History release (Protonix) psyllium husk 0.4 gram capsule 1.2 g PO DAILY PRN Loose Stool 05/26/21 07/21/25 History (Metamucil) rosuvastatin 5 mg tablet (Crestor) 5 mg PO HS 05/26/21 07/21/25 History donepezil 10 mg tablet (Aricept) 10 mg PO HS 08/21/22 07/21/25 History mirtazapine 15 mg tablet (Remeron) 15 mg PO HS 08/21/22 07/21/25 History acetaminophen 325 mg capsule 325 mg PO Q6H PRN pain #14 caps 01/01/24 07/21/25 Rx (Tylenol) ibuprofen 400 mg tablet 400 mg PO Q8H PRN pain #14 tabs 01/01/24 07/21/25 Rx cyanocobalamin (vitamin B-12) 1,000 mcg PO DAILY 08/28/24 07/21/25 History 1,000 mcg capsule cholecalciferol (vitamin D3) 25 25 mcg PO DAILY 08/29/24 07/21/25 History mcg (1,000 unit) tablet hydroxyzine HCl 25 mg tablet 25 mg PO TID PRN Anxiety 08/29/24 07/21/25 History ibuprofen 200 mg tablet 200 mg PO BID 08/29/24 07/21/25 History tramadol 50 mg tablet 50 mg PO Q8H PRN Pain 08/29/24 07/21/25 History amoxicillin 875 mg-potassium 1 tablet PO Q12H 1 week #14 tabs 07/15/25 07/22/25 Rx clavulanate 125 mg tablet aspirin 81 mg tablet,delayed 81 mg PO DAILY 07/21/25 07/21/25 History release (Adult Low Dose Aspirin) peg 400-propylene glycol 0.4 %-0.3 1 drp EACH EYE DAILY PRN dry eye(s) 07/21/25 07/21/25 History % eye drops (Lubricant Eye (PG-PEG 400)) Allergies Allergy/AdvReac Type Severity Reaction Status Date / Time Iodinated Contrast Media Allergy Unknown Verified 07/21/25 23:32 Sulfa (Sulfonamide Allergy Unknown Verified 07/21/25 23:32 Antibiotics) sertraline (From Zoloft) AdvReac Nausea and Verified 07/21/25 23:32 Vomiting Vital Signs Vital Signs - 24 hr 07/21/25 19:22 07/21/25 19:23 07/21/25 20:02 Temperature 36.8 C Pulse Rate 60 60 58 L Respiratory Rate 16 14 18 Blood Pressure 108/59 L 112/54 L 110/62 Pulse Oximetry 93 93 94 Oxygen Delivery Room Air 07/21/25 20:32 07/21/25 22:01 07/21/25 22:37 Temperature Pulse Rate 58 L 65 60 Respiratory Rate 17 12 18 Blood Pressure 125/57 L 126/65 Pulse Oximetry 94 95 95 Oxygen Delivery 07/21/25 22:45 07/21/25 23:00 07/21/25 23:09 Temperature Pulse Rate 64 65 Respiratory Rate 19 17 Blood Pressure Pulse Oximetry 93 94 Oxygen Delivery Room Air 07/21/25 23:15 07/21/25 23:22 07/22/25 00:00 Temperature 36.9 C Pulse Rate 69 66 61 Respiratory Rate 17 13 16 Blood Pressure 126/65 139/50 L Pulse Oximetry 95 95 93 Oxygen Delivery 07/22/25 04:00 Temperature 36.5 C Pulse Rate 64 Respiratory Rate 16 Blood Pressure 118/68 Pulse Oximetry 95 Oxygen Delivery Exam Const: General: alert, anxious, uncomfortable and average body habitus Nutritional Appearance: thin Orientation/consciousness: oriented to person and confusion Limitations: altered mental status Extrem: Right upper extremity: shoulder/upper arm, elbow/forearm (splint c/d/i ), wrist (splint c/d/i. ) and Extremity exam: right hand normal capillary refill and neurosensory exam normal Left upper extremity: normal to inspection, full ROM and normal capillary refill Results Labs 07/21/25 22:27 07/21/25 22:27 Labs: Abnormal lab results 07/21/25 07/22/25 Range/Units 22:27 04:51 Plt Count 103 L (150-375) k/mm3 Lymphocytes % (Manual) 17.0 L (18-44) % Monocytes % (Manual) 11 H (3-9) % Abs Monocytes (Manual) 0.96 H (0.1-0.90) K/mm3 Potassium 3.3 L (3.4-5.0) mmol/L Glucose 128 H (65-110) mg/dL Urine Appearance Cloudy H (Clear) Urine Protein 2+ H (Negative) mg/dL Urine Ketones 1+ H (Negative) mg/dL Ur Blood (Man) 2+ H (Negative) Urine Nitrate Positive H (Negative) Leukocyte Esterase Rfl 2+ H (Negative) MURRAY/UL Urine RBC 51-100 H (0-2) /hpf Urine WBC >100 H (0-3) /hpf Urine Bacteria 1+ H /hpf H & H 10// Range/Units 22:27 Hgb 13.4 (12.0-15.0) g/dL Hct 40.7 (37.0-47.0) % All other labs normal.
[2025-07-22] MEDS: PANTOPRAZOLE 40 MG TABLET PO (09:54)
[2025-07-22] MEDS: MEMANTINE 10 MG TABLET PO ×2 (09:54→20:35)
[2025-07-22] MEDS: CITALOPRAM HYDROBROMIDE 20 MG TABLET 40 MG PO (09:55)
[2025-07-22] MEDS: CYANOCOBALAMIN 1,000 MCG TABLET 1000 MCG PO (09:59)
[2025-07-22 10:17] LABS: Hematocrit 40.0 % (37.0-47.0); Hemoglobin 12.8 g/dL (12.0-15.0); Immature Granulocyte Percent A 1.1 % (0-0.5); Immature Platelet Fraction Pct 1.8 % (0.9-11.2); Lymphocytes Absolute Auto 1.74 K/mm3 (0.9-3.2); Mean Corpuscular HGB Conc 32.0 g/dl (32-36); Mean Corpuscular Hemoglobin 29.2 pg (26-34); Mean Corpuscular Volume 91.1 fl (80-100); Nucleated Red Blood Cells Absolute Auto 0.000 K/mm3 (0.0-0.012); Nucleated Red Blood Cells Perc 0.0 % (0.0-0.2); Platelet Count Result 99 k/mm3 (150-375); Red Blood Count 4.39 M/mm3 (4.2-5.4); White Blood Count 9.8 K/mm3 (4.5-10.0)
[2025-07-22 10:42] LABS: Anion Gap 4 mmol/L (4-12); Blood Urea Nitrogen 13 mg/dL (7-17); Calcium 8.7 mg/dL (8.4-10.2); Carbon Dioxide 30 mmol/L (22-30); Chloride 104 mmol/L (98-107); Estimated CRCL calculation 44 ml/min; Estimated Glomerular Filt Rate > 60; Glucose 104 mg/dL (65-110); Magnesium 2.0 mg/dL (1.6-2.3); Potassium 3.4 mmol/L (3.4-5.0); Sodium 138 mmol/L (137-145)
[2025-07-22 16:00] VITALS: BP 123/53; PULSE 69; O2SAT 94
--- NOTE | 2025-07-22 18:59 | PC.NURSE ---
On 07/22/25, the RN, Maria Del Carmen Higgins, provided care and completed [facility] documentation on this patient. I have reviewed the RN's documentation and agree with the findings.
[2025-07-22 20:00] VITALS: BP 130/46; PULSE 73; RESP 16; TEMP 36.8; O2SAT 94
[2025-07-22] MEDS: HYDROcodone/acetaminophen (*CRX) 5-325 MG TABLET 1 TAB PO (20:35)
[2025-07-22] MEDS: ROSUVASTATIN 5 MG TABLET PO (20:35)
[2025-07-22] MEDS: MONTELUKAST SODIUM 10 MG TABLET PO (20:36)
[2025-07-22] MEDS: DONEPEZIL HCL 10 MG TABLET PO (20:36)
[2025-07-22] MEDS: MIRTAZAPINE 15 MG TABLET PO (20:40)
[2025-07-23] VITALS: BP 125/46; PULSE 70; RESP 16; TEMP 36.8; O2SAT 94
[2025-07-23 04:00] VITALS: BP 126/55; PULSE 70; RESP 16; TEMP 36.8; O2SAT 97
[2025-07-23 05:20] LABS: Hematocrit 40.6 % (37.0-47.0); Hemoglobin 12.9 g/dL (12.0-15.0); Immature Granulocyte Percent A 0.9 % (0-0.5); Immature Platelet Fraction Pct 1.8 % (0.9-11.2); Lymphocytes Absolute Auto 2.06 K/mm3 (0.9-3.2); Mean Corpuscular HGB Conc 31.8 g/dl (32-36); Mean Corpuscular Hemoglobin 29.2 pg (26-34); Mean Corpuscular Volume 91.9 fl (80-100); Nucleated Red Blood Cells Absolute Auto 0.000 K/mm3 (0.0-0.012); Nucleated Red Blood Cells Perc 0.0 % (0.0-0.2); Platelet Count Result 89 k/mm3 (150-375); Red Blood Count 4.42 M/mm3 (4.2-5.4); White Blood Count 11.3 K/mm3 (4.5-10.0)
[2025-07-23] MEDS: MORPHINE SULFATE (*CRX) 4 MG/ML INJ IV PUSH ×3 (05:26→13:15)
[2025-07-23] MEDS: AMPICILLIN SODIUM 1 GM in SODIUM CHLORIDE 0.9% IV 50 ML 100 ML IVPB ×3 (05:28→21:13)
[2025-07-23 05:41] LABS: Alanine Aminotransferase 15 U/L (6-35); Albumin Level 3.6 g/dL (3.5-5.1); Alkaline Phosphatase 84 U/L (38-126); Anion Gap 4 mmol/L (4-12); Aspartate Amino Transferase 26 U/L (14-36); Bilirubin,Total 1.7 mg/dL (0.2-1.3); Blood Urea Nitrogen 10 mg/dL (7-17); Calcium 8.7 mg/dL (8.4-10.2); Carbon Dioxide 28 mmol/L (22-30); Chloride 103 mmol/L (98-107); Estimated CRCL calculation 47 ml/min; Estimated Glomerular Filt Rate > 60; Glucose 118 mg/dL (65-110); Potassium 3.4 mmol/L (3.4-5.0); Sodium 135 mmol/L (137-145); Total Protein 6.1 g/dL (6.3-8.2)
[2025-07-23 08:00] VITALS: BP 137/50; PULSE 71; RESP 16; TEMP 36.6; O2SAT 91
[2025-07-23] MEDS: CITALOPRAM HYDROBROMIDE 20 MG TABLET 40 MG PO (09:03)
[2025-07-23] MEDS: MEMANTINE 10 MG TABLET PO ×2 (09:03→20:48)
[2025-07-23] MEDS: CYANOCOBALAMIN 1,000 MCG TABLET 1000 MCG PO (09:04)
[2025-07-23] MEDS: PANTOPRAZOLE 40 MG TABLET PO (09:04)
[2025-07-23] MEDS: POTASSIUM CHLORIDE 20 MEQ ER TABLET PO (09:04)
--- NOTE | 2025-07-23 10:48 | P.PNIM_ITS ---
Progress Note: A&P Assessment and Plan (1) Supracondylar fracture of humerus: Qualifiers: Encounter type: initial encounter Fracture type: closed Laterality: right Qualified Code(s): S42.411A - Displaced simple supracondylar fracture without intercondylar fracture of right humerus, initial encounter for closed fracture Code(s): S42.413A - Displaced simple supracondylar fracture without intercondylar fracture of unspecified humerus, initial encounter for closed fracture Status: Acute Assessment and Plan: - Ground level fall out of wheelchair -->Radiographs of the right elbow reveal acute displaced supracondylar fracture. --Orthopedist consulted --> Ortho did recommend possible transfer to a tertiary care center for an orthopedic surgical consult from a comfort standpoint. --Daughter would like to discuss her options with hospice first and then further explore transfer pending their recommendations. -keep splint/sling c/d/i. -Pain control - robaxin for spasms, Morphine, tylenol. -Assist with meals. (2) Altered mental status: Qualifiers: Altered mental status type: unspecified Qualified Code(s): R41.82 - Altered mental status, unspecified Code(s): R41.82 - Altered mental status, unspecified Status: Acute Assessment and Plan: --> history of Dementia - continue Aricept and Namenda (3) UTI (urinary tract infection): Code(s): N39.0 - Urinary tract infection, site not specified Status: Acute Assessment and Plan: -->Reviewed previous urine culture, E coli pansensitive and Enterococcus species sensitive to ampicillin, vancomycin, nitrofurantoin. --> treat with ampicillin 1 g IV q.6 hours. --trend cultures (4) Dementia: Code(s): F03.90 - Unspecified dementia, unspecified severity, without behavioral disturbance, psychotic disturbance, mood disturbance, and anxiety Status: Acute Assessment and Plan: --> history of Dementia - continue aricept and Namenda (5) Hyperlipidemia: Code(s): E78.5 - Hyperlipidemia, unspecified Status: Acute Assessment and Plan: - continue Rosuvastatin 5 mg PO qhs. (6) Depression: Code(s): F32.9 - Major depressive disorder, single episode, unspecified Status: Acute Assessment and Plan: - continue Citalopram 40 mg PO daily and Mirtazapine 15 mg PO qhs. (7) Severe protein-calorie malnutrition: Code(s): E43 - Unspecified severe protein-calorie malnutrition Status: Acute Assessment and Plan: * Patient has lost 29 lb in 6 months with severe subcutaneous orbital fat loss and muscle wasting. * Instrument Setter consult. * Nutritional ice cream TID and Ensure Plus High Protein TID. * Encourage PO intake. Subjective Date/time seen: 07/23/25 10:48 Interval history: Patient is an 89 year old female with Alzheimer's that is pleasant. Daughter is at bedside. Pain in right arm that comes and goes. Review of Systems Review of Systems: All systems reviewed & are unremarkable except as noted in HPI and below Exam Const: General: alert, uncomfortable and average body habitus Nutritional Appearance: thin Orientation/consciousness: oriented to person and confusion Limitations: altered mental status Other: Pleasantly confused Eyes: Pupils: Equal, round and reactive pupils present Neck: Neck: supple Resp: Effort & Inspection: normal respiratory effort Auscultation: clear to auscultation bilaterally Cardio: Rate: regular rate Rhythm: regular rhythm GI: Inspection: non-distended Neuro: General: oriented to person Cognition (Neuro): abnormal cognition (patient has known dementia) Speech: normal speech Extrem: Right upper extremity: shoulder/upper arm, elbow/forearm (splint c/d/i ), wrist (splint c/d/i. ) and Extremity exam: right hand normal capillary refill and neurosensory exam normal Left upper extremity: normal to inspection, full ROM and normal capillary refill Psych: Attitude: cooperative Objective Data Vital Signs Vital Signs: Vital Signs - 24 hr 07/22/25 16:00 07/22/25 20:00 07/22/25 20:00 Temperature 98.2 F Pulse Rate 69 73 Respiratory Rate 16 Blood Pressure 123/53 L 130/46 L Pulse Oximetry 94 94 Oxygen Delivery Room Air 07/23/25 00:00 07/23/25 04:00 07/23/25 08:00 Temperature 98.3 F 98.3 F 97.9 F Pulse Rate 70 70 71 Respiratory Rate 16 16 16 Blood Pressure 125/46 L 126/55 L 137/50 L Pulse Oximetry 94 97 91 Oxygen Delivery Intake/Output Intake/Output: Intake & Output 07/20/25 07/21/25 07/22/25 07/23/25 23:59 23:59 23:59 23:59 Intake Total 300 250 Output Total 875 450 Balance -575 -200 Meds/Results Medications: Active Medications Generic Name Dose Route Start Last Admin Trade Name Freq PRN Reason Stop Dose Admin Acetaminophen 325 mg 07/22/25 06:21 Acetaminophen 325 Mg Tablet PO Q6H PRN Pain 1-3 Hydrocodone Bitart/Acetaminophen 1 tab 07/22/25 19:48 07/22/25 20:35 Hydrocodone/Acetaminophen (*Crx) 5-325 Mg Tablet PO 1 tab Q6H PRN Administration Pain Rated 4-6 Citalopram Hydrobromide 40 mg 07/22/25 09:00 07/23/25 09:03 Citalopram Hydrobromide 20 Mg Tablet PO 40 mg DAILY TIFFANI Administration Cyanocobalamin 1,000 mcg 07/22/25 09:00 07/23/25 09:04 Cyanocobalamin 1,000 Mcg Tablet PO 1,000 mcg DAILY TIFFANI Administration Donepezil HCl 10 mg 07/22/25 21:00 07/22/25 20:36 Donepezil Hcl 10 Mg Tablet PO 10 mg HS TIFFANI Administration Ampicillin Sodium 1 gm/ Sodium 50 mls @ 100 mls/hr 07/22/25 14:00 07/23/25 05:28 Chloride IVPB 100 mls/hr Q8H TIFFANI Administration Memantine 10 mg 07/22/25 09:00 07/23/25 09:03 Memantine 10 Mg Tablet PO 10 mg Q12HR TIFFANI Administration Methocarbamol 500 mg 07/22/25 13:00 07/22/25 16:22 Methocarbamol 500 Mg Tablet PO 500 mg On Hold: 07/22/25 19:58 QID TIFFANI Administration Comment: Family concerns for muscle spasms Mirtazapine 15 mg 07/22/25 21:00 07/22/25 20:40 Mirtazapine 15 Mg Tablet PO 15 mg HS TIFFANI Administration Montelukast Sodium 10 mg 07/22/25 21:00 07/22/25 20:36 Montelukast Sodium 10 Mg Tablet PO 10 mg HS TIFFANI Administration Morphine Sulfate 4 mg 07/22/25 03:49 07/23/25 10:23 Morphine Sulfate (*Crx) 4 Mg/Ml Inj IV PUSH 4 mg Q3H PRN Administration Pain Rated 7-10 Pantoprazole Sodium 40 mg 07/22/25 09:00 07/23/25 09:04 Pantoprazole 40 Mg Tablet PO 40 mg DAILY TIFFANI Administration Rosuvastatin Calcium 5 mg 07/22/25 21:00 07/22/25 20:35 Rosuvastatin 5 Mg Tablet PO 5 mg HS TIFFANI Administration Radiology Results: ITS Impressions Head CT 07/21/25 21:10 IMPRESSION: No acute intracranial hemorrhage or extra axial fluid collections. Generalized atrophy. All CT scans at this facility are performed using low dose modulation techniques as appropriate to perform exam including the following: automated exposure control; use of iterative reconstruction technique; adjustment of the mA and/or kV according to patient size (this includes techniques or standardized protocols for targeted exams where dose is matched to indication/reason for exam). Elbow X-Ray 07/21/25 21:21 IMPRESSION: Acute displaced supracondylar fracture. Shoulder X-Ray 07/21/25 21:30 IMPRESSION: No acute fracture or dislocation. Labs Labs: Laboratory Results - last 24 hr 07/22/25 07/23/25 10:02 04:51 WBC 9.8 11.3 H RBC 4.39 4.42 Hgb 12.8 12.9 Hct 40.0 40.6 MCV 91.1 91.9 MCH 29.2 29.2 MCHC 32.0 31.8 L RDW 14.2 14.1 Plt Count 99 L 89 L MPV 9.2 9.1 Immature Gran % (Auto) 1.1 H 0.9 H Neut % (Auto) 50.4 38.0 L Lymph % (Auto) 17.7 L 18.2 L [place] % (Auto) 29.7 H 41.5 H Eos % (Auto) 1.0 1.1 Baso % (Auto) 0.1 L 0.3 Lymph # (Auto) 1.74 2.06 [place] # (Auto) 2.9 H 4.7 H Eos # (Auto) 0.1 0.1 Baso # (Auto) 0.0 0.0 Abs Immat Gran (auto) 0.11 H 0.10 H Absolute Neuts (auto) 5.0 4.3 Absolute Nucleated RBC 0.000 0.000 Nucleated RBC % 0.0 0.0 % Immature Plt Fraction 1.8 1.8 Sodium 135 L Potassium 3.4 Chloride 103 Carbon Dioxide 28 Anion Gap 4 BUN 10 Creatinine 0.61 L Estim Creat Clear Calc 47 Estimated GFR > 60 Glucose 118 H Calcium 8.7 Total Bilirubin 1.7 H AST 26 ALT 15 Alkaline Phosphatase 84 Total Protein 6.1 L Albumin 3.6 Quality VTE Prophylaxis VTE prophylaxis: mechanical ordered
[2025-07-23 11:22] VITALS: BMI 22.2
--- NOTE | 2025-07-23 12:12 | P.CDI_ITS ---
CDI Query Clarification Request BMI: 22.3 Nutritional Diagnostic Statement: Please refer to the comprehensive nutrition assessment for further information. If you agree with diagnosis of Severe Protein-Calorie Malnutrition as related to inadequate protein-energy intake with increased protein-energy needs in setting of chronic disease as evidenced by minimal oral intake for > 1-2 months; significant weight loss of 29 ibs (18%) in 6 months; severe subcutaneous fat loss (orbital fat pads) and muscle wasting (temporalis, clavicle). Please specify severity if known: * Mild * Moderate * Severe * Other/Unknown <Cici Tapia RN - Last Filed: 07/23/25 12:13> Provider Comments Sever malnutrition added <Shweta Sommer APRN - Last Filed: 07/23/25 15:42>
[2025-07-23 16:00] VITALS: BP 136/53; PULSE 66; RESP 14; O2SAT 95
[2025-07-23] MEDS: HYDROcodone/acetaminophen (*CRX) 5-325 MG TABLET 1 TAB PO (17:50)
[2025-07-23 20:00] VITALS: BP 103/51; PULSE 64; RESP 16; TEMP 36.5; O2SAT 92
[2025-07-23] MEDS: ROSUVASTATIN 5 MG TABLET PO (20:48)
[2025-07-23] MEDS: DONEPEZIL HCL 10 MG TABLET PO (20:48)
[2025-07-23] MEDS: MIRTAZAPINE 15 MG TABLET PO (20:48)
[2025-07-23] MEDS: MONTELUKAST SODIUM 10 MG TABLET PO (20:48)
[2025-07-24 00:49] VITALS: BP 115/50; PULSE 69; RESP 16; TEMP 36.8; O2SAT 94
[2025-07-24 04:46] LABS: Hematocrit 39.9 % (37.0-47.0); Hemoglobin 12.7 g/dL (12.0-15.0); Immature Platelet Fraction Pct 1.9 % (0.9-11.2); Mean Corpuscular HGB Conc 31.8 g/dl (32-36); Mean Corpuscular Hemoglobin 29.2 pg (26-34); Mean Corpuscular Volume 91.7 fl (80-100); Platelet Count Result 88 k/mm3 (150-375); Red Blood Count 4.35 M/mm3 (4.2-5.4); White Blood Count 12.6 K/mm3 (4.5-10.0)
[2025-07-24 04:58] LABS: Alanine Aminotransferase 13 U/L (6-35); Albumin Level 3.5 g/dL (3.5-5.1); Alkaline Phosphatase 84 U/L (38-126); Anion Gap 2 mmol/L (4-12); Aspartate Amino Transferase 21 U/L (14-36); Bilirubin,Total 1.7 mg/dL (0.2-1.3); Blood Urea Nitrogen 12 mg/dL (7-17); Calcium 8.7 mg/dL (8.4-10.2); Carbon Dioxide 30 mmol/L (22-30); Chloride 102 mmol/L (98-107); Estimated CRCL calculation 42 ml/min; Estimated Glomerular Filt Rate > 60; Glucose 117 mg/dL (65-110); Magnesium 1.9 mg/dL (1.6-2.3); Potassium 3.5 mmol/L (3.4-5.0); Sodium 134 mmol/L (137-145); Total Protein 6.2 g/dL (6.3-8.2)
[2025-07-24] MEDS: AMPICILLIN SODIUM 1 GM in SODIUM CHLORIDE 0.9% IV 50 ML 100 ML IVPB (05:14)
[2025-07-24 05:29] LABS: Band Neutrophils Percent 3 % (0-6); Basophils Absolute Manual 0.12 K/mm3 (0.0-0.1); Basophils Percent Manual 1 % (0-1); Eosinophils Absolute Manual 0.12 K/mm3 (0.02-0.50); Eosinophils Percent Manual 1 % (0-4); Lymphocytes Absolute Manual 2.64 K/mm3 (1.1-4.5); Lymphocytes Percent Manual 21.0 % (18-44); Monocytes Absolute Manual 3.02 K/mm3 (0.1-0.90); Monocytes Percent Manual 24 % (3-9); Neutrophils Absolute Manual 6.67 K/mm3 (1.3-6.7); Neutrophils Percent Manual 50 % (46-73); Total Cells Counted 100
[2025-07-24 05:31] LABS: Schistocytes None Seen
[2025-07-24 05:47] VITALS: BP 143/61; PULSE 87; RESP 16; TEMP 36.4; O2SAT 94
[2025-07-24] MEDS: MORPHINE SULFATE (*CRX) 4 MG/ML INJ IV PUSH (06:03)
--- NOTE | 2025-07-24 07:43 | P.PNIM_ITS ---
Progress Note: A&P Assessment and Plan (1) Dehydration: Code(s): E86.0 - Dehydration Status: Acute Assessment and Plan: Extremely dry mucous membranes Fluid bolus and IVF If mentation improves she may have diet however at this time she is NPO Scheduled IV pain meds (2) Supracondylar fracture of humerus: Qualifiers: Encounter type: initial encounter Fracture type: closed Laterality: right Qualified Code(s): S42.411A - Displaced simple supracondylar fracture without intercondylar fracture of right humerus, initial encounter for closed fracture Code(s): S42.413A - Displaced simple supracondylar fracture without intercondylar fracture of unspecified humerus, initial encounter for closed fracture Status: Acute Assessment and Plan: Ground level fall out of wheelchair Radiographs of the right elbow reveal acute displaced supracondylar fracture. Orthopedist consulted Ortho did recommend possible transfer to a tertiary care center for an orthopedic surgical consult from a comfort standpoint. Daughter would like to discuss her options with hospice first and then further explore transfer pending their recommendations. keep splint/sling c/d/i. Pain control -Robaxin for spasms, Morphine, tylenol. Currently NPO (3) Altered mental status: Qualifiers: Altered mental status type: unspecified Qualified Code(s): R41.82 - Altered mental status, unspecified Code(s): R41.82 - Altered mental status, unspecified Status: Acute Assessment and Plan: history of Dementia continue Aricept and Namenda UA positive for infection (4) UTI (urinary tract infection): Code(s): N39.0 - Urinary tract infection, site not specified Status: Acute Assessment and Plan: -->Reviewed previous urine culture, E coli pansensitive and Enterococcus species sensitive to ampicillin, vancomycin, nitrofurantoin. --> treat with ampicillin 1 g IV q.6 hours. Reason cultures show Gram-negative bacilli Leukocytosis increasing Ampicillin changed to Rocephin for cultures (5) Dementia: Code(s): F03.90 - Unspecified dementia, unspecified severity, without behavioral disturbance, psychotic disturbance, mood disturbance, and anxiety Status: Acute Assessment and Plan: history of Dementia Hold aricept and Namenda (6) Hyperlipidemia: Code(s): E78.5 - Hyperlipidemia, unspecified Status: Acute Assessment and Plan: Hold Rosuvastatin 5 mg PO (7) Depression: Code(s): F32.9 - Major depressive disorder, single episode, unspecified Status: Acute Assessment and Plan: Hold Citalopram 40 mg PO daily and Mirtazapine 15 mg PO (8) Severe protein-calorie malnutrition: Code(s): E43 - Unspecified severe protein-calorie malnutrition Status: Acute Assessment and Plan: Likely failure to thrive Patient has lost 29 lb in 6 months with severe subcutaneous orbital fat loss and muscle wasting. Design Technology Professor consult. Nutritional ice cream TID and Ensure Plus High Protein TID. NPO Time Spent With Patient Time with patient: Greater than 35 minutes Subjective Date/time seen: 07/24/25 07:43 Interval history: 89-year-old female who presents the hospital with a fall out of wheelchair found to have a right supracondylar fracture Urine cultures have Gram-negative bacilli antibiotics changed to Rocephin. Daughter does not wish to have the patient transferred for higher level of care in surgery. She prefers of the patient's stay here to pain management, IV antibiotics and IV fluids, if patient does not progress over the next couple days will discuss hospice versus tube feed at that point. Long discussion with family about patient's plan Review of Systems Review of Systems: ROS unobtainable: Yes unobtainable due to medical condition Exam Narrative: General: Ill-appearing, lethargy, will open eyes to voice HEENT: Extremely dry mucous membranes Respiratory: clear to ascultation bilaterally. No rales/rhonic/wheezes. Cardiovascular: Regular rate and rhythm, normal S1-S2 upon ascultation. No murm urs, rubs, or clicks. PMI is nondisplaced, capillary refill less than 3 second. Abdomen: Soft, round, no pulsatile masses, nondistended and nontender. No rebound, no guarding. Bowel sounds present to all four quadrants. No high pitch or tinkling sounds, resonant to percussion. Extremities: No cyanosis, clubbing, or edema present. Pulses are palpable 2/2. Right upper extremity in splint painful to touch Neuro: Alert and orientated x 0. PERRLA. Cranial nerves 2-12 intact without focal deficit. Skin: Warm, dry, and intact, without rash, erythema, or lesion. Psych: Unable to assess Objective Data Vital Signs Vital Signs: Vital Signs - 24 hr 07/23/25 08:00 07/23/25 08:00 07/23/25 16:00 Temperature 97.9 F Pulse Rate 71 66 Respiratory Rate 16 14 Blood Pressure 137/50 L 136/53 L Pulse Oximetry 91 95 Oxygen Delivery Room Air 07/23/25 20:00 07/23/25 20:00 07/24/25 00:49 Temperature 97.7 F 98.2 F Pulse Rate 64 69 Respiratory Rate 16 16 Blood Pressure 103/51 L 115/50 L Pulse Oximetry 92 94 Oxygen Delivery Room Air 07/24/25 05:47 Temperature 97.6 F Pulse Rate 87 Respiratory Rate 16 Blood Pressure 143/61 H Pulse Oximetry 94 Oxygen Delivery Intake/Output Intake/Output: Intake & Output 07/21/25 07/22/25 07/23/25 07/24/25 23:59 23:59 23:59 23:59 Intake Total 300 500 350 Output Total 875 650 500 Balance -575 -150 -150 Meds/Results Medications: Active Medications Generic Name Dose Route Start Last Admin Trade Name Freq PRN Reason Stop Dose Admin Acetaminophen 325 mg 07/22/25 06:21 Acetaminophen 325 Mg Tablet PO Q6H PRN Pain 1-3 Hydrocodone Bitart/Acetaminophen 1 tab 07/22/25 19:48 07/23/25 17:50 Hydrocodone/Acetaminophen (*Crx) 5-325 Mg Tablet PO 1 tab Q6H PRN Administration Pain Rated 4-6 Citalopram Hydrobromide 40 mg 07/22/25 09:00 07/23/25 09:03 Citalopram Hydrobromide 20 Mg Tablet PO 40 mg DAILY TIFFANI Administration Cyanocobalamin 1,000 mcg 07/22/25 09:00 07/23/25 09:04 Cyanocobalamin 1,000 Mcg Tablet PO 1,000 mcg DAILY TIFFANI Administration Donepezil HCl 10 mg 07/22/25 21:00 07/23/25 20:48 Donepezil Hcl 10 Mg Tablet PO 10 mg HS TIFFANI Administration Ampicillin Sodium 1 gm/ Sodium 50 mls @ 100 mls/hr 07/22/25 14:00 07/24/25 05:14 Chloride IVPB 100 mls/hr Q8H TIFFANI Administration Memantine 10 mg 07/22/25 09:00 07/23/25 20:48 Memantine 10 Mg Tablet PO 10 mg Q12HR TIFFANI Administration Methocarbamol 500 mg 07/22/25 13:00 07/22/25 16:22 Methocarbamol 500 Mg Tablet PO 500 mg On Hold: 07/22/25 19:58 QID TIFFANI Administration Comment: Family concerns for muscle spasms Mirtazapine 15 mg 07/22/25 21:00 07/23/25 20:48 Mirtazapine 15 Mg Tablet PO 15 mg HS TIFFANI Administration Montelukast Sodium 10 mg 07/22/25 21:00 07/23/25 20:48 Montelukast Sodium 10 Mg Tablet PO 10 mg HS TIFFANI Administration Morphine Sulfate 4 mg 07/22/25 03:49 07/24/25 06:03 Morphine Sulfate (*Crx) 4 Mg/Ml Inj IV PUSH 4 mg Q3H PRN Administration Pain Rated 7-10 Pantoprazole Sodium 40 mg 07/22/25 09:00 07/23/25 09:04 Pantoprazole 40 Mg Tablet PO 40 mg DAILY TIFFANI Administration Rosuvastatin Calcium 5 mg 07/22/25 21:00 07/23/25 20:48 Rosuvastatin 5 Mg Tablet PO 5 mg HS TIFFANI Administration Radiology Results: ITS Impressions Head CT 07/21/25 21:10 IMPRESSION: No acute intracranial hemorrhage or extra axial fluid collections. Generalized atrophy. All CT scans at this facility are performed using low dose modulation techniques as appropriate to perform exam including the following: automated exposure control; use of iterative reconstruction technique; adjustment of the mA and/or kV according to patient size (this includes techniques or standardized protocols for targeted exams where dose is matched to indication/reason for exam). Elbow X-Ray 07/21/25 21:21 IMPRESSION: Acute displaced supracondylar fracture. Shoulder X-Ray 07/21/25 21:30 IMPRESSION: No acute fracture or dislocation. Labs Labs: Laboratory Results - last 24 hr 07/24/25 07/24/25 04:33 04:34 WBC 12.6 H RBC 4.35 Hgb 12.7 Hct 39.9 MCV 91.7 MCH 29.2 MCHC 31.8 L RDW 14.0 Plt Count 88 L MPV 9.2 Immature Gran % (Auto) Not Reportable Neut % (Auto) Not Reportable Lymph % (Auto) Not Reportable [place] % (Auto) Not Reportable Eos % (Auto) Not Reportable Baso % (Auto) Not Reportable Lymph # (Auto) Not Reportable [place] # (Auto) Not Reportable Eos # (Auto) Not Reportable Baso # (Auto) Not Reportable Abs Immat Gran (auto) Not Reportable Absolute Neuts (auto) Not Reportable Absolute Nucleated RBC Not Reportable Total Counted 100 Neutrophils % (Manual) 50 Band Neutrophils % 3 Lymphocytes % (Manual) 21.0 Monocytes % (Manual) 24 H Eosinophils % (Manual) 1 Basophils % (Manual) 1 Nucleated RBC % Not Reportable Abs Neuts (Manual) 6.67 Abs Lymphs (Manual) 2.64 Abs Monocytes (Manual) 3.02 H Absolute Eos (Manual) 0.12 Abs Basophils (Manual) 0.12 H Atypical Lymphocytes Present Platelet Estimate Decreased % Immature Plt Fraction 1.9 Schistocytes None seen Sodium 134 L Potassium 3.5 Chloride 102 Carbon Dioxide 30 Anion Gap 2 L BUN 12 Creatinine 0.69 L Estim Creat Clear Calc 42 Estimated GFR > 60 Glucose 117 H Calcium 8.7 Magnesium 1.9 Total Bilirubin 1.7 H AST 21 ALT 13 Alkaline Phosphatase 84 Total Protein 6.2 L Albumin 3.5 Quality VTE Prophylaxis VTE prophylaxis: mechanical ordered Hospitalist [facility] Advance Care Plan I have confirmed that the patient's Advanced Care Plan is present, code status is documented, or surrogate decision maker is listed in patient medical record.: Yes Medication Reconciliation I have utilized all available resources to obtain, update and review the patients current medications (includes all prescriptions, OTC, herbals, cannabis, and nutritional supplements).: Yes
[2025-07-24] MEDS: PANTOPRAZOLE 40 MG TABLET PO (09:48)
[2025-07-24] MEDS: CITALOPRAM HYDROBROMIDE 20 MG TABLET 40 MG PO (09:48)
[2025-07-24] MEDS: MEMANTINE 10 MG TABLET PO (09:48)
[2025-07-24] MEDS: CYANOCOBALAMIN 1,000 MCG TABLET 1000 MCG PO (09:48)
[2025-07-24 10:47] VITALS: BP 117/49; PULSE 63; RESP 16; TEMP 36.4; O2SAT 93
[2025-07-24] MEDS: SODIUM CHLORIDE 0.9% IV 500 ML IV CONT (11:54)
[2025-07-24] MEDS: KETOROLAC 15 MG/ML VIAL (*BKC) 10 MG IV PUSH ×2 (11:55→21:17)
[2025-07-24] MEDS: SODIUM CHLORIDE 0.9% IV 1,000 ML 100 ML IV CONT ×2 (11:59→23:56)
[2025-07-24] MEDS: cefTRIAXone 2 GM in SODIUM CHLORIDE 0.9% IV 100 ML 200 ML IVPB (11:59)
--- NOTE | 2025-07-24 14:58 | PCPTNOTE ---
Spoke with pt's family member who refused pt to participate in therapy. Orders being discontinued per pt's family request.
[2025-07-24 15:50] VITALS: BP 112/41; PULSE 60; RESP 16; TEMP 36.3; O2SAT 95
[2025-07-24 20:00] VITALS: BP 122/51; PULSE 63; RESP 14; TEMP 37.1; O2SAT 96
[2025-07-24 23:47] VITALS: BP 118/45; PULSE 65; RESP 16; TEMP 36.8; O2SAT 95
[2025-07-24] MEDS: MORPHINE SULFATE (*CRX) 4 MG/ML INJ 2 MG IV PUSH (23:58)
[2025-07-25] MEDS: KETOROLAC 15 MG/ML VIAL (*BKC) 10 MG IV PUSH ×2 (05:19→13:11)
[2025-07-25 05:20] LABS: Hematocrit 34.9 % (37.0-47.0); Hemoglobin 11.5 g/dL (12.0-15.0); Immature Granulocyte Percent A 1.2 % (0-0.5); Immature Platelet Fraction Pct 1.8 % (0.9-11.2); Lymphocytes Absolute Auto 2.10 K/mm3 (0.9-3.2); Mean Corpuscular HGB Conc 33.0 g/dl (32-36); Mean Corpuscular Hemoglobin 29.9 pg (26-34); Mean Corpuscular Volume 90.9 fl (80-100); Nucleated Red Blood Cells Absolute Auto 0.000 K/mm3 (0.0-0.012); Nucleated Red Blood Cells Perc 0.0 % (0.0-0.2); Platelet Count Result 90 k/mm3 (150-375); Red Blood Count 3.84 M/mm3 (4.2-5.4); White Blood Count 8.8 K/mm3 (4.5-10.0)
[2025-07-25 06:13] LABS: Alanine Aminotransferase 14 U/L (6-35); Albumin Level 3.0 g/dL (3.5-5.1); Alkaline Phosphatase 77 U/L (38-126); Anion Gap 6 mmol/L (4-12); Aspartate Amino Transferase 32 U/L (14-36); Bilirubin,Total 1.2 mg/dL (0.2-1.3); Blood Urea Nitrogen 19 mg/dL (7-17); Calcium 8.3 mg/dL (8.4-10.2); Carbon Dioxide 26 mmol/L (22-30); Chloride 106 mmol/L (98-107); Estimated CRCL calculation 41 ml/min; Estimated Glomerular Filt Rate > 60; Glucose 85 mg/dL (65-110); Magnesium 2.0 mg/dL (1.6-2.3); Potassium 3.3 mmol/L (3.4-5.0); Sodium 138 mmol/L (137-145); Total Protein 5.6 g/dL (6.3-8.2)
[2025-07-25 06:54] VITALS: BP 143/57; PULSE 71; RESP 14; TEMP 36.4; O2SAT 97
--- NOTE | 2025-07-25 07:18 | P.PNIM_ITS ---
Progress Note: A&P Assessment and Plan (1) Dehydration: Code(s): E86.0 - Dehydration Status: Acute Assessment and Plan: Extremely dry mucous membranes If mentation improves she may have diet however at this time she is NPO Scheduled IV pain meds PPN ordered, stop IV fluids when PPN is started (2) Severe protein-calorie malnutrition: Code(s): E43 - Unspecified severe protein-calorie malnutrition Status: Acute Assessment and Plan: Likely failure to thrive Patient has lost 29 lb in 6 months with severe subcutaneous orbital fat loss and muscle wasting. Stabilizer Operator consult. PPN NPO (3) Supracondylar fracture of humerus: Qualifiers: Encounter type: initial encounter Fracture type: closed Laterality: right Qualified Code(s): S42.411A - Displaced simple supracondylar fracture without intercondylar fracture of right humerus, initial encounter for closed fracture Code(s): S42.413A - Displaced simple supracondylar fracture without intercondylar fracture of unspecified humerus, initial encounter for closed fracture Status: Acute Assessment and Plan: Ground level fall out of wheelchair Radiographs of the right elbow reveal acute displaced supracondylar fracture. Orthopedist consulted Ortho did recommend possible transfer to a tertiary care center for an orthopedic surgical consult from a comfort standpoint. Daughter would like to discuss her options with hospice first and then further explore transfer pending their recommendations. keep splint/sling c/d/i. Pain control -morphine and Toradol Currently NPO (4) Altered mental status: Qualifiers: Altered mental status type: unspecified Qualified Code(s): R41.82 - Altered mental status, unspecified Code(s): R41.82 - Altered mental status, unspecified Status: Acute Assessment and Plan: history of Dementia continue Aricept and Namenda UA positive for infection (5) UTI (urinary tract infection): Code(s): N39.0 - Urinary tract infection, site not specified Status: Acute Assessment and Plan: Reason cultures show Gram-negative bacilli Leukocytosis increasing Ampicillin changed to Rocephin for cultures (6) Dementia: Code(s): F03.90 - Unspecified dementia, unspecified severity, without behavioral disturbance, psychotic disturbance, mood disturbance, and anxiety Status: Acute Assessment and Plan: history of Dementia Hold aricept and Namenda (7) Hyperlipidemia: Code(s): E78.5 - Hyperlipidemia, unspecified Status: Acute Assessment and Plan: Hold Rosuvastatin 5 mg PO (8) Depression: Code(s): F32.9 - Major depressive disorder, single episode, unspecified Status: Acute Assessment and Plan: Hold Citalopram 40 mg PO daily and Mirtazapine 15 mg PO Time Spent With Patient Time with patient: Greater than 35 minutes Subjective Date/time seen: 07/25/25 07:18 Interval history: 89-year-old female who presents the hospital with a fall out of wheelchair found to have a right supracondylar fracture Urine cultures have Gram-negative bacilli antibiotics changed to Rocephin. Daughter does not wish to have the patient transferred for higher level of care for surgery. She prefers of the patient's stay here to pain management, IV antibiotics and IV fluids, if patient does not progress over the next couple days will discuss hospice versus tube feed at that point. Leukocytosis has resolved with changing antibiotics, potassium 3.3, calcium 3.8 Patient appears to be more awake this morning and following simple commands. Her mucous membranes are still dry will do another 500 cc bolus with PPN to night. Per healthcare directive no TPN, central line were tube feed. Review of Systems Review of Systems: ROS unobtainable: Yes unobtainable due to mental status Exam Narrative: General: Awake, answers yes or no today, follow simple commands HEENT: dry mucous membranes Respiratory: clear to ascultation bilaterally. No rales/rhonic/wheezes. Cardiovascular: Regular rate and rhythm, normal S1-S2 upon ascultation. No murmurs, rubs, or clicks. PMI is nondisplaced, capillary refill less than 3 second. Abdomen: Soft, round, no pulsatile masses, nondistended and nontender. No rebound, no guarding. Bowel sounds present to all four quadrants. No high pitch or tinkling sounds, resonant to percussion. Extremities: No cyanosis, clubbing, or edema present. Pulses are palpable 2/2. Right upper extremity in splint painful to touch Neuro: Alert and orientated x 1. PERRLA. Cranial nerves 2-12 intact without focal deficit. Skin: Warm, dry, and intact, without rash, erythema, or lesion. Psych: Unable to assess Objective Data Vital Signs Vital Signs: Vital Signs - 24 hr 07/24/25 08:00 07/24/25 10:47 07/24/25 15:50 Temperature 97.5 F L 97.3 F L Pulse Rate 63 60 Respiratory Rate 16 16 Blood Pressure 117/49 L 112/41 L Pulse Oximetry 93 95 Oxygen Delivery Room Air 07/24/25 20:00 07/24/25 20:00 07/24/25 23:47 Temperature 98.8 F 98.2 F Pulse Rate 63 65 Respiratory Rate 14 16 Blood Pressure 122/51 L 118/45 L Pulse Oximetry 96 95 Oxygen Delivery Room Air 07/25/25 06:54 Temperature 97.6 F Pulse Rate 71 Respiratory Rate 14 Blood Pressure 143/57 H Pulse Oximetry 97 Oxygen Delivery Intake/Output Intake/Output: Intake & Output 07/22/25 07/23/25 07/24/25 07/25/25 23:59 23:59 23:59 23:59 Intake Total 773 378 3532 Output Total 610 731 6416 50 Balance -575 -150 100 -50 Meds/Results Medications: Active Medications Generic Name Dose Route Start Last Admin Trade Name Freq PRN Reason Stop Dose Admin Acetaminophen 325 mg 07/22/25 06:21 Acetaminophen 325 Mg Tablet PO On Hold: 07/24/25 11:22 Q6H PRN Pain 1-3 Hydrocodone Bitart/Acetaminophen 1 tab 07/22/25 19:48 07/23/25 17:50 Hydrocodone/Acetaminophen (*Crx) 5-325 Mg Tablet PO 1 tab On Hold: 07/24/25 11:22 Q6H PRN Administration Pain Rated 4-6 Citalopram Hydrobromide 40 mg 07/22/25 09:00 07/24/25 09:48 Citalopram Hydrobromide 20 Mg Tablet PO 40 mg On Hold: 07/24/25 11:23 DAILY TIFFANI Administration Cyanocobalamin 1,000 mcg 07/22/25 09:00 07/24/25 09:48 Cyanocobalamin 1,000 Mcg Tablet PO 1,000 mcg On Hold: 07/24/25 11:23 DAILY TIFFANI Administration Donepezil HCl 10 mg 07/22/25 21:00 07/23/25 20:48 Donepezil Hcl 10 Mg Tablet PO 10 mg On Hold: 07/24/25 11:23 HS TIFFANI Administration Ceftriaxone Sodium 2 gm/ 100 mls @ 200 mls/hr 07/24/25 11:00 07/24/25 11:59 Sodium Chloride IVPB 200 mls/hr DAILY TIFFANI Administration Sodium Chloride 1,000 mls @ 100 mls/hr 07/24/25 11:25 07/24/25 23:56 Normal Saline Iv IV CONT 100 mls/hr .Q10H TIFFANI Administration Ketorolac Tromethamine 10 mg 07/24/25 11:25 07/25/25 05:19 Ketorolac 15 Mg/Ml Vial (*Bkc) IV PUSH 10 mg Q8HR TIFFANI Administration Memantine 10 mg 07/22/25 09:00 07/24/25 09:48 Memantine 10 Mg Tablet PO 10 mg On Hold: 07/24/25 11:23 Q12HR TIFFANI Administration Methocarbamol 500 mg 07/22/25 13:00 07/22/25 16:22 Methocarbamol 500 Mg Tablet PO 500 mg On Hold: 07/22/25 19:58 QID TIFFANI Administration Comment: Family concerns for muscle spasms Mirtazapine 15 mg 07/22/25 21:00 07/23/25 20:48 Mirtazapine 15 Mg Tablet PO 15 mg On Hold: 07/24/25 11:23 HS TIFFANI Administration Montelukast Sodium 10 mg 07/22/25 21:00 07/23/25 20:48 Montelukast Sodium 10 Mg Tablet PO 10 mg On Hold: 07/24/25 11:23 HS TIFFANI Administration Morphine Sulfate 4 mg 07/22/25 03:49 07/24/25 06:03 Morphine Sulfate (*Crx) 4 Mg/Ml Inj IV PUSH 4 mg Q3H PRN Administration Pain Rated 7-10 Morphine Sulfate 2 mg 07/24/25 11:24 07/24/25 23:58 Morphine Sulfate (*Crx) 4 Mg/Ml Inj IV PUSH 2 mg Q3HR PRN Administration Pain Rated 4-6 Pantoprazole Sodium 40 mg 07/22/25 09:00 07/24/25 09:48 Pantoprazole 40 Mg Tablet PO 40 mg On Hold: 07/24/25 11:24 DAILY TIFFANI Administration Rosuvastatin Calcium 5 mg 07/22/25 21:00 07/23/25 20:48 Rosuvastatin 5 Mg Tablet PO 5 mg On Hold: 07/24/25 11:24 HS TIFFANI Administration Radiology Results: ITS Impressions Head CT 07/21/25 21:10 IMPRESSION: No acute intracranial hemorrhage or extra axial fluid collections. Generalized atrophy. All CT scans at this facility are performed using low dose modulation techniques as appropriate to perform exam including the following: automated exposure control; use of iterative reconstruction technique; adjustment of the mA and/or kV according to patient size (this includes techniques or standardized protocols for targeted exams where dose is matched to indication/reason for exam). Elbow X-Ray 07/21/25 21:21 IMPRESSION: Acute displaced supracondylar fracture. Shoulder X-Ray 07/21/25 21:30 IMPRESSION: No acute fracture or dislocation. Labs Labs: Laboratory Results - last 24 hr 07/25/25 05:00 WBC 8.8 RBC 3.84 L Hgb 11.5 L Hct 34.9 L MCV 90.9 MCH 29.9 MCHC 33.0 RDW 14.1 Plt Count 90 L MPV 9.4 Immature Gran % (Auto) 1.2 H Neut % (Auto) 39.2 L Lymph % (Auto) 23.8 [place] % (Auto) 35.3 H Eos % (Auto) 0.3 Baso % (Auto) 0.2 Lymph # (Auto) 2.10 [place] # (Auto) 3.1 H Eos # (Auto) 0.0 Baso # (Auto) 0.0 Abs Immat Gran (auto) 0.11 H Absolute Neuts (auto) 3.5 Absolute Nucleated RBC 0.000 Nucleated RBC % 0.0 % Immature Plt Fraction 1.8 Sodium 138 Potassium 3.3 L Chloride 106 Carbon Dioxide 26 Anion Gap 6 BUN 19 H Creatinine 0.70 Estim Creat Clear Calc 41 Estimated GFR > 60 Glucose 85 Calcium 8.3 L Magnesium 2.0 Total Bilirubin 1.2 AST 32 ALT 14 Alkaline Phosphatase 77 Total Protein 5.6 L Albumin 3.0 L Quality VTE Prophylaxis VTE prophylaxis: mechanical ordered If No VTE Prophylaxis Answer both mechanical and pharmacologic: Reason no pharmacologic proph: medical contraindication (Thrombocytopenia)
[2025-07-25 08:33] LABS: Partial Thromboplastin Time 41.1 Seconds (22.3-36.8)
[2025-07-25 08:47] LABS: Transferrin 156 mg/dL (206-381)
[2025-07-25] MEDS: SODIUM CHLORIDE 0.9% IV 1,000 ML 100 ML IV CONT (09:21)
[2025-07-25] MEDS: cefTRIAXone 2 GM in SODIUM CHLORIDE 0.9% IV 100 ML 200 ML IVPB (09:24)
[2025-07-25] MEDS: KCL 20 MEQ/SW 100 ML 100 ML 50 MEQ IVPB (10:00)
[2025-07-25] MEDS: SODIUM CHLORIDE 0.9% IV 500 ML IV CONT (10:01)
[2025-07-25 10:35] VITALS: BP 126/58; PULSE 69; RESP 16; TEMP 36.5; O2SAT 97
--- NOTE | 2025-07-25 10:43 | PCNFU ---
Nutrition Follow-Up Complete: Severe Protein-Calorie Malnutrition as related to inadequate protein-energy intake with increased protein-energy needs in setting of chronic disease as evidenced by minimal oral intake for > 1-2 months; significant weight loss of 29 ibs (18%) in 6 months; severe subcutaneous fat loss (orbital fat pads) and muscle wasting (temporalis, clavicle). Goal: Meet estimated nutritional needs. Patient has limited progress towards goal. Pt current nutrition is Clinimix E 4.25/5 at 80 ml/hr. Last recorded weight is 58.8 kg Bowel Motility: Last reported BM 07/22 Labs Reviewed: BUN 19, K 3.3, Alb 3.0, Hgb 11.5, Hct 34.9 Meds Noted: Clinimix E 4.25/5 at 80 ml/hr, 20% Lipid Emulsion, Remeron Skin: WNL Additional Notes: Oral Intake remains poor. Plans to start PPN for a couple of days, which is providing 1153 kcal and 82 gm protein. Meeting 78% kcal needs at 25 kcal/kg and 100% kcal need at 1.2 gm/kg protein needs. Agree with diet orders at this time. Will monitor, weight, labs, skin, diet orders, meds every Monday and Monday.
--- NOTE | 2025-07-25 13:17 | PC.NURSE ---
Niyah agarwaler infusing, will begin Levaquin once completed, PPN not began due to care coordination working with family who is deciding if they will pursue hospice care for pt, she is speaking with both provider and [facility]
[2025-07-25 13:39] VITALS: BP 123/51; PULSE 89; RESP 20; TEMP 36.3; O2SAT 97
--- NOTE | 2025-07-25 14:26 | PM.CCN ---
Critical Care Event Note Summary Code activated: No Narrative: Family has had a care conference and has decided to do comfort care only, and hospice consult at this time. Orders have been placed. Family at bedside. Code status change. This case had a high probability of a clinically significant, sudden, or life threatening deterioration of this patient's condition which required my full and direct attention, intervention and personal management. Critical care time: 30 - 74 mins
--- NOTE | 2025-07-25 14:30 | PC.NURSE ---
morphine 5mg times one dose not administered as toradol was just given at 1311 and when questioned pt states she is not having any pain, reviewed with daughters at bedside that pt can have morphine PRN when needed and to please call if she needs anything at all
[2025-07-25] MEDS: MORPHINE SULFATE (*CRX) 4 MG/ML INJ 2 MG IV PUSH ×4 (17:31→23:56)
[2025-07-25 21:40] VITALS: BP 133/52; PULSE 63; RESP 16; TEMP 36.6; O2SAT 97
[2025-07-25] MEDS: diazePAM INJ (*CRX) 10 MG/2 ML SYRINGE 2 MG IV PUSH (23:11)
[2025-07-26] MEDS: MORPHINE SULFATE (*CRX) 4 MG/ML INJ 2 MG IV PUSH ×2 (06:24→11:32)
[2025-07-26 06:48] VITALS: BP 144/50; PULSE 60; RESP 20; TEMP 36.1; O2SAT 98
--- NOTE | 2025-07-26 07:20 | P.PNIM_ITS ---
Progress Note: A&P Assessment and Plan (1) Dehydration: Code(s): E86.0 - Dehydration Status: Acute Assessment and Plan: Extremely dry mucous membranes Scheduled IV pain meds Diet for comfort (2) Severe protein-calorie malnutrition: Code(s): E43 - Unspecified severe protein-calorie malnutrition Status: Acute Assessment and Plan: Likely failure to thrive Patient has lost 29 lb in 6 months with severe subcutaneous orbital fat loss and muscle wasting. Bender Hand consult. Diet for comfort (3) Supracondylar fracture of humerus: Qualifiers: Encounter type: initial encounter Fracture type: closed Laterality: right Qualified Code(s): S42.411A - Displaced simple supracondylar fracture without intercondylar fracture of right humerus, initial encounter for closed fracture Code(s): S42.413A - Displaced simple supracondylar fracture without intercondylar fracture of unspecified humerus, initial encounter for closed fracture Status: Acute Assessment and Plan: Ground level fall out of wheelchair Radiographs of the right elbow reveal acute displaced supracondylar fracture. Orthopedist consulted No plans for orthopedic surgery of patient discomfort care only and family is meeting with hospice keep splint/sling c/d/i. Pain control -morphine and Toradol (4) Altered mental status: Qualifiers: Altered mental status type: unspecified Qualified Code(s): R41.82 - Altered mental status, unspecified Code(s): R41.82 - Altered mental status, unspecified Status: Acute Assessment and Plan: history of Dementia UA positive for infection (5) UTI (urinary tract infection): Code(s): N39.0 - Urinary tract infection, site not specified Status: Acute Assessment and Plan: Reason cultures show Gram-negative bacilli Leukocytosis increasing Antibiotics have been discontinued (6) Dementia: Code(s): F03.90 - Unspecified dementia, unspecified severity, without behavioral disturbance, psychotic disturbance, mood disturbance, and anxiety Status: Acute Assessment and Plan: history of Dementia (7) Hyperlipidemia: Code(s): E78.5 - Hyperlipidemia, unspecified Status: Acute Assessment and Plan: Discontinue Rosuvastatin 5 mg PO (8) Depression: Code(s): F32.9 - Major depressive disorder, single episode, unspecified Status: Acute Assessment and Plan: Discontinue Citalopram 40 mg PO daily and Mirtazapine 15 mg PO Plan Patient has been made comfort care only a family will be meeting with hospice afternoon Time Spent With Patient Time with patient: 25 - 35 minutes Subjective Date/time seen: 07/26/25 07:20 Interval history: 89-year-old female who presents the hospital with a fall out of wheelchair found to have a right supracondylar fracture Urine cultures have Gram-negative bacilli antibiotics changed to Rocephin. Daughter does not wish to have the patient transferred for higher level of care for surgery. She prefers of the patient's stay here to pain management, IV antibiotics and IV fluids, if patient does not progress over the next couple days will discuss hospice versus tube feed at that point. Family has decided to make patient comfort care only, antibiotics and fluids have been stopped, Valium and morphine have been ordered. Family plans on discharging patient to her memory care unit on hospice. Plan for hospice meeting this afternoon. Patient resting comfortably Review of Systems Review of Systems: ROS unobtainable: Yes unobtainable due to medical condition and unobtainable due to mental status Exam Narrative: General: Awake, answers yes or no today, follow simple commands HEENT: dry mucous membranes Respiratory: clear to ascultation bilaterally. No rales/rhonic/wheezes. Cardiovascular: Regular rate and rhythm, normal S1-S2 upon ascultation. No murmurs, rubs, or clicks. PMI is nondisplaced, capillary refill less than 3 second. Abdomen: Soft, round, no pulsatile masses, nondistended and nontender. No rebound, no guarding. Bowel sounds present to all four quadrants. No high pitch or tinkling sounds, resonant to percussion. Extremities: No cyanosis, clubbing, or edema present. Pulses are palpable 2/2. Right upper extremity in splint painful to touch Neuro: Alert and orientated x 1. PERRLA. Cranial nerves 2-12 intact without focal deficit. Skin: Warm, dry, and intact, without rash, erythema, or lesion. Psych: Unable to assess Objective Data Vital Signs Vital Signs: Vital Signs - 24 hr 07/25/25 08:02 07/25/25 10:35 07/25/25 13:39 Temperature 97.7 F 97.4 F L Pulse Rate 69 89 Respiratory Rate 16 20 Blood Pressure 126/58 L 123/51 L Pulse Oximetry 97 97 Oxygen Delivery Room Air 07/25/25 20:00 07/25/25 21:40 07/26/25 06:48 Temperature 98 F 97 F L Pulse Rate 63 60 Respiratory Rate 16 20 Blood Pressure 133/52 L 144/50 H Pulse Oximetry 97 98 Oxygen Delivery Room Air Intake/Output Intake/Output: Intake & Output 07/23/25 07/24/25 07/25/25 07/26/25 23:59 23:59 23:59 23:59 Intake Total 500 1450 1041.7 0 Output Total 650 1250 350 300 Balance -150 200 691.7 -300 Meds/Results Medications: Active Medications Generic Name Dose Route Start Last Admin Trade Name Freq PRN Reason Stop Dose Admin Atropine Sulfate 1 - 2 drop 07/25/25 14:27 Atropine Sulfate 1% Ophth Soln 5 Ml Bottle SUBLINGUAL Q4H PRN Secretions Diazepam 2 mg 07/25/25 23:01 07/25/25 23:11 Diazepam Inj (*Crx) 10 Mg/2 Ml Syringe IV PUSH 2 mg Q2HR PRN Administration Anxiety Morphine Sulfate 2 mg 07/25/25 14:27 07/26/25 06:24 Morphine Sulfate (*Crx) 4 Mg/Ml Inj IV PUSH 2 mg Q30M PRN Administration COMFORT Radiology Results: ITS Impressions Head CT 07/21/25 21:10 IMPRESSION: No acute intracranial hemorrhage or extra axial fluid collections. Generalized atrophy. All CT scans at this facility are performed using low dose modulation techniques as appropriate to perform exam including the following: automated exposure control; use of iterative reconstruction technique; adjustment of the mA and/or kV according to patient size (this includes techniques or standardized protocols for targeted exams where dose is matched to indication/reason for exam). Elbow X-Ray 07/21/25 21:21 IMPRESSION: Acute displaced supracondylar fracture. Shoulder X-Ray 07/21/25 21:30 IMPRESSION: No acute fracture or dislocation. Labs Labs: Laboratory Results - last 24 hr 07/25/25 07/25/25 07:42 11:50 APTT 41.1 H POC Capillary Glucose 91 Transferrin 156 L Hospitalist MIPS Advance Care Plan I have confirmed that the patient's Advanced Care Plan is present, code status is documented, or surrogate decision maker is listed in patient medical record.: Yes Medication Reconciliation I have utilized all available resources to obtain, update and review the patients current medications (includes all prescriptions, OTC, herbals, cannabis, and nutritional supplements).: Yes
--- NOTE | 2025-07-26 13:35 | PM.EVENT ---
Event Note Event Note Event Note: Patient has been accepted by hospice and will take over care.
--- NOTE | 2025-07-26 14:06 | PC.NURSE ---
pt transferred in to inpatient hospice care with [facility], pt will remain in the same room and be assigned a new V number per procedure
--- NOTE | 2025-08-02 12:22 | PM.DS ---
DS: Admitting Diagnosis Discharge Date 07/26/25 DS: Summary Time Spent with Patient Time attestation: Total time spent providing and/or coordinating discharge services: Discharge Plan Discharge Consulting providers: Papi Paulino; Shweta Sommer; Janny Gonzalez; Jian Thompson; Debbi Posey; Braulio Schmidt Patient Disposition: Other Diet: as tolerated Patient Language: Grenadian Stand Alone Forms: General Discharge Information Discharge Medications: No Action mirtazapine [Remeron] 15 mg Tablet 15 mg PO HS donepezil [Aricept] 10 mg Tablet 10 mg PO HS citalopram [Celexa] 40 mg tablet 40 mg PO DAILY pantoprazole [Protonix] 40 mg tablet,delayed release (DR/EC) 40 mg PO DAILY montelukast [Singulair] 10 mg tablet 10 mg PO HS rosuvastatin [Crestor] 5 mg tablet 5 mg PO HS memantine [Namenda] 10 mg tablet 10 mg PO BID psyllium husk [Metamucil] 0.4 gram Capsule 1.2 g PO DAILY PRN (Reason: Loose Stool) ibuprofen 400 mg tablet 400 mg PO Q8H PRN (Reason: pain) Qty: 14 0RF acetaminophen [Tylenol] 325 mg capsule 325 mg PO Q6H PRN (Reason: pain) Qty: 14 0RF cyanocobalamin (vitamin B-12) 1,000 mcg Capsule 1,000 mcg PO DAILY tramadol 50 mg Tablet 50 mg PO Q8H PRN (Reason: Pain) ibuprofen 200 mg Tablet 200 mg PO BID hydroxyzine HCl 25 mg Tablet 25 mg PO TID PRN (Reason: Anxiety) cholecalciferol (vitamin D3) 25 mcg (1,000 unit) Tablet 25 mcg PO DAILY aspirin [Adult Low Dose Aspirin] 81 mg tablet,delayed release (DR/EC) 81 mg PO DAILY Lubricant Eye (PG-PEG 400) 0.4-0.3 % drops 1 drp EACH EYE DAILY PRN (Reason: dry eye(s)) Date of admission: 07/21/25 22:13 Primary Care Provider: YvonBlanche Admitting Provider: Allyson Cuello Attending physician on admission: Jose D,Milla Scott Condition: Stable
--- NOTE | 2025-08-08 20:37 | P.DS_ITS ---
DS: Admitting Diagnosis Discharge Date 07/26/25 Admitting Diagnosis UTI DS: Discharge Diagnosis Discharge Diagnosis (1) UTI (urinary tract infection): Code(s): N39.0 - Urinary tract infection, site not specified Status: Acute Assessment and Plan: Reason cultures show Gram-negative bacilli Leukocytosis increasing Antibiotics have been discontinued (2) Dehydration: Code(s): E86.0 - Dehydration Status: Acute Assessment and Plan: Extremely dry mucous membranes Scheduled IV pain meds Diet for comfort (3) Severe protein-calorie malnutrition: Code(s): E43 - Unspecified severe protein-calorie malnutrition Status: Acute Assessment and Plan: Likely failure to thrive Patient has lost 29 lb in 6 months with severe subcutaneous orbital fat loss and muscle wasting. French Binding Folder consult. Diet for comfort (4) Supracondylar fracture of humerus: Qualifiers: Encounter type: initial encounter Fracture type: closed Laterality: right Qualified Code(s): S42.411A - Displaced simple supracondylar fracture without intercondylar fracture of right humerus, initial encounter for closed fracture Code(s): S42.413A - Displaced simple supracondylar fracture without intercondylar fracture of unspecified humerus, initial encounter for closed fracture Status: Acute Assessment and Plan: Ground level fall out of wheelchair Radiographs of the right elbow reveal acute displaced supracondylar fracture. Orthopedist consulted No plans for orthopedic surgery of patient discomfort care only and family is meeting with hospice keep splint/sling c/d/i. Pain control -morphine and Toradol (5) Altered mental status: Qualifiers: Altered mental status type: unspecified Qualified Code(s): R41.82 - Altered mental status, unspecified Code(s): R41.82 - Altered mental status, unspecified Status: Acute Assessment and Plan: history of Dementia UA positive for infection (6) Dementia: Code(s): F03.90 - Unspecified dementia, unspecified severity, without behavioral disturbance, psychotic disturbance, mood disturbance, and anxiety Status: Acute Assessment and Plan: history of Dementia (7) Hyperlipidemia: Code(s): E78.5 - Hyperlipidemia, unspecified Status: Acute Assessment and Plan: Discontinue Rosuvastatin 5 mg PO (8) Depression: Code(s): F32.9 - Major depressive disorder, single episode, unspecified Status: Acute Assessment and Plan: Discontinue Citalopram 40 mg PO daily and Mirtazapine 15 mg PO Plan Patient has been made comfort care only a family will be meeting with hospice afternoon DS: Summary Hospital Course Reason for hospitalization: UTI Hospital Course: 89-year-old female [facility] depression, dementia, hyperlipidemia, hypertension, history of UTIwho presents the hospital with a fall out of wheelchair found to have a right supracondylar fracture.07/21/2025 as she had a ground level fall out of wheelchair. It was unwitnessed however it is believed the patient had fallen out of her wheelchair and twisted her arm. Orthopedics had recommended transfer to a higher level of care for surgery for comfort care measures. Urine cultures have Gram-negative bacilli antibiotics changed to Rocephin. Daughter does not wish to have the patient transferred for higher level of care for surgery. She prefers of the patient's stay here to pain management, IV antibiotics and IV fluids, if patient does not progress over the next couple days will discuss hospice versus tube feed at that point. Patient was declining and family decided due to the patient not eating or drinking that they would make her comfort care only. Family has decided to make patient comfort care only, antibiotics and fluids have been stopped, Valium and morphine have been ordered. Family plans on discharging patient to her memory care unit on hospice. Plan for hospice meeting this afternoon. Patient resting comfortably Status at Discharge Functional status at discharge: bed bound Overall status at discharge: patient is not back to baseline Time Spent with Patient Time attestation: Total time spent providing and/or coordinating discharge services: Time spent: Greater than 30 minutes Exam Narrative: General: Resting comfortably HEENT: dry mucous membranes Respiratory: clear to ascultation bilaterally. No rales/rhonic/wheezes. Cardiovascular: Regular rate and rhythm, normal S1-S2 upon ascultation. No murmurs, rubs, or clicks. PMI is nondisplaced, capillary refill less than 3 second. Abdomen: Soft, round, no pulsatile masses, nondistended and nontender. Extremities: No cyanosis, clubbing, or edema present. Pulses are palpable 2/2. Neuro: Alert and orientated x 10. PERRLA. Skin: Warm, dry, and intact, without rash, erythema, or lesion. Psych: Unable to assess Discharge Plan Discharge Consulting providers: Papi Paulino; Shweta Sommer; Janny Gonzalez; Jian Thompson; Debbi Posey; Braulio Schmidt Discharging Clinician: Vanessa Jeffery Anticipated Discharge Date/Time: 07/26/25 12:35 Patient Disposition: Hospice - Medical Facility Diet: as tolerated Discharge Instructions: Patient discharging to hospice Patient Language: Rwandan Stand Alone Forms: General Discharge Information Discharge Medications: No Action mirtazapine [Remeron] 15 mg Tablet 15 mg PO HS donepezil [Aricept] 10 mg Tablet 10 mg PO HS citalopram [Celexa] 40 mg tablet 40 mg PO DAILY pantoprazole [Protonix] 40 mg tablet,delayed release (DR/EC) 40 mg PO DAILY montelukast [Singulair] 10 mg tablet 10 mg PO HS rosuvastatin [Crestor] 5 mg tablet 5 mg PO HS memantine [Namenda] 10 mg tablet 10 mg PO BID psyllium husk [Metamucil] 0.4 gram Capsule 1.2 g PO DAILY PRN (Reason: Loose Stool) ibuprofen 400 mg tablet 400 mg PO Q8H PRN (Reason: pain) Qty: 14 0RF acetaminophen [Tylenol] 325 mg capsule 325 mg PO Q6H PRN (Reason: pain) Qty: 14 0RF cyanocobalamin (vitamin B-12) 1,000 mcg Capsule 1,000 mcg PO DAILY tramadol 50 mg Tablet 50 mg PO Q8H PRN (Reason: Pain) ibuprofen 200 mg Tablet 200 mg PO BID hydroxyzine HCl 25 mg Tablet 25 mg PO TID PRN (Reason: Anxiety) cholecalciferol (vitamin D3) 25 mcg (1,000 unit) Tablet 25 mcg PO DAILY aspirin [Adult Low Dose Aspirin] 81 mg tablet,delayed release (DR/EC) 81 mg PO DAILY Lubricant Eye (PG-PEG 400) 0.4-0.3 % drops 1 drp EACH EYE DAILY PRN (Reason: dry eye(s)) Date of admission: 07/21/25 22:13 Primary Care Provider: YvonBlanche Admitting Provider: Allyson Cuello Attending physician on admission: Jose DMilla V. Condition: Stable Quality VTE Prophylaxis VTE prophylaxis: mechanical ordered Hospitalist MIPS Heart Failure (Exclusion) Patient has history of Heart Transplant or Left Ventricular Assistive Device?: No IF YES, STOP HERE Heart Failure (Qualifier) Patient has current or prior documentation of LVEF less than or equal to 40%, or mod/servere depressed LVSF?: No IF NO, STOP HERE
== END 2025-07-26 14:06 | disposition hospice, inpatient (51) | DRG 562 ==
LOC: ANHED 21:29 → ANH3MEDSUR 22:53 → ANH2MED 22:54
PROVIDERS: Nurse Practitioner Family; Nurse Practitioner Gerontology; Admitting Provider General Practice; Emergency Provider Student in an Organized Health Care Education/Training Program; PCP Nurse Practitioner Family; Visit Provider Obstetrics & Gynecology
DX: S42.411A Displaced simple supracondylar fracture without intercondylar fracture of right humerus, initial encounter for closed fracture (principal); E43 Unspecified severe protein-calorie malnutrition; N39.0 Urinary tract infection, site not specified; F03.90 Unspecified dementia, unspecified severity, without behavioral disturbance, psychotic disturbance, mood disturbance, and anxiety; E78.5 Hyperlipidemia, unspecified; E03.9 Hypothyroidism, unspecified; F32.A Depression, unspecified; I10 Essential (primary) hypertension; E86.0 Dehydration; R62.7 Adult failure to thrive; B96.5 Pseudomonas (aeruginosa) (mallei) (pseudomallei) as the cause of diseases classified elsewhere; Z66 Do not resuscitate; F10.90 Alcohol use, unspecified, uncomplicated; W05.0XXA Fall from non-moving wheelchair, initial encounter; Z79.2 Long term (current) use of antibiotics; Z90.49 Acquired absence of other specified parts of digestive tract; Z87.440 Personal history of urinary (tract) infections; Z68.22 Body mass index [BMI] 22.0-22.9, adult; Z79.82 Long term (current) use of aspirin; Z85.828 Personal history of other malignant neoplasm of skin; Z85.820 Personal history of malignant melanoma of skin; Z86.73 Personal history of transient ischemic attack (TIA), and cerebral infarction without residual deficits
CPT/HCPCS: 36415; 70450; 73030; 73070; 80048; 80053; 81001; 82948; 83735; 84466; 85025; 85055; 85730; 87086; 87186; 96374; 99285; A9270; J0290; J0696; J1885; J2270; J3360; J3480; J7030; J7040

== ENCOUNTER 2025-07-26 14:15 | HOS | payer OTHER, MEDICARE, SELFPAY ==
[2025-07-26 14:30] VITALS: BP 117/49; PULSE 60; RESP 16; TEMP 36.5; O2SAT 96
--- NOTE | 2025-07-26 16:40 | PC.NURSE ---
original order sheet from hospice/home health aide was for admit orders from Dr Conde, called them to report that Dr Conde does not have admitting privileges and that I spoke with Dr Paulino and he requests a call from hospice to go over pt data and condition, they then needed to fax order sheet with orders from Dr Paulino to admit pt and to get med orders started, eventually was resolved
[2025-07-26] MEDS: MORPHINE SULFATE INJ (*CRX) 10 MG/ML AMP 5 MG IV PUSH (16:57)
[2025-07-26] MEDS: MORPHINE 50 MG/NS 100ML (*CRX) 50 MG/100 ML BAG IV CONT (17:44)
[2025-07-26 22:12] VITALS: BP 124/56; PULSE 58; RESP 16; TEMP 36.6; O2SAT 94
[2025-07-26] MEDS: diazePAM INJ (*CRX) 10 MG/2 ML SYRINGE 2 MG IV PUSH (23:25)
--- NOTE | 2025-07-27 06:56 | PM.IMHP ---
H&P: HPI History of Present Illness Date/Time: 07/27/25 06:56 Chief Complaint: Comfort care Narrative: 89yo female with dementia, HTN, HLD, chronic thrombocytopenia and depression who original presented on 07/21/25 for right arm pain after a ground level fall from a wheelchair. Head CT showing no acute process. Right elbow xray showing acute displaces supracondylar fracture. UA was consistent with UTI and UCx grew che-sensitive pseudomonas. She was on ampicillin given prior culture results and Rocephin but changed to levofloxacin (she actually never received a dose of levofloxacin). Orthopedics was consulted and recommended possible transfer to a tertiary care center for an orthopedic surgical consult from a comfort standpoint. They also discussed hospice with family. The daughter wanted to proceed with hospice care. Patient has been eating 5-10% of meals. Patient was transferred to hospice care. Patient is somnolent and confused so unable to provide hx. Daughters in the room. They feel patietn is more comfortable. She has not been eating for many days. Review of Systems Review of Systems: ROS unobtainable: Yes unobtainable due to mental status PMFSH Past Medical History Medical History Hypothyroidism Squamous cell cancer of skin of forearm Basal cell carcinoma Melanoma History of CVA (cerebrovascular accident) Dementia Depression Hyperlipidemia Hypertension Surgical History Surgical History History of removal of pigmented skin lesion History of cataract extraction History of back surgery History of cholecystectomy History of hysterectomy Family History Family History Mother Alzheimer disease Sibling Heart disease Alzheimer disease Social History Social History Social History: The patient lives at [facility]. She is . The patient occasionally drinks an alcoholic beverage. The patient did have an alcoholic beverage today at the restaurant. She has 5 children . Her poa is the daughter and son. She is retired Code status dnr Smoking status: Never smoker Alcohol intake: never Substance use: never Do You Feel Safe in your Home?: No Lack of Transportation: No Lack of Food: Never True Current Housing: I Have Housing Concerned About Future Housing: No Difficulty Paying Gas/Electric Bills: No Difficulty Paying for Meds: No Currently Unemployed: No Education: Bachelor's Degree Difficulty w/ Childcare or Family Care: No Gender identity (if verbalized by the patient): Female Spiritual care concerns: No Meds Home Medications and Allergies Home Medications ?Medication ?Instructions ?Recorded ?Confirmed ?Type citalopram 40 mg tablet (Celexa) 40 mg PO DAILY 05/26/21 07/26/25 History memantine 10 mg tablet (Namenda) 10 mg PO BID 05/26/21 07/26/25 History montelukast 10 mg tablet 10 mg PO HS 05/26/21 07/26/25 History (Singulair) pantoprazole 40 mg tablet,delayed 40 mg PO DAILY 05/26/21 07/26/25 History release (Protonix) psyllium husk 0.4 gram capsule 1.2 g PO DAILY PRN Loose Stool 05/26/21 07/26/25 History (Metamucil) rosuvastatin 5 mg tablet (Crestor) 5 mg PO HS 05/26/21 07/26/25 History donepezil 10 mg tablet (Aricept) 10 mg PO HS 08/21/22 07/26/25 History mirtazapine 15 mg tablet (Remeron) 15 mg PO HS 08/21/22 07/26/25 History acetaminophen 325 mg capsule 325 mg PO Q6H PRN pain #14 caps 01/01/24 07/26/25 Rx (Tylenol) ibuprofen 400 mg tablet 400 mg PO Q8H PRN pain #14 tabs 01/01/24 07/26/25 Rx cyanocobalamin (vitamin B-12) 1,000 mcg PO DAILY 08/28/24 07/26/25 History 1,000 mcg capsule cholecalciferol (vitamin D3) 25 25 mcg PO DAILY 08/29/24 07/26/25 History mcg (1,000 unit) tablet hydroxyzine HCl 25 mg tablet 25 mg PO TID PRN Anxiety 08/29/24 07/26/25 History ibuprofen 200 mg tablet 200 mg PO BID 08/29/24 07/26/25 History tramadol 50 mg tablet 50 mg PO Q8H PRN Pain 08/29/24 07/26/25 History aspirin 81 mg tablet,delayed 81 mg PO DAILY 07/21/25 07/26/25 History release (Adult Low Dose Aspirin) peg 400-propylene glycol 0.4 %-0.3 1 drp EACH EYE DAILY PRN dry eye(s) 07/21/25 07/26/25 History % eye drops (Lubricant Eye (PG-PEG 400)) Allergies Allergy/AdvReac Type Severity Reaction Status Date / Time Iodinated Contrast Media Allergy Unknown Verified 07/26/25 17:24 Sulfa (Sulfonamide Allergy Unknown Verified 07/26/25 17:24 Antibiotics) sertraline (From Zoloft) AdvReac Nausea and Verified 07/26/25 17:24 Vomiting Vital Signs Vital Signs - 24 hr 07/26/25 14:30 07/26/25 20:00 07/26/25 22:12 Temperature 97.7 F 97.8 F Pulse Rate 60 58 L Respiratory Rate 16 16 Blood Pressure 117/49 L 124/56 L Pulse Oximetry 96 94 Oxygen Delivery Room Air Exam Narrative: AF 97.8 124/56 58 16 94% ra Gen - thin female in no acute respiratory distress who is nontoxic-appearing lying semi recumbent in bed HEENT - normocephalic. Atraumatic. No facial asymmetry. Neck - neck was supple. Chest - lungs are clear to auscultation anteriorly CV - RRR S1/S2 Abd - abdomen was soft. +BS Ext - no pedal edema. RUE DELMY wrapped Neuro - somnolent, cried out at times. Psych - difficult to assess Skin - warm and dry. Assessment and Plan Assessment and plan (1) Admission for hospice care: Code(s): Z51.5 - Encounter for palliative care Status: Acute (2) Severe protein-calorie malnutrition: Code(s): E43 - Unspecified severe protein-calorie malnutrition Status: Acute (3) Dementia: Code(s): F03.90 - Unspecified dementia, unspecified severity, without behavioral disturbance, psychotic disturbance, mood disturbance, and anxiety Status: Acute (4) Supracondylar fracture of humerus: Qualifiers: Encounter type: initial encounter Fracture type: closed Laterality: right Qualified Code(s): S42.411A - Displaced simple supracondylar fracture without intercondylar fracture of right humerus, initial encounter for closed fracture Code(s): S42.413A - Displaced simple supracondylar fracture without intercondylar fracture of unspecified humerus, initial encounter for closed fracture Status: Acute (5) UTI (urinary tract infection): Code(s): N39.0 - Urinary tract infection, site not specified Status: Acute (6) Hypertension: Code(s): I10 - Essential (primary) hypertension Status: Acute (7) Hyperlipidemia: Code(s): E78.5 - Hyperlipidemia, unspecified Status: Acute Plan Patient admitted to Hospice care for pain control and dementia with malnutrition. Morphine drip started. She has morphine and Ativan available as needed. Care plan discussed with POA and is in agreement. Comfort measures. Hospitalist MIPS Advance Care Plan I have confirmed that the patient's Advanced Care Plan is present, code status is documented, or surrogate decision maker is listed in patient medical record.: Yes Medication Reconciliation I have utilized all available resources to obtain, update and review the patients current medications (includes all prescriptions, OTC, herbals, cannabis, and nutritional supplements).: Yes
[2025-07-27 08:00] VITALS: BP 110/62; PULSE 72; RESP 16; O2SAT 92; O2SAT 94
[2025-07-27] MEDS: MORPHINE SULFATE (*CRX) 4 MG/ML INJ 2 MG IV PUSH ×4 (12:04→22:37)
[2025-07-27 19:59] VITALS: RESP 13
[2025-07-27] MEDS: MORPHINE 50 MG/NS 100ML (*CRX) 50 MG/100 ML BAG IV CONT (19:59)
[2025-07-27 21:52] VITALS: BP 142/53; PULSE 65; RESP 16; TEMP 36.7; O2SAT 94
[2025-07-27] MEDS: diazePAM INJ (*CRX) 10 MG/2 ML SYRINGE 2 MG IV PUSH (23:28)
[2025-07-28 08:00] VITALS: BP 136/43; PULSE 64; RESP 18; TEMP 36.3; O2SAT 94
[2025-07-28] MEDS: MORPHINE SULFATE (*CRX) 4 MG/ML INJ 2 MG IV PUSH ×4 (09:03→20:01)
[2025-07-28 10:03] VITALS: RESP 14
--- NOTE | 2025-07-28 13:20 | PM.IMPN ---
Progress Note: A&P Assessment and Plan (1) Admission for hospice care: Code(s): Z51.5 - Encounter for palliative care Status: Acute (2) Severe protein-calorie malnutrition: Code(s): E43 - Unspecified severe protein-calorie malnutrition Status: Acute (3) Dementia: Code(s): F03.90 - Unspecified dementia, unspecified severity, without behavioral disturbance, psychotic disturbance, mood disturbance, and anxiety Status: Acute (4) Supracondylar fracture of humerus: Qualifiers: Encounter type: initial encounter Fracture type: closed Laterality: right Qualified Code(s): S42.411A - Displaced simple supracondylar fracture without intercondylar fracture of right humerus, initial encounter for closed fracture Code(s): S42.413A - Displaced simple supracondylar fracture without intercondylar fracture of unspecified humerus, initial encounter for closed fracture Status: Acute (5) UTI (urinary tract infection): Code(s): N39.0 - Urinary tract infection, site not specified Status: Acute (6) Hypertension: Code(s): I10 - Essential (primary) hypertension Status: Acute (7) Hyperlipidemia: Code(s): E78.5 - Hyperlipidemia, unspecified Status: Acute Plan Patient admitted to Hospice care for pain control and dementia with malnutrition. Morphine drip started. She has morphine and diazepam available as needed. Will add scheduled diazepam to see if this improves her anxiety and calling out. Care plan discussed with family in the room and is in agreement. Advance morphine drip if she continues to exhibit pain. Code status - DNR Comfort measures. Subjective Date/time seen: 07/28/25 13:20 Interval history: 89yo female with dementia, HTN, HLD, chronic thrombocytopenia and depression who original presented on 07/21/25 for right arm pain after a ground level fall from a wheelchair now admitted for failure to thrive and for pain control to hospice care. Patient alert but confused and unable to provide hx. Family in the room and state patient has been cying out but not sure if related to pain or anxiety. Review of Systems Review of Systems: ROS unobtainable: Yes unobtainable due to mental status Exam Narrative: AF97.4 136/43 64 14 94% ra Gen - NARD Chest - lungs are clear anteriorly CV - RRR S1/S2 Abd - soft. +BS Ext - no pedal edema. RUE DELMY wrapped Neuro - awake. calm Skin - warm and dry. Objective Data Vital Signs Vital Signs: Vital Signs - 24 hr 07/27/25 19:59 07/27/25 19:59 07/27/25 20:00 Temperature Pulse Rate Respiratory Rate 13 13 Blood Pressure Pulse Oximetry Oxygen Delivery Room Air 07/27/25 21:52 07/28/25 08:00 07/28/25 10:03 Temperature 98.0 F 97.4 F L Pulse Rate 65 64 Respiratory Rate 16 18 14 Blood Pressure 142/53 H 136/43 L Pulse Oximetry 94 94 Oxygen Delivery Room Air Intake/Output Intake/Output: Intake & Output 07/25/25 07/26/25 07/27/25 07/28/25 23:59 23:59 23:59 23:59 Intake Total 52.5 Output Total 1100 400 Balance -1047.5 -400 Meds/Results Medications: Active Medications Generic Name Dose Route Start Last Admin Trade Name Freq PRN Reason Stop Dose Admin Acetaminophen 650 mg 07/26/25 16:33 Acetaminophen 650 Mg Suppository RECTAL Q6H PRN Mild Pain (1-3) or Fever Bisacodyl 10 mg 07/26/25 16:33 Bisacodyl 10 Mg Suppository RECTAL QAM PRN Constipation Citalopram Hydrobromide 40 mg 07/28/25 09:00 07/28/25 10:08 Citalopram Hydrobromide 20 Mg Tablet PO Not Given DAILY TIFFANI Diazepam 2 mg 07/26/25 23:04 07/27/25 23:28 Diazepam Inj (*Crx) 10 Mg/2 Ml Syringe IV PUSH 2 mg Q2HR PRN Administration Anxiety Hyoscyamine 0.125 mg 07/26/25 16:30 Hyoscyamine Sulfate 0.125 Mg Tablet PO Q4H PRN Secretions Morphine Sulfate 50 mg in 100 mls @ 2 mls/hr 07/26/25 16:30 07/27/25 19:59 IV CONT 1 mg/hr .Q24H TIFFANI 2 mls/hr 1 MG/HR Administration Mirtazapine 15 mg 07/27/25 21:00 07/27/25 21:40 Mirtazapine 15 Mg Tablet PO Not Given HS TIFFANI Morphine Sulfate 2 mg 07/27/25 07:04 07/28/25 11:44 Morphine Sulfate (*Crx) 4 Mg/Ml Inj IV PUSH 2 mg Q2H PRN Administration Breakthrough Pain
[2025-07-28] MEDS: HYOSCYAMINE SULFATE 0.125 MG TABLET PO ×2 (13:31→17:24)
[2025-07-28] MEDS: diazePAM INJ (*CRX) 10 MG/2 ML SYRINGE 2 MG IV PUSH ×2 (13:32→21:41)
[2025-07-28 15:09] VITALS: RESP 14
[2025-07-28 21:18] VITALS: BP 135/54; PULSE 79; RESP 16; TEMP 37.2; O2SAT 94
[2025-07-28] MEDS: MORPHINE 50 MG/NS 100ML (*CRX) 50 MG/100 ML BAG IV CONT (21:38)
[2025-07-29] MEDS: diazePAM INJ (*CRX) 10 MG/2 ML SYRINGE 2 MG IV PUSH ×3 (02:39→08:55)
[2025-07-29] MEDS: MORPHINE SULFATE (*CRX) 4 MG/ML INJ 2 MG IV PUSH ×2 (02:39→07:42)
[2025-07-29] MEDS: SCOPOLAMINE 1 MG PATCH 1 PATCH TRANSDERM (08:52)
--- NOTE | 2025-07-29 12:40 | P.DN_ITS ---
Discharge Summary Date and Time Date of : 07/29/25 Time of : 11:07 Provider Pronounced By: 2 RNs Name of First RN That Pronounced: Nailni Kinney RN Name of Second RN That Pronounced: Kain Ibrahim RN Probable Cause of Probable Cause of : Failure to thrive, dementia Summary Hospital Course: 89yo female with dementia, HTN, HLD, chronic thrombocytopenia and depression who original presented on 07/21/25 for right arm pain after a ground level fall from a wheelchair. Head CT showing no acute process. Right elbow xray showing acute displaces supracondylar fracture. UA was consistent with UTI and UCx grew che- sensitive pseudomonas. She was on ampicillin given prior culture results and Rocephin but changed to levofloxacin (she actually never received a dose of levofloxacin). Orthopedics was consulted and recommended possible transfer to a tertiary care center for an orthopedic surgical consult from a comfort standpoint. They also discussed hospice with family. The daughter wanted to proceed with hospice care. Patient has been eating 5-10% of meals. Patient was transferred to hospice care. Patient was started on a morphine drip for pain control and scheduled benzodiazepines for apparent anxiety. She was kept comfortable. Family at the bedside. She peacefully on 07/29/25. Additional Data Confirmation of as documented by pronouncing clinician: Pupillary Reflex, Palpable Pulses, Response to Stimuli, Heart Tones and Breath Sounds Name of Provider Notified: Dr. Paulino Time Provider Notified: 11:12 Provider Requests Autopsy: No Family Requests Autopsy: No Business Integration Manager Notified: Yes Date [facility] Notified of : 07/29/25 Time [facility] Notified of : 11:28
== END 2025-07-29 11:07 | disposition expired | DRG 951 ==
PROVIDERS: Admitting Provider Internal Medicine; PCP Nurse Practitioner Family; Visit Provider Internal Medicine
DX: Z51.5 Encounter for palliative care (principal); E43 Unspecified severe protein-calorie malnutrition; N39.0 Urinary tract infection, site not specified; S42.411D Displaced simple supracondylar fracture without intercondylar fracture of right humerus, subsequent encounter for fracture with routine healing; F03.90 Unspecified dementia, unspecified severity, without behavioral disturbance, psychotic disturbance, mood disturbance, and anxiety; I10 Essential (primary) hypertension; E78.5 Hyperlipidemia, unspecified; E03.9 Hypothyroidism, unspecified; D69.6 Thrombocytopenia, unspecified; F32.A Depression, unspecified; F41.9 Anxiety disorder, unspecified; W05.0XXD Fall from non-moving wheelchair, subsequent encounter; Z66 Do not resuscitate
CPT/HCPCS: A9270; J2270; J3360